=== PATIENT | female | born 1950 | race Caucasian/White ===

== ENCOUNTER 2017-08-10 14:28 | Inpatient (IN) | payer MEDICARE, OTHER, SELFPAY ==
[2017-08-10] VITALS (19 sets, daily range): BP systolic 92–119; BP diastolic 64–85; PULSE 112–149; RESP 14–20; TEMP 35.8–37.1; O2SAT 95–99; BMI 42.5; BMI 42.6; BMI 42.0
--- NOTE | 2017-08-10 14:46 | EKG12_ITS ---
Test Reason : SOB Blood Pressure : / mmHG Vent. Rate : 152 BPM Atrial Rate : 174 BPM P-R Int : 000 ms QRS Dur : 100 ms QT Int : 256 ms P-R-T Axes : 000 050 091 degrees QTc Int : 407 ms Atrial fibrillation Nonspecific T wave abnormality Abnormal ECG Confirmed by BENITA BARRERA, GERI ([id number]), editorial project manager TON AVILA ([id number]) on 08/16/2017 8:57:42 AM Referred By: ROSIE/FRANCIA Confirmed By:GERI JOY MD
--- NOTE | 2017-08-10 14:50 | RAD_ITS ---
STUDY: X-RAY CHEST REASON FOR EXAM: Female, 67 years old. Chest pain. Shortness of breath. TECHNIQUE: Single AP portable view of the chest. COMPARISON: Comparison is made with prior study dated February 27, 2013. FINDINGS: EKG electrodes are seen. Mild increased markings at the lung bases with blunting of both costophrenic angles suggestive of bibasilar atelectasis. Sternal cerclage wires and vascular clips are present from a prior sternotomy and coronary artery bypass graft procedure (CABG). Cardiomegaly. Normal mediastinum and álvaro. Normal visualized pulmonary arteries. There is atherosclerotic calcification of the aortic arch with tortuosity. There are diffuse degenerative changes of the visualized thoracic spine. There is degenerative osteoarthritis of the bilateral shoulders. There is no demonstrated abnormality of the visualized soft tissue structures of the upper abdomen. RAD/Chest 1 View (Portable) IMPRESSION: Mild increased markings at the lung bases with blunting of both costophrenic angles. Follow-up is recommended. Electronically Signed: Delfino Carey MD at 15:19 EDT Tel [phone], Service support ,
--- NOTE | 2017-08-10 14:51 | ED.VISSUMM ---
- ER Visit Summary Date of Service: 08/10/17 Chief Complaint: Shortness of breath and cough History of Present Illness: The patient is a 67 F of breath and a cough approximately a week. She has had a prior triple bypass done in 2011. Also a known history of mfw-qfbshic-cnmmymhns diabetes, hypertension, asthma. She denies any history prior A. fib. Patient states he has been short of breath for about a week. Denies any chest pain or hemoptysis. She has had a nonproductive cough and some diarrhea. No fever. Physical Examination: Older female no acute distress. Heart rate is 130s-150s. Pulse ox 99% room air no signs of hypoxia. HEENT exam is unremarkable. Neck nontender no JVD no lymphadenopathy. Lungs clear to auscultation bilaterally. Heart A. fib RVR rate in the 150s. Abdomen is soft and nontender. Normal bowel sounds no peritoneal signs. Extremities she moves all 4. She has 1+ pitting edema both lower extremities. Calves are nontender. She has chronic edema but states this is worse. Neurologically she is awake and alert and moving all 4 extremities. No focal motor deficits. Test Results: EKG shows new onset A. fib RVR with a rate of 152. Nonspecific ST-T changes laterally. CBC she is awake and 11 H&H 13 and 42. Electrolytes unremarkable BUN 32 creatinine 1.2 normal gap. PT/INR is 15 and 1.2. Troponin normal. Chest x-ray chronic changes no acute process read both by myself and the radiologist. Emergency Department Course and Treatment: Patient has new onset A. fib RVR want to go a cardiac workup and will need to be admitted. She will be treated with IV Cardizem. Treatment Plan: Well at 1543. Her current heart rates 110 still in A. fib. Her blood pressure is 100/81. She is resting comfortably. I will speak to hospitalist about admission. Disposition: Admission Impression: New-onset A. fib RVR Dyspnea History of triple bypass 2011 History of tqh-jyiimpp-sdotxgxtp diabetes This note was generated with [employer] dictation software. It may contain incorrect words, spelling, and punctuation that were not noted in review of the chart prior to signing ED Disposition - Plan for ED Patient: Chief Complaint: Shortness of Breath Referrals: Yaya Centeno DO [Primary Care Provider] -
--- NOTE | 2017-08-10 14:56 | ED.DCSUM_ITS ---
- ER Visit Summary Date of Service: 08/10/17 Chief Complaint: Shortness of breath and cough History of Present Illness: The patient is a 67 F of breath and a cough approximately a week. She has had a prior triple bypass done in 2011. Also a known history of cfn-euehuan-yxmrddcus diabetes, hypertension, asthma. She denies any history prior A. fib. Patient states he has been short of breath for about a week. Denies any chest pain or hemoptysis. She has had a nonproductive cough and some diarrhea. No fever. Physical Examination: Older female no acute distress. Heart rate is 130s-150s. Pulse ox 99% room air no signs of hypoxia. HEENT exam is unremarkable. Neck nontender no JVD no lymphadenopathy. Lungs clear to auscultation bilaterally. Heart A. fib RVR rate in the 150s. Abdomen is soft and nontender. Normal bowel sounds no peritoneal signs. Extremities she moves all 4. She has 1+ pitting edema both lower extremities. Calves are nontender. She has chronic edema but states this is worse. Neurologically she is awake and alert and moving all 4 extremities. No focal motor deficits. Test Results: EKG shows new onset A. fib RVR with a rate of 152. Nonspecific ST -T changes laterally. CBC she is awake and 11 H&H 13 and 42. Electrolytes unremarkable BUN 32 creatinine 1.2 normal gap. PT/INR is 15 and 1.2. Troponin normal. Chest x-ray chronic changes no acute process read both by myself and the radiologist. Emergency Department Course and Treatment: Patient has new onset A. fib RVR want to go a cardiac workup and will need to be admitted. She will be treated with IV Cardizem. Treatment Plan: Well at 1543. Her current heart rates 110 still in A. fib. Her blood pressure is 100/81. She is resting comfortably. I will speak to hospitalist about admission. Disposition: Admission Impression: New-onset A. fib RVR Dyspnea History of triple bypass 2011 History of rkc-ensuswq-dospqfbbx diabetes This note was generated with [employer] dictation software. It may contain incorrect words, spelling, and punctuation that were not noted in review of the chart prior to signing ED Disposition - Plan for ED Patient: Chief Complaint: Shortness of Breath Referrals: Yaya Centeno DO [Primary Care Provider] -
[2017-08-10] MEDS: Aspirin 81 MG TAB.CHEW 324 MG PO (14:58)
[2017-08-10] MEDS: dilTIAZem 25 MG/5 ML Vial IV BOLUS (14:59)
[2017-08-10 15:12] LABS: Absolute Lymphocyte Count 2.34 X10^3/ul (0.83-4.51); Absolute Neutrophil Count 8.1 X10^3/uL (2.0-7.7); Basophil# 0.04 X10^3/uL; Basophil% 0.4 % (0-1); Eosinophil# 0.06 X10^3/uL; Eosinophils% 0.5 % (0-5); Hematocrit 42.9 % (37-47); Hemoglobin 13.9 g/dl (12.0-15.0); Lymphocyte # 2.34 X10^3/ul (4.0); Lymphocyte % 20.5 % (19-41); Mean Corp Hgb Conc 32.4 g/gl (32-36); Mean Corpuscular Volume 95.8 fL (81-99); Mean Platelet Vol. 11.7 fl (6.2-12.0); Monocyte# 0.87 X10^3/uL; Monocyte% 7.6 % (0-10); Neutrophil # 8.07 X10^3/uL (2.7-7.7); Neutrophil % 70.7 % (47-70); POSITIVE COUNT NO; POSITIVE DIFFERENTIAL NO; POSITIVE MORPHOLOGY NO; Platelet Count 242 K/mm3 (150-450); RBC Distribution Width CV 14.2 % (11.6-14.6); RBC Distribution Width SD 49.3 fl (35.1-43.9); Red Blood Count 4.48 M/mm3 (4.2-5.4); White Blood Count 11.4 K/mm3 (4.4-11.0)
[2017-08-10 15:27] LABS: BUN 32 mg/dL (7-18); Glucose 181 mg/dL (74-106)
[2017-08-10 15:28] LABS: Anion Gap 10 (5-15); BUN/Creat Ratio 26.7 RATIO (10-20); Chloride 109 mmol/L (98-107); EST Glomerular Filtration Rate 47 mL/min (>60); Est Glom Filt Rate - Afr Amer 57 mL/min (>60); Potassium 4.4 mmol/L (3.5-5.1); Sodium Level 141 mmol/L (136-145)
[2017-08-10 15:29] LABS: International Normalized Ratio 1.2; Prothrombin Time (Protime)PT. 15.6 SECONDS (11.7-14.9)
--- NOTE | 2017-08-10 15:40 | CM.ED ---
Addendum entered by Brittany Campoverde 08/10/17 15:48: Patient states she does not have a living will / POA and denies information and assistance at this time. Original Note: CM Initial Assessment: PCP: Yaya Centeno. Patient states she sees PCP every six months. Specialists: Patient states she does not have an automobile technician. Sees podiatry for nail trimming. Pharmacy: [facility] Home: Patient states she lives in a one story home with three steps into home. Patient denies use of DME and does not foresee need. She lives with her . The patient states her has oxygen through [employer], but she has never needed home oxygen. She also denies ever having home health services. Other: Patient states she has all diabetes supply needs and denies problems with obtaining such materials. CM to continue to follow as plan unveils.
--- NOTE | 2017-08-10 16:06 | NURSING ---
105 AFIB RVR NEW ONSET DAVID
--- NOTE | 2017-08-10 16:33 | PCM.HP.STD ---
Problem List (1) New onset a-fib Status: Acute Comment: with RVR (2) Bronchitis Status: Acute Comment: mild bronchospasm (3) CHERISE (obstructive sleep apnea) Status: Chronic (4) HTN (hypertension) Status: Chronic Qualifiers: Hypertension type: essential hypertension Qualified Code(s): I10 - Essential (primary) hypertension (5) Hx of CABG Status: Chronic (6) Hyperlipemia Status: Chronic Qualifiers: Hyperlipidemia type: mixed hyperlipidemia Qualified Code(s): E78.2 - Mixed hyperlipidemia (7) Diabetes mellitus Status: Chronic Qualifiers: Diabetes mellitus type: type 2 Diabetes mellitus residential insulin use: without residential use Diabetes mellitus complication detail: with chronic kidney disease Chronic kidney disease stage: stage 3 (moderate) History of Present Illness Date of Admission: 08/10/17 Chief Complaint: dyspnea The patient is a 67 year old F past medical history of obesity, hypertension, diabetes mellitus 2 on oral agents, CAD status post remote CABG ?3, who was referred from urgent care for evaluation of dyspnea without hypoxemia. She has had wheezing and a cough for the past few days. She was not using her home inhalers. She denies chest pain, nausea vomiting diarrhea, syncope, presyncope, pleuritic pain, leg pain, fevers chills nausea vomiting diarrhea. ED Evaluation: Afebrile, heart rate 130s-150s irregularly irregular, blood pressure 119/75, respirations 20, 99% RA Course are pertinent for elevated white count 11.4, otherwise unrevealing, INR 1.2, chemistries acceptable with creatinine 1.2, estimated creatinine clearance 47 mL's per minute, random glucose 181, troponin less than 0.2 EKG revealed atrial fibrillation at 152, nonspecific changes, new compared with EKG 12/2013 Chest x-ray revealed bibasilar markings, suggestive of atelectasis, no other infiltrate Received aspirin 324 mg p.o. ?1, and diltiazem 25 mg IV. Heart rate remains variable between 90s and 120s. The patient is in no acute distress, and will be admitted to PCU for further management of bronchitis with bronchospasm, and new onset A. fib RVR. [id number] score = 4. Patient has no contraindication to anticoagulation [] Past Medical History Past Medical History (Chronic Problems): Chronic Problems Obesity (Chronic) CHERISE (obstructive sleep apnea) (Chronic) HTN (hypertension) (Chronic) Hx of CABG (Chronic) Hyperlipemia (Chronic) Diabetes mellitus (Chronic) Allergies No Known Allergies Allergy (Verified 08/10/17 14:29) Home Medications: Ambulatory Orders Medication Instructions Recorded Metformin(XR) [Glucophage Xr] 850 mg PO BID 02/27/13 Simvastatin [Zocor] 40 mg PO QHS 02/27/13 Albuterol Inhaler [Ventolin Hfa] 2 puff INHALATION 4X/DAY PRN PRN 12/19/13 Amlodipine [Norvasc] 5 mg PO DAILY 12/19/13 Aspirin [Aspirin, Baby] 81 mg PO DAILY@0800 12/19/13 Glimepiride 1 mg PO BREAKFAST 12/19/13 Losartan Potassium [Cozaar] 50 mg PO BID 12/19/13 Metoprolol Tartrate [Lopressor 50 mg PO BID 12/19/13 (beta jessica)] Mometasone Furoate [Asmanex 110 110 mcg INHALATION BID 12/19/13 mcg Twisthaler] Surgical History: cholecystectomy, coronary bypass surgery, hysterectomy - Total hysterectomy, - - Coronary artery bypass grafting x3 Smoking Status: Never smoker - *Family History Paternal History Items: Cancer Maternal History Items: COPD Review of Systems Respiratory: Reports: Shortness of breath upon exertion, Wheezing VTE Information - Inpt Only VTE Present on Admission: No VTE Mechan Device Prophylaxis: SCD's VTE Pharm Prophylaxis ordered?: No Reason prophylaxis not ordered:: Medical Contraindication - already anticoagulated Patient Problems: Active and Suspected Problems New onset a-fib (Acute) with RVR Bronchitis (Acute) mild bronchospasm Objective: NAD no toxic appearing - Physical Exam General: Oriented x3 HEENT: Atraumatic, PERRLA Oral: Moist Mucosa, - - dentition fair Neck: No JVD, Negative Carotid Bruits, Thyroid Normal Size and Texture Lungs: Wheezes - faint Cardiovascular: Irregular Rate, Tachycardic Abdomen: Soft, Non Tender, Non-Distended, Obese Extremities: No clubbing, Edema, Peripheral Pulses Normal Neurological: - - nonfocal Psych/Mental Status: Normal Affect, Appropriate Vital Signs Temp Pulse Resp BP Pulse Ox 96.5 F L 112 H 14 115/85 H 99 08/10/17 14:30 08/10/17 16:09 08/10/17 16:09 08/10/17 16:09 08/10/17 16:09 Assessment/Plan Active and Suspected Problems New onset a-fib (Acute) with RVR Bronchitis (Acute) mild bronchospasm 67-year-old patient with past medical history of CAD, CABG ?3, NIDDM, hypertension, obesity, CHERISE, mild persistent asthma, who is referred from urgent care for dyspnea, mild cough with wheeze, without hypoxemia, and is found to have new onset A. fib RVR with mild bronchitis/bronchospasm. Patient reports she has not used her inhalers. She denies chest pain, pleuritic pain, leg pain, syncope, presyncope, orthopnea, PND. 1. New onset atrial fibrillation RVR In the setting of hypertension/hypertensive heart disease likely, diabetes, obesity [id number] = 4 PLAN: Admit PCU TSH Serial cardiac biomarkers, telemetry monitoring Diltiazem drip protocol Holding metoprolol Xarelto 15 mg twice daily ?21 days, then decrease to 20 mg daily Echocardiogram Cardiology opinion 2. Bronchitis with bronchospasm Underlying mild persistent asthma Has had cough chronically off and on since her bypass surgery Light wheezing on examination bibasilar atelectasis on CXR Was not using her prescribed Asmanex or Ventolin Plan: Albuterol aerosol every 4 hours as needed Prednisone 40 mg daily ?5 days Robitussin-DM as needed, Mucinex, Cepacol 3. NIDDM, premorbidly on Glucophage, Amaryl Holding Amaryl and Glucophage NovoLog scale moderate before meals, at bedtime 4. Hypertension Continue losartan, amlodipine Holding metoprolol, as patient will be on diltiazem drip 5. CHERISE 6. DVT prophy - already anticoagulated
--- NOTE | 2017-08-10 16:45 | HP.PCM_ITS ---
Problem List (1) New onset a-fib Status: Acute Comment: with RVR (2) Bronchitis Status: Acute Comment: mild bronchospasm (3) CHERISE (obstructive sleep apnea) Status: Chronic (4) HTN (hypertension) Status: Chronic Qualifiers: Hypertension type: essential hypertension Qualified Code(s): I10 - Essential (primary) hypertension (5) Hx of CABG Status: Chronic (6) Hyperlipemia Status: Chronic Qualifiers: Hyperlipidemia type: mixed hyperlipidemia Qualified Code(s): E78.2 - Mixed hyperlipidemia (7) Diabetes mellitus Status: Chronic Qualifiers: Diabetes mellitus type: type 2 Diabetes mellitus alf insulin use: without alf use Diabetes mellitus complication detail: with chronic kidney disease Chronic kidney disease stage: stage 3 (moderate) History of Present Illness Date of Admission: 08/10/17 Chief Complaint: dyspnea The patient is a 67 year old F past medical history of obesity, hypertension, diabetes mellitus 2 on oral agents, CAD status post remote CABG ?3, who was referred from urgent care for evaluation of dyspnea without hypoxemia. She has had wheezing and a cough for the past few days. She was not using her home inhalers. She denies chest pain, nausea vomiting diarrhea, syncope, presyncope , pleuritic pain, leg pain, fevers chills nausea vomiting diarrhea. ED Evaluation: Afebrile, heart rate 130s-150s irregularly irregular, blood pressure 119/75, respirations 20, 99% RA Course are pertinent for elevated white count 11.4, otherwise unrevealing, INR 1.2, chemistries acceptable with creatinine 1.2, estimated creatinine clearance 47 mL's per minute, random glucose 181, troponin less than 0.2 EKG revealed atrial fibrillation at 152, nonspecific changes, new compared with EKG 12/2013 Chest x-ray revealed bibasilar markings, suggestive of atelectasis, no other infiltrate Received aspirin 324 mg p.o. ?1, and diltiazem 25 mg IV. Heart rate remains variable between 90s and 120s. The patient is in no acute distress, and will be admitted to PCU for further management of bronchitis with bronchospasm, and new onset A. fib RVR. [id number] score = 4. Patient has no contraindication to anticoagulation [] Past Medical History Past Medical History (Chronic Problems): Chronic Problems Obesity (Chronic) CHERISE (obstructive sleep apnea) (Chronic) HTN (hypertension) (Chronic) Hx of CABG (Chronic) Hyperlipemia (Chronic) Diabetes mellitus (Chronic) Allergies No Known Allergies Allergy (Verified 08/10/17 14:29) Home Medications: Ambulatory Orders Medication Instructions Recorded Metformin(XR) [Glucophage Xr] 850 mg PO BID 02/27/13 Simvastatin [Zocor] 40 mg PO QHS 02/27/13 Albuterol Inhaler [Ventolin Hfa] 2 puff INHALATION 4X/DAY PRN PRN 12/19/13 Amlodipine [Norvasc] 5 mg PO DAILY 12/19/13 Aspirin [Aspirin, Baby] 81 mg PO DAILY@0800 12/19/13 Glimepiride 1 mg PO BREAKFAST 12/19/13 Losartan Potassium [Cozaar] 50 mg PO BID 12/19/13 Metoprolol Tartrate [Lopressor 50 mg PO BID 12/19/13 (beta jessica)] Mometasone Furoate [Asmanex 110 110 mcg INHALATION BID 12/19/13 mcg Twisthaler] Surgical History: cholecystectomy, coronary bypass surgery, hysterectomy - Total hysterectomy, - - Coronary artery bypass grafting x3 Smoking Status: Never smoker - *Family History Paternal History Items: Cancer Maternal History Items: COPD Review of Systems Respiratory: Reports: Shortness of breath upon exertion, Wheezing VTE Information - Inpt Only VTE Present on Admission: No VTE Mechan Device Prophylaxis: SCD's VTE Pharm Prophylaxis ordered?: No Reason prophylaxis not ordered:: Medical Contraindication - already anticoagulated Patient Problems: Active and Suspected Problems New onset a-fib (Acute) with RVR Bronchitis (Acute) mild bronchospasm Objective: NAD no toxic appearing - Physical Exam General: Oriented x3 HEENT: Atraumatic, PERRLA Oral: Moist Mucosa, - - dentition fair Neck: No JVD, Negative Carotid Bruits, Thyroid Normal Size and Texture Lungs: Wheezes - faint Cardiovascular: Irregular Rate, Tachycardic Abdomen: Soft, Non Tender, Non-Distended, Obese Extremities: No clubbing, Edema, Peripheral Pulses Normal Neurological: - - nonfocal Psych/Mental Status: Normal Affect, Appropriate Vital Signs Temp Pulse Resp BP Pulse Ox 96.5 F L 112 H 14 115/85 H 99 08/10/17 14:30 08/10/17 16:09 08/10/17 16:09 08/10/17 16:09 08/10/17 16:09 Assessment/Plan Active and Suspected Problems New onset a-fib (Acute) with RVR Bronchitis (Acute) mild bronchospasm 67-year-old patient with past medical history of CAD, CABG ?3, NIDDM, hypertension, obesity, CEHRISE, mild persistent asthma, who is referred from urgent care for dyspnea, mild cough with wheeze, without hypoxemia, and is found to have new onset A. fib RVR with mild bronchitis/bronchospasm. Patient reports she has not used her inhalers. She denies chest pain, pleuritic pain, leg pain , syncope, presyncope, orthopnea, PND. 1. New onset atrial fibrillation RVR In the setting of hypertension/hypertensive heart disease likely, diabetes, obesity [id number] = 4 PLAN: Admit PCU TSH Serial cardiac biomarkers, telemetry monitoring Diltiazem drip protocol Holding metoprolol Xarelto 15 mg twice daily ?21 days, then decrease to 20 mg daily Echocardiogram Cardiology opinion 2. Bronchitis with bronchospasm Underlying mild persistent asthma Has had cough chronically off and on since her bypass surgery Light wheezing on examination bibasilar atelectasis on CXR Was not using her prescribed Asmanex or Ventolin Plan: Albuterol aerosol every 4 hours as needed Prednisone 40 mg daily ?5 days Robitussin-DM as needed, Mucinex, Cepacol 3. NIDDM, premorbidly on Glucophage, Amaryl Holding Amaryl and Glucophage NovoLog scale moderate before meals, at bedtime 4. Hypertension Continue losartan, amlodipine Holding metoprolol, as patient will be on diltiazem drip 5. CHERISE 6. DVT prophy - already anticoagulated
[2017-08-10 18:01] LABS: Bedside Glucose 94 mg/dL (70-110)
[2017-08-10] MEDS: Metoprolol Tartrate 5 MG/5 ML Vial IV ×4 (18:58→22:48)
[2017-08-10] MEDS: predniSONE 20 MG Tablet 40 MG PO (18:58)
[2017-08-10] MEDS: 0.9% NaCl Peripheral Flush Adult/Peds IV ×2 (18:58→22:48)
[2017-08-10] MEDS: guaiFENesin Dm 10 ML UDC PO (18:58)
--- NOTE | 2017-08-10 19:02 | CON.PCM_ITS ---
Reason for Consult Date of Consultation: 08/10/17 Reason for Consultation: Shortness of breath and irregular heartbeat. History of Present Illness: The patient is a 67 year old F's medical history significant for coronary artery bypass surgery in 2011 as well as hypertension obesity who has not followed up with a chief merchandising officer since her bypass surgery. She says that she had not been feeling well over the last week or 2 felt she had a cold and went to the urgent care today. She was evaluated there and noted to be in atrial fibrillation with rapid ventricular response rate and she was sent to the emergency room. In the emergency room she was noted to have stable vitals but with a heart rate of 140 bpm and irregular she was treated with intravenous Cardizem and an admission order placed and sent to the progressive care unit. Cardiology was called for further evaluation and management. She denies any chest pain but she has had shortness of breath and chronic pedal edema. She also has had a cough no dizziness or diaphoresis no near syncope or syncope. [] Past Medical History Allergies/Adverse Reactions: Allergies No Known Allergies Allergy (Verified 08/10/17 14:29) Home Medications: Ambulatory Orders Medication Instructions Recorded Metformin(XR) [Glucophage Xr] 850 mg PO BID 02/27/13 Simvastatin [Zocor] 40 mg PO QHS 02/27/13 Albuterol Inhaler [Ventolin Hfa] 2 puff INHALATION 4X/DAY PRN PRN 12/19/13 Amlodipine [Norvasc] 5 mg PO DAILY 12/19/13 Aspirin [Aspirin, Baby] 81 mg PO DAILY@0800 12/19/13 Glimepiride 1 mg PO BREAKFAST 12/19/13 Losartan Potassium [Cozaar] 50 mg PO BID 12/19/13 Metoprolol Tartrate [Lopressor 50 mg PO BID 12/19/13 (beta jessica)] Mometasone Furoate [Asmanex 110 110 mcg INHALATION BID 12/19/13 mcg Twisthaler] Past Medical History (Chronic Problems): Chronic Problems Obesity (Chronic) CHERISE (obstructive sleep apnea) (Chronic) HTN (hypertension) (Chronic) Hx of CABG (Chronic) Hyperlipemia (Chronic) Diabetes mellitus (Chronic) Surgical History: cholecystectomy, coronary bypass surgery, hysterectomy - Total hysterectomy, - - Coronary artery bypass grafting x3 - *Family History Paternal History Items: Cancer Maternal History Items: COPD Smoking Status: Never smoker Alcohol: None Drugs: None Review of Systems - Review of Systems General: Denies: Fever, Night Sweats, Fatigue Cardiovascular: Reports: Peripheral Edema. Denies: Chest Discomfort, Shortness of Breath, Orthopnea, PND, Palpitations, Lightheadedness, Dizziness, Near Syncope, Syncope Respiratory: Reports: Cough. Denies: Sputum Production, Hemoptysis Gastrointestinal: Denies: Hematemesis, Hematochezia, Melena Genitourinary: Denies: Dysuria, Hematuria Skin: Denies: Rash Subjectve: Middle-aged lady in mild respiratory distress Objective: Vital Signs Temp Pulse Resp BP Pulse Ox 98.8 F 144 H 18 98/74 99 08/10/17 17:51 08/10/17 18:00 08/10/17 17:51 08/10/17 17:51 08/10/17 17:51 Oxygen Delivery Method Room Air Weight: 237 lb 3.478 oz Body Mass Index (BMI) 42.0 General: Awake, Alert, Oriented x 3, Obese HEENT: PERRL, EOMI, Sclera Non Icteric Neck: Supple, Good ROM, No Lymph Node Enlargement Lungs: Expiratory Wheezes-Richard Cardiovascular: Irregular Rhythm, Normal S1, Normal S2, No Murmurs, No Rubs, No Gallops Vascular: No Carotid Bruits, Normal Femoral Pulses, Normal Radial Pulses, Normal Dorsalis Pedal Pulse, Normal Posterior Tibial Pulses Abdomen: Bowel Sounds Present, Soft, Non Tender, No HSM, No Organomegaly Extremities: No Cyanosis, No Clubbing, No edema, Bilateral Edema +1 Neurological: No Focal Motor or Sensory Deficit Rhythm: EKG: Atrial fibrillation with a rapid ventricular response rate of 143 bpm. Assessment/Plan 1. Atrial fibrillation with a rapid ventricular response rate duration unknown. She presents with palpitations and is noted to be in atrial for ablation with rapid ventricular response rate. The exact duration is unknown at this time. I do agree that with her elevated chads vascular score she should be anticoagulated and her rate controlled. She has previously been on a beta- jessica and with a shortage of Cardizem my recommendation would be to put her on IV metoprolol 5 mg every 5 minutes and start her on the p.o. An echocardiogram should be performed to assess her left ventricular function. Further recommendations will be to made depending on the results of the above. 2. Coronary artery disease. She is status post coronary bypass surgery. She has not followed up with any chief merchandising officer and after she has been evaluated for atrial fibrillation it may be prudent to obtain a pharmacologic myocardial perfusion stress test to exclude any ischemia. 3. Hypertension Blood pressure appears to be under good control on the current medical therapy and no other major changes will be made. 4. Congestive heart failure-diastolic. Acute This is likely secondary to the atrial fibrillation with a rapid ventricular response rate. Ischemia however cannot be completely excluded.Recommendation will be to obtain a natruretic peptide and then diurese her and obtain the echocardiogram. Recommendations will then be made. Thank you for allowing me to participate in the care of your patient. Please don't hesitate to call if any issues arise
[2017-08-10] MEDS: Furosemide 40 MG/4 ML Vial IV (19:51)
[2017-08-10 20:21] LABS: BNP,B-Type NATRIURETIC PEPTIDE 505.8 pg/mL (0-100)
[2017-08-10 20:36] LABS: Thyroid Stim Hormone (TSH) 6.76 uIU/mL (0.358-3.74)
[2017-08-10] MEDS: guaiFENesin 600 MG Tablet PO (21:33)
[2017-08-10] MEDS: Rivaroxaban 20 MG Tablet 15 MG PO (21:33)
[2017-08-10] MEDS: Metoprolol Tartrate 50 MG Tablet PO (21:34)
[2017-08-10] MEDS: Atorvastatin Calcium 20 MG Tablet PO (21:35)
[2017-08-10 22:46] LABS: Bedside Glucose 183 mg/dL (70-110)
[2017-08-11] VITALS (44 sets, daily range): BP systolic 92–127; BP diastolic 30–97; PULSE 78–137; RESP 18–33; TEMP 35.9–36.9; O2SAT 94–100
[2017-08-11] MEDS: 0.9% NaCl Peripheral Flush Adult/Peds IV ×3 (01:20→20:41)
--- NOTE | 2017-08-11 05:55 | ECHOD_ITS ---
Version 2 Reason For Study: A. fib/flutter Procedure This was a 2D Doppler, Color Flow transthoracic echocardiogram. Exam performed portable in patient room. Left Ventricle Normal LV size. Severe global left ventricular systolic dysfunction. The estimated ejection fraction is 20 %. Unable to assess diastolic dysfunction. There is moderate to severe global hypokinesis of the left ventricle. Right Ventricle Normal RV size. Normal systolic function. Atria The left atrium is moderately enlarged. Normal right atrium. Mitral Valve Normal mitral valve. Moderate (2+) eccentric mitral valve insufficiency. Tricuspid Valve Normal tricuspid valve. Mild to moderate (1-2+) tricuspid valve insufficiency. Pulmonary artery systolic pressure is 34 mmHg. Aortic Valve Trisinus/trileaflet aortic valve. Pulmonic Valve Normal pulmonic valve. Great Vessels Normal aortic root. The pulmonary artery is normal size. Normal inferior vena cava. Pericardium/Pleural No pericardial effusion. Medication Diluted definity 3ml given slow IV push to enhance endocardial definition. MMode/2D Measurements & Calculations LVIDd: 5.1 cm IVSd: 0.98 cm Ao root diam: 3.6 cm LVIDs: 4.3 cm LVPWd: 1.0 cm LA dimension: 5.8 cm FS: 16.1 % LAV(MOD-bp): 93.1 ml LAV(MOD-bp) Indexed: 44.8 ml/m2 LA A4 area: 26.3 cm2 RA A4 area: 16.1 cm2 LAV(MOD-sp2): 95.7 ml LAV(MOD-sp4): 88.3 ml Doppler Measurements & Calculations MV E max alvaro: 124.6 cm/sec Ao V2 max: 93.2 cm/sec LV V1 max: 66.4 cm/sec Ao max P.6 mmHg LV V1 max P.8 mmHg PA V2 max: 68.3 cm/sec TR max alvaro: 270.7 cm/sec TR max P.5 mmHg Interpretation Summary Normal LV size. Severe global left ventricular systolic dysfunction. The estimated ejection fraction is 20 %. Unable to assess diastolic dysfunction. The left atrium is moderately enlarged. Compared to the previous the LV function is declined. Contrast injection was performed. Ordering Physician: Joan Zapata Referring Physician: Yaya Centeno Performed By: Tamara Muñoz RDCS
[2017-08-11 06:01] LABS: ALB/GLOB Ratio 1.1 RATIO (0.9-2.4); AST(SGOT) 30 U/L (15-37); Alanine Aminotransfer ALT/SGPT 67 U/L (13-56); Albumin, Serum 3.5 g/dL (3.2-5.0); Alkaline Phosphatase 51 U/L (45-117); Anion Gap 12 (5-15); BUN 39 mg/dL (7-18); BUN/Creat Ratio 25.8 RATIO (10-20); Calcium,Total 8.7 mg/dL (8.5-10.1); Chloride 108 mmol/L (98-107); Cholesterol 87 mg/dL (200); Creatinine, Serum 1.51 mg/dL (0.55-1.02); EST Glomerular Filtration Rate 36 mL/min (>60); Est Glom Filt Rate - Afr Amer 44 mL/min (>60); Estimated Creatinine Clearance 29.09 ml/min; Globulin 3.3 g/dL (2.2-4.2); Glucose 261 mg/dL (74-106); High Density Lipoprotein 23 mg/dL; Potassium 4.5 mmol/L (3.5-5.1); Protein, Total 6.8 g/dL (6.4-8.2); Sodium Level 143 mmol/L (136-145); Triglycerides 123 mg/dL; Very Low Density Lipoprotein 25 mg/dL (5-40)
[2017-08-11 06:03] LABS: BNP,B-Type NATRIURETIC PEPTIDE 867.1 pg/mL (0-100)
[2017-08-11 07:06] LABS: Bedside Glucose 233 mg/dL (70-110)
[2017-08-11] MEDS: predniSONE 20 MG Tablet 40 MG PO (07:59)
[2017-08-11] MEDS: Aspirin 81 MG TAB.CHEW PO (07:59)
--- NOTE | 2017-08-11 08:20 | PN.CARD_ITS ---
Subjectve: Patient seen and evaluated. Appears to be doing better this morning. Objective: Vital Signs Temp Pulse Resp BP Pulse Ox 97.7 F L 101 H 24 H 107/73 99 08/11/17 08:00 08/11/17 08:00 08/11/17 08:00 08/11/17 08:00 08/11/17 08:00 Oxygen Flow Rate (L/min) 2 Oxygen Delivery Method Nasal Cannula Weight: 237 lb 3.478 oz Body Mass Index (BMI) 42.0 Intake and Output for Last 24 Hours 08/09/17 08/10/17 08/11/17 23:59 23:59 23:59 Intake Total 120 / 120 60 / 60 Balance 120 / 120 60 / 60 General: Awake, Alert, Oriented x 3 HEENT: PERRL, EOMI, Sclera Non Icteric Neck: Supple, Good ROM, No Lymph Node Enlargement Lungs: Clear to auscultation Cardiovascular: Irregular Rhythm, Normal S1, Normal S2, No Murmurs, No Rubs, No Gallops Vascular: No Carotid Bruits, Normal Femoral Pulses, Normal Radial Pulses, Normal Dorsalis Pedal Pulse, Normal Posterior Tibial Pulses Abdomen: Bowel Sounds Present, Soft, Non Tender, No HSM, No Organomegaly Extremities: No Cyanosis, No Clubbing, No edema Neurological: No Focal Motor or Sensory Deficit 08/10/17 18:52: Troponin I < 0.02 08/10/17 22:37: Troponin I < 0.02 08/11/17 05:00: B-Natriuretic Peptide 867.1 H 08/11/17 05:00: Sodium 143, Potassium 4.5, Chloride 108 H, Carbon Dioxide 23.0, Anion Gap 12, BUN 39 H, Creatinine 1.51 H, Est GFR (MDRD) Af Amer 44 L, Est GFR (MDRD) Non-Af 36 L, BUN/Creatinine Ratio 25.8 H, Glucose 261 H, Calcium 8.7, Total Bilirubin 0.60, Troponin I < 0.02, Triglycerides 123, Cholesterol 87, LDL Cholesterol 39, VLDL Cholesterol 25, HDL Cholesterol 23 L Rhythm: EKG: ECHO: Stress Test: Cardiac Cath: PCI: CT Surgery: Holter monitor: EPS: PPM: CXR: Chest CT Scan: Medical Necessity - Tobacco Use Smoking Status: Never smoker Assessment/Plan 1. Atrial fibrillation with a rapid ventricular response rate duration unknown. She presents with palpitations and is noted to be in atrial for ablation with rapid ventricular response rate. The exact duration is unknown at this time. I do agree that with her elevated chads vascular score she should be anticoagulated and her rate controlled. She has previously been on a beta- jessica and with a shortage of Cardizem my recommendation would be to put her on IV metoprolol 5 mg every 5 minutes and start her on the p.o. An echocardiogram should be performed to assess her left ventricular function. Further recommendations will be to made depending on the results of the above. This morning her rate appears to be better we will continue the p.o. beta- jessica and then further recommendations made. Due to renal dysfunction I will anticoagulate her with Eliquis 2.5 mg twice a day. The rivaroxaban will be stopped 2. Coronary artery disease. She is status post coronary bypass surgery. She has not followed up with any playground attendant and after she has been evaluated for atrial fibrillation it may be prudent to obtain a pharmacologic myocardial perfusion stress test to exclude any ischemia. 3. Hypertension Blood pressure appears to be under good control on the current medical therapy and no other major changes will be made. 4. Congestive heart failure-diastolic. Acute This is likely secondary to the atrial fibrillation with a rapid ventricular response rate. Ischemia however cannot be completely excluded. Her natruretic peptide was elevated and we will continue to diurese her. Thank you for allowing me to participate in the care of your patient. Please don't hesitate to call if any issues arise
[2017-08-11 10:05] LABS: Hemoglobin A1c 7.4 % (4.2-6.3)
[2017-08-11] MEDS: APIXABAN 2.5 MG TABLET PO ×2 (10:25→21:47)
[2017-08-11] MEDS: Furosemide 40 MG/4 ML Vial IV ×2 (10:25→20:41)
[2017-08-11] MEDS: Metoprolol Tartrate 50 MG Tablet PO ×2 (10:26→21:47)
[2017-08-11] MEDS: guaiFENesin 600 MG Tablet PO ×2 (10:27→21:47)
[2017-08-11] MEDS: Fluticasone 0.05% 1 SPRAY NASAL.SRY 2 SPRAY NASAL (10:33)
[2017-08-11] MEDS: Ipratropium/Albuterol Sulfate 3 ML AMPUL.NEB INHALATION ×2 (10:49→18:59)
[2017-08-11 11:35] LABS: Bedside Glucose 386 mg/dL (70-110)
[2017-08-11] MEDS: Digoxin 250 MCG/ML Ampul IV ×2 (12:01→20:41)
--- NOTE | 2017-08-11 16:28 | PCM.PROGNOTE ---
<Iván Sanon - Last Filed: 08/11/17 16:28> Patient Problems: Active and Suspected Problems New onset a-fib (Acute) with RVR Bronchitis (Acute) mild bronchospasm Subjective: Pt resting comfortably in bed. She still has some SOB, cough, and wheezing. She has a hx of asthma. She has been saturating well but has requested to stay on the O2 as she intermittently feels SOB and desires it for comfort. - Physical Exam General: Alert, Oriented x3, Cooperative HEENT: Atraumatic, PERRLA, EOMI, Normocephalic Neck: Supple, No JVD, Negative Carotid Bruits Lungs: Rales, Wheezes - faint expiratory Cardiovascular: No murmurs, Irregular Rate, Tachycardic Abdomen: Bowel Sounds Present, Soft, Non Tender, Obese Extremities: Capillary Refill Less than 3 Seconds, Edema Skin: No rashes, No breakdown Musculoskeletal: No Tenderness to Palpation of Joints or Extremities Neurological: Cranial nerves II-XII grossly intact Psych/Mental Status: Normal Affect, Appropriate, Alert and oriented to time, place, person, mood and affect Vital Signs Temp Pulse Resp BP Pulse Ox 97.3 F L 93 33 H 115/79 99 08/11/17 16:00 08/11/17 16:20 08/11/17 16:20 08/11/17 16:00 08/11/17 16:20 Oxygen Flow Rate (L/min) 2 Oxygen Delivery Method Nasal Cannula Weight: 107.6 kg Body Mass Index (BMI) 42.0 Intake and Output for Last 24 Hours 08/09/17 08/10/17 08/11/17 23:59 23:59 23:59 Intake Total 120 / 120 401 / 401 Output Total 400 / 400 Balance 120 / 120 Laboratory Tests Past 24 Hrs 08/10/17 08/10/17 08/10/17 18:52 18:52 22:37 Sodium Potassium Chloride Carbon Dioxide Anion Gap BUN Creatinine Estim Creat Clear Calc Est GFR (MDRD) Af Amer Est GFR (MDRD) Non-Af BUN/Creatinine Ratio Glucose Hemoglobin A1c Calcium Magnesium Total Bilirubin AST ALT Alkaline Phosphatase Troponin I < 0.02 < 0.02 B-Natriuretic Peptide Total Protein Albumin Globulin Albumin/Globulin Ratio Triglycerides Cholesterol LDL Cholesterol VLDL Cholesterol HDL Cholesterol TSH 6.76 H Free T4 08/11/17 08/11/17 08/11/17 05:00 05:00 05:00 Sodium 143 Potassium 4.5 Chloride 108 H Carbon Dioxide 23.0 Anion Gap 12 BUN 39 H Creatinine 1.51 H Estim Creat Clear Calc 29.09 Est GFR (MDRD) Af Amer 44 L Est GFR (MDRD) Non-Af 36 L BUN/Creatinine Ratio 25.8 H Glucose 261 H Hemoglobin A1c Calcium 8.7 Magnesium Total Bilirubin 0.60 AST 30 ALT 67 H Alkaline Phosphatase 51 Troponin I < 0.02 B-Natriuretic Peptide 867.1 H Total Protein 6.8 Albumin 3.5 Globulin 3.3 Albumin/Globulin Ratio 1.1 Triglycerides 123 Cholesterol 87 LDL Cholesterol 39 VLDL Cholesterol 25 HDL Cholesterol 23 L TSH Free T4 1.20 08/11/17 08/11/17 05:00 09:40 Sodium Potassium Chloride Carbon Dioxide Anion Gap BUN Creatinine Estim Creat Clear Calc Est GFR (MDRD) Af Amer Est GFR (MDRD) Non-Af BUN/Creatinine Ratio Glucose Hemoglobin A1c 7.4 H Calcium Magnesium 2.0 Total Bilirubin AST ALT Alkaline Phosphatase Troponin I B-Natriuretic Peptide Total Protein Albumin Globulin Albumin/Globulin Ratio Triglycerides Cholesterol LDL Cholesterol VLDL Cholesterol HDL Cholesterol TSH Free T4 POC Glucose 08/11/17 08/11/17 08/10/17 11:15 06:51 21:32 POC Glucose 386 H 233 H 183 H 08/10/17 17:55 POC Glucose 94 Medical Necessity - Tobacco Use Smoking Status: Never smoker Assessment/Plan Active and Suspected Problems New onset a-fib (Acute) with RVR Bronchitis (Acute) mild bronchospasm 1. AF with RVR, new onset - cardizem, metoprolol, dig. Cardiology following. As of this AM pulse was still 120s-130's now improved. Xarelto changed to eliquis for renal dysfunction. TSH elevated, T4 normal. 2. Acute Asthma exacerbation - duonebs, prednisone, IS, wean O2 as tolerated. 3. Acute systolic CHF exacerbation - EF 20%. Mod-severe global hypokinesis of the left ventricle, 2+MVI, 1-2+ TVI, PASP 34mmHg. Trop negx4. BNP 505.8. ARB held for renal dysfunction. Continue BB. 4. Elevated creatinine - avoid nephrotoxins. Hold losartan. Decrease lasix. 5. T2DM - orals held. Titarate insulin sliding scale, fluctuant with steroids. A1C 7.4, she would likely benefit from an alternative agent for home given her poor renal function and poor glycemic control. 6. HTN - running on low side. Losartan DCd for now. 7. HLD - statin DVT ppx: eliquis DC planning: wean O2, follow renal function, await cardiology input. This patient was seen by Iván Sanon PA-C under the supervision of Doctor Mirna. <Yaritza Bradley - Last Filed: 08/11/17 20:20> - Physical Exam Vital Signs Temp Pulse Resp BP Pulse Ox 96.7 F L 103 H 26 H 102/75 95 08/11/17 19:00 08/11/17 19:20 08/11/17 19:00 08/11/17 19:00 08/11/17 19:00 Oxygen Flow Rate (L/min) 2 Oxygen Delivery Method Nasal Cannula Weight: 237 lb 3.478 oz Body Mass Index (BMI) 42.0 Intake and Output for Last 24 Hours 08/09/17 08/10/17 08/11/17 23:59 23:59 23:59 Intake Total 120 / 120 455.2 / 455.2 Output Total 1075 / 1075 Balance 120 / 120 -619.8 / -619.8 Laboratory Tests Past 24 Hrs 08/10/17 08/10/17 08/10/17 18:52 18:52 22:37 Sodium Potassium Chloride Carbon Dioxide Anion Gap BUN Creatinine Estim Creat Clear Calc Est GFR (MDRD) Af Amer Est GFR (MDRD) Non-Af BUN/Creatinine Ratio Glucose Hemoglobin A1c Calcium Magnesium Total Bilirubin AST ALT Alkaline Phosphatase Troponin I < 0.02 < 0.02 B-Natriuretic Peptide Total Protein Albumin Globulin Albumin/Globulin Ratio Triglycerides Cholesterol LDL Cholesterol VLDL Cholesterol HDL Cholesterol TSH 6.76 H Free T4 08/11/17 08/11/17 08/11/17 05:00 05:00 05:00 Sodium 143 Potassium 4.5 Chloride 108 H Carbon Dioxide 23.0 Anion Gap 12 BUN 39 H Creatinine 1.51 H Estim Creat Clear Calc 29.09 Est GFR (MDRD) Af Amer 44 L Est GFR (MDRD) Non-Af 36 L BUN/Creatinine Ratio 25.8 H Glucose 261 H Hemoglobin A1c Calcium 8.7 Magnesium Total Bilirubin 0.60 AST 30 ALT 67 H Alkaline Phosphatase 51 Troponin I < 0.02 B-Natriuretic Peptide 867.1 H Total Protein 6.8 Albumin 3.5 Globulin 3.3 Albumin/Globulin Ratio 1.1 Triglycerides 123 Cholesterol 87 LDL Cholesterol 39 VLDL Cholesterol 25 HDL Cholesterol 23 L TSH Free T4 1.20 08/11/17 08/11/17 05:00 09:40 Sodium Potassium Chloride Carbon Dioxide Anion Gap BUN Creatinine Estim Creat Clear Calc Est GFR (MDRD) Af Amer Est GFR (MDRD) Non-Af BUN/Creatinine Ratio Glucose Hemoglobin A1c 7.4 H Calcium Magnesium 2.0 Total Bilirubin AST ALT Alkaline Phosphatase Troponin I B-Natriuretic Peptide Total Protein Albumin Globulin Albumin/Globulin Ratio Triglycerides Cholesterol LDL Cholesterol VLDL Cholesterol HDL Cholesterol TSH Free T4 POC Glucose 08/11/17 08/11/17 08/11/17 16:29 11:15 06:51 POC Glucose 320 H 386 H 233 H 08/10/17 21:32 POC Glucose 183 H Code Visit Patient was seen independently and in conjunction with Iván CONNOR. She is a 67-year-old female who presented to the ED at [facility] on 08/10/17 c/o SOB for the preceding few days and a dry cough for the past year. Her past medical history is significant for coronary artery disease with history of CABG in 2012, hypertension, hyperlipidemia, diabetes mellitus type 2 and chronic renal failure stage III. EKG in the ED showed AF with RVR. She denies any prior hx of AF. She has not seen a grommet worker in 5 years. She was given a 25 mg bolus of Cardizem and transferred to PCU on a cardizem drip. She was seen by Dr. Hall today and he started Lopressor 50 mg BID. Xarelto was changed to Apixaban because of the renal failure. Echocardiogram shows severe global left ventricular systolic dysfunction with an estimated ejection fraction of 20%. The left atrium was moderately enlarged. At the time of my exam earlier today she was tachypneic with a RR of 35 on RA at rest. She denied SOB. She denied CP. She denied any recent fevers, chills, viral URI sx, She is alert and oriented Lungs - BL rales posteriorly, + exp wheezing Heart - irreg with HR in the 130's, no MM normal S1 and S2. She has edema of both LE's with no cyanosis No carotid bruits She looks scared and apprehensive. Impression 1. acute on chronic systolic CHF - etiology? viral CM? tachycardia induced CM? CAD? Work up is in progress 2. severe CM with global LV dysfunction and no wall motion abnormalities - EF is 20% 3. LAE 4. CAD with a hx of CABG in 2011 at [facility]...no follow up with Cardiology in the past 5 years 5. DM II - HGBA1C is 7.4%. 6. HTN hx 7. HLD - well controlled 8. stage 3 CRF 9. AF with RVR Given 1 dose of Dig and HR better controlled Remains on a cardizem drip and metoprolol Adjust insulin to get control of the BS's Recheck the lab in the AM continue Apixaban discussed with Dr. Hall. Possible cath Tuesday after the CHF and HR are better controlled Will get a nephrology consult prior to any dye DC the Prednisone - wheezing is due to CHF and prednisone will contribute to fluid retention and increase the HR Lasix 40 mg IV twice daily second dose of digoxin tonight Consider amiodarone if HR can not be controlled.....BP is marginal...may not tolerate the high dose of Metoprolol Discussed with Iván Sanon and orders have been written. Inpatient E&M: 40798 Subs Hosp L3
--- NOTE | 2017-08-11 16:31 | CHAPLAIN ---
Type of Pastoral Visit _x__ Initial Visit ___ Follow-up Visit ___ On-call Visit ___ General Patient Visit ___ Spiritual Assessment ___ Family Conference ___ Bereavement ___ Rapid Response ___ Code Blue ___ Other (describe below) Pastoral Care Referral From _x__ Patient ___ Family ___ Nurse ___ Physician ___ Dairy Technician ___ Rickshaw Driver ___ Other (describe below) Sacrament/Intervention _x__ Active listening ___ Anointing ___ Anabaptism ___ Bereavement ___ Communion ___ Adeola exploration ___ ___ Life review _x__ Prayer ___ Reconciliation ___ Sacrament of Sick _x__ Supportive presence ___ Wedding ___ Other (describe below) Pastoral Comments
[2017-08-11 16:46] LABS: Bedside Glucose 320 mg/dL (70-110)
--- NOTE | 2017-08-11 17:34 | NURSING ---
all patient care, charting, & medication administration by SN Sarah, done under the supervision of this RN.
[2017-08-11] MEDS: Atorvastatin Calcium 20 MG Tablet PO (21:47)
[2017-08-11 22:55] LABS: Bedside Glucose 184 mg/dL (70-110)
[2017-08-12] VITALS (36 sets, daily range): BP systolic 99–129; BP diastolic 48–107; PULSE 79–140; RESP 19–30; TEMP 36.2–36.8; O2SAT 95–100
[2017-08-12 06:04] LABS: Anion Gap 7 (5-15); BUN 41 mg/dL (7-18); Calcium,Total 8.5 mg/dL (8.5-10.1); Chloride 104 mmol/L (98-107); Creatinine, Serum 1.28 mg/dL (0.55-1.02); EST Glomerular Filtration Rate 44 mL/min (>60); Est Glom Filt Rate - Afr Amer 53 mL/min (>60); Estimated Creatinine Clearance 34.31 ml/min; Glucose 127 mg/dL (74-106); Magnesium 1.8 mg/dL (1.6-2.6); Sodium Level 140 mmol/L (136-145)
[2017-08-12 06:06] LABS: Phosphorus 4.8 mg/dL (2.5-4.9)
[2017-08-12] MEDS: 0.9% NaCl Peripheral Flush Adult/Peds IV ×5 (06:32→21:37)
[2017-08-12 07:10] LABS: Bedside Glucose 119 mg/dL (70-110)
[2017-08-12] MEDS: predniSONE 20 MG Tablet 40 MG PO (07:51)
[2017-08-12] MEDS: dilTIAZem CD 120 MG Capsule PO ×2 (07:51→21:35)
[2017-08-12] MEDS: Aspirin 81 MG TAB.CHEW PO (07:51)
--- NOTE | 2017-08-12 08:36 | PN.CARD_ITS ---
Subjectve: Patient was seen and evaluated. Appears to be breathing better. She is however still short of breath. Objective: Vital Signs Temp Pulse Resp BP Pulse Ox 97.2 F L 138 H 24 H 119/89 H 99 08/12/17 08:00 08/12/17 08:04 08/12/17 08:04 08/12/17 08:00 08/12/17 08:04 Oxygen Flow Rate (L/min) 2 Oxygen Delivery Method Nasal Cannula Weight: 238 lb 5.115 oz Body Mass Index (BMI) 42.0 Intake and Output for Last 24 Hours 08/10/17 08/11/17 08/12/17 23:59 23:59 23:59 Intake Total 120 / 120 455.2 / 455.2 259 / 259 Output Total 1075 / 1075 1950 / 1950 Balance 120 / 120 -619.8 / -619.8 -1691 / -1691 General: Awake, Alert, Oriented x 3 HEENT: PERRL, EOMI, Sclera Non Icteric Neck: Supple, Good ROM, No Lymph Node Enlargement Lungs: Clear to auscultation Cardiovascular: Irregular Rhythm, Normal S1, Normal S2, No Murmurs, No Rubs, No Gallops Vascular: No Carotid Bruits, Normal Femoral Pulses, Normal Radial Pulses, Normal Dorsalis Pedal Pulse, Normal Posterior Tibial Pulses Abdomen: Bowel Sounds Present, Soft, Non Tender, No HSM, No Organomegaly Extremities: No Cyanosis, No Clubbing, No edema Neurological: No Focal Motor or Sensory Deficit 08/11/17 05:00: Magnesium 2.0 08/11/17 09:40: Hemoglobin A1c 7.4 H 08/12/17 05:15: Sodium 140, Potassium 4.0, Chloride 104, Carbon Dioxide 29.0, Anion Gap 7, BUN 41 H, Creatinine 1.28 H, Est GFR (MDRD) Af Amer 53 L, Est GFR ( MDRD) Non-Af 44 L, BUN/Creatinine Ratio 32.0 H, Glucose 127 H, Calcium 8.5, Magnesium 1.8 08/12/17 05:15: Phosphorus 4.8 Rhythm: EKG: ECHO: Stress Test: Cardiac Cath: PCI: CT Surgery: Holter monitor: EPS: PPM: CXR: Chest CT Scan: Medical Necessity - Tobacco Use Smoking Status: Never smoker Assessment/Plan 1. Atrial fibrillation with a rapid ventricular response rate duration unknown. She presents with palpitations and is noted to be in atrial for ablation with rapid ventricular response rate. The exact duration is unknown at this time. I do agree that with her elevated chads vasc score she should be anticoagulated and her rate controlled. She has been started on Lopressor 50 mg twice a day and Cardizem has been added. I will increase that to 120 mg twice a day. She would also continue on her Eliquis 2.5 mg twice a day. Her echocardiogram demonstrated globally reduced left ventricular ejection fraction estimated at 20%. It is likely that the above is tachycardia mediated. My recommendation will be to rate control her, discharge her and bring her back for a elective cardioversion. Her echocardiogram can be reassessed in a few months. 2. Coronary artery disease. She is status post coronary bypass surgery. She has not followed up with any distributor of directories and after she has been evaluated for atrial fibrillation it may be prudent to obtain a pharmacologic myocardial perfusion stress test to exclude any ischemia. This can be obtained as an outpatient as well. 3. Hypertension Blood pressure appears to be under good control on the current medical therapy and no other major changes will be made. 4. Congestive heart failure-diastolic. Acute This is likely secondary to the atrial fibrillation with a rapid ventricular response rate. Ischemia however cannot be completely excluded. Her natruretic peptide was elevated and we will continue to diurese her. Her left ventricular ejection fraction is noted to be 20%. Due to her borderline blood pressure and JUAN inhibitor would not be started just yet. This would be added onto regimen after heart rate has been better controlled. Thank you for allowing me to participate in the care of your patient. Please don't hesitate to call if any issues arise
[2017-08-12] MEDS: APIXABAN 2.5 MG TABLET PO ×2 (10:39→21:35)
[2017-08-12] MEDS: Fluticasone 0.05% 1 SPRAY NASAL.SRY 2 SPRAY NASAL (10:39)
[2017-08-12] MEDS: Metoprolol Tartrate 50 MG Tablet PO ×2 (10:40→21:35)
[2017-08-12] MEDS: Furosemide 40 MG/4 ML Vial IV ×2 (10:40→21:37)
[2017-08-12] MEDS: guaiFENesin 600 MG Tablet PO ×2 (10:41→21:34)
[2017-08-12 11:21] LABS: Bedside Glucose 268 mg/dL (70-110)
--- NOTE | 2017-08-12 12:09 | NURSING ---
all patient care, medication administration & charting by Kenan Armenta, Student Nurse, done under the supervision of this RN.
--- NOTE | 2017-08-12 13:12 | PN_ITS ---
Patient Problems: Active and Suspected Problems New onset a-fib (Acute) with RVR Bronchitis (Acute) mild bronchospasm Subjective: Pt could feel her heart racing this AM, no flutters. No dizziness or LH. No CP, tightness, or pressure. She continues to feel wheezy and SOB. She states she can lie flat, she just cannot lay on her side. Productive cough continues. - Physical Exam General: Alert, Oriented x3, Cooperative HEENT: Atraumatic, PERRLA, EOMI, Normocephalic Neck: Supple, No JVD, Negative Carotid Bruits Lungs: Rales, Wheezes Cardiovascular: Regular rate, No murmurs Abdomen: Bowel Sounds Present, Soft, Non Tender Extremities: Capillary Refill Less than 3 Seconds, Edema - 2+ pitting edema BLE Skin: No rashes, No breakdown Musculoskeletal: No Tenderness to Palpation of Joints or Extremities Neurological: Cranial nerves II-XII grossly intact Psych/Mental Status: Normal Affect, Appropriate, Alert and oriented to time, place, person, mood and affect Vital Signs Temp Pulse Resp BP Pulse Ox 97.8 F 118 H 25 H 113/79 95 08/12/17 12:00 08/12/17 12:00 08/12/17 12:00 08/12/17 12:00 08/12/17 12:00 Oxygen Flow Rate (L/min) 2 Oxygen Delivery Method Room Air Weight: 108.1 kg Body Mass Index (BMI) 42.0 Intake and Output for Last 24 Hours 08/10/17 08/11/17 08/12/17 23:59 23:59 23:59 Intake Total 120 / 120 455.2 / 455.2 799 / 799 Output Total 1075 / 1075 2575 / 2575 Balance 120 / 120 -619.8 / -619.8 -1776 / -1776 Laboratory Tests Past 24 Hrs 08/11/17 08/12/17 08/12/17 05:00 05:15 05:15 Sodium 140 Potassium 4.0 Chloride 104 Carbon Dioxide 29.0 Anion Gap 7 BUN 41 H Creatinine 1.28 H Estim Creat Clear Calc 34.31 Est GFR (MDRD) Af Amer 53 L Est GFR (MDRD) Non-Af 44 L BUN/Creatinine Ratio 32.0 H Glucose 127 H Calcium 8.5 Phosphorus 4.8 Magnesium 2.0 1.8 POC Glucose 08/12/17 08/12/17 08/11/17 11:18 06:37 21:44 POC Glucose 268 H 119 H 184 H 08/11/17 16:29 POC Glucose 320 H Medical Necessity - Tobacco Use Smoking Status: Never smoker Assessment/Plan Active and Suspected Problems New onset a-fib (Acute) with RVR Bronchitis (Acute) mild bronchospasm 1. AF with RVR, new onset - cardizem was transitioned to oral, metoprolol, dig x1. Cardiology following. Unfortunately, rate high this AM, 150's, and pt with racing heart, SOB. May need additional agent today. Continue eliquis. 2. Acute Asthma exacerbation ruled out - steroids discontinued. 3. Acute systolic CHF exacerbation - Her sats are stable off O2. Still tachypneic. Lasix 40 BID, metoprolol, losartan held. Pt with severely decreased EF, may need heart cath on Tuesday per Dr. Hall. EF 20%. Mod-severe global hypokinesis of the left ventricle, 2+MVI, 1-2+ TVI, PASP 34mmHg. Trop negx4. BNP 505.8. ARB held for renal dysfunction. She is out about 2400 cc fluid. Weight is up tho. 4. Elevated creatinine - improved. Nephrology consulted as pt will likely undergo heart cath tuesday. 5. T2DM - orals held. SSI. She has been started on long acting and TID insulin. A1C 7.4. Would benefit from new nurse practitioner home assessments, what she goes on depends on her renal function after cath. 6. HTN - stable. Losartan DCd yesterday. 7. HLD - statin DVT ppx: eliquis DC planning: possible cath tuesday. This patient was seen by Iván Sanon PA-C under the supervision of Doctor Bradley.
--- NOTE | 2017-08-12 13:30 | PCM.CONS.R ---
Consultation - Renal 08/12/17 PCP/ Referring MD: Requesting physician: Valorie Bradley DO Primary care physician: Yaya Centeno DO Reason for Consultation:: KATTY - History of Present Illness History of Present Illness: The patient is a 67 year old F past medical history for hypertension, diabetes mellitus 2 on oral agents, CAD status post remote CABG 6 years ago, admitted for shortness of breath for one week, cough without fever, chills and leg swelling. She complained of weakness. Denied dizziness, fall, or chest pain. She admits to leg swelling and was started on diuretics 2 days prior to admit. She noticed palpitations. She is in afib with rvr despite receiving digoxin, metoprolol and cardizem. She has not followed up with a gm since her CABG. Echo on admit showed LVEF 20% and plans are to proceed with heart cath on Tuesday. Creatinine on admit was 1.2 increased to 1.5 now at 1.28 today. Urine output good. No recent iv contrast. She is not aware of kidney disease in the past. She denied urinary complaints. EKG revealed atrial fibrillation at 152, nonspecific changes, new compared with EKG 12/2013 Chest x-ray revealed bibasilar markings, suggestive of atelectasis, no other infiltrate - Allergies Allergies: Allergies No Known Allergies Allergy (Verified 08/10/17 14:29) - Current Medications Current Medications: Current Medications Acetaminophen (Tylenol) 650 mg PO Q6H PRN PRN PRN Reason: Mild Pain (scale 0-3)/T>100.7 Albuterol/Ipratropium (Duoneb) 3 ml INHALATION Q6HWA.RT [facility] Last Admin: 08/12/17 13:26 Dose: Not Given Apixaban (Eliquis) 2.5 mg PO BID [facility] Last Admin: 08/12/17 10:39 Dose: 2.5 mg Aspirin (Aspirin, Baby) 81 mg PO DAILY@0800 [facility] Last Admin: 08/12/17 07:51 Dose: 81 mg Atorvastatin Calcium (Lipitor) 20 mg PO QHS [facility] Last Admin: 08/11/17 21:47 Dose: 20 mg Bisacodyl (Dulcolax) 10 mg PO DAILY PRN PRN PRN Reason: Constipation Dextrose (D50w Syringe) 0 gm IV X1 PRN; Protocol PRN Reason: Hypoglycemia Diltiazem HCl (Cardizem Cd) 120 mg PO Q12 [facility] Docusate Sodium (Colace) 200 mg PO BID PRN PRN PRN Reason: Constipation Fluticasone Propionate (Flonase Nasal [place]) 2 spray NASAL DAILY [facility] Last Admin: 08/12/17 10:39 Dose: 2 spray Furosemide (Lasix) 40 mg IV BID [facility] Last Admin: 08/12/17 10:40 Dose: 40 mg Glucagon () 1 mg IM .X1 PRN PRN Reason: Hypoglycemia Guaifenesin (Mucinex) 600 mg PO BID [facility] Last Admin: 08/12/17 10:41 Dose: 600 mg Guaifenesin (Robitussin Dm) 10 ml PO Q6H PRN PRN PRN Reason: COUGH Last Admin: 08/10/17 18:58 Dose: 10 ml Insulin Aspart (Novolog Flexpen (Bkc)) 5 units SC TIDAC [facility] Last Admin: 08/12/17 12:18 Dose: 5 units Insulin Aspart (Novolog Flexpen (Bkc)) 0 units SC ACHS [facility] PRN Reason: Protocol Last Admin: 08/12/17 12:19 Dose: 6 u Insulin Detemir (Levemir (Bkc)) 10 units SC QHS [facility] Last Admin: 08/11/17 21:46 Dose: 10 u Magnesium Hydroxide (Milk Of Magnesia) 30 ml PO DAILY PRN PRN Reason: Constipation Melatonin (Melatonin) 3 mg PO QHS PRN PRN PRN Reason: INSOMNIA Metoprolol Tartrate (Lopressor (Beta Jaci)) 50 mg PO BID [facility] Last Admin: 08/12/17 10:40 Dose: 50 mg Ondansetron HCl (Zofran) 4 mg IV Q8H PRN PRN PRN Reason: Nausea Oxycodone HCl (Oxyir) 5 mg PO Q4H PRN PRN PRN Reason: Moderate Pain (pain scale 4-5) Prednisone () 40 mg PO DAILY@0800 [facility] Stop: 08/14/17 08:01 Last Admin: 08/12/17 07:51 Dose: 40 mg Sodium Chloride () 5 - 30 ml IV UD PRN PRN Reason: SALINE FLUSH Last Admin: 08/12/17 10:40 Dose: 10 ml Throat Lozenges (Cepacol Sore Throat Lozenge) 1 lozenge MUCOUS MEM Q2H PRN PRN PRN Reason: PAIN - Past Medical History Past Medical History (Chronic Problems): Chronic Problems Obesity (Chronic) CHERISE (obstructive sleep apnea) (Chronic) HTN (hypertension) (Chronic) Hx of CABG (Chronic) Hyperlipemia (Chronic) Diabetes mellitus (Chronic) - Past Surgical History Surgical History: cholecystectomy, coronary bypass surgery, hysterectomy - Total hysterectomy, - - Coronary artery bypass grafting x3 - Social History Smoking Status: Never smoker Alcohol: None Drugs: None - Family History Paternal History Items: Cancer Maternal History Items: COPD Review of Systems Constitutional: Reports: Weakness, Fatigue. Denies: Anorexia, Chills, Fever HEENT: Denies: Difficulty Hearing Cardiovascular: Reports: Edema, Palpitations. Denies: Chest Pain, Light Headedness, Syncope Respiratory: Reports: Cough, Shortness of Breath, Shortness of breath upon exertion, Wheezing Gastrointestinal: Denies: Abdominal Pain, Constipation, Diarrhea, Nausea, Vomiting Genitourinary: Denies: Dysuria, Frequency, Retention Musculoskeletal: Reports: - - leg swelling Skin: Denies: Rash Neurological: Denies: Balance problems Psychiatric: Denies: Anxiety, Depression Hematologic/ Lymphatic: Denies: Anemia, Hx of blood clot Patient Problems: Active and Suspected Problems New onset a-fib (Acute) with RVR Bronchitis (Acute) mild bronchospasm - Physical Exam General: Alert, Oriented x3, Cooperative, No apparent distress, - - eating lunch HEENT: PERRLA, EOMI Neck: Supple, No JVD Lungs: Clear to auscultation Cardiovascular: Regular rate Abdomen: Bowel Sounds Present, Soft, Non Tender, Non-Distended, Obese Extremities: No edema Skin: No rashes Musculoskeletal: No Muscle Wasting Neurological: Cranial nerves II-XII grossly intact Psych/Mental Status: Normal Affect, Appropriate, Alert and oriented to time, place, person, mood and affect Vital Signs Temp Pulse Resp BP Pulse Ox 97.8 F 118 H 25 H 113/79 95 08/12/17 12:00 08/12/17 12:00 08/12/17 12:00 08/12/17 12:00 08/12/17 12:00 Oxygen Flow Rate (L/min) 2 Oxygen Delivery Method Room Air Weight: 108.1 kg Body Mass Index (BMI) 42.0 Intake and Output for Last 24 Hours 08/10/17 08/11/17 08/12/17 23:59 23:59 23:59 Intake Total 120 / 120 455.2 / 455.2 799 / 799 Output Total 1075 / 1075 2575 / 2575 Balance 120 / 120 -619.8 / -619.8 -1776 / -1776 Laboratory Tests Past 24 Hrs 08/12/17 08/12/17 05:15 05:15 Sodium 140 Potassium 4.0 Chloride 104 Carbon Dioxide 29.0 Anion Gap 7 BUN 41 H Creatinine 1.28 H Estim Creat Clear Calc 34.31 Est GFR (MDRD) Af Amer 53 L Est GFR (MDRD) Non-Af 44 L BUN/Creatinine Ratio 32.0 H Glucose 127 H Calcium 8.5 Phosphorus 4.8 Magnesium 1.8 POC Glucose 08/12/17 08/12/17 08/11/17 11:18 06:37 21:44 POC Glucose 268 H 119 H 184 H 08/11/17 16:29 POC Glucose 320 H Clinical Impression(s) from Imaging Studies Chest X-Ray 08/10/17 14:50 IMPRESSION: Mild increased markings at the lung bases with blunting of both costophrenic angles. Follow-up is recommended. Electronically Signed: Delfino Carey MD at 15:19 EDT Tel [phone], Service support , Assessment/Plan Active and Suspected Problems New onset a-fib (Acute) with RVR Bronchitis (Acute) mild bronchospasm 1. KATTY likely hemodynamically mediated from afib with rvr, cardiorenal syndrome. Creatinine 1.2 to 1.5. Nonoliguric. Check renal US, UA for proteinuria. Creatinine has been 0.7 in 2014, 1.17 in 2016. Consider mucomyst prior to heart cath Tuesday. 2. Afib with rvr, remains tachycardic. 3. DM2 A1C 7.4 on admit. Check UA for proteinuria. 4. CAD s/p CABG 6 yrs ago. Now with cardiomyopathy EF 20% 5. Acute CHF, fluid overload, diuresing well on iv lasix. BNP 505-> 867. Check in am. 6. HTN stable. Thank you, discussed with primary service
--- NOTE | 2017-08-12 13:41 | CON.PCM_ITS ---
Consultation - Renal 08/12/17 PCP/ Referring MD: Requesting physician: Valorie Bradley DO Primary care physician: Yaya Centeno DO Reason for Consultation:: KATTY - History of Present Illness History of Present Illness: The patient is a 67 year old F past medical history for hypertension, diabetes mellitus 2 on oral agents, CAD status post remote CABG 6 years ago, admitted for shortness of breath for one week, cough without fever, chills and leg swelling. She complained of weakness. Denied dizziness, fall, or chest pain. She admits to leg swelling and was started on diuretics 2 days prior to admit. She noticed palpitations. She is in afib with rvr despite receiving digoxin, metoprolol and cardizem. She has not followed up with a community action worker since her CABG. Echo on admit showed LVEF 20% and plans are to proceed with heart cath on Tuesday. Creatinine on admit was 1.2 increased to 1.5 now at 1.28 today. Urine output good. No recent iv contrast. She is not aware of kidney disease in the past. She denied urinary complaints. EKG revealed atrial fibrillation at 152, nonspecific changes, new compared with EKG 12/2013 Chest x-ray revealed bibasilar markings, suggestive of atelectasis, no other infiltrate - Allergies Allergies: Allergies No Known Allergies Allergy (Verified 08/10/17 14:29) - Current Medications Current Medications: Current Medications Acetaminophen (Tylenol) 650 mg PO Q6H PRN PRN PRN Reason: Mild Pain (scale 0-3)/T>100.7 Albuterol/Ipratropium (Duoneb) 3 ml INHALATION Q6HWA.RT [facility] Last Admin: 08/12/17 13:26 Dose: Not Given Apixaban (Eliquis) 2.5 mg PO BID [facility] Last Admin: 08/12/17 10:39 Dose: 2.5 mg Aspirin (Aspirin, Baby) 81 mg PO DAILY@0800 [facility] Last Admin: 08/12/17 07:51 Dose: 81 mg Atorvastatin Calcium (Lipitor) 20 mg PO QHS [facility] Last Admin: 08/11/17 21:47 Dose: 20 mg Bisacodyl (Dulcolax) 10 mg PO DAILY PRN PRN PRN Reason: Constipation Dextrose (D50w Syringe) 0 gm IV X1 PRN; Protocol PRN Reason: Hypoglycemia Diltiazem HCl (Cardizem Cd) 120 mg PO Q12 [facility] Docusate Sodium (Colace) 200 mg PO BID PRN PRN PRN Reason: Constipation Fluticasone Propionate (Flonase Nasal [place]) 2 spray NASAL DAILY [facility] Last Admin: 08/12/17 10:39 Dose: 2 spray Furosemide (Lasix) 40 mg IV BID [facility] Last Admin: 08/12/17 10:40 Dose: 40 mg Glucagon () 1 mg IM .X1 PRN PRN Reason: Hypoglycemia Guaifenesin (Mucinex) 600 mg PO BID [facility] Last Admin: 08/12/17 10:41 Dose: 600 mg Guaifenesin (Robitussin Dm) 10 ml PO Q6H PRN PRN PRN Reason: COUGH Last Admin: 08/10/17 18:58 Dose: 10 ml Insulin Aspart (Novolog Flexpen (Bkc)) 5 units SC TIDAC [facility] Last Admin: 08/12/17 12:18 Dose: 5 units Insulin Aspart (Novolog Flexpen (Bkc)) 0 units SC ACHS [facility] PRN Reason: Protocol Last Admin: 08/12/17 12:19 Dose: 6 u Insulin Detemir (Levemir (Bkc)) 10 units SC QHS [facility] Last Admin: 08/11/17 21:46 Dose: 10 u Magnesium Hydroxide (Milk Of Magnesia) 30 ml PO DAILY PRN PRN Reason: Constipation Melatonin (Melatonin) 3 mg PO QHS PRN PRN PRN Reason: INSOMNIA Metoprolol Tartrate (Lopressor (Beta Jaci)) 50 mg PO BID [facility] Last Admin: 08/12/17 10:40 Dose: 50 mg Ondansetron HCl (Zofran) 4 mg IV Q8H PRN PRN PRN Reason: Nausea Oxycodone HCl (Oxyir) 5 mg PO Q4H PRN PRN PRN Reason: Moderate Pain (pain scale 4-5) Prednisone () 40 mg PO DAILY@0800 [facility] Stop: 08/14/17 08:01 Last Admin: 08/12/17 07:51 Dose: 40 mg Sodium Chloride () 5 - 30 ml IV UD PRN PRN Reason: SALINE FLUSH Last Admin: 08/12/17 10:40 Dose: 10 ml Throat Lozenges (Cepacol Sore Throat Lozenge) 1 lozenge MUCOUS MEM Q2H PRN PRN PRN Reason: PAIN - Past Medical History Past Medical History (Chronic Problems): Chronic Problems Obesity (Chronic) CHERISE (obstructive sleep apnea) (Chronic) HTN (hypertension) (Chronic) Hx of CABG (Chronic) Hyperlipemia (Chronic) Diabetes mellitus (Chronic) - Past Surgical History Surgical History: cholecystectomy, coronary bypass surgery, hysterectomy - Total hysterectomy, - - Coronary artery bypass grafting x3 - Social History Smoking Status: Never smoker Alcohol: None Drugs: None - Family History Paternal History Items: Cancer Maternal History Items: COPD Review of Systems Constitutional: Reports: Weakness, Fatigue. Denies: Anorexia, Chills, Fever HEENT: Denies: Difficulty Hearing Cardiovascular: Reports: Edema, Palpitations. Denies: Chest Pain, Light Headedness, Syncope Respiratory: Reports: Cough, Shortness of Breath, Shortness of breath upon exertion, Wheezing Gastrointestinal: Denies: Abdominal Pain, Constipation, Diarrhea, Nausea, Vomiting Genitourinary: Denies: Dysuria, Frequency, Retention Musculoskeletal: Reports: - - leg swelling Skin: Denies: Rash Neurological: Denies: Balance problems Psychiatric: Denies: Anxiety, Depression Hematologic/ Lymphatic: Denies: Anemia, Hx of blood clot Patient Problems: Active and Suspected Problems New onset a-fib (Acute) with RVR Bronchitis (Acute) mild bronchospasm - Physical Exam General: Alert, Oriented x3, Cooperative, No apparent distress, - - eating lunch HEENT: PERRLA, EOMI Neck: Supple, No JVD Lungs: Clear to auscultation Cardiovascular: Regular rate Abdomen: Bowel Sounds Present, Soft, Non Tender, Non-Distended, Obese Extremities: No edema Skin: No rashes Musculoskeletal: No Muscle Wasting Neurological: Cranial nerves II-XII grossly intact Psych/Mental Status: Normal Affect, Appropriate, Alert and oriented to time, place, person, mood and affect Vital Signs Temp Pulse Resp BP Pulse Ox 97.8 F 118 H 25 H 113/79 95 08/12/17 12:00 08/12/17 12:00 08/12/17 12:00 08/12/17 12:00 08/12/17 12:00 Oxygen Flow Rate (L/min) 2 Oxygen Delivery Method Room Air Weight: 108.1 kg Body Mass Index (BMI) 42.0 Intake and Output for Last 24 Hours 08/10/17 08/11/17 08/12/17 23:59 23:59 23:59 Intake Total 120 / 120 455.2 / 455.2 799 / 799 Output Total 1075 / 1075 2575 / 2575 Balance 120 / 120 -619.8 / -619.8 -1776 / -1776 Laboratory Tests Past 24 Hrs 08/12/17 08/12/17 05:15 05:15 Sodium 140 Potassium 4.0 Chloride 104 Carbon Dioxide 29.0 Anion Gap 7 BUN 41 H Creatinine 1.28 H Estim Creat Clear Calc 34.31 Est GFR (MDRD) Af Amer 53 L Est GFR (MDRD) Non-Af 44 L BUN/Creatinine Ratio 32.0 H Glucose 127 H Calcium 8.5 Phosphorus 4.8 Magnesium 1.8 POC Glucose 08/12/17 08/12/17 08/11/17 11:18 06:37 21:44 POC Glucose 268 H 119 H 184 H 08/11/17 16:29 POC Glucose 320 H Clinical Impression(s) from Imaging Studies Chest X-Ray 08/10/17 14:50 IMPRESSION: Mild increased markings at the lung bases with blunting of both costophrenic angles. Follow-up is recommended. Electronically Signed: Delfino Carey MD at 15:19 EDT Tel [phone], Service support , Assessment/Plan Active and Suspected Problems New onset a-fib (Acute) with RVR Bronchitis (Acute) mild bronchospasm 1. KATTY likely hemodynamically mediated from afib with rvr, cardiorenal syndrome. Creatinine 1.2 to 1.5. Nonoliguric. Check renal US, UA for proteinuria. Creatinine has been 0.7 in 2014, 1.17 in 2016. Consider mucomyst prior to heart cath Tuesday. 2. Afib with rvr, remains tachycardic. 3. DM2 A1C 7.4 on admit. Check UA for proteinuria. 4. CAD s/p CABG 6 yrs ago. Now with cardiomyopathy EF 20% 5. Acute CHF, fluid overload, diuresing well on iv lasix. BNP 505-> 867. Check in am. 6. HTN stable. Thank you, discussed with primary service
--- NOTE | 2017-08-12 13:43 | US_ITS ---
US Kidney(s) complete (eg, kidneys T bladder) INDICATION: ARF COMPARISON: None TECHNIQUE: Ultrasonographic grayscale and limited Doppler investigation of the retroperitoneum including kidneys and urinary bladder. FINDINGS: There is near measures 11 x 4 x 4 cm and is without evidence of hydronephrosis. A 1 cm cortical renal cyst is noted. Renal cortex measures 1.3 cm. The left kidney measures 11 x 6 x 3 cm and is without evidence of hydronephrosis. 2 renal calculi are seen, measuring 1 and 1.5 cm. Renal cortex measures 1 cm in thickness. The urinary bladder is decompressed. US/Kidney and Bladder IMPRESSION: Small cortical renal cysts. No evidence of hydronephrosis. at 1914 Reported and signed by: Miriam Marrero MD Electronically Signed: Miriam Marrero MD at 18:13 EDT Tel , Service support ,
[2017-08-12 16:56] LABS: Bedside Glucose 257 mg/dL (70-110)
[2017-08-12] MEDS: Metoprolol Tartrate 5 MG/5 ML Vial IV (17:12)
[2017-08-12] MEDS: Digoxin 250 MCG/ML Ampul IV (19:16)
[2017-08-12] MEDS: Atorvastatin Calcium 20 MG Tablet PO (21:35)
[2017-08-12] MEDS: Bisacodyl 5 MG Tablet 10 MG PO (21:35)
[2017-08-12 22:46] LABS: Bedside Glucose 283 mg/dL (70-110)
[2017-08-13] VITALS (27 sets, daily range): BP systolic 88–132; BP diastolic 46–107; PULSE 91–125; RESP 14–27; TEMP 36.4–36.8; O2SAT 94–100
[2017-08-13 01:23] LABS: Mucous, Urine 0 SEEN /hpf (<or=2+); Red Blood Cells-Urine 0 SEEN /hpf (0-5); White Blood Cells 0 SEEN /hpf (0-5)
[2017-08-13 01:26] LABS: Color, Urine Yellow (Yellow); Glucose, Dipstick 250 mg/dl (Normal); Ketone-Dipstick Negative (Negative); Leukocyte Esterase-Dipstick Negative /ul (Negative); Nitrite-Dipstick Negative (Negative); Occult Blood-Urine Negative /ul (Negative); Protein-Dipstick Negative (Negative); Specific Gravity, Urine 1.015 (1.002-1.030); Urine Bilirubin Dipstick Negative (Negative); Urine Clarity Clear (Clear); Urine Urobilinogen Normal (Normal)
[2017-08-13 01:39] LABS: Bacteria 0 SEEN /hpf (None Seen); Squamous Epithelial Cells - UA 0-5 SEEN /hpf (5-10)
[2017-08-13 01:55] LABS: Protein, Urine (Random) < 6.0 mg/dL (<11.9)
[2017-08-13 02:00] LABS: Urine Sodium 79 mmol/L (Not Establ.)
[2017-08-13 06:45] LABS: Albumin, Serum 3.3 g/dL (3.2-5.0); BUN 31 mg/dL (7-18); BUN/Creat Ratio 32.5 RATIO (10-20); Calcium,Total 7.9 mg/dL (8.5-10.1); Chloride 104 mmol/L (98-107); Creatinine, Serum 0.95 mg/dL (0.55-1.02); EST Glomerular Filtration Rate 62 mL/min (>60); Est Glom Filt Rate - Afr Amer 75 mL/min (>60); Estimated Creatinine Clearance 46.23 ml/min; Glucose 100 mg/dL (74-106); Phosphorus 3.3 mg/dL (2.5-4.9); Potassium 3.6 mmol/L (3.5-5.1); Sodium Level 142 mmol/L (136-145)
[2017-08-13] MEDS: Ipratropium/Albuterol Sulfate 3 ML AMPUL.NEB INHALATION ×3 (06:54→19:09)
[2017-08-13 07:01] LABS: Bedside Glucose 108 mg/dL (70-110)
[2017-08-13 07:19] LABS: Magnesium 1.7 mg/dL (1.6-2.6)
--- NOTE | 2017-08-13 08:05 | RAD_ITS ---
STUDY: X-RAY CHEST REASON FOR EXAM: Female, 67 years old. CHF TECHNIQUE: Frontal and lateral views of the chest. COMPARISON: 08/10/2017. FINDINGS: The lungs are expanded. Left lower lung opacity. There is no demonstrated pleural abnormality. There is mild cardiac enlargement. Patient status post sternotomy. Normal mediastinum and álvaro. Normal visualized pulmonary arteries. Normal visualized aortic arch and descending thoracic aorta. Normal visualized thoracic spine. Normal visualized ribs, clavicles, and shoulders. There is no demonstrated abnormality of the visualized soft tissue structures of the upper abdomen. RAD/Chest PA and Lateral IMPRESSION: Left lower lung airspace disease. Small left effusion. Mild cardiomegaly. Electronically Signed: Sal Kathleen DO at 10:31 EDT , Service support ,
[2017-08-13 08:33] LABS: BNP,B-Type NATRIURETIC PEPTIDE 799.3 pg/mL (0-100)
[2017-08-13] MEDS: Magnesium Oxide 400 MG Tablet PO (08:55)
[2017-08-13] MEDS: Glimepiride 4 MG Tablet PO (08:55)
[2017-08-13] MEDS: Aspirin 81 MG TAB.CHEW PO (08:55)
[2017-08-13] MEDS: Magnesium Hydroxide 30 ML UDC PO (08:56)
[2017-08-13] MEDS: dilTIAZem CD 180 MG Capsule PO ×2 (08:59→23:34)
[2017-08-13] MEDS: Metoprolol Tartrate 50 MG Tablet PO ×2 (09:03→23:34)
[2017-08-13] MEDS: APIXABAN 2.5 MG TABLET PO ×2 (09:04→21:23)
[2017-08-13] MEDS: LINAGLIPTIN 5 MG TABLET PO (09:08)
[2017-08-13] MEDS: Furosemide 40 MG/4 ML Vial IV (09:24)
--- NOTE | 2017-08-13 09:48 | PCM.PN.CARD ---
Subjectve: Patient seen and evaluated. Appears to be breathing better today. Objective: Vital Signs Temp Pulse Resp BP Pulse Ox 97.8 F 108 H 14 103/78 96 08/13/17 06:00 08/13/17 09:03 08/13/17 09:00 08/13/17 09:03 08/13/17 09:00 Oxygen Flow Rate (L/min) 2 Oxygen Delivery Method Room Air Weight: 236 lb 5.369 oz Body Mass Index (BMI) 42.0 Intake and Output for Last 24 Hours 08/11/17 08/12/17 08/13/17 23:59 23:59 23:59 Intake Total 455.2 / 455.2 1073 / 1073 315.8 / 315.8 Output Total 1075 / 1075 3425 / 3425 1800 / 1800 Balance -619.8 / -619.8 -2352 / -2352 -1484.2 / -1484.2 General: Awake, Alert, Oriented x 3 HEENT: PERRL, EOMI, Sclera Non Icteric Neck: Supple, Good ROM, No Lymph Node Enlargement Lungs: Clear to auscultation Cardiovascular: Irregular Rhythm, Normal S1, Normal S2, No Murmurs, No Rubs, No Gallops Vascular: No Carotid Bruits, Normal Femoral Pulses, Normal Radial Pulses, Normal Dorsalis Pedal Pulse, Normal Posterior Tibial Pulses Abdomen: Bowel Sounds Present, Soft, Non Tender, No HSM, No Organomegaly Extremities: No Cyanosis, No Clubbing, No edema Neurological: No Focal Motor or Sensory Deficit 08/12/17 15:00: Urine Color Yellow, Urine Clarity Clear, Urine pH 6.0, Ur Specific [place] 1.015, Urine Protein Negative, Urine Glucose (UA) 250 H, Urine Ketones Negative, Urine Occult Blood Negative, Urine Nitrite Negative, Urine Bilirubin Negative, Urine Urobilinogen Normal, Ur Leukocyte Esterase Negative, Urine RBC 0 SEEN, Urine WBC 0 SEEN 08/13/17 05:45: Sodium 142, Potassium 3.6, Chloride 104, Carbon Dioxide 28.0, BUN 31 H, Creatinine 0.95, Est GFR (MDRD) Af Amer 75, Est GFR (MDRD) Non-Af 62, BUN/Creatinine Ratio 32.5 H, Glucose 100, Calcium 7.9 L, Phosphorus 3.3 08/13/17 05:45: B-Natriuretic Peptide 799.3 H 08/13/17 05:45: Magnesium 1.7 Rhythm: EKG: Atrial fibrillation with a controlled ventricular response rate Medical Necessity - Tobacco Use Smoking Status: Never smoker Assessment/Plan 1. Atrial fibrillation with a rapid ventricular response rate duration unknown. She presents with palpitations and is noted to be in atrial for ablation with rapid ventricular response rate. The exact duration is unknown at this time. I do agree that with her elevated Chads vasc score she should be anticoagulated and her rate controlled. She has been started on Lopressor 50 mg twice a day and Cardizem has been added. I will increase that to 180 mg twice a day. In addition she has been on amiodarone intravenously and I would like to start her on amiodarone 200 mg after the current intravenous drip is over. She would also continue on her Eliquis 2.5 mg twice a day. Her echocardiogram demonstrated globally reduced left ventricular ejection fraction estimated at 20%. It is likely that the above is tachycardia mediated. My recommendation will be to rate control her, discharge her and bring her back for a elective cardioversion. Her echocardiogram can be reassessed in a few months. 2. Coronary artery disease. She is status post coronary bypass surgery. She has not followed up with any gluing machine operator automatic and after she has been evaluated for atrial fibrillation it may be prudent to obtain a pharmacologic myocardial perfusion stress test to exclude any ischemia. This can be obtained as an outpatient as well. 3. Hypertension Blood pressure appears to be under good control on the current medical therapy and no other major changes will be made. 4. Congestive heart failure-diastolic. Acute This is likely secondary to the atrial fibrillation with a rapid ventricular response rate. Ischemia however cannot be completely excluded. Her natriuretic peptide was elevated and we will continue to diurese her. Her left ventricular ejection fraction is noted to be 20%. Due to her borderline blood pressure and JUAN inhibitor would not be started just yet. This would be added onto regimen after heart rate has been better controlled. Thank you for allowing me to participate in the care of your patient. Please don't hesitate to call if any issues arise
[2017-08-13 11:31] LABS: Bedside Glucose 259 mg/dL (70-110)
[2017-08-13] MEDS: Sertraline 50 MG Tablet 25 MG PO (11:54)
--- NOTE | 2017-08-13 12:33 | PCM.PROGNOTE ---
Patient Problems: Active and Suspected Problems New onset a-fib (Acute) with RVR Bronchitis (Acute) mild bronchospasm Subjective: Pt is resting comfortably in bed NAD. She reports her breathing has improved. She is currently off o2 and comfortable. She does not have palpitations/racing today. She has not been on her feet much as she is on fall restrictions, she has only been up to the bedside commode. Encouraged OOB / ambulation. Will start PT today. Minimal cough. No CP. No fevers/chills. - Physical Exam General: Alert, Oriented x3, Cooperative HEENT: Atraumatic, PERRLA, EOMI, Normocephalic Neck: Supple, No JVD, Negative Carotid Bruits Lungs: Clear to auscultation, Normal air movement Cardiovascular: Regular rate, No murmurs Abdomen: Bowel Sounds Present, Soft, Non Tender Extremities: No edema, Capillary Refill Less than 3 Seconds, Edema - 1-2+ pitting edema BLE. improved. Skin: No rashes, No breakdown Musculoskeletal: No Tenderness to Palpation of Joints or Extremities Neurological: Cranial nerves II-XII grossly intact Psych/Mental Status: Normal Affect, Appropriate, Alert and oriented to time, place, person, mood and affect Vital Signs Temp Pulse Resp BP Pulse Ox 98.3 F 117 H 18 118/65 95 08/13/17 10:00 08/13/17 12:00 08/13/17 12:00 08/13/17 12:00 08/13/17 12:00 Oxygen Flow Rate (L/min) 2 Oxygen Delivery Method Room Air Weight: 107.2 kg Body Mass Index (BMI) 42.0 Intake and Output for Last 24 Hours 08/11/17 08/12/17 08/13/17 23:59 23:59 23:59 Intake Total 455.2 / 455.2 1073 / 1073 659.8 / 659.8 Output Total 1075 / 1075 3425 / 3425 2300 / 2300 Balance -619.8 / -619.8 -2352 / -2352 -1640.2 / -1640.2 Laboratory Tests Past 24 Hrs 08/12/17 08/12/17 08/12/17 15:00 15:00 15:00 Sodium Potassium Chloride Carbon Dioxide BUN Creatinine Estim Creat Clear Calc Est GFR (MDRD) Af Amer Est GFR (MDRD) Non-Af BUN/Creatinine Ratio Glucose Calcium Phosphorus Magnesium B-Natriuretic Peptide Albumin Urine Color Urine Clarity Urine pH Ur Specific [place] Urine Protein Urine Glucose (UA) Urine Ketones Urine Occult Blood Urine Nitrite Urine Bilirubin Urine Urobilinogen Ur Leukocyte Esterase Urine RBC Urine WBC Ur Squamous Epith Cells Urine Bacteria Urine Mucus U Random Total Protein < 6.0 Ur Random Sodium 79 Urine Creatinine 30.60 08/12/17 08/13/17 08/13/17 15:00 05:45 05:45 Sodium 142 Potassium 3.6 Chloride 104 Carbon Dioxide 28.0 BUN 31 H Creatinine 0.95 Estim Creat Clear Calc 46.23 Est GFR (MDRD) Af Amer 75 Est GFR (MDRD) Non-Af 62 BUN/Creatinine Ratio 32.5 H Glucose 100 Calcium 7.9 L Phosphorus 3.3 Magnesium B-Natriuretic Peptide 799.3 H Albumin 3.3 Urine Color Yellow Urine Clarity Clear Urine pH 6.0 Ur Specific [place] 1.015 Urine Protein Negative Urine Glucose (UA) 250 H Urine Ketones Negative Urine Occult Blood Negative Urine Nitrite Negative Urine Bilirubin Negative Urine Urobilinogen Normal Ur Leukocyte Esterase Negative Urine RBC 0 SEEN Urine WBC 0 SEEN Ur Squamous Epith Cells 0-5 SEEN Urine Bacteria 0 SEEN Urine Mucus 0 SEEN U Random Total Protein Ur Random Sodium Urine Creatinine 08/13/17 05:45 Sodium Potassium Chloride Carbon Dioxide BUN Creatinine Estim Creat Clear Calc Est GFR (MDRD) Af Amer Est GFR (MDRD) Non-Af BUN/Creatinine Ratio Glucose Calcium Phosphorus Magnesium 1.7 B-Natriuretic Peptide Albumin Urine Color Urine Clarity Urine pH Ur Specific [place] Urine Protein Urine Glucose (UA) Urine Ketones Urine Occult Blood Urine Nitrite Urine Bilirubin Urine Urobilinogen Ur Leukocyte Esterase Urine RBC Urine WBC Ur Squamous Epith Cells Urine Bacteria Urine Mucus U Random Total Protein Ur Random Sodium Urine Creatinine POC Glucose 08/13/17 08/13/17 08/12/17 11:13 06:40 21:29 POC Glucose 259 H 108 283 H 08/12/17 16:44 POC Glucose 257 H Medical Necessity - Tobacco Use Smoking Status: Never smoker Assessment/Plan Active and Suspected Problems New onset a-fib (Acute) with RVR Bronchitis (Acute) mild bronchospasm 1. AF with RVR, new onset - Amio drip, plan to transition to PO this afternoon. Dilt increased. Continue BB. Cardiology following. No palp today. Rate is improving. 2. Acute Asthma exacerbation ruled out - steroids discontinued. 3. Acute systolic CHF exacerbation - improved. Lungs are clear. Edema is better. Decrease lasix to 40IV qd. Plan for transition to PO at discharge, no prior lasix use. 4. Elevated creatinine - improved. Nephrology consulted as pt will likely undergo heart cath tuesday. ?mucomyst tuesday 5. T2DM - Amaryl. SSI. She has been started on long acting and TID insulin. A1C 7.4. Would benefit from an additional PO home insurance agent, what she goes on depends on her renal function after cath. 6. HTN - stable. Losartan DCd yesterday. 7. HLD - statin 8. Anxiety - may be contributing to SOB/tachy, will start prn low dose xanax and zoloft qd. DVT ppx: eliquis DC planning: possible cath tuesday. This patient was seen by Iván Sanon PA-C under the supervision of Doctor Bradley.
--- NOTE | 2017-08-13 14:57 | PN.RENAL_ITS ---
Patient Problems: Active and Suspected Problems New onset a-fib (Acute) with RVR Bronchitis (Acute) mild bronchospasm Subjective: Complains of a cough, shortness of breath received aerosol treatment. Denied any chest pain or palpitations. Denies nausea or vomiting. Renal function back to baseline creatinine 0.9 - Physical Exam General: Alert, Oriented x3, Cooperative Lungs: Clear to auscultation Cardiovascular: Irregular Rate - Irregular rhythm, atrial fibrillation Abdomen: Bowel Sounds Present, Soft, Non Tender, Obese Extremities: Edema - Mild lower extremity Neurological: Cranial nerves II-XII grossly intact Psych/Mental Status: Normal Affect, Appropriate, Alert and oriented to time, place, person, mood and affect Vital Signs Temp Pulse Resp BP Pulse Ox 98.3 F 113 H 20 H 96/84 H 99 08/13/17 10:00 08/13/17 14:00 08/13/17 14:00 08/13/17 14:00 08/13/17 14:00 Oxygen Flow Rate (L/min) 2 Oxygen Delivery Method Nasal Cannula Weight: 107.2 kg Body Mass Index (BMI) 42.0 Intake and Output for Last 24 Hours 08/11/17 08/12/17 08/13/17 23:59 23:59 23:59 Intake Total 455.2 / 455.2 1073 / 1073 659.8 / 659.8 Output Total 1075 / 1075 3425 / 3425 2300 / 2300 Balance -619.8 / -619.8 -2352 / -2352 -1640.2 / -1640.2 Laboratory Tests Past 24 Hrs 08/12/17 08/12/17 08/12/17 15:00 15:00 15:00 Sodium Potassium Chloride Carbon Dioxide BUN Creatinine Estim Creat Clear Calc Est GFR (MDRD) Af Amer Est GFR (MDRD) Non-Af BUN/Creatinine Ratio Glucose Calcium Phosphorus Magnesium B-Natriuretic Peptide Albumin Vitamin D 25-Hydroxy Urine Color Urine Clarity Urine pH Ur Specific [place] Urine Protein Urine Glucose (UA) Urine Ketones Urine Occult Blood Urine Nitrite Urine Bilirubin Urine Urobilinogen Ur Leukocyte Esterase Urine RBC Urine WBC Ur Squamous Epith Cells Urine Bacteria Urine Mucus U Random Total Protein < 6.0 Ur Random Sodium 79 Urine Creatinine 30.60 08/12/17 08/13/17 08/13/17 15:00 05:45 05:45 Sodium 142 Potassium 3.6 Chloride 104 Carbon Dioxide 28.0 BUN 31 H Creatinine 0.95 Estim Creat Clear Calc 46.23 Est GFR (MDRD) Af Amer 75 Est GFR (MDRD) Non-Af 62 BUN/Creatinine Ratio 32.5 H Glucose 100 Calcium 7.9 L Phosphorus 3.3 Magnesium B-Natriuretic Peptide 799.3 H Albumin 3.3 Vitamin D 25-Hydroxy Urine Color Yellow Urine Clarity Clear Urine pH 6.0 Ur Specific [place] 1.015 Urine Protein Negative Urine Glucose (UA) 250 H Urine Ketones Negative Urine Occult Blood Negative Urine Nitrite Negative Urine Bilirubin Negative Urine Urobilinogen Normal Ur Leukocyte Esterase Negative Urine RBC 0 SEEN Urine WBC 0 SEEN Ur Squamous Epith Cells 0-5 SEEN Urine Bacteria 0 SEEN Urine Mucus 0 SEEN U Random Total Protein Ur Random Sodium Urine Creatinine 08/13/17 08/13/17 05:45 14:32 Sodium Potassium Chloride Carbon Dioxide BUN Creatinine Estim Creat Clear Calc Est GFR (MDRD) Af Amer Est GFR (MDRD) Non-Af BUN/Creatinine Ratio Glucose Calcium Phosphorus Magnesium 1.7 B-Natriuretic Peptide Albumin Vitamin D 25-Hydroxy Pending Urine Color Urine Clarity Urine pH Ur Specific [place] Urine Protein Urine Glucose (UA) Urine Ketones Urine Occult Blood Urine Nitrite Urine Bilirubin Urine Urobilinogen Ur Leukocyte Esterase Urine RBC Urine WBC Ur Squamous Epith Cells Urine Bacteria Urine Mucus U Random Total Protein Ur Random Sodium Urine Creatinine POC Glucose 08/13/17 08/13/17 08/12/17 11:13 06:40 21:29 POC Glucose 259 H 108 283 H 08/12/17 16:44 POC Glucose 257 H Clinical Impression(s) from Imaging Studies Renal Ultrasound 08/12/17 13:43 IMPRESSION: Small cortical renal cysts. No evidence of hydronephrosis. at 1914 Reported and signed by: Miriam Marrero MD Electronically Signed: iMriam Marrero MD at 18:13 EDT Tel , Service support , Chest X-Ray 08/13/17 08:05 IMPRESSION: Left lower lung airspace disease. Small left effusion. Mild cardiomegaly. Electronically Signed: Sal KathleenDO at 10:31 EDT , Service support , Medical Necessity - Tobacco Use Smoking Status: Never smoker Assessment/Plan Active and Suspected Problems New onset a-fib (Acute) with RVR Bronchitis (Acute) mild bronchospasm 1. KATTY likely hemodynamically mediated from afib with rvr, cardiorenal syndrome. Creatinine improved to 0.95 today. Renal US no hydronephrosis. UA negative for proteinuria. 2. Afib with rvr on beta-jessica and amiodarone 3. DM2 A1C 7.4 on admit. Check UA for proteinuria. 4. CAD s/p CABG cardiomyopathy EF 20% 5. Acute CHF, fluid overload, diuresing well on iv lasix. 6. HTN stable.
[2017-08-13] MEDS: Amiodarone 200 MG Tablet PO (17:04)
[2017-08-13 17:11] LABS: Bedside Glucose 232 mg/dL (70-110)
[2017-08-13] MEDS: Atorvastatin Calcium 20 MG Tablet PO (21:24)
[2017-08-13] MEDS: guaiFENesin 600 MG Tablet PO (21:24)
[2017-08-13 22:06] LABS: Bedside Glucose 191 mg/dL (70-110)
[2017-08-14] VITALS (14 sets, daily range): BP systolic 94–133; BP diastolic 67–81; PULSE 85–127; RESP 16–20; TEMP 36.4–36.9; O2SAT 94–97
[2017-08-14] MEDS: Amiodarone 200 MG Tablet PO ×2 (05:23→17:02)
[2017-08-14 06:53] LABS: Albumin, Serum 3.1 g/dL (3.2-5.0); Anion Gap 8 (5-15); BUN 25 mg/dL (7-18); BUN/Creat Ratio 29.4 RATIO (10-20); Calcium,Total 7.8 mg/dL (8.5-10.1); Chloride 105 mmol/L (98-107); Creatinine, Serum 0.85 mg/dL (0.55-1.02); EST Glomerular Filtration Rate 70 mL/min (>60); Est Glom Filt Rate - Afr Amer 85 mL/min (>60); Estimated Creatinine Clearance 51.67 ml/min; Glucose 111 mg/dL (74-106); Phosphorus 3.1 mg/dL (2.5-4.9); Sodium Level 142 mmol/L (136-145)
[2017-08-14 07:00] LABS: Bedside Glucose 123 mg/dL (70-110)
[2017-08-14] MEDS: Ipratropium/Albuterol Sulfate 3 ML AMPUL.NEB INHALATION (07:03)
[2017-08-14] MEDS: Fluticasone 0.05% 1 SPRAY NASAL.SRY 2 SPRAY NASAL (07:38)
[2017-08-14] MEDS: LINAGLIPTIN 5 MG TABLET PO (07:39)
[2017-08-14] MEDS: Sertraline 50 MG Tablet 25 MG PO (07:39)
[2017-08-14] MEDS: guaiFENesin 600 MG Tablet PO ×2 (07:39→22:05)
[2017-08-14] MEDS: Glimepiride 4 MG Tablet PO (07:40)
[2017-08-14] MEDS: Aspirin 81 MG TAB.CHEW PO (07:40)
[2017-08-14] MEDS: dilTIAZem CD 180 MG Capsule PO (07:40)
[2017-08-14] MEDS: APIXABAN 2.5 MG TABLET PO (07:40)
[2017-08-14] MEDS: Furosemide 40 MG/4 ML Vial IV (07:40)
[2017-08-14] MEDS: Magnesium Oxide 400 MG Tablet PO (07:40)
[2017-08-14] MEDS: Metoprolol Tartrate 50 MG Tablet PO (07:41)
--- NOTE | 2017-08-14 09:24 | PCM.PN.CARD ---
Subjectve: Patient seen and evaluated. Appears to be breathing much better now. Objective: Vital Signs Temp Pulse Resp BP Pulse Ox 97.6 F L 122 H 20 H 120/80 95 08/14/17 05:21 08/14/17 07:41 08/14/17 07:28 08/14/17 07:41 08/14/17 07:03 Oxygen Flow Rate (L/min) 2 Oxygen Delivery Method Room Air Weight: 237 lb 3.478 oz Body Mass Index (BMI) 42.0 Intake and Output for Last 24 Hours 08/12/17 08/13/17 08/14/17 23:59 23:59 23:59 Intake Total 1073 / 1073 1239.8 / 1239.8 Output Total 3425 / 3425 2500 / 2500 200 / 200 Balance -2352 / -2352 -1260.2 / -1260.2 -200 / -200 General: Awake, Alert, Oriented x 3 HEENT: PERRL, EOMI, Sclera Non Icteric Neck: Supple, Good ROM, No Lymph Node Enlargement Lungs: Clear to auscultation Cardiovascular: Irregular Rhythm, Normal S1, Normal S2, No Murmurs, No Rubs, No Gallops Vascular: No Carotid Bruits, Normal Femoral Pulses, Normal Radial Pulses, Normal Dorsalis Pedal Pulse, Normal Posterior Tibial Pulses Abdomen: Bowel Sounds Present, Soft, Non Tender, No HSM, No Organomegaly Extremities: No Cyanosis, No Clubbing, No edema Neurological: No Focal Motor or Sensory Deficit 08/14/17 06:29: Sodium 142, Potassium 4.0, Chloride 105, Carbon Dioxide 29.0, Anion Gap 8, BUN 25 H, Creatinine 0.85, Est GFR (MDRD) Af Amer 85, Est GFR (MDRD) Non-Af 70, BUN/Creatinine Ratio 29.4 H, Glucose 111 H, Calcium 7.8 L, Phosphorus 3.1, Magnesium 2.0 Rhythm: Atrial fibrillation with a stable ventricular response rate still tachycardic EKG: ECHO: Global ejection fraction of 20% Medical Necessity - Tobacco Use Smoking Status: Never smoker Assessment/Plan 1. Atrial fibrillation with a rapid ventricular response rate duration unknown. She presents with palpitations and is noted to be in atrial for ablation with rapid ventricular response rate. The exact duration is unknown at this time. I do agree that with her elevated Chads vasc score she should be anticoagulated and her rate controlled. She has been started on Lopressor 50 mg twice a day and Cardizem has been added. In addition she has been on amiodarone 200 mg after the current She would also continue on her Eliquis 5 mg twice a day. Her echocardiogram demonstrated globally reduced left ventricular ejection fraction estimated at 20%. It is likely that the above is tachycardia mediated. As it has been difficult to control her rate I would recommend that we proceed with a BHASKAR guided cardioversion to attempt to get her back into sinus rhythm. 2. Coronary artery disease. She is status post coronary bypass surgery. She has not followed up with any licensed insurance agent and after she has been evaluated for atrial fibrillation it may be prudent to obtain a pharmacologic myocardial perfusion stress test to exclude any ischemia. This can be obtained as an outpatient as well. 3. Hypertension Blood pressure appears to be under good control on the current medical therapy and no other major changes will be made. 4. Congestive heart failure-diastolic. Acute This is likely secondary to the atrial fibrillation with a rapid ventricular response rate. Ischemia however cannot be completely excluded. Her natriuretic peptide was elevated and we will continue to diurese her. Her left ventricular ejection fraction is noted to be 20%. Her renal function is back to normal. I would now recommend restarting her on low-dose JUAN inhibitor. Thank you for allowing me to participate in the care of your patient. Please don't hesitate to call if any issues arise
--- NOTE | 2017-08-14 09:32 | ECHOTEE_ITS ---
Reason For Study: Afib, Aflutter Medication Cetacaine Topical Wingina given X3 orally. Versed 2 mg given slow IVP. Fentanyl 50 mcg given slow IVP. Performed a rapid injection of agitated mix of 9 cc saline and 1cc air to assess for atrial septal defect. Left Ventricle Normal LV size. Moderately severe global left ventricular systolic dysfunction. The estimated ejection fraction is 20 %. There is moderate to severe global hypokinesis of the left ventricle. Right Ventricle Normal RV size. Normal systolic function. Atria Intact atrial septum. The left atrium is moderately enlarged. No thrombus is detected in the left atrial appendage. The right atrium is mildly enlarged. Mitral Valve Mild diffuse mitral valve thickening. Mild-Moderate (1-2+) mitral valve insufficiency. Tricuspid Valve Normal tricuspid valve. Mild (1+) tricuspid valve insufficiency. Aortic Valve Trisinus/trileaflet aortic valve. Mild (1+) aortic valve insufficiency. Pulmonic Valve Normal pulmonic valve. Mild (1+) pulmonic valve insufficiency. Vessels Normal aortic root. The pulmonary artery is normal size. Pericardium No pericardial effusion. Interpretation Summary Normal LV size. Moderately severe global left ventricular systolic dysfunction. The estimated ejection fraction is 20 %. The left atrium is moderately enlarged. No thrombus is detected in the left atrial appendage. Ordering Physician: Tristian Hall Referring Physician: Yaya Centeno Performed By: Mercedes Mccain, RDCS, RVT
[2017-08-14 11:56] LABS: Bedside Glucose 177 mg/dL (70-110)
--- NOTE | 2017-08-14 15:06 | PCM.PROGNOTE ---
Patient Problems: Active and Suspected Problems New onset a-fib (Acute) with RVR Bronchitis (Acute) mild bronchospasm Subjective: Significant improvement in BLE edema. SOB improved. Still occasional nonproductive cough. No N/V. No palp today. No CP. Pt agreeable to cardioversion tomorrow. - Physical Exam General: Alert, Oriented x3, Cooperative HEENT: Atraumatic, PERRLA, EOMI, Normocephalic Neck: Supple, No JVD, Negative Carotid Bruits Lungs: Clear to auscultation, Normal air movement Cardiovascular: No murmurs, Irregular Rate, Tachycardic Abdomen: Bowel Sounds Present, Soft, Non Tender Extremities: No edema, Capillary Refill Less than 3 Seconds, Edema - 1+ pitting edema BLE Skin: No rashes, No breakdown Musculoskeletal: No Tenderness to Palpation of Joints or Extremities Neurological: Cranial nerves II-XII grossly intact Psych/Mental Status: Normal Affect, Appropriate, Alert and oriented to time, place, person, mood and affect Vital Signs Temp Pulse Resp BP Pulse Ox 98.4 F 100 17 133/76 H 96 08/14/17 11:40 08/14/17 15:00 08/14/17 11:40 08/14/17 11:40 08/14/17 11:40 Oxygen Flow Rate (L/min) 2 Oxygen Delivery Method Room Air Weight: 107.6 kg Body Mass Index (BMI) 42.0 Intake and Output for Last 24 Hours 08/12/17 08/13/17 08/14/17 23:59 23:59 23:59 Intake Total 1073 / 1073 1239.8 / 1239.8 240 / 240 Output Total 3425 / 3425 2500 / 2500 600 / 600 Balance -2352 / -2352 -1260.2 / -1260.2 -360 / -360 Laboratory Tests Past 24 Hrs 08/14/17 06:29 Sodium 142 Potassium 4.0 Chloride 105 Carbon Dioxide 29.0 Anion Gap 8 BUN 25 H Creatinine 0.85 Estim Creat Clear Calc 51.67 Est GFR (MDRD) Af Amer 85 Est GFR (MDRD) Non-Af 70 BUN/Creatinine Ratio 29.4 H Glucose 111 H Calcium 7.8 L Phosphorus 3.1 Magnesium 2.0 Albumin 3.1 L POC Glucose 08/14/17 08/14/17 08/13/17 11:45 06:54 21:22 POC Glucose 177 H 123 H 191 H 08/13/17 17:02 POC Glucose 232 H Medical Necessity - Tobacco Use Smoking Status: Never smoker Assessment/Plan Active and Suspected Problems New onset a-fib (Acute) with RVR Bronchitis (Acute) mild bronchospasm 1. AF with RVR, new onset - Remains tachy, now on PO amio, metoprolol, eliquis. EEG tomorrow. EF 20% 2. Acute Asthma exacerbation ruled out - steroids discontinued. 3. Acute systolic CHF exacerbation - improved. EF 20%. Lungs are clear. Edema is better. Continue Lasix 40 IV qd. Transition to PO tomrorow with K supplement. 4. Elevated creatinine - improved. Neprhology following. 5. T2DM - Amaryl. SSI. She has been started on long acting and TID insulin. A1C 7.4. 6. HTN - stable. Losartan DCd 7. HLD - statin 8. Anxiety - xanax, sertraline DVT ppx: eliquis DC planning: EEG tomorrow This patient was seen by Iván Sanon PA-C under the supervision of Doctor Bradley.
[2017-08-14 16:45] LABS: Bedside Glucose 197 mg/dL (70-110)
[2017-08-14] MEDS: Metoprolol Tartrate 100 MG Tablet PO (22:05)
[2017-08-14] MEDS: APIXABAN 5 MG TABLET PO (22:05)
[2017-08-14] MEDS: Atorvastatin Calcium 20 MG Tablet PO (22:05)
[2017-08-14 22:30] LABS: Bedside Glucose 143 mg/dL (70-110)
--- NOTE | 2017-08-14 23:10 | NURSING ---
Handing off care to Stephan Schulte RN at this time. Verbal report given.
[2017-08-15 03:04] VITALS: PULSE 96
[2017-08-15 04:00] VITALS: BP 121/80; PULSE 110; RESP 16; TEMP 36.6; O2SAT 98
--- NOTE | 2017-08-15 05:00 | EKG12_ITS ---
Test Reason : AM EKG Blood Pressure : / mmHG Vent. Rate : 115 BPM Atrial Rate : 072 BPM P-R Int : 000 ms QRS Dur : 102 ms QT Int : 364 ms P-R-T Axes : 000 064 054 degrees QTc Int : 503 ms Atrial fibrillation Abnormal ECG When compared with ECG of 10-AUG-2017 14:41, MANUAL COMPARISON REQUIRED, DATA IS UNCONFIRMED Confirmed by BENITA BARRERA, GERI ([id number]), website/blog editor TON AVILA ([id number]) on 08/18/2017 2:05:13 PM Referred By: DR HERNANDEZ Confirmed By:GERI JOY MD
[2017-08-15] MEDS: Amiodarone 200 MG Tablet PO (06:38)
[2017-08-15 06:42] LABS: Albumin, Serum 3.1 g/dL (3.2-5.0); BUN 22 mg/dL (7-18); BUN/Creat Ratio 24.7 RATIO (10-20); Calcium,Total 7.8 mg/dL (8.5-10.1); Chloride 107 mmol/L (98-107); Creatinine, Serum 0.89 mg/dL (0.55-1.02); EST Glomerular Filtration Rate 67 mL/min (>60); Est Glom Filt Rate - Afr Amer 81 mL/min (>60); Estimated Creatinine Clearance 49.35 ml/min; Glucose 139 mg/dL (74-106); Phosphorus 2.9 mg/dL (2.5-4.9); Potassium 4.2 mmol/L (3.5-5.1); Sodium Level 144 mmol/L (136-145)
[2017-08-15 06:50] LABS: Bedside Glucose 142 mg/dL (70-110)
[2017-08-15 07:11] VITALS: PULSE 116
[2017-08-15 07:50] VITALS: O2SAT 96
[2017-08-15 09:15] LABS: Vitamin D,25 Hydroxy 18.7 ng/mL (29.95-100.01)
--- NOTE | 2017-08-15 12:05 | DCINST_ITS ---
- Discharge Diagnoses Current Active Problems: Current Active and Chronic Problems New onset a-fib (Acute) with RVR Bronchitis (Acute) mild bronchospasm You will use the following diet at home:: Calorie/Carbohydrate Controlled ( specify 1200, 1400, etc) - 1800 aiden / day, Cardiac Your food should be the consistency of: Regular Your liquids should be the consistency of: Regular/Thin Discharge Activity: Return to Normal Activity Allergies/Adverse Reactions: Allergies No Known Allergies Allergy (Verified 08/10/17 14:29) Medications to take at Discharge Metformin(XR) [Glucophage Xr] 850 mg PO BID 02/27/13 Simvastatin [Zocor] 40 mg PO QHS 02/27/13 Albuterol Inhaler [Ventolin Hfa] 2 puff INHALATION 4X/DAY PRN PRN 12/19/13 Aspirin [Aspirin, Baby] 81 mg PO DAILY@0800 12/19/13 Mometasone Furoate [Asmanex 110 mcg [place]er] 110 mcg INHALATION BID 12/19/13 Amiodarone HCl [Cordarone] 200 mg PO 0600,1800 #60 tab 08/15/17 Apixaban [Eliquis] 5 mg PO BID #60 tab 08/15/17 Furosemide [Lasix] 40 mg PO DAILY #30 tab 08/15/17 Glimepiride [Amaryl] 4 mg PO DAILY@0800 #30 tab 08/15/17 Linagliptin [Tradjenta] 5 mg PO DAILY #30 tab 08/15/17 Melatonin 3 mg PO QHS PRN PRN tablet 08/15/17 Metoprolol Tartrate [Lopressor (beta jessica)] 100 mg PO BID #60 tab 08/15/17 Potassium Chloride [K-Dur] 10 meq PO BIDCM #60 tab 08/15/17 Sertraline HCl [Zoloft] 25 mg PO DAILY #30 tab 08/15/17 The following prescriptions were given: Amiodarone HCl [Cordarone] 200 mg PO 0600,1800 #60 tab Apixaban [Eliquis] 5 mg PO BID #60 tab Furosemide [Lasix] 40 mg PO DAILY #30 tab Glimepiride [Amaryl] 4 mg PO DAILY@0800 #30 tab Linagliptin [Tradjenta] 5 mg PO DAILY #30 tab Metoprolol Tartrate [Lopressor (beta jessica)] 100 mg PO BID #60 tab Potassium Chloride [K-Dur] 10 meq PO BIDCM #60 tab Sertraline HCl [Zoloft] 25 mg PO DAILY #30 tab Primary Care Physician: Yaya Centeno DO [Primary Care Provider] - Please follow up with your Primary Care Physician in: 1-2 weeks Please Follow Up With: Tristian Hall MD When: 2 weeks Please Follow Up With: Eli Waldrpo DO When: 2-3 weeks Proposed Discharge Date: 08/15/17
--- NOTE | 2017-08-15 12:06 | PCM.DC.SUM ---
Discharge Date and Diagnosis - Problem List Patient Problems: Active and Suspected Problems New onset a-fib (Acute) with RVR Bronchitis (Acute) mild bronchospasm Date of Admission: 08/10/17 Date of Discharge: 08/15/17 - Primary Discharge Diagnosis Active and Suspected Problems Acute systolic CHF with unspecified cardiomyopathy New onset AF with RVR DMt2 HTN CHERISE KATTY HLD Anxiety morbid obesity - Secondary Discharge Diagnosis Chronic Problems Obesity (Chronic) CHERISE (obstructive sleep apnea) (Chronic) HTN (hypertension) (Chronic) Hx of CABG (Chronic) Hyperlipemia (Chronic) Diabetes mellitus (Chronic) Hospital Course and Treatment Imaging Results: RAD/Chest 1 View (Portable) IMPRESSION: Mild increased markings at the lung bases with blunting of both costophrenic angles. Follow-up is recommended. TTE Interpretation Summary Normal LV size. Severe global left ventricular systolic dysfunction. The estimated ejection fraction is 20 %. Unable to assess diastolic dysfunction. The left atrium is moderately enlarged. Compared to the previous the LV function is declined. Contrast injection was performed. US/Kidney and Bladder IMPRESSION: Small cortical renal cysts. No evidence of hydronephrosis. RAD/Chest PA and Lateral IMPRESSION: Left lower lung airspace disease. Small left effusion. Mild cardiomegaly. BHASKAR Pericardium No pericardial effusion. Interpretation Summary Normal LV size. Moderately severe global left ventricular systolic dysfunction. The estimated ejection fraction is 20 %. The left atrium is moderately enlarged. No thrombus is detected in the left atrial appendage. Consults: Isabel - cardiology Benjie - nephrology Operations: None Procedures: 2-D Echocardiogram, Cardioversion, Transesophageal Echo Summary of Care Provided: Physical exam on day of discharge: General: Resting comfortably NAD Psych: A/Ox3 normal affect HEENT: PEARRLA AT NC Neck: Supple NT CV: RRR no m/t/r/g/h Resp: CTA Abd: [id number] Soft NT no guarding or rigidity, obese Ext: DP2+=, 1+ pitting edema BLE. Skin: W/D normal turgor Lymph/Heme: No active bleeding or adenopathy Neuro: CN2-12 intact Hospital course: The patient is a 67 year old F with a hx of asthma, T2DM, HTN, HLD who presented to the ER with increased SOB, BLE edema, and found to be in AF with RVR, acute CHF exacerbation, and KATTY. She was admitted to the PCU for cardiac monitoring and started on IV diltiazem and lasix. Dr. Hall was consulted for cardiology and Dr. Waldrop for nephrology. Her breathing gradually improved with lasix. Her heart rate failed to respond to diltiazem, dig, increased beta blockers, and amiodarone. She was placed on eliquis for anticoagulation. She had an echo with an EF of 20%. She underwent BHASKAR to rule out clots followed by cardioversion. We adjusted her diabetic regimen as her sugars were non controlled, and adjusted her blood pressure regimen as she had KATTY and was running on the lower side. She remained stable and was weaned off O2. She was discharged home in stable condition. Please follow up with your PCP, ethanol quality leader, and blasting entry specialist. This patient was seen by Iván Sanon PA-C under the supervision of Doctor Mirna. [] Discharge Activity: Return to Normal Activity Home Medications: Medications to take at Discharge Metformin(XR) [Glucophage Xr] 850 mg PO BID 02/27/13 Simvastatin [Zocor] 40 mg PO QHS 02/27/13 Albuterol Inhaler [Ventolin Hfa] 2 puff INHALATION 4X/DAY PRN PRN 12/19/13 Aspirin [Aspirin, Baby] 81 mg PO DAILY@0800 12/19/13 Mometasone Furoate [Asmanex 110 mcg Twisthaler] 110 mcg INHALATION BID 12/19/13 Amiodarone HCl [Cordarone] 200 mg PO 0600,1800 #60 tab 08/15/17 Apixaban [Eliquis] 5 mg PO BID #60 tab 08/15/17 Furosemide [Lasix] 40 mg PO DAILY #30 tab 08/15/17 Glimepiride [Amaryl] 4 mg PO DAILY@0800 #30 tab 08/15/17 Linagliptin [Tradjenta] 5 mg PO DAILY #30 tab 08/15/17 Melatonin 3 mg PO QHS PRN PRN tablet 08/15/17 Metoprolol Tartrate [Lopressor (beta jessica)] 100 mg PO BID #60 tab 08/15/17 Potassium Chloride [K-Dur] 10 meq PO BIDCM #60 tab 08/15/17 Sertraline HCl [Zoloft] 25 mg PO DAILY #30 tab 08/15/17 Following Prescrptions Were Given to Patient: Amiodarone HCl [Cordarone] 200 mg PO 0600,1800 #60 tab Apixaban [Eliquis] 5 mg PO BID #60 tab Furosemide [Lasix] 40 mg PO DAILY #30 tab Glimepiride [Amaryl] 4 mg PO DAILY@0800 #30 tab Linagliptin [Tradjenta] 5 mg PO DAILY #30 tab Metoprolol Tartrate [Lopressor (beta jessica)] 100 mg PO BID #60 tab Potassium Chloride [K-Dur] 10 meq PO BIDCM #60 tab Sertraline HCl [Zoloft] 25 mg PO DAILY #30 tab Primary Care Physician: Yaya Centeno DO [Primary Care Provider] - Please follow up with your Primary Care Physician in: 1-2 weeks Please Follow Up With: Tristian Hall MD When: 2 weeks Please Follow Up With: Eli Waldrop DO When: 2-3 weeks Medical Necessity - Tobacco Use Smoking Status: Never smoker Meaningful Use Info Meaningful Use Diagnoses (Choose all that apply): CHF - CHF JUAN/ARB ordered at discharge?: Yes Reason JUAN/ARB not ordered?: Worsening renal disease Documented LVEF (%): 20
--- NOTE | 2017-08-15 12:15 | DS.PCM_ITS ---
Addendum entered and electronically signed by GEETA Morgan 08/15/17 12:48: Code Visit added low dose ARB as advised per cardiology. losartan 12.5 qd Addendum entered and electronically signed by GEETA Morgan 08/15/17 12:45: Code Visit Per cardiology: Continue Amiodarone 200 mg BID x 14 days, then transition to 200 mg once per day. Continue metoprolol and eliquis as ordered. Original Note: Discharge Date and Diagnosis - Problem List Patient Problems: Active and Suspected Problems New onset a-fib (Acute) with RVR Bronchitis (Acute) mild bronchospasm Date of Admission: 08/10/17 Date of Discharge: 08/15/17 - Primary Discharge Diagnosis Active and Suspected Problems Acute systolic CHF with unspecified cardiomyopathy New onset AF with RVR DMt2 HTN CHERISE KATTY HLD Anxiety morbid obesity - Secondary Discharge Diagnosis Chronic Problems Obesity (Chronic) CHERISE (obstructive sleep apnea) (Chronic) HTN (hypertension) (Chronic) Hx of CABG (Chronic) Hyperlipemia (Chronic) Diabetes mellitus (Chronic) Hospital Course and Treatment Imaging Results: RAD/Chest 1 View (Portable) IMPRESSION: Mild increased markings at the lung bases with blunting of both costophrenic angles. Follow-up is recommended. TTE Interpretation Summary Normal LV size. Severe global left ventricular systolic dysfunction. The estimated ejection fraction is 20 %. Unable to assess diastolic dysfunction. The left atrium is moderately enlarged. Compared to the previous the LV function is declined. Contrast injection was performed. US/Kidney and Bladder IMPRESSION: Small cortical renal cysts. No evidence of hydronephrosis. RAD/Chest PA and Lateral IMPRESSION: Left lower lung airspace disease. Small left effusion. Mild cardiomegaly. BHASKAR Pericardium No pericardial effusion. Interpretation Summary Normal LV size. Moderately severe global left ventricular systolic dysfunction. The estimated ejection fraction is 20 %. The left atrium is moderately enlarged. No thrombus is detected in the left atrial appendage. Consults: Isabel - cardiology Benjie - nephrology Operations: None Procedures: 2-D Echocardiogram, Cardioversion, Transesophageal Echo Summary of Care Provided: Physical exam on day of discharge: General: Resting comfortably NAD Psych: A/Ox3 normal affect HEENT: PEARRLA AT NC Neck: Supple NT CV: RRR no m/t/r/g/h Resp: CTA Abd: [id number] Soft NT no guarding or rigidity, obese Ext: DP2+=, 1+ pitting edema BLE. Skin: W/D normal turgor Lymph/Heme: No active bleeding or adenopathy Neuro: CN2-12 intact Hospital course: The patient is a 67 year old F with a hx of asthma, T2DM, HTN, HLD who presented to the ER with increased SOB, BLE edema, and found to be in AF with RVR, acute CHF exacerbation, and KATTY. She was admitted to the PCU for cardiac monitoring and started on IV diltiazem and lasix. Dr. Hall was consulted for cardiology and Dr. Waldrop for nephrology. Her breathing gradually improved with lasix. Her heart rate failed to respond to diltiazem, dig, increased beta blockers, and amiodarone. She was placed on eliquis for anticoagulation. She had an echo with an EF of 20%. She underwent BHASKAR to rule out clots followed by cardioversion. We adjusted her diabetic regimen as her sugars were non controlled, and adjusted her blood pressure regimen as she had KATTY and was running on the lower side. She remained stable and was weaned off O2. She was discharged home in stable condition. Please follow up with your PCP, performance consultant, and supervisor sheet manufacturing. This patient was seen by Iván Sanon PA-C under the supervision of Doctor Bradley. [] Discharge Activity: Return to Normal Activity Home Medications: Medications to take at Discharge Metformin(XR) [Glucophage Xr] 850 mg PO BID 02/27/13 Simvastatin [Zocor] 40 mg PO QHS 02/27/13 Albuterol Inhaler [Ventolin Hfa] 2 puff INHALATION 4X/DAY PRN PRN 12/19/13 Aspirin [Aspirin, Baby] 81 mg PO DAILY@0800 12/19/13 Mometasone Furoate [Asmanex 110 mcg Twisthaler] 110 mcg INHALATION BID 12/19/13 Amiodarone HCl [Cordarone] 200 mg PO 0600,1800 #60 tab 08/15/17 Apixaban [Eliquis] 5 mg PO BID #60 tab 08/15/17 Furosemide [Lasix] 40 mg PO DAILY #30 tab 08/15/17 Glimepiride [Amaryl] 4 mg PO DAILY@0800 #30 tab 08/15/17 Linagliptin [Tradjenta] 5 mg PO DAILY #30 tab 08/15/17 Melatonin 3 mg PO QHS PRN PRN tablet 08/15/17 Metoprolol Tartrate [Lopressor (beta jessica)] 100 mg PO BID #60 tab 08/15/17 Potassium Chloride [K-Dur] 10 meq PO BIDCM #60 tab 08/15/17 Sertraline HCl [Zoloft] 25 mg PO DAILY #30 tab 08/15/17 Following Prescrptions Were Given to Patient: Amiodarone HCl [Cordarone] 200 mg PO 0600,1800 #60 tab Apixaban [Eliquis] 5 mg PO BID #60 tab Furosemide [Lasix] 40 mg PO DAILY #30 tab Glimepiride [Amaryl] 4 mg PO DAILY@0800 #30 tab Linagliptin [Tradjenta] 5 mg PO DAILY #30 tab Metoprolol Tartrate [Lopressor (beta jessica)] 100 mg PO BID #60 tab Potassium Chloride [K-Dur] 10 meq PO BIDCM #60 tab Sertraline HCl [Zoloft] 25 mg PO DAILY #30 tab Primary Care Physician: Yaya Centeno DO [Primary Care Provider] - Please follow up with your Primary Care Physician in: 1-2 weeks Please Follow Up With: Tristian Hall MD When: 2 weeks Please Follow Up With: Eli Waldrop DO When: 2-3 weeks Medical Necessity - Tobacco Use Smoking Status: Never smoker Meaningful Use Info Meaningful Use Diagnoses (Choose all that apply): CHF - CHF JUAN/ARB ordered at discharge?: Yes Reason JUAN/ARB not ordered?: Worsening renal disease Documented LVEF (%): 20
--- NOTE | 2017-08-15 12:36 | PN.CARD_ITS ---
Subjectve: Patient seen and evaluated. Underwent BHASKAR this morning and cardioversion this afternoon. Objective: Vital Signs Temp Pulse Resp BP Pulse Ox 98 F 116 H 16 121/80 H 96 08/15/17 04:00 08/15/17 07:11 08/15/17 04:00 08/15/17 04:00 08/15/17 07:50 Oxygen Flow Rate (L/min) 2 Oxygen Delivery Method Room Air Weight: 232 lb 9.403 oz Body Mass Index (BMI) 42.0 Intake and Output for Last 24 Hours 08/13/17 08/14/17 08/15/17 23:59 23:59 23:59 Intake Total 1239.8 / 1239.8 1180 / 1180 Output Total 2500 / 2500 750 / 750 450 / 450 Balance -1260.2 / -1260.2 430 / 430 -450 / -450 General: Awake, Alert, Oriented x 3 HEENT: PERRL, EOMI, Sclera Non Icteric Neck: Supple, Good ROM, No Lymph Node Enlargement Lungs: Clear to auscultation Cardiovascular: Regular Rhythm, Normal S1, Normal S2, No Murmurs, No Rubs, No Gallops Vascular: No Carotid Bruits, Normal Femoral Pulses, Normal Radial Pulses, Normal Dorsalis Pedal Pulse, Normal Posterior Tibial Pulses Abdomen: Bowel Sounds Present, Soft, Non Tender, No HSM, No Organomegaly Extremities: No Cyanosis, No Clubbing, No edema Neurological: No Focal Motor or Sensory Deficit 08/15/17 05:10: Sodium 144, Potassium 4.2, Chloride 107, Carbon Dioxide 30.0, BUN 22 H, Creatinine 0.89, Est GFR (MDRD) Af Amer 81, Est GFR (MDRD) Non-Af 67, BUN/Creatinine Ratio 24.7 H, Glucose 139 H, Calcium 7.8 L, Phosphorus 2.9 Rhythm: EKG: ECHO: Stress Test: Cardiac Cath: PCI: CT Surgery: Holter monitor: EPS: PPM: CXR: Chest CT Scan: Medical Necessity - Tobacco Use Smoking Status: Never smoker Assessment/Plan 1. Atrial fibrillation with a rapid ventricular response rate duration unknown. She was treated with anticoagulation and this morning underwent a transvaginal echocardiogram which did not demonstrate any evidence of left atrial appendage thrombus. She was subsequently brought back to the lab and underwent DC cardioversion with 200 J of synchronized DC cardioversion energy. Patient reverted to sinus rhythm.The plan is to continue her on the metoprolol 100 mg twice a day Continue amiodarone 200 mg twice a day for 2 weeks then 200 mg a day. 2. Coronary artery disease. She is status post coronary bypass surgery. She has not followed up with any power crane operator and after she has been evaluated for atrial fibrillation it may be prudent to obtain a pharmacologic myocardial perfusion stress test to exclude any ischemia. This can be obtained as an outpatient as well. 3. Hypertension Blood pressure appears to be under good control on the current medical therapy and no other major changes will be made. 4. Congestive heart failure-diastolic. Acute This is likely secondary to the atrial fibrillation with a rapid ventricular response rate. Ischemia however cannot be completely excluded. Her natriuretic peptide was elevated and we will continue to diurese her. Her left ventricular ejection fraction is noted to be 20%. Her renal function is back to normal. I would now recommend restarting her on low-dose JUAN inhibitor. Patient to be scheduled for a follow-up visit in my office in 2 weeks. Thank you for allowing me to participate in the care of your patient. Please don't hesitate to call if any issues arise
--- NOTE | 2017-08-15 12:36 | PCM.OP.BLANK ---
Operative Report Date of Procedure: 08/15/17 DC cardioversion. Indication: Atrial fibrillation with rapid ventricular response rate difficult to control with medication. Procedure: Patient has been anticoagulated with Eliquis and underwent a BHASKAR this morning which did not demonstrate any evidence of left atrial appendage thrombus. Patient was noted to have a cardiomyopathy. The patient was administered 100 mg of subcutaneous Lovenox today. Patient was seen by Dr. Banda of the critical care division AP pads were applied. The patient was administered 4 mg of intravenous etomidate. 200 J of synchronized DC cardioversion energy were applied with prompt reversal to sinus rhythm. Conclusion: Successful DC cardioversion to sinus rhythm Continue Eliquis 5 mg twice daily Continue metoprolol 100 mg twice daily Continue amiodarone 200 mg twice daily for 2 weeks and then 200 mg daily.
--- NOTE | 2017-08-15 12:39 | PCM.OP.BLANK ---
Operative Report Date of Procedure: 08/15/17 CONSCIOUS SEDATION REPORT DATE OF SERVICE: August 15, 2017 BRIEF HISTORY OF PRESENT ILLNESS: The patient is a 67-year-old female who initially presented to the hospital on August 10 with complaints of shortness of breath and hypoxemia. She was subsequently found to be in atrial fibrillation with rapid ventricular rate. The patient did undergo a transesophageal echocardiogram this morning which revealed no evidence of a thrombus. Ejection fraction was noted to be 20%. The patient is currently being anticoagulated with Eliquis. She denies a previous history of anesthetic complications. She has never undergone a previous cardioversion. She does endorse a history of obstructive sleep apnea and asthma. PHYSICAL EXAMINATION: VITAL SIGNS: Reviewed and were acceptable. GENERAL: The patient is an obese female, in no apparent distress, speaking in full sentences. HEENT: Normocephalic, atraumatic. Mucous membranes are moist and pink. Good mouth opening noted. Trachea is midline. Limited neck mobility. CHEST: S1, S2 irregularly irregular. No murmurs, rubs or gallops were noted. LUNGS: Clear to auscultation bilaterally without appreciable wheezes, rales or rhonchi. ABDOMEN: Soft, nontender, nondistended. Positive bowel sounds. Obese. EXTREMITIES: There is no clubbing or cyanosis. Lower extremity edema is present. ASA Class: II DESCRIPTION OF PROCEDURE: After confirmation of informed consent, the patient's anesthesia plan was reviewed in detail. Etomidate was chosen. Risks and benefits were reviewed and the patient agreed to proceed. At 1230, the patient was given 4 mg of etomidate. The patient achieved an appropriate level of sedation and was given a 200 joule synchronized cardioversion by Dr. Hall at the bedside. This was successful in achieving normal sinus rhythm. The patient was monitored until 1240, at which time they reached her baseline mental status and function. The patient tolerated the procedure well. COMPLICATIONS: None ESTIMATED BLOOD LOSS: None RECOMMENDATIONS: Okay to recover in usual fashion. Code Visit [id number]: Other Procedure See Report
[2017-08-15 13:04] VITALS: BP 125/79; PULSE 85; RESP 16; TEMP 36.6; O2SAT 96
--- NOTE | 2017-08-15 13:05 | NURSING ---
vital signs taken now per VSA due to pt off floor for BHASKAR and cardioversion
[2017-08-15] MEDS: Aspirin 81 MG TAB.CHEW PO (13:11)
[2017-08-15 13:12] VITALS: PULSE 86
[2017-08-15] MEDS: Metoprolol Tartrate 100 MG Tablet PO (13:12)
[2017-08-15] MEDS: Magnesium Oxide 400 MG Tablet PO (13:12)
[2017-08-15] MEDS: guaiFENesin 600 MG Tablet PO (13:13)
[2017-08-15] MEDS: LINAGLIPTIN 5 MG TABLET PO (13:14)
[2017-08-15] MEDS: Sertraline 50 MG Tablet 25 MG PO (13:15)
[2017-08-15] MEDS: Glimepiride 4 MG Tablet PO (13:16)
--- NOTE | 2017-08-15 13:22 | CASEMGMT ---
Per Emeterio CONNOR, pt to be placed on Eliquis and Tradjenta. Scripts e-scribed to [facility] at this time. Call to [facility] to verify coverage/co-pay at this time and after Rx insurance card provided for pt at this time, scripts are only $10.00 a piece. Amanda WINSTON updated at this time, voices understanding. Caridad WINSTON CM
[2017-08-15] MEDS: Furosemide 40 MG Tablet PO (13:26)
[2017-08-15 13:36] LABS: Bedside Glucose 126 mg/dL (70-110)
--- NOTE | 2017-08-17 15:50 | CASEMGMT ---
[facility] DISCHARGE F/U PHONE CALL LACE: 13 STRATA: 4 CALL DATE: 08/16/17, UNSUCCESSFUL, VM LEFT FOR PT TO RETURN CALL TO THIS RN CM 08/17/17, CALL BACK TO PT AND PT ANSWERED AT THIS TIME DISCHARGE DATE: 08/15/17 TIME OF CALL: [id number] DURATION: 7 MINUTES ADM DX: AFIB RVR, BRONCHITIS W/ BRONCHOSPASM PT STATES HAS BEEN 'SLEEPY' SINCE LEAVING HOSPITAL BUT STATES NO OTHER COMPLAINTS AT THIS TIME. PT STATES THAT SHE 'ACCIDENTILY THREW AWAY HER D/C INSTRUCTIONS' BUT STATES HAS NO QUESTIONS REGARDING INSTRUCTIONS AT THIS TIME. PT STATES NO QUESTIONS REGARDING PRESCRIPTIONS AT THIS TIME. PT STATES SOME CONFUSION ABOUT APPT SCHEDULED WITH DR. RIOS. ADVISED PT THAT SHE ALREADY HAS APPT SCHEDULED WITH DR. RIOS AT 0850 ON 08/19/17, PT STATES THAT SHE SPOKE WITH HIS OFFICE AND THEY KNEW NOTHING OF THIS APPT AND SCHEDULED HER 'WITH A DIFFERENT DR ON THE SAME DAY.' THIS RN CM ASKED PT IF SHE WOULD LIKE THIS RN SRIKANTH TO CLARIFY WITH [facility] OFFICE AND SHE STATES SHE AGREES TO THAT AT THIS TIME. PT STATES NO FURTHER CONCERNS ABOUT ADMISSION AT THIS TIME. PT DOES COUGH FREQUENTLY DURING CALL BUT DENIES ANY SOB AT THIS TIME. ADVISED PT THAT PT WOULDBE NOTIFIED BY EITHER THIS RN SRIKANTH OR [facility]'S OFFICE REGARDING ACTUAL APPOINTMENT TIME, VOICES UNDERSTANDING. CALL TO SCHEDULING AT DR RIOS'S OFFICE AND PER HYDROGEOLOGIST, SHE STATES THAT PT JUST CALLED ASKING TO MAKE AN APPT AND HYDROGEOLOGIST WAS NOT AWARE THAT PT WAS ALREADY SCHEDULED FOR THIS TUESDAY SO SHE SCHEDULED HER FOR NEXT WEEK. ADVISED HYDROGEOLOGIST THAT PT NEEDS TO KEEP APPT FOR THIS WEEK AND HYDROGEOLOGIST STATES THAT SHE WILL CALL PT AND STRAIGHTEN IT ALL OUT AT THIS TIME. SSTATEN [facility]
== END 2017-08-15 16:13 | disposition home or self-care (01) | DRG 308 ==
LOC: ED 15:05 → PCU 16:03
PROVIDERS: Internal Medicine Cardiovascular Disease; Internal Medicine Nephrology; Physician Assistant; Admitting Provider Internal Medicine; Emergency Provider Emergency Medicine; Family Provider Family Medicine; PCP Family Medicine; Visit Provider Internal Medicine
DX: I48.91 Unspecified atrial fibrillation (principal); I50.43 Acute on chronic combined systolic (congestive) and diastolic (congestive) heart failure; N17.9 Acute kidney failure, unspecified; Z68.41 Body mass index [BMI] 40.0-44.9, adult; J20.9 Acute bronchitis, unspecified; E11.9 Type 2 diabetes mellitus without complications; I25.10 Atherosclerotic heart disease of native coronary artery without angina pectoris; I11.0 Hypertensive heart disease with heart failure; E66.01 Morbid (severe) obesity due to excess calories; G47.33 Obstructive sleep apnea (adult) (pediatric); E78.5 Hyperlipidemia, unspecified; Z79.82 Long term (current) use of aspirin; Z95.1 Presence of aortocoronary bypass graft; Z79.01 Long term (current) use of anticoagulants
CPT/HCPCS: 36415; 71045; 71046; 76770; 80048; 80053; 80061; 80069; 81001; 82306; 82570; 82962; 83036; 83735; 83880; 84100; 84156; 84300; 84439; 84443; 84484; 85025; 85610; 92960; 93005; 93306; 93312; 93320; 93325; 94640; 97110; 97116; 97162; 97166; 97530; 99283; J7030; Q9957; A4216; J1940

== ENCOUNTER → 2017-08-25 10:53 | Outpatient (CLI) | payer MEDICARE, SELFPAY ==
[2017-08-25 12:17] LABS: Absolute Lymphocyte Count 1.45 X10^3/ul (0.83-4.51); Absolute Neutrophil Count 8.4 X10^3/uL (2.0-7.7); Basophil# 0.03 X10^3/uL; Basophil% 0.3 % (0-1); Eosinophil# 0.11 X10^3/uL; Hematocrit 45.6 % (37-47); Lymphocyte # 1.45 X10^3/ul (4.0); Lymphocyte % 13.6 % (19-41); Mean Corp Hgb Conc 32.9 g/gl (32-36); Mean Corpuscular Hgb 30.8 pg (27.0-32.0); Mean Corpuscular Volume 93.6 fL (81-99); Mean Platelet Vol. 11.2 fl (6.2-12.0); Monocyte# 0.63 X10^3/uL; Monocyte% 5.9 % (0-10); Neutrophil % 78.9 % (47-70); Platelet Count 237 K/mm3 (150-450); RBC Distribution Width CV 13.3 % (11.6-14.6); RBC Distribution Width SD 44.3 fl (35.1-43.9); Red Blood Count 4.87 M/mm3 (4.2-5.4); White Blood Count 10.7 K/mm3 (4.4-11.0)
[2017-08-25 12:20] LABS: POSITIVE COUNT NO; POSITIVE DIFFERENTIAL NO; POSITIVE MORPHOLOGY NO
[2017-08-25 12:41] LABS: AST(SGOT) 13 U/L (15-37); Alanine Aminotransfer ALT/SGPT 23 U/L (13-56); Albumin, Serum 3.7 g/dL (3.2-5.0); Alkaline Phosphatase 47 U/L (45-117); Anion Gap 9 (5-15); BUN 37 mg/dL (7-18); BUN/Creat Ratio 20.6 RATIO (10-20); Calcium,Total 8.9 mg/dL (8.5-10.1); Chloride 100 mmol/L (98-107); EST Glomerular Filtration Rate 30 mL/min (>60); Est Glom Filt Rate - Afr Amer 36 mL/min (>60); Globulin 3.6 g/dL (2.2-4.2); Glucose 237 mg/dL (74-106); Potassium 4.4 mmol/L (3.5-5.1); Protein, Total 7.3 g/dL (6.4-8.2); Sodium Level 139 mmol/L (136-145); Thyroid Stim Hormone (TSH) 7.02 uIU/mL (0.358-3.74)
== END ==
PROVIDERS: Family Provider Family Medicine; PCP Family Medicine; Visit Provider Family Medicine
DX: I50.9 Heart failure, unspecified (principal); I48.91 Unspecified atrial fibrillation
CPT/HCPCS: 36415; 80053; 84443; 85025

== ENCOUNTER → 2017-09-08 11:00 | Outpatient (CLI) | payer MEDICARE, SELFPAY ==
[2017-09-08 12:16] LABS: Albumin, Serum 3.6 g/dL (3.2-5.0); BUN 40 mg/dL (7-18); BUN/Creat Ratio 25.6 RATIO (10-20); Calcium,Total 9.1 mg/dL (8.5-10.1); Chloride 106 mmol/L (98-107); Creatinine, Serum 1.56 mg/dL (0.55-1.02); EST Glomerular Filtration Rate 35 mL/min (>60); Est Glom Filt Rate - Afr Amer 42 mL/min (>60); Glucose 129 mg/dL (74-106); Phosphorus 3.4 mg/dL (2.5-4.9); Potassium 4.3 mmol/L (3.5-5.1); Sodium Level 138 mmol/L (136-145)
== END ==
PROVIDERS: Visit Provider Internal Medicine Nephrology
DX: N17.9 Acute kidney failure, unspecified (principal)
CPT/HCPCS: 36415; 80069

== ENCOUNTER 2017-09-12 10:39 | Emergency (ER) | payer MEDICARE, OTHER, SELFPAY ==
[2017-09-12 10:41] VITALS: BP 101/68; PULSE 106; PULSE 97; RESP 19; RESP 20; TEMP 36.4; O2SAT 96; O2SAT 97; BMI 42.8
--- NOTE | 2017-09-12 10:55 | RAD_ITS ---
STUDY: X-RAY CHEST REASON FOR EXAM: Female, 67 years old. Cough, tachycardia and shortness of breath. TECHNIQUE: Single AP portable view of the chest. COMPARISON: August 13, 2017. FINDINGS: Cardiac monitoring leads are present. Patient has had a sternotomy. There is hyperinflation of the lungs consistent with chronic obstructive lung disease (COPD). There appears to be some pleural tenting adjacent to the left hemidiaphragm. There is groundglass attenuation at lung bases that may be related to overlying soft tissues. Airspace disease cannot be excluded. There is a small left-sided pleural effusion. There is moderate cardiac enlargement. Normal mediastinum and álvaro. Normal visualized pulmonary arteries. There is atherosclerotic calcification of the aortic arch with tortuosity. There is demineralization of the osseous structures. There are degenerative changes of both shoulders. There is no demonstrated abnormality of the visualized soft tissue structures of the upper abdomen. RAD/Chest 1 View (Portable) IMPRESSION: 1. Postoperative appearance of the chest with moderate cardiomegaly. 2. Questionable bilateral basilar airspace disease with small left-sided pleural effusion. Electronically Signed: Hilda Khalil MD at 11:25 EDT , Service support ,
--- NOTE | 2017-09-12 10:55 | EKG12_ITS ---
Test Reason : SOB Blood Pressure : / mmHG Vent. Rate : 110 BPM Atrial Rate : 312 BPM P-R Int : 000 ms QRS Dur : 108 ms QT Int : 358 ms P-R-T Axes : 000 047 081 degrees QTc Int : 484 ms Atrial fibrillation Low voltage QRS (LIMB LEADS) Poor R wave progression Nonspecific ST and T wave abnormality Abnormal ECG Confirmed by FREDDIE BARRERA, AMILCAR ([id number]), scientific editor TON AVILA ([id number]) on 09/14/2017 2:08:41 PM Referred By: Confirmed By:AMILCAR FRAZIER MD
--- NOTE | 2017-09-12 11:04 | ED.DCSUM_ITS ---
- ER Visit Summary Date of Service: 09/12/17 Chief Complaint: Shortness of breath, irregular heartbeat History of Present Illness: The patient is a 67 F who presents with the above symptoms. For the past couple weeks she has noticed that she has been in atrial fibrillation. She states that she had an attempted electrical cardioversion last month but it failed and she is still in A. fib. She is on Eliquis. She is felt short of breath during this time. She did start with a cough today. It is productive of sputum. She has sharp pain in her chest when she coughs. She is not sure if she has had a fever. She does have a history of asthma and takes inhalers at home. Physical Examination: Vital signs reviewed. HEENT exam unremarkable. Heart is irregularly irregular without murmurs. Her rate is between 110 and 90. Lungs have diffuse expiratory wheezing. Abdomen is soft and nontender. Extremities reveal no edema. Skin exam normal. Neurologic exam normal. Test Results: EKG is atrial fibrillation with a rate of 110. Nonspecific ST and T-wave changes. Chest x-ray reveals question of small airspace disease in the lower lobes. Laboratory studies are unremarkable. Patient was given albuterol and prednisone. She feels better. Her rate is controlled. She tells me that she is out of all of her medications. I will refill all of them and start her on azithromycin. She will follow-up with her PCP Emergency Department Course and Treatment: [] Treatment Plan: [] Disposition: Discharge Impression: Community acquired pneumonia This note was generated with [employer] Call dictation software. It may contain incorrect words, spelling, and punctuation that were not noted in review of the chart prior to signing ED Disposition - Plan for ED Patient: Chief Complaint: Shortness of Breath Referrals: Yaya Centeno DO [Primary Care Provider] -
[2017-09-12 11:05] VITALS: PULSE 104; RESP 20; O2SAT 97
[2017-09-12] MEDS: Albuterol 2.5 MG/3 ML VIAL.NEB. INHALATION ×3 (11:05)
[2017-09-12 11:24] LABS: Absolute Lymphocyte Count 1.49 X10^3/ul (0.83-4.51); Absolute Neutrophil Count 8.4 X10^3/uL (2.0-7.7); Basophil# 0.03 X10^3/uL; Basophil% 0.3 % (0-1); Eosinophil# 0.06 X10^3/uL; Eosinophils% 0.6 % (0-5); Hematocrit 42.1 % (37-47); Hemoglobin 13.7 g/dl (12.0-15.0); Lymphocyte # 1.49 X10^3/ul (4.0); Lymphocyte % 13.9 % (19-41); Mean Corp Hgb Conc 32.5 g/gl (32-36); Mean Corpuscular Hgb 30.4 pg (27.0-32.0); Mean Corpuscular Volume 93.3 fL (81-99); Mean Platelet Vol. 11.3 fl (6.2-12.0); Monocyte# 0.71 X10^3/uL; Monocyte% 6.6 % (0-10); Neutrophil # 8.41 X10^3/uL (2.7-7.7); Neutrophil % 78.2 % (47-70); Platelet Count 203 K/mm3 (150-450); RBC Distribution Width CV 14.3 % (11.6-14.6); RBC Distribution Width SD 47.9 fl (35.1-43.9); Red Blood Count 4.51 M/mm3 (4.2-5.4); White Blood Count 10.7 K/mm3 (4.4-11.0)
[2017-09-12 11:25] LABS: POSITIVE COUNT NO; POSITIVE DIFFERENTIAL NO; POSITIVE MORPHOLOGY NO
[2017-09-12 11:50] LABS: Anion Gap 8 (5-15); BUN 29 mg/dL (7-18); BUN/Creat Ratio 19.5 RATIO (10-20); Calcium,Total 8.6 mg/dL (8.5-10.1); Chloride 107 mmol/L (98-107); Creatinine, Serum 1.49 mg/dL (0.55-1.02); EST Glomerular Filtration Rate 37 mL/min (>60); Est Glom Filt Rate - Afr Amer 45 mL/min (>60); Estimated Creatinine Clearance 29.48 ml/min; Glucose 179 mg/dL (74-106); Potassium 4.8 mmol/L (3.5-5.1); Sodium Level 138 mmol/L (136-145)
[2017-09-12 12:47] VITALS: BP 92/65; PULSE 107; RESP 18; O2SAT 97
[2017-09-12] MEDS: predniSONE 20 MG Tablet 60 MG PO (12:58)
--- NOTE | 2017-09-12 14:05 | ED.DEP ---
ED Disposition - Plan for ED Patient: Disposition: Home or Assisted Living Chief Complaint: Shortness of Breath Instructions: ED Pneumonia Adult Prescriptions: Azithromycin [Zithromax Z-Jermaine] 250 mg PO UD #1 box Glimepiride [Amaryl] 4 mg PO DAILY #14 tab Linagliptin [Tradjenta] 5 mg PO DAILY #14 tab Losartan Potassium [Cozaar] 100 mg PO DAILY #14 tab Amiodarone HCl 200 mg PO BID #28 tab Apixaban [Eliquis] 5 mg PO BID #28 tab Metoprolol Tartrate [Lopressor] 100 mg PO BID #28 tab Referrals: Yaya Centeno DO [Primary Care Provider] -
[2017-09-12 14:26] VITALS: BP 98/78; PULSE 105; RESP 22; O2SAT 99
== END 2017-09-12 14:28 | disposition home or self-care (01) ==
PROVIDERS: Emergency Provider Emergency Medicine; Family Provider Family Medicine; PCP Family Medicine
DX: J18.9 Pneumonia, unspecified organism (principal); I48.91 Unspecified atrial fibrillation; J45.909 Unspecified asthma, uncomplicated; E78.00 Pure hypercholesterolemia, unspecified; E11.9 Type 2 diabetes mellitus without complications
CPT/HCPCS: 71045; 80048; 83880; 84484; 85025; 93005; 94640; 99285; A4216

== ENCOUNTER 2017-09-22 00:41 | Observation (INO) | payer MEDICARE, OTHER, SELFPAY ==
[2017-09-22] VITALS (19 sets, daily range): BP systolic 99–122; BP diastolic 56–83; PULSE 52–122; RESP 16–20; TEMP 36.1–37.2; O2SAT 94–100; BMI 49.1; BMI 43.7
--- NOTE | 2017-09-22 00:57 | EKG12_ITS ---
Test Reason : CP Blood Pressure : / mmHG Vent. Rate : 096 BPM Atrial Rate : 104 BPM P-R Int : 000 ms QRS Dur : 098 ms QT Int : 424 ms P-R-T Axes : 000 -24 026 degrees QTc Int : 535 ms Atrial fibrillation Low voltage QRS Septal infarct , age undetermined Abnormal ECG Confirmed by BENITA BARRERA, GERI ([id number]), web content editor TON AVILA ([id number]) on 09/23/2017 1:45:07 PM Referred By: [email or web address] Confirmed By:GERI JOY MD
--- NOTE | 2017-09-22 00:57 | RAD_ITS ---
STUDY: X-RAY CHEST REASON FOR EXAM: Female, 67 years old. Complaining of persistent cough with chest wall pain, swelling to bilateral lower extremities. TECHNIQUE: Single AP portable view of the chest. COMPARISON: September 12, 2017. FINDINGS: The lungs are clear and expanded. Minimal indistinct left diaphragmatic contour possibly due to technique versus mild effusion. Sternal cerclage wires and vascular clips are present from a prior sternotomy and coronary artery bypass graft procedure (CABG). There is cardiac enlargement. Normal mediastinum and álvaro. Normal visualized pulmonary arteries. There is atherosclerotic calcification of the aortic arch with tortuosity. The spine and upper abdominal soft tissues are obscured. There is degenerative osteoarthritis of the bilateral shoulders. RAD/Chest 1 View (Portable) IMPRESSION: Stable cardiac enlargement and postsurgical changes. Possible small left pleural effusion. Electronically Signed: Vikik Read MD at 1:28 EDT , Service support ,
[2017-09-22 01:05] LABS: Absolute Lymphocyte Count 2.06 X10^3/ul (0.83-4.51); Absolute Neutrophil Count 7.8 X10^3/uL (2.0-7.7); Basophil# 0.05 X10^3/uL; Basophil% 0.4 % (0-1); Eosinophil# 0.08 X10^3/uL; Eosinophils% 0.7 % (0-5); Hematocrit 41.7 % (37-47); Lymphocyte # 2.06 X10^3/ul (4.0); Lymphocyte % 18.4 % (19-41); Mean Corp Hgb Conc 33.6 g/gl (32-36); Mean Corpuscular Hgb 31.7 pg (27.0-32.0); Mean Corpuscular Volume 94.3 fL (81-99); Monocyte# 1.17 X10^3/uL; Monocyte% 10.5 % (0-10); Neutrophil # 7.79 X10^3/uL (2.7-7.7); Neutrophil % 69.6 % (47-70); POSITIVE COUNT NO; POSITIVE DIFFERENTIAL NO; POSITIVE MORPHOLOGY NO; Platelet Count 223 K/mm3 (150-450); RBC Distribution Width CV 14.9 % (11.6-14.6); RBC Distribution Width SD 50.1 fl (35.1-43.9); Red Blood Count 4.42 M/mm3 (4.2-5.4); White Blood Count 11.2 K/mm3 (4.4-11.0)
[2017-09-22] MEDS: 0.9% Normal Saline 1,000 ML 20 ML IV (01:14)
[2017-09-22 01:22] LABS: Anion Gap 10 (5-15); BUN 32 mg/dL (7-18); BUN/Creat Ratio 20.1 RATIO (10-20); Calcium,Total 8.7 mg/dL (8.5-10.1); Chloride 111 mmol/L (98-107); Creatinine, Serum 1.59 mg/dL (0.55-1.02); EST Glomerular Filtration Rate 34 mL/min (>60); Est Glom Filt Rate - Afr Amer 41 mL/min (>60); Glucose 123 mg/dL (74-106); Potassium 3.7 mmol/L (3.5-5.1); Sodium Level 144 mmol/L (136-145)
--- NOTE | 2017-09-22 02:52 | ED.VISSUMM ---
- ER Visit Summary Date of Service: 09/22/17 Chief Complaint: [Chest pain] History of Present Illness: The patient is a 67 F [presents the emergency department chest discomfort that started this evening. Patient describes a tightness in her left chest without any other radiation. Patient's had a cough for about 6 months. Patient producing phlegm at times. Patient denies any fever. Patient states that she was treated for atrial fibrillation and was cardioverted in August however she jumped back into atrial fibrillation. Patient tells me she had been on a diuretic but it affected her kidney function therefore she was taken off the diuretic. On arrival to the ER her chest pains resolved. Patient has history of prior three-vessel CABG] Physical Examination: [HEENT-PERRLA, EOMI. Cranial nerves II through XII grossly intact. TMs clear. Mucous membranes moist. No adenopathy. Cardiovascular-irregularly irregular and tachycardic. 2 out of 6 systolic ejection murmur noted. Lungs-clear to auscultation, chest wall stable without crepitus or subcu emphysema Abdomen-normoactive bowel sounds, soft, nontender, no rebound or rigidity, no peritoneal signs. Extremities-intact ?4, normal range of motion, normal pulses, atraumatic]. Trace edema both lower extremities. Test Results: [EKG obtained showed A. fib with a ventricular rate of 96 bpm with old septal infarct noted. CBC with differential showed a white count of 11.2, hemoglobin 14, hematocrit 42, platelets 223. Chemistries unremarkable. Troponin was less than 0.015. BNP was elevated 1743. Chest x-ray showed cardiomegaly with a small left pleural effusion.] Emergency Department Course and Treatment: [On arrival patient received oxygen.] Treatment Plan: [Admit for further workup and evaluation. During last admission patient had an echocardiogram that showed 20% ejection fraction.] Disposition: [Admit] Impression: [Chest pain Cough-etiology uncertain although patient is on an JUAN inhibitor CHF] This note was generated with [employer] dictation software. It may contain incorrect words, spelling, and punctuation that were not noted in review of the chart prior to signing ED Disposition - Plan for ED Patient: Chief Complaint: Cough Referrals: Yaya Centeno DO [Primary Care Provider] -
--- NOTE | 2017-09-22 03:15 | PCM.HP.STD ---
Problem List (1) Chest pain Status: Acute (2) CAD (coronary artery disease) Status: Acute (3) Heart failure with reduced ejection fraction Status: Acute (4) Obesity Status: Chronic (5) CHERISE (obstructive sleep apnea) Status: Chronic (6) HTN (hypertension) Status: Chronic Qualifiers: (7) Hyperlipemia Status: Chronic Qualifiers: (8) Diabetes mellitus Status: Chronic (9) Afib Status: Chronic History of Present Illness Date of Admission: 09/22/17 Chief Complaint: chest pain The patient is a 67 year old F developed left-sided chest pain on the . midsternum. Patient is also just been having shortness of breath which is progressively getting worse over the past several week edema. Patient had been on Lasix was discontinued as her creatinine got suddenly worse. Patient does not know if she is put on weight that she does not check her weight on any regular basis. Patient was in the emergency room had elevated BNP of over thousand chest x-ray showed a right pleural effusion. Patient is chest pain-free at this time. We are asked to admit the patient for further chest pain evaluation. [] Past Medical History Past Medical History (Chronic Problems): Chronic Problems (Last Updated 09/09/17 @ 09:24 by Latoya Soto) Obesity (Chronic) CHERISE (obstructive sleep apnea) (Chronic) HTN (hypertension) (Chronic) Hx of CABG (Chronic) CABG 2012, Dr. Rebolledo at [place] Hyperlipemia (Chronic) Diabetes mellitus (Chronic) Afib (Chronic) Allergies No Known Allergies Allergy (Verified 09/22/17 00:49) Home Medications: Ambulatory Orders Medication Instructions Recorded Simvastatin [Zocor] 40 mg PO QHS 02/27/13 Albuterol Inhaler [Ventolin Hfa] 2 puff INHALATION 4X/DAY PRN PRN 12/19/13 Aspirin [Aspirin, Baby] 81 mg PO DAILY@0800 12/19/13 Apixaban [Eliquis] 5 mg PO BID #60 tab 08/15/17 Glimepiride [Amaryl] 4 mg PO DAILY@0800 #30 tab 08/15/17 Linagliptin [Tradjenta] 5 mg PO DAILY #30 tab 08/15/17 Melatonin 3 mg PO QHS PRN PRN tablet 08/15/17 Metoprolol Tartrate [Lopressor 100 mg PO BID #60 tab 08/15/17 (beta jessica)] Amiodarone HCl 200 mg PO BID #28 tab 09/12/17 Losartan Potassium [Cozaar] 100 mg PO DAILY #14 tab 09/12/17 Surgical History: cholecystectomy, coronary bypass surgery, hysterectomy - Total hysterectomy, - - Coronary artery bypass grafting x3 Lives: Spouse/ Significant Other Smoking Status: Never smoker Tobacco Use: Non-smoker Alcohol: None Drugs: None - *Family History Paternal History Items: Cancer Maternal History Items: COPD Review of Systems Constitutional: Denies: Anorexia, Chills, Fever Eyes: Denies: Blurred vision, Double vision HEENT: Denies: Head Aches, Sinus Congestion, Sinus Drainage Cardiovascular: Reports: Chest Pain, Edema Respiratory: Reports: Cough, Shortness of Breath Gastrointestinal: Denies: Abdominal Pain, Nausea, Vomiting Genitourinary: Denies: Dysuria Musculoskeletal: Denies: Joint Pain, Joint Tenderness Skin: Denies: Dryness, Jaundice Neurological: Denies: Numbness, Tingling, Focal weakness Psychiatric: Denies: Anxiety, Depression Endocrine: Reports: Change in Body Habitus. Denies: Heat/ Cold Intolerance Hematologic/ Lymphatic: Denies: Easy Bruising, Easy Bleeding, Hx of blood clot VTE Information - Inpt Only VTE Present on Admission: No VTE Pharm Prophylaxis ordered?: No Reason prophylaxis not ordered:: Medical Contraindication Patient Problems: Active and Suspected Problems (Last Updated 09/09/17 @ 09:24 by Latoya Soto) Chest pain (Acute) CAD (coronary artery disease) (Acute) Heart failure with reduced ejection fraction (Acute) - Physical Exam General: Alert, Cooperative, No apparent distress HEENT: Atraumatic, Normocephalic Neck: No Nodes, Thyroid Normal Size and Texture Lungs: Clear to auscultation, No rhonchi, No wheeze, Diminished Cardiovascular: Regular rate, Regular Rhythm, Normal S1, Normal S2, No murmurs Abdomen: Bowel Sounds Present, Soft, Non Tender, Non-Distended, No Hepato-splenomegaly Extremities: No Calf Tenderness, Edema Skin: No rashes, No breakdown Musculoskeletal: No Tenderness to Palpation of Joints or Extremities, No Muscle Wasting Psych/Mental Status: Appropriate, Flat Affect Vital Signs Temp Pulse Resp BP Pulse Ox 36.7 C 101 H 20 H 115/56 L 98 09/22/17 03:01 09/22/17 03:11 09/22/17 03:11 09/22/17 03:11 09/22/17 03:11 Oxygen Flow Rate (L/min) 2 Oxygen Delivery Method Nasal Cannula Weight: 117.934 kg Body Mass Index (BMI) 49.1 Finger Stick Blood Glucose 120 Laboratory Tests Past 24 Hrs 09/22/17 09/22/17 09/22/17 00:50 00:50 00:50 WBC 11.2 H RBC 4.42 Hgb 14.0 Hct 41.7 MCV 94.3 MCH 31.7 MCHC 33.6 RDW 14.9 H RDW Differential 50.1 H Plt Count 223 MPV 11.0 Immature Gran % (Auto) 0.400 Neut % (Auto) 69.6 Lymph % (Auto) 18.4 L [place] % (Auto) 10.5 H Eos % (Auto) 0.7 Baso % (Auto) 0.4 Absolute Neuts (auto) 7.8 H Absolute Lymphs (auto) 2.06 Total Counted Not Reportable Sodium 144 Potassium 3.7 Chloride 111 H Carbon Dioxide 23.0 Anion Gap 10 BUN 32 H Creatinine 1.59 H Estim Creat Clear Calc 25.20 Est GFR (MDRD) Af Amer 41 L Est GFR (MDRD) Non-Af 34 L BUN/Creatinine Ratio 20.1 H Glucose 123 H Calcium 8.7 Troponin I < 0.015 B-Natriuretic Peptide 1743.0 H EKG showed rate controlled atrial fibrillation. Chest x-ray was reviewed and showed a small right-sided pleural effusion. Assessment/Plan Active and Suspected Problems (Last Updated 09/09/17 @ 09:24 by Latoya Soto) Chest pain (Acute) CAD (coronary artery disease) (Acute) Heart failure with reduced ejection fraction (Acute) 1. Chest pain Patient has known cardiomyopathy. Has not had further evaluation with a stress test nor heart catheterization that I see within her system. Patient is a poor historian and is unable to provide any further history about that Patient will undergo stress test for her on today. Cycle troponins Based on the results of studies patient may be discharged when he may warrant further cardiology evaluation. 2. Heart failure with reduced ejection fraction Is in an echocardiogram from August 15 that showed an ejection fraction of 20% Viewing the patient's weights, she is currently at 117.9 kg. On September 12 she was 109.7 kg. Granted there may be some discrepancy as these are different scales but certainly there is a 8 kg difference within 10 days. I will give patient a one-time dose of IV Lasix and start oral Lasix. Patient was taken off Lasix given worsening of her kidney function. 3. Atrial fibrillation Rate controlled at this time Continue with amiodarone, metoprolol Patient is anticoagulated with Eliquis 4. DVT prophylaxis: Patient is already anticoagulated on Eliquis. Code Visit OBSV E&M: 81348 Initial observation care L2
--- NOTE | 2017-09-22 03:25 | HP.PCM_ITS ---
Problem List (1) Chest pain Status: Acute (2) CAD (coronary artery disease) Status: Acute (3) Heart failure with reduced ejection fraction Status: Acute (4) Obesity Status: Chronic (5) CHERISE (obstructive sleep apnea) Status: Chronic (6) HTN (hypertension) Status: Chronic Qualifiers: (7) Hyperlipemia Status: Chronic Qualifiers: (8) Diabetes mellitus Status: Chronic (9) Afib Status: Chronic History of Present Illness Date of Admission: 09/22/17 Chief Complaint: chest pain The patient is a 67 year old F developed left-sided chest pain on the . midsternum. Patient is also just been having shortness of breath which is progressively getting worse over the past several week edema. Patient had been on Lasix was discontinued as her creatinine got suddenly worse. Patient does not know if she is put on weight that she does not check her weight on any regular basis. Patient was in the emergency room had elevated BNP of over thousand chest x-ray showed a right pleural effusion. Patient is chest pain- free at this time. We are asked to admit the patient for further chest pain evaluation. [] Past Medical History Past Medical History (Chronic Problems): Chronic Problems (Last Updated 09/09/17 @ 09:24 by Latoya Soto) Obesity (Chronic) CHERISE (obstructive sleep apnea) (Chronic) HTN (hypertension) (Chronic) Hx of CABG (Chronic) CABG 2012, Dr. Rebolledo at [place] Hyperlipemia (Chronic) Diabetes mellitus (Chronic) Afib (Chronic) Allergies No Known Allergies Allergy (Verified 09/22/17 00:49) Home Medications: Ambulatory Orders Medication Instructions Recorded Simvastatin [Zocor] 40 mg PO QHS 02/27/13 Albuterol Inhaler [Ventolin Hfa] 2 puff INHALATION 4X/DAY PRN PRN 12/19/13 Aspirin [Aspirin, Baby] 81 mg PO DAILY@0800 12/19/13 Apixaban [Eliquis] 5 mg PO BID #60 tab 08/15/17 Glimepiride [Amaryl] 4 mg PO DAILY@0800 #30 tab 08/15/17 Linagliptin [Tradjenta] 5 mg PO DAILY #30 tab 08/15/17 Melatonin 3 mg PO QHS PRN PRN tablet 08/15/17 Metoprolol Tartrate [Lopressor 100 mg PO BID #60 tab 08/15/17 (beta jessica)] Amiodarone HCl 200 mg PO BID #28 tab 09/12/17 Losartan Potassium [Cozaar] 100 mg PO DAILY #14 tab 09/12/17 Surgical History: cholecystectomy, coronary bypass surgery, hysterectomy - Total hysterectomy, - - Coronary artery bypass grafting x3 Lives: Spouse/ Significant Other Smoking Status: Never smoker Tobacco Use: Non-smoker Alcohol: None Drugs: None - *Family History Paternal History Items: Cancer Maternal History Items: COPD Review of Systems Constitutional: Denies: Anorexia, Chills, Fever Eyes: Denies: Blurred vision, Double vision HEENT: Denies: Head Aches, Sinus Congestion, Sinus Drainage Cardiovascular: Reports: Chest Pain, Edema Respiratory: Reports: Cough, Shortness of Breath Gastrointestinal: Denies: Abdominal Pain, Nausea, Vomiting Genitourinary: Denies: Dysuria Musculoskeletal: Denies: Joint Pain, Joint Tenderness Skin: Denies: Dryness, Jaundice Neurological: Denies: Numbness, Tingling, Focal weakness Psychiatric: Denies: Anxiety, Depression Endocrine: Reports: Change in Body Habitus. Denies: Heat/ Cold Intolerance Hematologic/ Lymphatic: Denies: Easy Bruising, Easy Bleeding, Hx of blood clot VTE Information - Inpt Only VTE Present on Admission: No VTE Pharm Prophylaxis ordered?: No Reason prophylaxis not ordered:: Medical Contraindication Patient Problems: Active and Suspected Problems (Last Updated 09/09/17 @ 09:24 by Latoya Soto) Chest pain (Acute) CAD (coronary artery disease) (Acute) Heart failure with reduced ejection fraction (Acute) - Physical Exam General: Alert, Cooperative, No apparent distress HEENT: Atraumatic, Normocephalic Neck: No Nodes, Thyroid Normal Size and Texture Lungs: Clear to auscultation, No rhonchi, No wheeze, Diminished Cardiovascular: Regular rate, Regular Rhythm, Normal S1, Normal S2, No murmurs Abdomen: Bowel Sounds Present, Soft, Non Tender, Non-Distended, No Hepato- splenomegaly Extremities: No Calf Tenderness, Edema Skin: No rashes, No breakdown Musculoskeletal: No Tenderness to Palpation of Joints or Extremities, No Muscle Wasting Psych/Mental Status: Appropriate, Flat Affect Vital Signs Temp Pulse Resp BP Pulse Ox 36.7 C 101 H 20 H 115/56 L 98 09/22/17 03:01 09/22/17 03:11 09/22/17 03:11 09/22/17 03:11 09/22/17 03:11 Oxygen Flow Rate (L/min) 2 Oxygen Delivery Method Nasal Cannula Weight: 117.934 kg Body Mass Index (BMI) 49.1 Finger Stick Blood Glucose 120 Laboratory Tests Past 24 Hrs 09/22/17 09/22/17 09/22/17 00:50 00:50 00:50 WBC 11.2 H RBC 4.42 Hgb 14.0 Hct 41.7 MCV 94.3 MCH 31.7 MCHC 33.6 RDW 14.9 H RDW Differential 50.1 H Plt Count 223 MPV 11.0 Immature Gran % (Auto) 0.400 Neut % (Auto) 69.6 Lymph % (Auto) 18.4 L [place] % (Auto) 10.5 H Eos % (Auto) 0.7 Baso % (Auto) 0.4 Absolute Neuts (auto) 7.8 H Absolute Lymphs (auto) 2.06 Total Counted Not Reportable Sodium 144 Potassium 3.7 Chloride 111 H Carbon Dioxide 23.0 Anion Gap 10 BUN 32 H Creatinine 1.59 H Estim Creat Clear Calc 25.20 Est GFR (MDRD) Af Amer 41 L Est GFR (MDRD) Non-Af 34 L BUN/Creatinine Ratio 20.1 H Glucose 123 H Calcium 8.7 Troponin I < 0.015 B-Natriuretic Peptide 1743.0 H EKG showed rate controlled atrial fibrillation. Chest x-ray was reviewed and showed a small right-sided pleural effusion. Assessment/Plan Active and Suspected Problems (Last Updated 09/09/17 @ 09:24 by Latoya Soto) Chest pain (Acute) CAD (coronary artery disease) (Acute) Heart failure with reduced ejection fraction (Acute) 1. Chest pain * Patient has known cardiomyopathy. Has not had further evaluation with a stress test nor heart catheterization that I see within her system. Patient is a poor historian and is unable to provide any further history about that * Patient will undergo stress test for her on today. * Cycle troponins * Based on the results of studies patient may be discharged when he may warrant further cardiology evaluation. 2. Heart failure with reduced ejection fraction * Is in an echocardiogram from August 15 that showed an ejection fraction of 20% * Viewing the patient's weights, she is currently at 117.9 kg. On September 12 she was 109.7 kg. Granted there may be some discrepancy as these are different scales but certainly there is a 8 kg difference within 10 days. * I will give patient a one-time dose of IV Lasix and start oral Lasix. * Patient was taken off Lasix given worsening of her kidney function. 3. Atrial fibrillation * Rate controlled at this time * Continue with amiodarone, metoprolol * Patient is anticoagulated with Eliquis 4. DVT prophylaxis: Patient is already anticoagulated on Eliquis. Code Visit OBSV E&M: [id number] Initial observation care L2
[2017-09-22] MEDS: Furosemide 40 MG/4 ML Vial IV ×3 (04:00→18:44)
[2017-09-22 05:27] LABS: Absolute Lymphocyte Count 1.42 X10^3/ul (0.83-4.51); Absolute Neutrophil Count 6.2 X10^3/uL (2.0-7.7); Basophil# 0.01 X10^3/uL; Basophil% 0.1 % (0-1); Eosinophil# 0.05 X10^3/uL; Eosinophils% 0.6 % (0-5); Hematocrit 40.4 % (37-47); Lymphocyte # 1.42 X10^3/ul (4.0); Lymphocyte % 16.9 % (19-41); Mean Corp Hgb Conc 32.2 g/gl (32-36); Mean Corpuscular Hgb 30.4 pg (27.0-32.0); Mean Corpuscular Volume 94.4 fL (81-99); Mean Platelet Vol. 10.3 fl (6.2-12.0); Monocyte# 0.66 X10^3/uL; Monocyte% 7.9 % (0-10); Neutrophil # 6.22 X10^3/uL (2.7-7.7); Neutrophil % 74.3 % (47-70); Platelet Count 187 K/mm3 (150-450); RBC Distribution Width SD 50.8 fl (35.1-43.9); Red Blood Count 4.28 M/mm3 (4.2-5.4); White Blood Count 8.4 K/mm3 (4.4-11.0)
[2017-09-22 05:30] LABS: POSITIVE COUNT NO; POSITIVE DIFFERENTIAL NO; POSITIVE MORPHOLOGY NO
[2017-09-22 05:51] LABS: Anion Gap 10 (5-15); BUN 32 mg/dL (7-18); BUN/Creat Ratio 20.4 RATIO (10-20); Calcium,Total 8.7 mg/dL (8.5-10.1); Chloride 112 mmol/L (98-107); Creatinine, Serum 1.57 mg/dL (0.55-1.02); EST Glomerular Filtration Rate 35 mL/min (>60); Est Glom Filt Rate - Afr Amer 42 mL/min (>60); Estimated Creatinine Clearance 27.98 ml/min; Glucose 129 mg/dL (74-106); Sodium Level 146 mmol/L (136-145)
--- NOTE | 2017-09-22 05:55 | EKG12_ITS ---
Test Reason : ADMIT EKG Blood Pressure : / mmHG Vent. Rate : 096 BPM Atrial Rate : 094 BPM P-R Int : 000 ms QRS Dur : 116 ms QT Int : 426 ms P-R-T Axes : 000 007 066 degrees QTc Int : 538 ms Atrial fibrillation Incomplete left bundle branch block Nonspecific T wave abnormality Abnormal ECG When compared with ECG of 12-SEP-2017 10:45, QT has lengthened Confirmed by BENITA BARRERA, GERI ([id number]), assignment desk editor TNO AVILA ([id number] on 09/23/2017 3:07:08 PM Referred By: DR WILLIAMSON Confirmed By:GERI JOY MD
[2017-09-22] MEDS: Aspirin 81 MG TAB.CHEW PO (06:05)
[2017-09-22] MEDS: Losartan Potassium 100 MG Tablet PO (06:06)
[2017-09-22 06:55] LABS: Bedside Glucose 126 mg/dL (70-110)
[2017-09-22 07:15] LABS: International Normalized Ratio 2.1; Partial Thromboplast Time 35.9 Seconds (24.1-36.2); Prothrombin Time (Protime)PT. 23.8 SECONDS (11.7-14.9)
[2017-09-22] MEDS: LINAGLIPTIN 5 MG TABLET PO (11:24)
[2017-09-22] MEDS: Amiodarone 200 MG Tablet PO ×2 (11:24→21:18)
[2017-09-22] MEDS: Metoprolol Tartrate 100 MG Tablet PO ×2 (11:24→21:18)
[2017-09-22] MEDS: Glimepiride 4 MG Tablet PO (11:25)
[2017-09-22 11:31] LABS: Bedside Glucose 167 mg/dL (70-110)
--- NOTE | 2017-09-22 12:11 | PN_ITS ---
<Iván Sanon - Last Filed: 09/22/17 11:56> Patient Problems: Active and Suspected Problems (Last Updated 09/09/17 @ 09:24 by Latoya Soto) CAD (coronary artery disease) (Acute) Heart failure with reduced ejection fraction (Acute) Subjective: Pt resting comfortably in chair. Denies CP. States she is here for CHF. She has severe swelling of her BLE. She does not check her weights daily. She is off O2 and improving, however she is still very SOB with exertion. She also has significant orthopnea and PND. She has no dizziness or LH. She had a cardioversion in August that did not take. She does not take lasix at home. - Physical Exam General: Alert, Oriented x3, Cooperative HEENT: Atraumatic, PERRLA, EOMI, Normocephalic Neck: Supple, No JVD, Negative Carotid Bruits Lungs: Clear to auscultation, Normal air movement, Diminished Cardiovascular: No murmurs, Irregular Rate Abdomen: Bowel Sounds Present, Soft, Non Tender Extremities: Capillary Refill Less than 3 Seconds, Edema - 3+ pitting edema BLE Skin: No rashes, No breakdown Musculoskeletal: No Tenderness to Palpation of Joints or Extremities Neurological: Cranial nerves II-XII grossly intact Psych/Mental Status: Normal Affect, Appropriate Vital Signs Temp Pulse Resp BP Pulse Ox 97.8 F 116 H 18 117/75 95 09/22/17 08:00 09/22/17 11:24 09/22/17 08:00 09/22/17 11:24 09/22/17 11:31 Oxygen Flow Rate (L/min) 2 Oxygen Delivery Method Room Air Weight: 112.1 kg Body Mass Index (BMI) 43.7 Laboratory Tests Past 24 Hrs 09/22/17 09/22/17 09/22/17 04:08 05:10 05:10 WBC 8.4 RBC 4.28 Hgb 13.0 Hct 40.4 MCV 94.4 MCH 30.4 MCHC 32.2 RDW 15.0 H RDW Differential 50.8 H Plt Count 187 MPV 10.3 Immature Gran % (Auto) 0.200 Neut % (Auto) 74.3 H Lymph % (Auto) 16.9 L [place] % (Auto) 7.9 Eos % (Auto) 0.6 Baso % (Auto) 0.1 Absolute Neuts (auto) 6.2 Absolute Lymphs (auto) 1.42 Total Counted Not Reportable PT INR APTT Sodium 146 H Potassium 4.0 Chloride 112 H Carbon Dioxide 24.0 Anion Gap 10 BUN 32 H Creatinine 1.57 H Estim Creat Clear Calc 27.98 Est GFR (MDRD) Af Amer 42 L Est GFR (MDRD) Non-Af 35 L BUN/Creatinine Ratio 20.4 H Glucose 129 H Calcium 8.7 Troponin I < 0.015 < 0.015 09/22/17 05:10 WBC RBC Hgb Hct MCV MCH MCHC RDW RDW Differential Plt Count MPV Immature Gran % (Auto) Neut % (Auto) Lymph % (Auto) [place] % (Auto) Eos % (Auto) Baso % (Auto) Absolute Neuts (auto) Absolute Lymphs (auto) Total Counted PT 23.8 H INR 2.1 APTT 35.9 Sodium Potassium Chloride Carbon Dioxide Anion Gap BUN Creatinine Estim Creat Clear Calc Est GFR (MDRD) Af Amer Est GFR (MDRD) Non-Af BUN/Creatinine Ratio Glucose Calcium Troponin I POC Glucose 09/22/17 09/22/17 11:19 06:46 POC Glucose 167 H 126 H Medical Necessity - Tobacco Use Smoking Status: Never smoker Tobacco Use: Non-smoker Assessment/Plan Active and Suspected Problems (Last Updated 09/09/17 @ 09:24 by Latoya Soto) CAD (coronary artery disease) (Acute) Heart failure with reduced ejection fraction (Acute) 1. Acute on chronic systolic CHF - increase lasix to 40 IV BID. Continue ARB and Beta jessica. JUAN wraps. Daily weights, I/O's, salt and fluid restrict. We discussed the need for her to monitor her daily weights at home. BNP 1700+. CXR with possible small left pl. effusion, Legs severely edematous. Her home meds did not include lasix, however she was discharged on home lasix in august. 2. Chest pain - no further chest pain no EKG changes. Stress pending 3. AF with RVR - failed cardioversion/lily in august. Now in RVR. Continue Amio, Metoprolol. Continue Eliquis. 4. DMt2 - home meds + SSI. 5. CKD III - stable. Saw Dr. Waldrop last admission. 6. CAD - prior CABG. On asa/statin/BB/ARB. Pt of Dr. Hall. DVT ppx: Eliquis DC planning: continue to diurese and reevaluate. This patient was seen by Iván Sanon PA-C under the supervision of Doctor Bernice. <BerniceDavidelise E - Last Filed: 09/22/17 14:35> - Physical Exam Vital Signs Temp Pulse Resp BP Pulse Ox 97.8 F 96 18 111/79 95 09/22/17 08:00 09/22/17 13:45 09/22/17 08:00 09/22/17 13:45 09/22/17 11:31 Oxygen Flow Rate (L/min) 2 Oxygen Delivery Method Room Air Weight: 247 lb 2.211 oz Body Mass Index (BMI) 43.7 Laboratory Tests Past 24 Hrs 09/22/17 09/22/17 09/22/17 04:08 05:10 05:10 WBC 8.4 RBC 4.28 Hgb 13.0 Hct 40.4 MCV 94.4 MCH 30.4 MCHC 32.2 RDW 15.0 H RDW Differential 50.8 H Plt Count 187 MPV 10.3 Immature Gran % (Auto) 0.200 Neut % (Auto) 74.3 H Lymph % (Auto) 16.9 L [place] % (Auto) 7.9 Eos % (Auto) 0.6 Baso % (Auto) 0.1 Absolute Neuts (auto) 6.2 Absolute Lymphs (auto) 1.42 Total Counted Not Reportable PT INR APTT Sodium 146 H Potassium 4.0 Chloride 112 H Carbon Dioxide 24.0 Anion Gap 10 BUN 32 H Creatinine 1.57 H Estim Creat Clear Calc 27.98 Est GFR (MDRD) Af Amer 42 L Est GFR (MDRD) Non-Af 35 L BUN/Creatinine Ratio 20.4 H Glucose 129 H Calcium 8.7 Troponin I < 0.015 < 0.015 09/22/17 05:10 WBC RBC Hgb Hct MCV MCH MCHC RDW RDW Differential Plt Count MPV Immature Gran % (Auto) Neut % (Auto) Lymph % (Auto) [place] % (Auto) Eos % (Auto) Baso % (Auto) Absolute Neuts (auto) Absolute Lymphs (auto) Total Counted PT 23.8 H INR 2.1 APTT 35.9 Sodium Potassium Chloride Carbon Dioxide Anion Gap BUN Creatinine Estim Creat Clear Calc Est GFR (MDRD) Af Amer Est GFR (MDRD) Non-Af BUN/Creatinine Ratio Glucose Calcium Troponin I POC Glucose 09/22/17 09/22/17 11:19 06:46 POC Glucose 167 H 126 H Assessment/Plan Hospitalist note: I am seeing this patient in conjunction with Iván Sanon. I independently seen and examined the patient. Progress note above, laboratory data and imaging studies reviewed and I agree with the above treatment plan. Patient was admitted for symptoms of shortness of breath and questionable chest pain. He has significant bilateral lower extremity edema. She still complaining of exertional shortness of breath, stable at rest. She is afebrile, heart rate went up to 110s and now is back to 90s. Blood pressure stable, pulse ox is maintained on room air. - Physical Exam General: Alert, Oriented x3, Cooperative, No apparent distress. HEENT: Atraumatic, PERRLA, EOMI. Neck: Supple, No JVD, Negative Carotid Bruits, Trachea Midline, Thyroid Normal. Lungs: Decreased breath sounds at the bases, more to the left base,, No rhonchi , No wheeze, No rales. Cardiovascular: Normal S1, Normal S2, irregular, PMI Normal. Abdomen: Bowel Sounds Present, Soft, Non Tender, Non-Distended, No Hepato- splenomegaly. Extremities: No clubbing, No cyanosis, +++ edema Skin: No rashes, No breakdown Neurological: Neuro grossly intact Assessment and plan: #1 acute on chronic systolic CHF: She is on IV Lasix, continued on losartan and metoprolol. She still having significant bilateral leg edema, breathing is stable. Pulse ox is maintained on room air. She had LILY on August, that showed ejection fraction of 20%. Plan to continue same treatment. #2 chest pain: Today, she denies any more chest pain. EKG revealed A. fib, no acute ischemic changes. Troponin is negative ?3. Stress test done today revealed changes compatible with previous myocardial injury/infarction with no findings diagnostic for associated stress-induced myocardial ischemia. #3 A. fib with RVR: Heart rate went up to 110-120s. At this time, rate is down to 90s. Continue amiodarone and metoprolol for rate control, continue Eliquis for anticoagulation. #4 other chronic medical problems: Stable, continue current medications as above. This note was generated with [employer] software. It may contain incorrect words, spelling, and punctuation that were not noted in checking the note before signing. Code Visit Inpatient E&M: 75938 Subs Hosp L2
--- NOTE | 2017-09-22 12:32 | STRESSREP ---
Stress Test Report Date: 09/22/2017 Procedure: Pharmacologic stress nuclear imaging study Indications: Chest pain; shortness of breath/dyspnea Consent: Per the patient Procedure: The patient underwent pharmacologic (Regadenoson) evaluation with a peak heart rate of 125 beats per minute (82 predicted maximal heart rate) and a peak blood pressure of 124/92 mmHg. The baseline ECG demonstrated atrial fibrillation my: Septal [place] of indeterminate age. The peak pharmacologic ECG demonstrated without obvious ECG change. There were no cardiac dysrhythmias pretest, during pharmacologic infusion, or recovery. There was no complaint of chest discomfort during pharmacologic infusion or recovery. The examination was discontinued secondary to completion of protocol. Impression: 1. Pharmacologic (Regadenoson) evaluation 2. Peak pharmacologic ECG with without obvious ECG change. 3. There were no cardiac dysrhythmias pretest, during pharmacologic infusion, or recovery 4. Nuclear images pending Myocardial perfusion imaging study: Technique: The patient was injected with 14.8 millicuries of technetium 99m Cardiolite and subsequently rest SPECT Cardiolite nuclear imaging was obtained in the horizontal long, vertical long, and short axis views. The patient underwent pharmacologic (Regadenoson) evaluation with a peak heart rate of 125 beats per minute (82 % percent predicted maximal heart rate) and a peak blood pressure of 44.6 mmHg. The patient was injected with millicuries of technetium 99m Cardiolite and subsequently stress SPECT Cardiolite nuclear imaging was obtained in the horizontal long, vertical long, and short axis views. A gated Cardiolite study at peak stress was obtained. Interpretation: Rest and stress SPECT Cardiolite nuclear imaging status post realignment, normalization, and attenuation correction demonstrate diminished tracer uptake in portions of the distal anterior, anteroseptal, and septal apical segments which appears somewhat more prominent at rest as opposed to stress. There is diminished end systolic thickening and brightening in the aforementioned areas. The gated Cardiolite study demonstrates diminished myocardial thickening and inward wall motion in the aforementioned areas. The reported LVEF is 42 %. Impression: 1. Rest and stress SPECT Cardiolite nuclear imaging demonstrate diminished tracer uptake in portions of the distal anterior, anteroseptal, and septal apical segments which appears somewhat more prominent at rest as opposed to stress appearing compatible with a combination of shifting soft tissue attenuation/artifact as well as an element of previous myocardial injury/infarction with no myocardial perfusion changes consider diagnostic for associated stress-induced myocardial ischemia. 2. The gated Cardiolite study reports an LVEF of 42 %. This note was generated with [employer] software. It may contain incorrect words, spelling, and punctuation that were not noted in checking the note before signing.
--- NOTE | 2017-09-22 12:44 | STRESSREP_ITS ---
Stress Test Report Date: 09/22/2017 Procedure: Pharmacologic stress nuclear imaging study Indications: Chest pain; shortness of breath/dyspnea Consent: Per the patient Procedure: The patient underwent pharmacologic (Regadenoson) evaluation with a peak heart rate of 125 beats per minute (82 predicted maximal heart rate) and a peak blood pressure of 124/92 mmHg. The baseline ECG demonstrated atrial fibrillation my: Septal ID of indeterminate age. The peak pharmacologic ECG demonstrated without obvious ECG change. There were no cardiac dysrhythmias pretest, during pharmacologic infusion, or recovery. There was no complaint of chest discomfort during pharmacologic infusion or recovery. The examination was discontinued secondary to completion of protocol. Impression: 1. Pharmacologic (Regadenoson) evaluation 2. Peak pharmacologic ECG with without obvious ECG change. 3. There were no cardiac dysrhythmias pretest, during pharmacologic infusion, or recovery 4. Nuclear images pending Myocardial perfusion imaging study: Technique: The patient was injected with 14.8 millicuries of technetium 99m Cardiolite and subsequently rest SPECT Cardiolite nuclear imaging was obtained in the horizontal long, vertical long, and short axis views. The patient underwent pharmacologic (Regadenoson) evaluation with a peak heart rate of 125 beats per minute (82 % percent predicted maximal heart rate) and a peak blood pressure of 44.6 mmHg. The patient was injected with millicuries of technetium 99m Cardiolite and subsequently stress SPECT Cardiolite nuclear imaging was obtained in the horizontal long, vertical long, and short axis views. A gated Cardiolite study at peak stress was obtained. Interpretation: Rest and stress SPECT Cardiolite nuclear imaging status post realignment, normalization, and attenuation correction demonstrate diminished tracer uptake in portions of the distal anterior, anteroseptal, and septal apical segments which appears somewhat more prominent at rest as opposed to stress. There is diminished end systolic thickening and brightening in the aforementioned areas. The gated Cardiolite study demonstrates diminished myocardial thickening and inward wall motion in the aforementioned areas. The reported LVEF is 42 %. Impression: 1. Rest and stress SPECT Cardiolite nuclear imaging demonstrate diminished tracer uptake in portions of the distal anterior, anteroseptal, and septal apical segments which appears somewhat more prominent at rest as opposed to stress appearing compatible with a combination of shifting soft tissue attenuation/artifact as well as an element of previous myocardial injury/ infarction with no myocardial perfusion changes consider diagnostic for associated stress-induced myocardial ischemia. 2. The gated Cardiolite study reports an LVEF of 42 %. This note was generated with [employer] software. It may contain incorrect words, spelling, and punctuation that were not noted in checking the note before signing.
[2017-09-22] MEDS: APIXABAN 5 MG TABLET PO ×2 (13:45→21:18)
[2017-09-22] MEDS: Metoprolol Tartrate 5 MG/5 ML Vial IV (13:45)
[2017-09-22 17:26] LABS: Bedside Glucose 77 mg/dL (70-110)
[2017-09-22] MEDS: 0.9% NaCl Peripheral Flush Adult/Peds IV (18:44)
[2017-09-22] MEDS: Atorvastatin Calcium 20 MG Tablet PO (21:18)
[2017-09-22 22:01] LABS: Bedside Glucose 136 mg/dL (70-110)
[2017-09-23] VITALS (8 sets, daily range): BP systolic 94–123; BP diastolic 60–77; PULSE 101–117; RESP 12–14; TEMP 36.4–36.6; O2SAT 94–95
[2017-09-23 06:06] LABS: Anion Gap 11 (5-15); BUN 29 mg/dL (7-18); BUN/Creat Ratio 20.1 RATIO (10-20); Calcium,Total 7.9 mg/dL (8.5-10.1); Chloride 110 mmol/L (98-107); Creatinine, Serum 1.44 mg/dL (0.55-1.02); EST Glomerular Filtration Rate 38 mL/min (>60); Est Glom Filt Rate - Afr Amer 46 mL/min (>60); Glucose 120 mg/dL (74-106); Sodium Level 146 mmol/L (136-145)
[2017-09-23 06:56] LABS: Bedside Glucose 115 mg/dL (70-110)
[2017-09-23] MEDS: Glimepiride 4 MG Tablet PO (08:57)
[2017-09-23] MEDS: Aspirin 81 MG TAB.CHEW PO (08:57)
[2017-09-23] MEDS: Furosemide 40 MG/4 ML Vial IV (08:58)
[2017-09-23] MEDS: Losartan Potassium 100 MG Tablet PO (08:58)
[2017-09-23] MEDS: Amiodarone 200 MG Tablet PO (08:58)
[2017-09-23] MEDS: APIXABAN 5 MG TABLET PO (08:58)
[2017-09-23] MEDS: Metoprolol Tartrate 100 MG Tablet PO (08:59)
[2017-09-23] MEDS: LINAGLIPTIN 5 MG TABLET PO (08:59)
[2017-09-23] MEDS: 0.9% NaCl Peripheral Flush Adult/Peds IV (08:59)
[2017-09-23 11:40] LABS: Bedside Glucose 174 mg/dL (70-110)
--- NOTE | 2017-09-23 11:43 | DCINST_ITS ---
- Discharge Diagnoses Current Active Problems: Current Active and Chronic Problems (Last Updated 09/09/17 @ 09:24 by Latoya Soto ) CAD (coronary artery disease) (Acute) Heart failure with reduced ejection fraction (Acute) You will use the following diet at home:: Calorie/Carbohydrate Controlled ( specify 1200, 1400, etc) - 1800 aiden / day, Cardiac - <2 g sodium daily Your food should be the consistency of: Regular Your liquids should be the consistency of: Regular/Thin Discharge Activity: Return to Normal Activity Additional Instructions: JUAN wraps to legs daily. From toes to knees. Check daily weights and record in a journal. Allergies/Adverse Reactions: Allergies No Known Allergies Allergy (Verified 09/22/17 00:49) Medications to take at Discharge Simvastatin [Zocor] 40 mg PO QHS 02/27/13 Albuterol Inhaler [Ventolin Hfa] 2 puff INHALATION 4X/DAY PRN PRN 12/19/13 Aspirin [Aspirin, Baby] 81 mg PO DAILY@0800 12/19/13 Apixaban [Eliquis] 5 mg PO BID #60 tab 08/15/17 Glimepiride [Amaryl] 4 mg PO DAILY@0800 #30 tab 08/15/17 Linagliptin [Tradjenta] 5 mg PO DAILY #30 tab 08/15/17 Melatonin 3 mg PO QHS PRN PRN tablet 08/15/17 Metoprolol Tartrate [Lopressor (beta jessica)] 100 mg PO BID #60 tab 08/15/17 Amiodarone HCl 200 mg PO BID #28 tab 09/12/17 Losartan Potassium [Cozaar] 100 mg PO DAILY #14 tab 09/12/17 Furosemide [Lasix] 40 mg PO BID #60 tab 09/23/17 Potassium Chloride [K-Dur] 20 meq PO DAILY #30 tab 09/23/17 The following prescriptions were given: Furosemide [Lasix] 40 mg PO BID #60 tab Potassium Chloride [K-Dur] 20 meq PO DAILY #30 tab Primary Care Physician: Yaya Centeno DO [Primary Care Provider] - Please follow up with your Primary Care Physician in: 1-2 weeks Please Follow Up With: Tristian Hall MD - Keep appointment When: Today Proposed Discharge Date: 09/23/17
--- NOTE | 2017-09-23 13:16 | PCM.DC.SUM ---
<Iván Sanon - Last Filed: 09/23/17 13:16> Discharge Date and Diagnosis Date of Admission: 09/22/17 Date of Discharge: 09/23/17 - Primary Discharge Diagnosis Active and Suspected Problems (Last Updated 09/09/17 @ 09:24 by Latoya Soto) Acute on chronic systolic CHF Chest pain 2/2 above Paroxysmal AFib DMt2 CKDIII CAD prior cabg - Secondary Discharge Diagnosis Chronic Problems (Last Updated 09/09/17 @ 09:24 by Latoya Soto) Obesity (Chronic) CHERISE (obstructive sleep apnea) (Chronic) HTN (hypertension) (Chronic) Hx of CABG (Chronic) CABG 2012, Dr. Rebolledo at [facility] Hyperlipemia (Chronic) Diabetes mellitus (Chronic) Afib (Chronic) Hospital Course and Treatment Imaging Results: RAD/Chest 1 View (Portable) IMPRESSION: Stable cardiac enlargement and postsurgical changes. Possible small left pleural effusion. Stress test: Impression: 1. Rest and stress SPECT Cardiolite nuclear imaging demonstrate diminished tracer uptake in portions of the distal anterior, anteroseptal, and septal apical segments which appears somewhat more prominent at rest as opposed to stress appearing compatible with a combination of shifting soft tissue attenuation/artifact as well as an element of previous myocardial injury/infarction with no myocardial perfusion changes consider diagnostic for associated stress-induced myocardial ischemia. 2. The gated Cardiolite study reports an LVEF of 42 %. Operations: None Procedures: 2-D Echocardiogram, Stress test Summary of Care Provided: Physical exam on day of discharge: General: Resting comfortably NAD Psych: A/Ox3 normal affect HEENT: PEARRLA AT NC Neck: Supple NT CV: RRR no m/t/r/g/h Resp: CTA Abd: [id number] Soft NT no guarding or rigidity, obesity Ext: DP2+=, 2+ pitting edema bilateral lower extremities Skin: W/D normal turgor Lymph/Heme: No active bleeding or adenopathy Neuro: CN2-12 intact Hospital course: The patient is a 67 year old F with a history of CAD status post CABG, history of systolic congestive heart failure, history of paroxysmal atrial fibrillation, history of systolic congestive heart failure, history of diabetes type 2, obesity, who presented to the emergency room complaining of a week of chest pain with shortness of breath with exertion, with notable PND and orthopnea. Patient was admitted to the hospital several months prior with congestive heart failure at that time had a 20% ejection fraction, and atrial fibrillation and had underwent cardioversion however this did not take. She also was discharged on Lasix however this had been recently discontinued due to a change in creatinine. She had an elevated BNP and a chest x-ray with a possible pleural effusion. She had severe bilateral lower extremity pitting edema. She had a negative troponin and negative EKG. She was admitted to the hospital for acute systolic congestive heart failure exacerbation and chest pain. We cycled troponins, kept her on telemetry, and she underwent stress testing the following morning. Stress test was negative for ischemia. She was given IV Lasix for diuresis which provided some relief of her edema. Following admission she had no further chest pain. She is advised on the importance of daily compression of her legs using Marty wraps or compression socks, and of the importance of monitoring her daily weights and salt intake. She was discharged home in stable condition. She will follow-up with her payable representative Dr. Hall today in the office. This patient was seen by Iván Sanon PA-C under the supervision of Doctor Queen. [] Discharge Diet: Low fat/ Low Cholesterol, 1800 Calorie Control Diet, 2000 mg Sodium Diet Discharge Activity: Return to Normal Activity Home Medications: Medications to take at Discharge Simvastatin [Zocor] 40 mg PO QHS 02/27/13 Albuterol Inhaler [Ventolin Hfa] 2 puff INHALATION 4X/DAY PRN PRN 12/19/13 Glimepiride [Amaryl] 4 mg PO DAILY@0800 #30 tab 08/15/17 Linagliptin [Tradjenta] 5 mg PO DAILY #30 tab 08/15/17 Melatonin 3 mg PO QHS PRN PRN tab 08/15/17 amiodarone 200 mg tablet 200 mg PO ONCE #30 tab 09/23/17 apixaban 5 mg tablet 5 mg PO BID #60 tab 09/23/17 furosemide 40 mg tablet 40 mg PO TID #90 tab 09/23/17 losartan 100 mg tablet 100 mg PO DAILY #30 tab 09/23/17 metoprolol tartrate 100 mg tablet 100 mg PO BID #60 tab 09/23/17 potassium chloride ER 20 mEq tablet,extended release(part/cryst) 20 meq PO DAILY #30 tab 09/23/17 Primary Care Physician: Yaya Centeno DO [Primary Care Provider] - Please follow up with your Primary Care Physician in: 1-2 weeks Please Follow Up With: Tristian Hall MD When: Today Please Follow Up With: Yaya Centeno DO Additional Instructions: Marty wraps bilateral lower extremities daily, check daily weights. Disposition: Home Minutes spent on discharge:: 35 Patient Condition:: Stable Medical Necessity - Tobacco Use Smoking Status: Never smoker Tobacco Use: Non-smoker Meaningful Use Info Meaningful Use Diagnoses (Choose all that apply): CHF - CHF MARTY/ARB ordered at discharge?: Yes Documented LVEF (%): 42 <Elsa Queen E - Last Filed: 09/23/17 15:22> Discharge Date and Diagnosis - Secondary Discharge Diagnosis Chronic Problems (Last Updated 09/09/17 @ 09:24 by Latoya Soto) Obesity (Chronic) CHERISE (obstructive sleep apnea) (Chronic) HTN (hypertension) (Chronic) Hx of CABG (Chronic) CABG 2012, Dr. Rebolledo at [facility] Hyperlipemia (Chronic) Diabetes mellitus (Chronic) Afib (Chronic) Hospital Course and Treatment Summary of Care Provided: Hospitalist note: Discharge summary above reviewed as well as physical examination and I agree with above discharge plan. Patient was admitted for worsening shortness of breath with exertion, PND and chest pain and she was found to have acute on systolic CHF. She was treated with IV Lasix for diuresis and continued on losartan and metoprolol. She complained of chest pain and her EKG revealed A. fib without acute ischemic changes. Troponin was negative ?3. Nuclear stress test performed and revealed changes compatible previous myocardial injury/infarction with no findings diagnostic for associated stress-induced myocardial ischemia. With IV diuresis, patient symptoms improved as well as having edema. She went into A. fib with RVR but her heart rate came down with her regular home medications including metoprolol and amiodarone. Patient discharged home in a stable medical condition, discharged on Lasix 40 mg p.o. twice daily, discharged on potassium supplement, continued on her chronic home medication without any changes, recommended follow-up with PCP in 1-2 weeks and she will follow-up with cardiology as outpatient today which is September 23, 2018. - Physical Exam General: Alert, Oriented x3, Cooperative, No apparent distress. HEENT: Atraumatic, PERRLA, EOMI. Neck: Supple, No JVD, Negative Carotid Bruits, Trachea Midline, Thyroid Normal. Lungs: Decreased breath sounds at the bases, more to the left base,, No rhonchi, No wheeze, No rales. Cardiovascular: Normal S1, Normal S2, irregular, PMI Normal. Abdomen: Bowel Sounds Present, Soft, Non Tender, Non-Distended, No Hepato-splenomegaly. Extremities: No clubbing, No cyanosis, +++ edema Skin: No rashes, No breakdown Neurological: Neuro grossly intact. . Minutes spent on discharge:: 32 Meaningful Use Info Meaningful Use Diagnoses (Choose all that apply): CHF - CHF MARTY/ARB ordered at discharge?: Yes Documented LVEF (%): 42 Code Visit Inpatient E&M: 41230 Disch Hosp
--- NOTE | 2017-09-23 13:24 | DS.PCM_ITS ---
<Iván Sanon - Last Filed: 09/23/17 13:16> Discharge Date and Diagnosis Date of Admission: 09/22/17 Date of Discharge: 09/23/17 - Primary Discharge Diagnosis Active and Suspected Problems (Last Updated 09/09/17 @ 09:24 by Latoya Soto) Acute on chronic systolic CHF Chest pain 2/2 above Paroxysmal AFib DMt2 CKDIII CAD prior cabg - Secondary Discharge Diagnosis Chronic Problems (Last Updated 09/09/17 @ 09:24 by Latoya Soto) Obesity (Chronic) CHERISE (obstructive sleep apnea) (Chronic) HTN (hypertension) (Chronic) Hx of CABG (Chronic) CABG 2012, Dr. Rebolledo at [place] Hyperlipemia (Chronic) Diabetes mellitus (Chronic) Afib (Chronic) Hospital Course and Treatment Imaging Results: RAD/Chest 1 View (Portable) IMPRESSION: Stable cardiac enlargement and postsurgical changes. Possible small left pleural effusion. Stress test: Impression: 1. Rest and stress SPECT Cardiolite nuclear imaging demonstrate diminished tracer uptake in portions of the distal anterior, anteroseptal, and septal apical segments which appears somewhat more prominent at rest as opposed to stress appearing compatible with a combination of shifting soft tissue attenuation/artifact as well as an element of previous myocardial injury/ infarction with no myocardial perfusion changes consider diagnostic for associated stress-induced myocardial ischemia. 2. The gated Cardiolite study reports an LVEF of 42 %. Operations: None Procedures: 2-D Echocardiogram, Stress test Summary of Care Provided: Physical exam on day of discharge: General: Resting comfortably NAD Psych: A/Ox3 normal affect HEENT: PEARRLA AT NC Neck: Supple NT CV: RRR no m/t/r/g/h Resp: CTA Abd: [id number] Soft NT no guarding or rigidity, obesity Ext: DP2+=, 2+ pitting edema bilateral lower extremities Skin: W/D normal turgor Lymph/Heme: No active bleeding or adenopathy Neuro: CN2-12 intact Hospital course: The patient is a 67 year old F with a history of CAD status post CABG, history of systolic congestive heart failure, history of paroxysmal atrial fibrillation , history of systolic congestive heart failure, history of diabetes type 2, obesity, who presented to the emergency room complaining of a week of chest pain with shortness of breath with exertion, with notable PND and orthopnea. Patient was admitted to the hospital several months prior with congestive heart failure at that time had a 20% ejection fraction, and atrial fibrillation and had underwent cardioversion however this did not take. She also was discharged on Lasix however this had been recently discontinued due to a change in creatinine. She had an elevated BNP and a chest x-ray with a possible pleural effusion. She had severe bilateral lower extremity pitting edema. She had a negative troponin and negative EKG. She was admitted to the hospital for acute systolic congestive heart failure exacerbation and chest pain. We cycled troponins, kept her on telemetry, and she underwent stress testing the following morning. Stress test was negative for ischemia. She was given IV Lasix for diuresis which provided some relief of her edema. Following admission she had no further chest pain. She is advised on the importance of daily compression of her legs using Marty wraps or compression socks, and of the importance of monitoring her daily weights and salt intake. She was discharged home in stable condition. She will follow-up with her speech language specialist Dr. Hall today in the office. This patient was seen by Iván Sanon PA-C under the supervision of Doctor Queen. [] Discharge Diet: Low fat/ Low Cholesterol, 1800 Calorie Control Diet, 2000 mg Sodium Diet Discharge Activity: Return to Normal Activity Home Medications: Medications to take at Discharge Simvastatin [Zocor] 40 mg PO QHS 02/27/13 Albuterol Inhaler [Ventolin Hfa] 2 puff INHALATION 4X/DAY PRN PRN 12/19/13 Glimepiride [Amaryl] 4 mg PO DAILY@0800 #30 tab 08/15/17 Linagliptin [Tradjenta] 5 mg PO DAILY #30 tab 08/15/17 Melatonin 3 mg PO QHS PRN PRN tab 08/15/17 amiodarone 200 mg tablet 200 mg PO ONCE #30 tab 09/23/17 apixaban 5 mg tablet 5 mg PO BID #60 tab 09/23/17 furosemide 40 mg tablet 40 mg PO TID #90 tab 09/23/17 losartan 100 mg tablet 100 mg PO DAILY #30 tab 09/23/17 metoprolol tartrate 100 mg tablet 100 mg PO BID #60 tab 09/23/17 potassium chloride ER 20 mEq tablet,extended release(part/cryst) 20 meq PO DAILY #30 tab 09/23/17 Primary Care Physician: Yaya Centeno DO [Primary Care Provider] - Please follow up with your Primary Care Physician in: 1-2 weeks Please Follow Up With: Tristian Hall MD When: Today Please Follow Up With: Yaya Centeno DO Additional Instructions: Marty wraps bilateral lower extremities daily, check daily weights. Disposition: Home Minutes spent on discharge:: 35 Patient Condition:: Stable Medical Necessity - Tobacco Use Smoking Status: Never smoker Tobacco Use: Non-smoker Meaningful Use Info Meaningful Use Diagnoses (Choose all that apply): CHF - CHF MARTY/ARB ordered at discharge?: Yes Documented LVEF (%): 42 <Elsa Queen E - Last Filed: 09/23/17 15:22> Discharge Date and Diagnosis - Secondary Discharge Diagnosis Chronic Problems (Last Updated 09/09/17 @ 09:24 by Latoya Soto) Obesity (Chronic) CHERISE (obstructive sleep apnea) (Chronic) HTN (hypertension) (Chronic) Hx of CABG (Chronic) CABG 2012, Dr. Rebolledo at [place] Hyperlipemia (Chronic) Diabetes mellitus (Chronic) Afib (Chronic) Hospital Course and Treatment Summary of Care Provided: Hospitalist note: Discharge summary above reviewed as well as physical examination and I agree with above discharge plan. Patient was admitted for worsening shortness of breath with exertion, PND and chest pain and she was found to have acute on systolic CHF. She was treated with IV Lasix for diuresis and continued on losartan and metoprolol. She complained of chest pain and her EKG revealed A. fib without acute ischemic changes. Troponin was negative ?3. Nuclear stress test performed and revealed changes compatible previous myocardial injury/ infarction with no findings diagnostic for associated stress-induced myocardial ischemia. With IV diuresis, patient symptoms improved as well as having edema. She went into A. fib with RVR but her heart rate came down with her regular home medications including metoprolol and amiodarone. Patient discharged home in a stable medical condition, discharged on Lasix 40 mg p.o. twice daily, discharged on potassium supplement, continued on her chronic home medication without any changes, recommended follow-up with PCP in 1-2 weeks and she will follow-up with cardiology as outpatient today which is September 23, 2018. - Physical Exam General: Alert, Oriented x3, Cooperative, No apparent distress. HEENT: Atraumatic, PERRLA, EOMI. Neck: Supple, No JVD, Negative Carotid Bruits, Trachea Midline, Thyroid Normal. Lungs: Decreased breath sounds at the bases, more to the left base,, No rhonchi , No wheeze, No rales. Cardiovascular: Normal S1, Normal S2, irregular, PMI Normal. Abdomen: Bowel Sounds Present, Soft, Non Tender, Non-Distended, No Hepato- splenomegaly. Extremities: No clubbing, No cyanosis, +++ edema Skin: No rashes, No breakdown Neurological: Neuro grossly intact. . Minutes spent on discharge:: 32 Meaningful Use Info Meaningful Use Diagnoses (Choose all that apply): CHF - CHF MARTY/ARB ordered at discharge?: Yes Documented LVEF (%): 42 Code Visit Inpatient E&M: 73683 Disch Hosp
== END 2017-09-23 11:42 | disposition home or self-care (01) ==
LOC: ED 03:15 → PCU 03:23
PROVIDERS: Physician Assistant; Emergency Provider Emergency Medicine; Family Provider Family Medicine; PCP Family Medicine; Visit Provider Hospitalist
DX: I13.0 Hypertensive heart and chronic kidney disease with heart failure and stage 1 through stage 4 chronic kidney disease, or unspecified chronic kidney disease (principal); I50.23 Acute on chronic systolic (congestive) heart failure; N18.3 Chronic kidney disease, stage 3 (moderate); E11.22 Type 2 diabetes mellitus with diabetic chronic kidney disease; I48.0 Paroxysmal atrial fibrillation; I25.10 Atherosclerotic heart disease of native coronary artery without angina pectoris; G47.33 Obstructive sleep apnea (adult) (pediatric); E78.5 Hyperlipidemia, unspecified; E66.9 Obesity, unspecified; Z95.1 Presence of aortocoronary bypass graft; Z68.41 Body mass index [BMI] 40.0-44.9, adult; Z71.3 Dietary counseling and surveillance; Z79.899 Other long term (current) drug therapy; Z79.82 Long term (current) use of aspirin; Z79.01 Long term (current) use of anticoagulants; Z86.14 Personal history of Methicillin resistant Staphylococcus aureus infection
CPT/HCPCS: 36415; 71045; 78452; 80048; 82962; 83880; 84484; 85025; 85610; 85730; 93005; 93017; 96374; 96375; 96376; 97110; 97116; 97162; 97165; 97530; 97802; 99218; 99251; 99284; A9500; J7030; A4216; G0378; G0463; J1940; J2785

== ENCOUNTER → 2017-09-26 11:46 | Day surgery (SDC) | payer MEDICARE, OTHER, SELFPAY ==
[2017-09-23 15:09] VITALS: BMI 42.5
--- NOTE | 2017-09-26 12:52 | PCM.OP.BLANK ---
Operative Report Date of Procedure: 09/26/17 DC cardioversion. 67-year-old lady with a history of chronic persistent atrial fibrillation and reduced ejection fraction of 20%. Patient has been on anticoagulation. The patient was brought into the cardiac catheterization lab in the noninvasive section. Patient was noted to be in the postabsorptive nonsedated state. Patient was seen by Dr. Banda of the critical care division. After informed consent was obtained anterior posterior pads were applied. The patient was then administered 4 mg of intravenous etomidate and then 200 J of synchronized DC biphasic cardioversion energy were applied. The patient promptly reverted to sinus rhythm. Patient tolerated the procedure well. Postoperative EKG confirmed the above. Conclusion: Successful DC cardioversion to sinus rhythm. Patient will follow up in the office per office protocol. Continue same medications as well as anticoagulation.
--- NOTE | 2017-09-26 12:59 | OP.PCM_ITS ---
Operative Report Date of Procedure: 09/26/17 CONSCIOUS SEDATION REPORT DATE OF SERVICE: September 26, 2017 BRIEF HISTORY OF PRESENT ILLNESS: The patient is a 67-year-old female who presented to [facility] for an elective outpatient cardioversion due to underlying atrial fibrillation. The patient is currently anticoagulated on Eliquis. She does have a history of prior cardioversion in August 2017, during which time she received 4 mg of etomidate. Her last known ejection fraction was approximately 20%. She denies any previous anesthetic complications. She does have a known history of obstructive sleep apnea and asthma. PHYSICAL EXAMINATION: VITAL SIGNS: Reviewed and were acceptable. GENERAL: The patient is an obese female, in no apparent distress, speaking in full sentences. HEENT: Normocephalic, atraumatic. Mucous membranes are moist and pink. Good mouth opening noted. Trachea is midline. Limited neck mobility. CHEST: S1, S2 irregularly irregular. No murmurs, rubs or gallops were noted. LUNGS: Clear to auscultation bilaterally without appreciable wheezes, rales or rhonchi. ABDOMEN: Soft, nontender, nondistended. Positive bowel sounds. Obese. EXTREMITIES: There is no clubbing or cyanosis. Lower extremity edema is present. Wrapped lower extremities. ASA Class: II DESCRIPTION OF PROCEDURE: After confirmation of informed consent, the patient's anesthesia plan was reviewed in detail. Etomidate was chosen. Risks and benefits were reviewed and the patient agreed to proceed. At 1242, the patient was given 4 mg of etomidate. The patient achieved an appropriate level of sedation and was given a 200 joule synchronized cardioversion by Dr. Hall at the bedside. This was successful in achieving normal sinus rhythm. The patient was monitored until 1248, at which time she reached her baseline mental status and function. The patient tolerated the procedure well. COMPLICATIONS: None ESTIMATED BLOOD LOSS: None RECOMMENDATIONS: Okay to recover in usual fashion. Code Visit 9xxxx: Other Procedure See Report - [id number]
== END ==
PROVIDERS: Family Provider Family Medicine; PCP Family Medicine; Visit Provider Internal Medicine Cardiovascular Disease
DX: I48.91 Unspecified atrial fibrillation (principal); I11.0 Hypertensive heart disease with heart failure; I50.23 Acute on chronic systolic (congestive) heart failure; E78.5 Hyperlipidemia, unspecified; G47.33 Obstructive sleep apnea (adult) (pediatric); J45.909 Unspecified asthma, uncomplicated; E66.9 Obesity, unspecified; Z68.41 Body mass index [BMI] 40.0-44.9, adult; Z87.01 Personal history of pneumonia (recurrent); Z95.1 Presence of aortocoronary bypass graft; Z90.710 Acquired absence of both cervix and uterus; Z90.49 Acquired absence of other specified parts of digestive tract; Z79.01 Long term (current) use of anticoagulants; Z79.899 Other long term (current) drug therapy
CPT/HCPCS: 92960; 93005; J7040

== ENCOUNTER → 2017-10-12 14:13 | Outpatient (CLI) | payer MEDICARE, OTHER, SELFPAY ==
--- NOTE | 2017-10-12 14:13 | DT_ITS ---
This patient was seen during an EMR downtime October 10, 2017 - October 17, 2017. This patient may have a combination of paper and electronic documentation or all paper documentation. All documentation is viewable within the e-chart portion of [employer] for each patient visit.
[2017-10-17 12:34] LABS: Anion Gap 8 (5-15); BUN 15 mg/dL (7-18); BUN/Creat Ratio 16.5 RATIO (10-20); Calcium,Total 8.5 mg/dL (8.5-10.1); Chloride 104 mmol/L (98-107); Creatinine, Serum 0.91 mg/dL (0.55-1.02); EST Glomerular Filtration Rate 65 mL/min (>60); Est Glom Filt Rate - Afr Amer 79 mL/min (>60); Glucose 210 mg/dL (74-106); Potassium 3.9 mmol/L (3.5-5.1); Sodium Level 144 mmol/L (136-145)
== END ==
PROVIDERS: Family Provider Family Medicine; PCP Family Medicine; Visit Provider Physician Assistant Medical
DX: I50.9 Heart failure, unspecified (principal)
CPT/HCPCS: 36415; 80048

== ENCOUNTER → 2017-11-30 14:28 | Outpatient (CLI) | payer MEDICARE, OTHER, SELFPAY ==
[2017-11-30 16:07] LABS: Anion Gap 7 (5-15); BUN 18 mg/dL (7-18); BUN/Creat Ratio 17.8 RATIO (10-20); Chloride 104 mmol/L (98-107); Creatinine, Serum 1.01 mg/dL (0.55-1.02); EST Glomerular Filtration Rate 58 mL/min (>60); Est Glom Filt Rate - Afr Amer 70 mL/min (>60); Glucose 188 mg/dL (74-106); Potassium 3.6 mmol/L (3.5-5.1); Sodium Level 143 mmol/L (136-145)
== END ==
PROVIDERS: Family Provider Family Medicine; PCP Family Medicine; Visit Provider Physician Assistant Medical
DX: I25.10 Atherosclerotic heart disease of native coronary artery without angina pectoris (principal); I42.9 Cardiomyopathy, unspecified; I48.91 Unspecified atrial fibrillation; I50.23 Acute on chronic systolic (congestive) heart failure
CPT/HCPCS: 36415; 80048

== ENCOUNTER → 2018-02-07 14:31 | Outpatient (CLI) | payer MEDICARE, OTHER, SELFPAY ==
--- NOTE | 2018-02-07 14:33 | ECHOCS_ITS ---
Reason For Study: AFIB Procedure This was a 2D Doppler, Color Flow transthoracic echocardiogram. The study was technically difficult. Contrast injection was performed. Exam performed in department. Left Ventricle Mild segmental systolic dysfunction (see wall motion). The estimated ejection fraction is 45 %. There is evidence of diastolic dysfunction. Infero-Basal: Hypokinetic. Basal inferoseptal: Hypokinetic. Mid-Inferior: Hypokinetic. Mid-inferoseptal : Hypokinetic. Inferior Tyler : Hypokinetic. Right Ventricle Normal RV size. Normal systolic function. Atria The left atrium is mildly enlarged. Normal right atrium. No doppler evidence for ASD. Bubble contrast study negative for right to left interatrial shunt. Mitral Valve There is no mitral annular calcification. Normal mitral valve. Trivial mitral valve insufficiency. Tricuspid Valve Normal tricuspid valve. Trivial tricuspid valve insufficiency. Right ventricular systolic pressure estimated to be 40 mmHg. Aortic Valve The aortic valve is not well visualized. Pulmonic Valve The pulmonic valve is not well visualized. Mild (1+) pulmonic valve insufficiency. Great Vessels Borderline enlarged aortic root. Pericardium/Pleural No pericardial effusion. Medication 22 gauge I.V. with prn adaptor inserted into right arm. Diluted definity 3ml given slow IV push to enhance endocardial definition. Performed a rapid injection of agitated mix of 9 cc saline and 1cc air to assess for atrial septal defect. MMode/2D Measurements & Calculations RVDd: 3.7 cm Ao root diam: 3.9 cm LAV(MOD-bp): 47.2 ml LA dimension: 4.8 cm LAV(MOD-bp) Indexed: 22.4 ml/m2 LAV(MOD-sp2): 55.0 ml LAV(MOD-sp4): 40.1 ml LVAd ap4: 33.8 cm2 SV(MOD-sp4): 63.4 ml SV(sp4-el): 66.5 ml EDV(MOD-sp4): 118.7 ml EDV(sp4-el): 122.6 ml LVAs ap4: 21.5 cm2 ESV(MOD-sp4): 55.3 ml ESV(sp4-el): 56.1 ml EF(MOD-sp4): 53.4 % EF(sp4-el): 54.2 % LA A4 area: 16.1 cm2 RA A4 area: 15.1 cm2 Time Measurements MV dec time: 0.15 sec Doppler Measurements & Calculations MV E max hermilo: 79.0 cm/sec Lat Peak E' Hermilo: 9.8 cm/sec Med Peak E' Hermilo: 3.9 cm/sec MV A max hermilo: 96.7 cm/sec E/E' lat: 8.1 E/E' med: 20.1 MV E/A: 0.82 Ao V2 max: 134.1 cm/sec LV V1 max: 108.4 cm/sec PA V2 max: 128.2 cm/sec Ao max P.2 mmHg LV V1 max P.7 mmHg TR max hermilo: 304.2 cm/sec TR max P.2 mmHg Interpretation Summary The study was technically difficult. Contrast injection was performed. The estimated ejection fraction is 45 %. The left atrium is mildly enlarged. Trivial mitral valve insufficiency. Trivial tricuspid valve insufficiency. Mild (1+) pulmonic valve insufficiency. Borderline enlarged aortic root. Right ventricular systolic pressure estimated to be 40 mmHg. There is evidence of diastolic dysfunction. Bubble contrast study negative for right to left interatrial shunt. Ordering Physician: Karen Goode/Alfred Morris Referring Physician: Karen Goode Performed By: Edith Starr, RDCS, RVT
== END ==
PROVIDERS: Family Provider Family Medicine; PCP Family Medicine; Referring Provider Physician Assistant Medical; Visit Provider Physician Assistant Medical
DX: I48.91 Unspecified atrial fibrillation (principal); I37.1 Nonrheumatic pulmonary valve insufficiency
CPT/HCPCS: 93306; Q9957; A4216; C8929

== ENCOUNTER → 2018-04-26 11:34 | Outpatient (CLI) | payer MEDICARE, OTHER, SELFPAY ==
[2018-03-06 13:37] VITALS: BMI 40.4
[2018-04-26 15:57] LABS: BUN 20 mg/dL (7-18); Creatinine, Serum 1.07 mg/dL (0.55-1.02); Glucose 134 mg/dL (74-106)
[2018-04-26 15:58] LABS: Albumin, Serum 3.9 g/dL (3.2-5.0); BUN/Creat Ratio 18.7 RATIO (10-20); Calcium,Total 9.1 mg/dL (8.5-10.1); Chloride 105 mmol/L (98-107); EST Glomerular Filtration Rate 54 mL/min (>60); Est Glom Filt Rate - Afr Amer 65 mL/min (>60); Phosphorus 3.1 mg/dL (2.5-4.9); Potassium 4.2 mmol/L (3.5-5.1); Sodium Level 141 mmol/L (136-145)
--- OUTSIDE RECORDS SUMMARY | 2018-07-28 15:44 | XMS RPT_ITS ---
:1950 Author Organization [place] Support Name Relationship Address Phone PAMELA MARLEY Unavailable [address] + [place] [address] EDDIE, AIRAM Unavailable . + [place] [address] R Unavailable Unavailable Unavailable PAMELA MARLEY Unavailable [address] + [place] [address] EDDIE, AIRAM Unavailable . + [place] [address] R Unavailable Unavailable Unavailable PAMELA MARLEY Unavailable [address] + [facility] [place] [address] EDDIE, AIRAM Unavailable Unavailable + R Unavailable Unavailable Unavailable PAMELA MARLEY Unavailable [address] + [place] [address] EDDIE, AIRAM Unavailable Unavailable + R Unavailable Unavailable Unavailable PAMELA MARLEY Unavailable [address] + [place] [address] EDDIE, AIRAM Unavailable [address] + [place] [address] R Unavailable Unavailable Unavailable PAMELA MARLEY Unavailable [address] + [facility] [address] EDDIE, AIRAM Unavailable [address] + [facility] [place] [address] R Unavailable Unavailable Unavailable PAMELA MARLEY Unavailable [address] + [facility] [place] [address] EDDIE, AIRAM Unavailable [address] + [place] [address] R Unavailable Unavailable Unavailable PAMELA MARLEY Unavailable [address] + [facility] [place] [address] EDDIE, AIRAM Unavailable [address] + [place] [address] R Unavailable Unavailable Unavailable MARLEY, PAMELA Unavailable [address] + [place] [address] EDDIE AIRAM Unavailable [address] + [place] [address] R Unavailable Unavailable Unavailable MARLEY, PAMELA Unavailable [address] + [place] [address] EDDIE AIRAM Unavailable [address] + [place] [address] R Unavailable Unavailable Unavailable MARLEY, PAMELA Unavailable [address] + [place] [address] EDDIE AIRAM Unavailable [address] + [place] [address] R Unavailable Unavailable Unavailable MARLEY, PAMELA Unavailable [address] + [place] [address] EDDIEKITAAN Unavailable [address] + [place] [address] R Unavailable Unavailable Unavailable MARLEY, PAMELA Unavailable [address] + [place] [address] EDDIEKITAAN Unavailable [address] + [place] [address] R Unavailable Unavailable Unavailable MARLEY, PAMELA Unavailable [address] + [place] [address] EDDIE AIRAM Unavailable [address] + [place] [address] R Unavailable Unavailable Unavailable MARLEY, PAMELA Unavailable [address] + [place] [address] EDDIE AIRAM Unavailable [address] + [place] [address] R Unavailable Unavailable Unavailable MARLEY, PAMELA Unavailable [address] + [place] [address] EDDIE AIRAM Unavailable [address] + [place] [address] R Unavailable Unavailable Unavailable MARLEY, PAMELA Unavailable [address] + [place] [address] EDDIE, AIRAM Unavailable [address] + [place] [address] R Unavailable Unavailable Unavailable MARELY, PAMELA Unavailable [address] + [place] [address] EDDIE, AIRAM Unavailable [address] + [place] [address] R Unavailable Unavailable Unavailable MARLEY, PAMELA Unavailable [address] + [place] [address] EDDIE, AIRAM Unavailable [address] + [place] [address] R Unavailable Unavailable Unavailable MARLEY, PAMELA Unavailable [address] + [place] [address] EDDIE, AIRAM Unavailable [address] + [place] [address] R Unavailable Unavailable Unavailable MARLEY, PAMELA Unavailable [address] + [place] [address] EDDIE, AIRAM Unavailable [address] + [place] [address] R Unavailable Unavailable Unavailable MARLEY, PAMELA Unavailable [address] + [place] [address] EDDIE, AIRAM Unavailable [address] + [place] [address] R Unavailable Unavailable Unavailable MARLEY, PAMELA Unavailable [address] + [place] [address] EDDIE, AIRAM Unavailable [address] + [place] [address] R Unavailable Unavailable Unavailable MARLEY, PAMELA Unavailable [address] + [place] [address] EDDIE, AIRAM Unavailable [address] + [place] [address] R Unavailable Unavailable Unavailable MARLEY, PAMELA Unavailable [address] + [place] [address] EDDIE, AIRAM Unavailable [address] + [place] [address] R Unavailable Unavailable Unavailable MARLEY, PAMELA Unavailable [address] + [place] [address] EDDIE, AIRAM Unavailable [address] + [place] [address] R Unavailable Unavailable Unavailable MARLEY, PAMELA Unavailable [address] + [place] [address] EDDIE, AIRAM Unavailable [address] + [place] [address] R Unavailable Unavailable Unavailable MARLEY, PAMELA Unavailable [address] + [place] [address] EDDIE, AIRAM Unavailable [address] + [place] [address] R Unavailable Unavailable Unavailable MARLEY, PAMELA Unavailable [address] + [place] [address] EDDIE, AIRAM Unavailable [address] + [place] [address] R Unavailable Unavailable Unavailable MARLEY, PAMELA Unavailable [address] + [place] [address] EDDIE, AIRAM Unavailable [address] + [place] [address] R Unavailable Unavailable Unavailable MARLEY, PAMELA Unavailable [address] + [place] [address] EDDIE, AIRAM Unavailable [address] + [place] [address] R Unavailable Unavailable Unavailable MARLEY, PAMELA Unavailable [address] + [place] [address] EDDIE, AIRAM Unavailable [address] + [place] [address] R Unavailable Unavailable Unavailable MARLEY, PAMELA Unavailable [address] + [place] [address] EDDIE, AIRAM Unavailable [address] + [place] [address] R Unavailable Unavailable Unavailable MARLEY, PAMELA Unavailable [address] + [place] [address] EDDIE, AIRAM Unavailable [address] + [place] [address] R Unavailable Unavailable Unavailable MARLEY, PAMELA Unavailable [address] + [place] [address] EDDIEAIRAM NOBLES Unavailable [address] + [place] [address] R Unavailable Unavailable Unavailable MARLEY, PAMELA Unavailable [address] + [place] [address] EDDIEAIRAM NOBLES Unavailable [address] + [place] [address] R Unavailable Unavailable Unavailable MARLEY, PAMELA Unavailable [address] + [place] [address] EDDIEAIRAM NOBLES Unavailable [address] + [facility] [address] R Unavailable Unavailable Unavailable MARLEY, PAMELA Unavailable [address] + [facility] [address] EDDIEAIRAM NOBLES Unavailable [address] + [place] [address] R Unavailable Unavailable Unavailable MARLEY, PAMELA Unavailable [address] + [facility] [address] AIRAM MORGAN Unavailable [address] + [facility] [address] R Unavailable Unavailable Unavailable MARLEY, PAMELA Unavailable [address] + [facility] [address] AIRAM MORGAN Unavailable [address] + [place] [address] R Unavailable Unavailable Unavailable MARLEY, PAMELA Unavailable [address] + [place] [address] EDDIE, AIRAM Unavailable [address] + [place] [address] R Unavailable Unavailable Unavailable Care Team Providers Name Role Phone DILAN NEW Attending Unavailable TESTDILAN HOLLEY Referring Unavailable TESTDILAN HOLLEY Attending Unavailable DILAN NEW Referring Unavailable DILAN NEW Attending Unavailable DILAN NEW Referring Unavailable Eli Waldrop [facility] Unavailable Benny, Joan Admitting Unavailable Isabel, Panguitch Consulting Unavailable Sementi, Valorie Attending Unavailable Benjie, Eli Consulting Unavailable Benny, Joan Admitting Unavailable [facility] Unavailable Benny, Joan Consulting Unavailable Tergood [facility] Yaya Attending Unavailable Benny, Joan Admitting Unavailable Isabel, Panguitch Attending Unavailable [facility] Unavailable Isabel, Panguitch Consulting Unavailable Sementi, Valorie Consulting Unavailable Benny, Joan Admitting Unavailable [facility] Unavailable Isabel, Tristian Consulting Unavailable Sementi, Valorie Attending Unavailable Sementi, Valorie Consulting Unavailable Benny, Joan Admitting Unavailable Isabel, Tristian Attending Unavailable [facility] Unavailable Isabel, Panguitch Consulting Unavailable Sementi, Valorie Consulting Unavailable Benny, Joan Admitting Unavailable Isabel, Panguitch Attending Unavailable [facility] Unavailable Isabel, Panguitch Consulting Unavailable Benjie, Eli Consulting Unavailable Sementi, Valorie Consulting Unavailable Benny, Joan Admitting Unavailable Isabel, Panguitch Attending Unavailable [facility] Unavailable Isabel, Tristian Consulting Unavailable Benjie, Eli Consulting Unavailable Sementi, Valorie Consulting Unavailable Benny, Joan Admitting Unavailable Isabel, Panguitch Attending Unavailable [facility] Unavailable Isabel, Tristian Consulting Unavailable Benjie, Eli Consulting Unavailable Sementi, Valorie Consulting Unavailable Benny, Joan Admitting Unavailable Donta Banda D.O. Attending Unavailable [facility] Unavailable Isabel, Tristian Consulting Unavailable Benjie, Eli Consulting Unavailable Sementi, Valorie Consulting Unavailable Benny, Joan Admitting Unavailable Talita, Iván Attending Unavailable [facility] Unavailable Isabel, Tristian Consulting Unavailable Benjie, Eli Consulting Unavailable Sementi, Valorie Consulting Unavailable Benny, Joan Admitting Unavailable Talita, Iván Attending Unavailable [facility] Unavailable Isabel, Tristian Consulting Unavailable Benjie, Eli Consulting Unavailable Sementi, Valorie Consulting Unavailable Benny, Joan Admitting Unavailable Talita, Iván Attending Unavailable [facility] Unavailable Isabel, Tristina Consulting Unavailable Benjie, Eli Consulting Unavailable Sementi, Valorie Consulting Unavailable Sementi, Valorie Attending Unavailable Benny, Joan Admitting Unavailable Taryn, Yaya Primary Care Unavailable Isabel, Panguitch Consulting Unavailable Benjie, Eli Consulting Unavailable Sementi, Valorie Consulting Unavailable Maile White Attending Unavailable Taryn, Yaya Primary Care Unavailable Latoya Soto Attending Unavailable Carey Fournier Attending Unavailable Isabel, Panguitch Attending Unavailable Benny, Joan Referring Unavailable Benjie, Eli Attending Unavailable Latoya Soto Attending Unavailable Taryn, Yaya Primary Care Unavailable Dao Monique Attending Unavailable FournierCarey Attending Unavailable Taryn, Yaya Primary Care Unavailable Jopperi, Marcial Admitting Unavailable Ashelfah, Ghasem Attending Unavailable Jopperi, Marcial Admitting Unavailable Jopperi, Marcial Attending Unavailable Taryn, Yaya Primary Care Unavailable Jopperi, Marcial Consulting Unavailable Karen Goode Attending Unavailable Taryn, Yaya Referring Unavailable Jopperi, Marcial Admitting Unavailable Taryn, Yaya Primary Care Unavailable Ashelfah, Ghasem Consulting Unavailable Ashelfah Ghasem Attending Unavailable Isabel, Tristian Attending Unavailable Isabel, Tristian Referring Unavailable Taryn, Yaya Primary Care Unavailable Isabel, Tristian Attending Unavailable Isabel, Tristian Referring Unavailable Taryn, Yaya Primary Care Unavailable Isabel, Tristian Consulting Unavailable Donta Banda D.O. Attending Unavailable Isabel, Panguitch Referring Unavailable Taryn, Yaya Primary Care Unavailable Isabel, Tristian Consulting Unavailable Isabel, Panguitch Attending Unavailable Taryn, Yaya Referring Unavailable Benjie, Eli Attending Unavailable Taryn, Yaya Primary Care Unavailable Karen Goode Attending Unavailable Taryn, Yaya Primary Care Unavailable Alfred Frazier Attending Unavailable Jopperi, Marcial Referring Unavailable Isabel, Panguitch Attending Unavailable Rachaelpperi, Marcial Referring Unavailable Karen Goode Attending Unavailable Taryn, Yaya Referring Unavailable Taryn, Yaya Primary Care Unavailable Isabel, Panguitch Attending Unavailable Isabel, Panguitch Referring Unavailable Karen Goode Attending Unavailable Taryn, Yaya Referring Unavailable Taryn, Yaya Primary Care Unavailable Karen Goode Attending Unavailable Karen Goode Referring Unavailable Taryn, Yaya Primary Care Unavailable Karen Goode Attending Unavailable Karen Goode Referring Unavailable Yaya Centeno Primary Care Unavailable Alfred Frazier Attending Unavailable Karen Goode Referring Unavailable Karen Goode Attending Unavailable Yaya Centeno Referring Unavailable PROBLEMS PROBLEMS DATE TYPE CONDITION / CODE ATTENDING STATUS SOURCE 03/06/2018 Unknown I48.91 - Unspecified Goode, Active [place] atrial fibrillation / Karen Vigil [facility] I48.91(ICD-10) Hospital Repository 11/30/2017 Unknown I50.23 - Acute on Russel, Active [place] chronic systolic Karen [facility] (congestive) heart Hospital failure / Repository I50.23(ICD-10) 11/30/2017 Unknown I42.9 - Goode, Active [place] Cardiomyopathy, Karen Vigil [facility] unspecified / Hospital I42.9(ICD-10) Repository 11/30/2017 Unknown I25.10 - Goode, Active [place] Atherosclerotic heart Karen [facility] disease [facility] coronary artery Repository without angina pectoris / I25.10(ICD-10) 11/02/2017 Unknown I50.9 - Heart failure, Russel, Active [place] unspecified / Karen Vigil [facility] I50.9(ICD-10) Hospital Repository 11/02/2017 Unknown R94.31 - Abnormal Isabel, Panguitch Active [place] electrocardiogram Community [ECG] [EKG] / Hospital R94.31(ICD-10) Repository 11/02/2017 Unknown R00.1 - Bradycardia, Isabel, Panguitch Active [place] unspecified / Community R00.1(ICD-10) Hospital Repository 10/16/2017 Unknown R07.9 - Chest pain, [place], Active [place] unspecified / Alfred [facility] R07.9(ICD-10) Hospital Repository 09/08/2017 Unknown N17.9 - Acute kidney BenjieEli Active [place] failure, unspecified / Community N17.9(ICD-10) Hospital Repository 08/29/2017 Unknown R06.02 - Shortness of Sementi, Active [place] breath / Valorie Community R06.02(ICD-10) Hospital Repository PROCEDURES PROCEDURES No Procedure Records FoundRESULTS RESULTS RENAL PROFILE Collected: 04/26/2018 Status: F Source: [place] [facility] TYPE CODE TESTS RESULT OUT OF RANGE REFERENCE UNITS LAB L501.0100 74-106 mg/dL High GLU 134 Result Comment: Fasting Glucose result greater than or equal to 126 mg/dL suggests DIABETES MELLITUS per A.D.A. criteria. Please note revised GLUCOSE reference range effective 2017. LAB L501.1000 7-18 mg/dL High BUN 20 LAB L501.1100 0.55-1.02 mg/dL High CREAT,SERUM 1.07 Result Comment: The validity of the calculated GFR AND GFRAA in patients over 70 years has not been determined. Clinical correlation is essential. LAB L501.1110 >60 mL/min Low EST GFR 54 Result Comment: Non- GFR Calc LAB L501.1115 >60 mL/min Normal EST GFR - AA 65 Result Comment: GFR Calc LAB L501.1300 10-20 RATIO Normal BUN/CRE 18.7 LAB L501.1800 3.2-5.0 g/dL Normal ALB 3.9 LAB L501.2200 8.5-10.1 mg/dL CA Normal 9.1 LAB L501.2300 2.5-4.9 mg/dL Normal PHOS 3.1 LAB L501.5300 136-145 mmol/L NA Normal 141 LAB L501.5600 3.5-5.1 mmol/L K Normal 4.2 LAB L501.5900 98-107 mmol/L CL Normal 105 LAB L501.6100 21.0-32.0 mmol/L Normal CO2 26.0 Performed By: #### L500.3600 #### [facility] [address] [place], [address] CARDIOLOGY VISIT Observed: 03/08/2018 Status: F Source: [place] REPORT 6:42 AM [facility] REPOSITORY [facility] [address] [place] [address] OFFICE VISIT Date of Service: 03/06/18 MR#: [id number] Acct: [id number] Name: JESSICA MARLEY Rep #: [id number] : 1950 Provider: Karen Goode Age/Sex: 67/F Location: [facility] Status: Signed HPI HPI Chief Complaint: Chest Pain Details: JESSICA MARLEY, is a 67 F who presents to the office today for cardiovascular follow-up. She has a history of coronary artery disease with bypass surgery in 2011, hypertension, cardiomyopathy that was felt to be related to tachycardia, atrial fibrillation with RVR that required 2 cardioversions In reviewing patient's medications it appears that she is not on metoprolol. I called the pharmacy and she has not had metoprolol filled since 2017. She does not have her Cardizem bottle with her however she states that her pills fell out in the car on the way in and she feels that this may be under the seat. Pharmacy did state that she had these refilled last week. Overall patient states that she is doing okay. Her biggest concern is her lower extremity edema. She states that she has been noncompliant with her Lasix. She previously was on Lasix 3 times a day however she finds that she does not take it every day. She does not have any chest pain or heaviness. She does not have any worsening shortness of breath. She does not have any lightheadedness, dizziness or syncopal episodes. Intake Vital Signs03/06/18 Height 5 ft 3 in 03/06/18 Weight: 228 lb 03/06/18 Body Mass Index (BMI) 40.4 03/06/18 Blood Pressure 170/92 H 03/06/18 Blood Pressure Location Lt brachial Intake Visit Reasons: 3 m Md Physician Dermatologist Required: No Accompanied by: None Is patient in pain?: No Allergies No Known Allergies Allergy (Verified 03/06/18 13:41) Medications Albuterol Inhaler [Ventolin Hfa] 2 puff INHALATION 4X/DAY PRN PRN 12/19/13 [History Confirmed 03/06/18] Amiodarone HCl 200 mg PO DAILY 09/23/17 [History Confirmed 03/06/18] apixaban 5 mg tablet 5 mg PO BID #60 tab 09/23/17 [Rx Confirmed 03/06/18] losartan 100 mg tablet 100 mg PO DAILY #30 tab 09/23/17 [Rx Confirmed 03/06/18] potassium chloride ER 20 mEq tablet,extended release(part/cryst) 20 meq PO DAILY #30 tab 09/23/17 [Rx Confirmed 03/06/18] diltiazem CD 120 mg capsule,extended release 24 hr 120 mg PO QDAY #30 cap 01/25/18 [Rx] canagliflozin 100 mg tablet 100 mg PO DAILY 30 Days #30 tab 03/06/18 [History Confirmed 03/06/18] furosemide 40 mg tablet 40 mg PO QAM tab 03/06/18 [History Confirmed 03/06/18] insulin glargine (U-100) 100 unit/mL (3 mL) subcutaneous pen 30 unit SC DAILY 30 Days #9 ml 03/06/18 [History Confirmed 03/06/18] oxybutynin chloride ER 10 mg tablet,extended release 24 hr 10 mg PO DAILY 03/06/18 [History Confirmed 03/06/18] simvastatin 20 mg tablet 20 mg PO QHS 03/06/18 [History Confirmed 03/06/18] Ejection fraction %: 45 to 49 PFSH Medical History Atherosclerosis of coronary artery of augustine heart without angina pectoris (Chronic) Acute on chronic systolic (congestive) heart failure (Chronic) Cardiomyopathy (Chronic) H/O: hysterectomy (Resolved) Heart failure with reduced ejection fraction (Acute) New onset a-fib (Acute) Obesity (Chronic) CHERISE (obstructive sleep apnea) (Chronic) HTN (hypertension) (Chronic) Hyperlipemia (Chronic) Diabetes mellitus (Chronic) Afib (Chronic) Fatigue (Acute) Surgical History Hx of cholecystectomy (Resolved) H/O eye surgery (Resolved) Hx of CABG (Chronic) History of incision and drainage (Resolved) Hx of CABG (Resolved) Family History Mother Hypertension Brother Heart disease Social History Smoking Status: Never smoker alcohol intake: current alcohol intake frequency: holidays/special occasions only substance use type: does not use diet: diabetic caffeine: Yes Type: coffee Number of servings: 3 what type of physical activity do you participate in: none Cardiology Exam Const Appearance: cooperative, no acute distress and well developed Orientation: alert, awake and oriented x3 Head Head: normocephalic and atraumatic Mouth: moist mucous membranes Eyes General: appearance normal, both eyes and all related structures Conjunctivae: conjunctivae normal Pupils: PERRL EOM: EOM intact bilaterally Neck Neck: normal visual inspection, no lymphadenopathy and no JVD Carotids: Negative bruit Neck Mass: Negative Neck mass Chest Chest inspection: normal inspection of the chest and symmetric chest movement Auscultation: Bilateral: Clear to Auscultation Cardio Palpation: normal PMI Rate: regular rate Rhythm: irregular rhythm Heart sounds: S1 normal and S2 normal; negative rub, gallop or murmur GI GI: normal to inspection, soft, no hepatosplenomegaly and bowel sounds present; negative tender Neuro General: alert, awake, oriented x3, CN's II-XI intact bilaterally and moves all extremities Extremities Pulses: Normal: Right Posterior Tibial Pulse, Left Posterior Tibial Pulse, Right Radial Pulse, Left Radial Pulse Lower Extremity Edema: +1: Bilateral, Color Changes: Bilateral Psych Psychological: normal affect Supplemental Info he estimated ejection fraction is 45 %. The left atrium is mildly enlarged. Trivial mitral valve insufficiency. Trivial tricuspid valve insufficiency. Mild (1+) pulmonic valve insufficiency. Borderline enlarged aortic root. Right ventricular systolic pressure estimated to be 40 mmHg. There is evidence of diastolic dysfunction. Bubble contrast study negative for right to left interatrial shunt. Echocardiogram in 2018 demonstrated: 1. Rest and stress SPECT Cardiolite nuclear imaging demonstrate diminished tracer uptake in portions of the distal anterior, anteroseptal, and septal apical segments which appears somewhat more prominent at rest as opposed to stress appearing compatible with a combination of shifting soft tissue attenuation/artifact as well as an element of previous myocardial injury/infarction with no myocardial perfusion changes consider diagnostic for associated stress-induced myocardial ischemia. 2. The gated Cardiolite study reports an LVEF of 42 %. Echocardiogram in 2018 demonstrated Normal LV size. Severe global left ventricular systolic dysfunction. The estimated ejection fraction is 20 %. Unable to assess diastolic dysfunction. The left atrium is moderately enlarged. Compared to the previous the LV function is declined. Contrast injection was performed. Assessment AND Plan 1. Atherosclerosis of augustine coronary artery of augustine heart without angina pectoris I25.10 GEETA Herrera Stable, from a cardiac standpoint patient does not have any symptoms of angina. We recommend that they continue with current aggressive medical management and risk factor modification. 2. Dilated cardiomyopathy I42.0 GEETA Herrera This has since resolved. We will continue with patient on current medications. Will not resume her metoprolol, will continue with her diltiazem and losartan. Will decrease her Lasix to once a day. She states that she feels that she can tolerate this dose. Will monitor closely 3. Paroxysmal atrial fibrillation I48.0 GEETA Herrera Patient has not had any symptomatic recurrence. She will continue with her diltiazem. She is anticoagulated. We will continue with her amiodarone. Will need to continue to monitor her hepatic and thyroid panels closely in addition to pulmonary function test and chest x-rays. EKG today demonstrates sinus rhythm 4. Essential hypertension I10 Plan - GEETA Vázquez Slightly elevated today. Feel that this is because patient was resting and question if she did take her medication this morning. She will continue to monitor closely and we will re-assess medications at her next office visit. Plan Detail Other Orders Orders: Other Medications Changed: Discontinued: metoprolol tartrate Discontinued Reason: Pt no longer vowo722 mg PO BID 60 tabs 12RF ng Additional Comments - GEETA Vázquez Thank you for allowing us to participate in patient's plan of care, if you have any questions please do not hesitate to call. This note was generated using a voice recognition system and there may be incorrect words, spelling or punctuation errors that were not noted when reviewing the office note prior to saving. Follow Up 6 Months ([employer]) Coding Diagnoses Atherosclerosis of augustine coronary artery of augustine heart without angina pectoris I25.10 Coronary Disease-Associated Artery/Lesion type: augustine artery Dilated cardiomyopathy I42.0 Cardiomyopathy type: dilated Paroxysmal atrial fibrillation I48.0 Atrial fibrillation type: paroxysmal Essential hypertension I10 Hypertension type: essential hypertension Coding Diagnoses Atherosclerosis of augustine coronary artery of augustine heart without angina pectoris I25.10 Coronary Disease-Associated Artery/Lesion type: augustine artery Dilated cardiomyopathy I42.0 Cardiomyopathy type: dilated Paroxysmal atrial fibrillation I48.0 Atrial fibrillation type: paroxysmal Essential hypertension I10 Hypertension type: essential hypertension 03/06/18 1639 <Electronically signed by Karen CONNOR> Date Karen CONNOR 03/08/18 0642<Electronically signed by Tristian Hall MD> Cosigner Signature: Date (if applicable) Tristian Hall MD CC: Yaya Centeno DO 12 LEAD EKG PERFORMED Observed: 03/06/2018 Status: F Source: [facility] BY [facility] 2:10 PM [facility] REPOSITORY [facility] [address] [place] [address] 12 Lead EKG performed by [facility] 03/06/18 140 MR#: [id number] Acct: [id number] Name: JESSICA MARLEY Rep #: [id number] : 1950 67 From: Karen CONNOR Attending Dr: Karen Goode Status: DEP AMB Ordering Dr: Karen Goode Date: 03/06/18 [place] [facility] Sex: F C Admitted: BMS/12 Lead EKG performed by [facility] ECG Report Interpretation Sinus Rhythm WITHIN NORMAL LIMITSElectronically signed on 04/12/2018 at 11:36 by Tristian Hall Software Version [id number] 04/12/18 1146 Date Karen CONNOR CC: Yaya Centeno DO Date Dictated: 03/06/181408 Date Transcribed: 03/06/181408 Computer Forensic Examiner: MELISSA Signed ECHO, COMPLETE W/ Observed: 02/09/2018 Status: F Source: [place] CONTRAST 1:07 PM [facility] REPOSITORY [facility] Cardiovascular Services [address] [place] [address] Echo Complete W/ Contrast 02/07/18 1437 MR#: [id number] Acct: [id number] Name: JESSICA MARLEY Rep #: [id number] : 1950 67 From: Alfred Frazier MD Attending Dr: Karen Goode Status: REG CLI Ordering Dr: Karen Goode Date: 02/07/18 Location: [facility] Sex: F C Admitted: Reason For Study: AFIB Procedure This was a 2D Doppler, Color Flow transthoracic echocardiogram. The study was technically difficult. Contrast injection was performed. Exam performed in department. Left Ventricle Mild segmental systolic dysfunction (see wall motion). The estimated ejection fraction is 45 %. There is evidence of diastolic dysfunction. Infero-Basal: Hypokinetic. Basal inferoseptal: Hypokinetic. Mid-Inferior: Hypokinetic. Mid-inferoseptal : Hypokinetic. Inferior [place] : Hypokinetic. Right Ventricle Normal RV size. Normal systolic function. Atria The left atrium is mildly enlarged. Normal right atrium. No doppler evidence for ASD. Bubble contrast study negative for right to left interatrial shunt. Mitral Valve There is no mitral annular calcification. Normal mitral valve. Trivial mitral valve insufficiency. Tricuspid Valve Normal tricuspid valve. Trivial tricuspid valve insufficiency. Right ventricular systolic pressure estimated to be 40 mmHg. Aortic Valve The aortic valve is not well visualized. Pulmonic Valve The pulmonic valve is not well visualized. Mild (1+) pulmonic valve insufficiency. Great Vessels Borderline enlarged aortic root. Pericardium/Pleural No pericardial effusion. Medication 22 gauge I.V. with prn adaptor inserted into right arm. Diluted definity 3ml given slow IV push to enhance endocardial definition. Performed a rapid injection of agitated mix of 9 cc saline and 1cc air to assess for atrial septal defect. MMode/2D Measurements AND Calculations RVDd: 3.7 cm Ao root diam: 3.9 cm LAV(MOD- bp): 47.2 ml LA dimension: 4.8 cm LAV(MOD-bp) Indexed: 22.4 ml/m2 LAV(MOD-sp2): 55.0 ml LAV(MOD-sp4): 40.1 ml LVAd ap4: 33.8 cm2 SV(MOD-sp4): 63.4 ml SV(sp4- el): 66.5 ml EDV(MOD-sp4): 118.7 ml EDV(sp4-el): 122.6 ml LVAs ap4: 21.5 cm2 ESV(MOD-sp4): 55.3 ml ESV(sp4-el): 56.1 ml EF(MOD-sp4): 53.4 % EF(sp4-el): 54.2 % LA A4 area: 16.1 cm2 RA A4 area: 15.1 cm2 Time Measurements MV dec time: 0.15 sec Doppler Measurements AND Calculations MV E max alvaro: 79.0 cm/sec Lat Peak E' Alvaro: 9.8 cm/sec Med Peak E' Alvaro: 3.9 cm/sec MV A max alvaro: 96.7 cm/sec E/E' lat: 8.1 E/E' med: 20.1 MV E/A: 0.82 Ao V2 max: 134.1 cm/sec LV V1 max: 108.4 cm/sec PA V2 max: 128.2 cm/sec Ao max P.2 mmHg LV V1 max P.7 mmHg TR max alvaro: 304.2 cm/sec TR max P.2 mmHg Interpretation Summary The study was technically difficult. Contrast injection was performed. The estimated ejection fraction is 45 %. The left atrium is mildly enlarged. Trivial mitral valve insufficiency. Trivial tricuspid valve insufficiency. Mild (1+) pulmonic valve insufficiency. Borderline enlarged aortic root. Right ventricular systolic pressure estimated to be 40 mmHg. There is evidence of diastolic dysfunction. Bubble contrast study negative for right to left interatrial shunt. Ordering Physician: Karen Goode/Alfred Frazier Referring Physician: Karen Goode Performed By: Edith Starr, NADINE, RVT 02/07/181725 Date Alfred Frazier MD CC: Yaya Centeno DO; Karen Goode Date Dictated: 02/07/18 1437 Date Transcribed: 02/07/181725 Computer Forensic Examiner: Signed PROGRESS Observed: 01/26/2018 Status: COMPLETED Source: [place] 2:22 PM [facility] REPOSITORY O ID: [id number] Author: Dilan New Service: (none) Author Type: Physician Type: Progress Notes Filed: 01/26/2018 2:58 PM Note Text: Dilan New DPM Department of Podiatry [address] [facility] [address] Dept: [phone] Dept Diabetic Nail Care SUBJECTIVE: Follow up office visit: This 67 year old female presents to clinic c/o painful toenails. Patient states that the nails are especially painful with shoe gear and pressure. Patient admits to being diabetic and states that their blood sugar was 140 mg/dL this AM. Patient needs new order for diabetic shoes. Patient denies claudication type symptoms when walking. No other pedal complaints at this time. No change in medications or medical history since last visit. The preliminary HPI obtained by the deburr technician was explained in detail with the patient and my findings have been incorporated in the documentation. Dilan New, LUIS ARMANDO OBJECTIVE: Patient presents to clinic ambulating in diabetic shoes. Vasc: DP and PT pulses are palpable bilateral. CFT is less than 5 seconds bilateral. Skin temperature is warm to warm proximal to distal bilateral. There is mild edema or varicosities noted. Hair growth present. Neuro: Protective sensation is absent to the foot and toes when tested with the 5.07 SWM bilateral. Vibratory sensation is absent at the hallux bilateral. significant neurological defecits. Derm: Inspection and palpation performed. Nails 1-5 b/l are painful, discolored-yellow, thick, crumbly, dystrophic and with subungal debris. Small bleed is noted of right hallux medial nail border due to ingrowing nail. No signs of infection. Skin is of normal turgor and texture. Hyperkeratosis not present. NO ulcerations, scars, verruca or other lesions noted. Ortho: Ankle joint DF is full with the knee extended and full with knee flexed. No pain or crepitus noted. STJ, MTJ ROM are full and free of pain or crepitus. Muscle strength is 5/5 for dorsiflexors, plantarflexors, inverters, everters. ASSESSMENT: (E11.41) Diabetic mononeuropathy associated with type 2 diabetes mellitus (HCC) (primary encounter diagnosis) Plan: 1. Patient was seen and evaluated. 2. Nails 1-5 bilateral were debrided in length and thickness. she has ingrowing toenail of right hallux that was debrided via slant back. If issues develop with infection, she is to contact us immediately. 3. Patient was instructed on the continued importance of diabetic foot care along with proper diet and keeping their blood sugar under control to prevent complications. 4. RTC 3-4 months for DFC (B35.1) Onychomycosis Plan: same as above (M79.675) Pain in toe of left foot Plan: same as above (M79.674) Pain in toe of right foot Plan: same as above Diabetic shoes ordered today Dilan New DPM CNOV Observed: 01/26/2018 Status: COMPLETED Source: [place] 2:00 PM [facility] REPOSITORY Office Visit (PODIWS) JESSICA MARLEY ([id number]) 1950 F Date Time Provider Department 01/26/18 2:00 PM DILAN NEW PODKENNEDY During your visit today, we recorded the following information about you: Dilan New DPM 01/26/2018 2:58 PM Signed Dilan New DPM Department of Podiatry [facility] [address] [facility] [address] Dept: [phone] Dept Diabetic Nail Care SUBJECTIVE: Follow up office visit: This 67 year old female presents to clinic c/o painful toenails. Patient states that the nails are especially painful with shoe gear and pressure. Patient admits to being diabetic and states that their blood sugar was 140 mg/dL this AM. Patient needs new order for diabetic shoes. Patient denies claudication type symptoms when walking. No other pedal complaints at this time. No change in medications or medical history since last visit. The preliminary HPI obtained by the deburr technician was explained in detail with the patient and my findings have been incorporated in the documentation. Dilan New DPM OBJECTIVE: Patient presents to clinic ambulating in diabetic shoes. Vasc: DP and PT pulses are palpable bilateral. CFT is less than 5 seconds bilateral. Skin temperature is warm to warm proximal to distal bilateral. There is mild edema or varicosities noted. Hair growth present. Neuro: Protective sensation is absent to the foot and toes when tested with the 5.07 SWM bilateral. Vibratory sensation is absent at the hallux bilateral. significant neurological defecits. Derm: Inspection and palpation performed. Nails 1-5 b/l are painful, discolored-yellow, thick, crumbly, dystrophic and with subungal debris. Small bleed is noted of right hallux medial nail border due to ingrowing nail. No signs of infection. Skin is of normal turgor and texture. Hyperkeratosis not present. NO ulcerations, scars, verruca or other lesions noted. Ortho: Ankle joint DF is full with the knee extended and full with knee flexed. No pain or crepitus noted. STJ, MTJ ROM are full and free of pain or crepitus. Muscle strength is 5/5 for dorsiflexors, plantarflexors, inverters, everters. ASSESSMENT: (E11.41) Diabetic mononeuropathy associated with type 2 diabetes mellitus (HCC) (primary encounter diagnosis) Plan: 1. Patient was seen and evaluated. 2. Nails 1-5 bilateral were debrided in length and thickness. she has ingrowing toenail of right hallux that was debrided via slant back. If issues develop with infection, she is to contact us immediately. 3. Patient was instructed on the continued importance of diabetic foot care along with proper diet and keeping their blood sugar under control to prevent complications. 4. RTC 3-4 months for DFC (B35.1) Onychomycosis Plan: same as above (M79.675) Pain in toe of left foot Plan: same as above (M79.674) Pain in toe of right foot Plan: same as above Diabetic shoes ordered today Dilan New DPM Referring Provider: DILAN NEW [[id number]] Allergies As of Date: 01/26/2018 (No Known Allergies) Date Reviewed: 01/26/2018 Reviewed by: Barbara Tavares RN - Fully Assessed Reason for Visit: Diabetic Foot Care [916] Primary Visit Diagnosis:Diabetic mononeuropathy associated with type 2 diabetes mellitus (HCC) [E11.41] Other Visit Diagnoses:Onychomycosis [B35.1] Pain in toe of left foot [M79.675] Pain in toe of right foot [M79.674] Order(s):DIAB SHOE FOR DENSITY INSERT [[id number]] Order #: [id number] Prescriptions as of 01/26/2018 Sig: AMMONIUM LACTATE-SODIUM LACTA* Apply 1 application to affect* BLOOD SUGAR DIAGNOSTIC STRIPS Test blood sugar(s) 1 times d* SIMVASTATIN 40 MG TABLET Take 1 tablet by mouth daily * ALBUTEROL SULFATE HFA 90 MCG/* Inhale 2 Puffs as instructed * AMLODIPINE 5 MG TABLET Take 1 tablet by mouth once d* BLOOD PRESSURE MONITOR KIT Use as directed to monitor bl* METOPROLOL TARTRATE 50 MG TAB* Take 1 tablet by mouth twice * ASPIRIN 81 MG TABLET Take 81 mg by mouth once patricia* ASMANEX TWISTHALER INHALATION Inhale 1 Inhaler as instructe* LOSARTAN 50 MG TABLET Take 1 tablet by mouth twice * METFORMIN 500 MG TABLET Take 1.75 tablets by mouth tw* HYDROCODONE 5 MG-ACETAMINOPHE* Take 1 tablet by mouth every * DIAZEPAM 5 MG TABLET Take 1 tablet by mouth four t* GLIMEPIRIDE 1 MG TABLET Take 1 tablet by mouth daily * Problem List As Of Date 01/26/2018 Noted Resolved Obesity, unspecified [E66.9] INVALID FOR* Priority: B Essential hypertension, benign [I10] INVALID FOR* Priority: A DM w/o complication type II [E11.9] INVALID FOR* Priority: A More... Other and unspecified hyperlipidemia [E78.5] INVALID FOR* Priority: B More... Routine Gynecological Examination [Z01.419] INVALID FOR* Class: Chronic More... PSVT (paroxysmal supraventricular tachycardia) *INVALID FOR*12/12/2013 Priority: A More... Other acquired deformity of toe [M20.5X9] INVALID FOR* Priority: D Dermatophytosis of nail [B35.1] INVALID FOR* Priority: D Cardiomegaly [I51.7] INVALID FOR* Priority: B CAD (coronary artery disease) [I25.10] INVALID FOR* S/P CABG x 3 [Z95.1] INVALID FOR* More... Onychomycosis [B35.1] INVALID FOR* Pain in toe of left foot [M79.675] INVALID FOR* Diabetic mononeuropathy associated with type 2 *INVALID FOR* Disposition: Return in about 3 months (around 04/27/2018) for nail care. Follow-up and Disposition History Recorded Encounter Status:Closed by DILAN NEW DPM on 01/26/18 CARDIOLOGY VISIT Observed: 12/03/2017 Status: F Source: [facility] REPORT 10:22 AM [facility] REPOSITORY [facility] [address] [place] [address] OFFICE VISIT Date of Service: 11/30/17 MR#: [id number] Acct: [id number] Name: JESSICA MARLEY Rep #: [id number] : 1950 Provider: Karen Goode Age/Sex: 67/F Location: [facility] Status: Signed HPI HPI Details: JESSICA MARLEY, is a 67 F who presents to the office today for a cardiovascular follow-up. Patient was admitted to a [facility] August 10, 2017 for increased shortness of breath. She had noted that she was short of breath 3 weeks prior to coming to the hospital. She does have a history of coronary artery disease with bypass surgery in 2011, hypertension and obesity. During her hospital stay she was noted to be in atrial fibrillation with RVR. She was also noted to have a cardiomyopathy with an ejection fraction of 20%. We did attempt a cardioversion while she was hospitalized for significant shortness of breath through [place]. Patient was converted to sinus rhythm however did not maintain. She was then started on amiodarone at 200 mg twice a day and has decreased to once a day. She presented back to the emergency room on September 12 and was noted to be in atrial fibrillation. She was treated for pneumonia at that time. She did have a stress test which demonstrated diminished tracer uptake in portions of the distal anterior, anteroseptal and septal apical infarct. This appeared more prominent at rest as opposed at stress which was thought to be compatible with soft tissue attenuation as well as a previous element of myocardial injury without evidence of myocardial ischemia. Patient was also noted to have significant lower extremity edema. Patient did undergo a second cardioversion on September 26. Postop cardioversion the following week was noted to be in atrial fibrillation with RVR with a heart rate of 120. She was started on Cardizem 120 mg daily. EKG the following week demonstrated sinus rhythm. Patient states that since she was last in to see if she has lost 20 pounds. She no longer has lower extremity edema. She feels significantly better. Her shortness of breath has improved. She does not have any chest pain. She does not feel that she has had any atrial fibrillation as her exercise tolerance has increased. She does not have any lightheadedness, dizziness or syncopal episodes. Intake Vital Signs11/30/17 Height 5 ft 3 in 11/30/17 Weight: 220 lb 11/30/17 Body Mass Index (BMI) 38.9 11/30/17 Blood Pressure 150/70 11/30/17 Blood Pressure Location Lt brachial Intake Visit Reasons: PER MMM (ON MEDS) Md Physician Dermatologist Required: No Accompanied by: Daughter Is patient in pain?: No Allergies No Known Allergies Allergy (Verified 11/30/17 13:27) Medications Simvastatin [Zocor] 40 mg PO QHS 02/27/13 [History Confirmed 11/30/17] Albuterol Inhaler [Ventolin Hfa] 2 puff INHALATION 4X/DAY PRN PRN 12/19/13 [History Confirmed 11/30/17] Amiodarone HCl 200 mg PO DAILY 09/23/17 [History Confirmed 11/30/17] apixaban 5 mg tablet 5 mg PO BID #60 tab 09/23/17 [Rx Confirmed 11/30/17] losartan 100 mg tablet 100 mg PO DAILY #30 tab 09/23/17 [Rx Confirmed 11/30/17] metoprolol tartrate 100 mg tablet 100 mg PO BID #60 tab 09/23/17 [Rx Confirmed 11/30/17] potassium chloride ER 20 mEq tablet,extended release(part/cryst) 20 meq PO DAILY #30 tab 09/23/17 [Rx Confirmed 11/30/17] diltiazem CD 120 mg capsule,extended release 24 hr 120 mg PO QDAY #30 cap 10/04/17 [Rx Confirmed 11/30/17] furosemide 40 mg tablet 40 mg PO BID tab 10/25/17 [History Confirmed 11/30/17] canagliflozin 100 mg tablet PO 30 Days #30 11/30/17 [History Confirmed 11/30/17] insulin glargine (U-100) 100 unit/mL (3 mL) subcutaneous pen SC 30 Days #3 11/30/17 [History Confirmed 11/30/17] Ejection fraction %: 20 to 24 PFSH Medical History Atherosclerosis of coronary artery of augustine heart without angina pectoris (Chronic) Acute on chronic systolic (congestive) heart failure (Chronic) Cardiomyopathy (Chronic) Heart failure with reduced ejection fraction (Acute) New onset a-fib (Acute) Obesity (Chronic) CHERISE (obstructive sleep apnea) (Chronic) HTN (hypertension) (Chronic) Hyperlipemia (Chronic) Diabetes mellitus (Chronic) Afib (Chronic) Fatigue (Acute) Surgical History H/O: hysterectomy (Resolved) Hx of cholecystectomy (Resolved) H/O eye surgery (Resolved) Hx of CABG (Chronic) Hx of CABG (Resolved) Family History Mother Hypertension Brother Heart disease Social History Smoking Status: Never smoker alcohol intake: current alcohol intake frequency: holidays/special occasions only substance use type: does not use diet: diabetic caffeine: Yes Type: coffee Number of servings: 3 what type of physical activity do you participate in: none ROS Const Const: Negative for weakness, fatigue, fever(s) or headache(s) Eyes Eyes: Negative for blind spots, loss of peripheral vision or transient loss of vision ENT ENT: Negative for headache(s), dizziness, tinnitus or Nosebleed/epistaxis Cardio Chest Pain: No Palpitations: No Edema: None Muscle aches with walking: None Resp Respiratory: Negative for SOB with activity, SOB at rest, SOB orthopnea\SOB lying down or Cough GI GI: Negative nausea, vomiting, heartburn or vomiting blood/hematemesis : Negative for hematuria Musc Musc: Negative for muscle aches/ myalgia Neuro Neuro: Negative for weakness, headache(s), dizziness, near syncope, syncope, lightheadedness or orthostatic symptoms Dayron Hematologic/Lymphatic: Negative for easy bleeding Endo Endo: Negative for fatigue Cardiology Exam Const Appearance: cooperative, no acute distress and well developed Orientation: alert, awake and oriented x3 Head Head: normocephalic and atraumatic Mouth: moist mucous membranes Eyes General: appearance normal, both eyes and all related structures Conjunctivae: conjunctivae normal Pupils: PERRL EOM: EOM intact bilaterally Neck Neck: normal visual inspection, no lymphadenopathy and no JVD Carotids: Negative bruit Neck Mass: Negative Neck mass Chest Chest inspection: normal inspection of the chest and symmetric chest movement Auscultation: Bilateral: Clear to Auscultation Cardio Palpation: normal PMI Rate: regular rate Rhythm: regular rhythm Heart sounds: S1 normal and S2 normal; negative rub, gallop or murmur GI GI: normal to inspection, soft, no hepatosplenomegaly and bowel sounds present; negative tender Neuro General: alert, awake, oriented x3, CN's II-XI intact bilaterally and moves all extremities Extremities Pulses: Normal: Right Posterior Tibial Pulse, Left Posterior Tibial Pulse, Right Radial Pulse, Left Radial Pulse Lower Extremity Edema: +1: Bilateral, Color Changes: Bilateral Psych Psychological: normal affect Supplemental Info Echocardiogram in 2018 demonstrated: 1. Rest and stress SPECT Cardiolite nuclear imaging demonstrate diminished tracer uptake in portions of the distal anterior, anteroseptal, and septal apical segments which appears somewhat more prominent at rest as opposed to stress appearing compatible with a combination of shifting soft tissue attenuation/artifact as well as an element of previous myocardial injury/infarction with no myocardial perfusion changes consider diagnostic for associated stress-induced myocardial ischemia. 2. The gated Cardiolite study reports an LVEF of 42 %. Echocardiogram in 2018 demonstrated Normal LV size. Severe global left ventricular systolic dysfunction. The estimated ejection fraction is 20 %. Unable to assess diastolic dysfunction. The left atrium is moderately enlarged. Compared to the previous the LV function is declined. Contrast injection was performed. Assessment AND Plan 1. Paroxysmal atrial fibrillation I48.0 Saba - GEETA Vázquez It appears patient has maintained sinus rhythm. Since she has maintained sinus rhythm she is doing significantly better and has lost approximately 20 pounds. She will continue with her current rate limiting medication in her anticoagulant. 2. Dilated cardiomyopathy I42.0 Saba - GEETA Vázquez Patient has lost approximately 20 pounds since she has maintained sinus rhythm. She will continue with her current dose of diuretics. Would like to repeat her echocardiogram prior to her next office visit. Hopefully her ejection fraction is improving now that she is maintained sinus rhythm. She will continue with aggressive medical management 3. Atherosclerosis of augustine coronary artery of augustine heart without angina pectoris I25.10 GEETA Herrera Stable, from a cardiac standpoint patient does not have any symptoms of angina. We recommend that they continue with current aggressive medical management and risk factor modification. Orders Orders: 4. Essential hypertension I10 GEETA Herrera Blood pressure is well controlled on current medications, we do not recommend any changes at this time. 5. Pure hypercholesterolemia E78.00 GEETA Herrera Patient will continue with current dose of simvastatin. Plan Detail Other Orders Orders: Other Medications Discontinued: Additional Comments - GEETA Vázquez The above patient was discussed with Dr. Frazier, he agrees with plan of care. Thank you for allowing us to participate in patient's plan of care, if you have any questions please do not hesitate to call. This note was generated using a voice recognition system and there may be incorrect words, spelling or punctuation errors that were not noted when reviewing the office note prior to saving. Follow Up 3 Months (MMM) Coding Level of Care Code Off vis,est,level 4 Diagnoses Paroxysmal atrial fibrillation I48.0 Atrial fibrillation type: paroxysmal Dilated cardiomyopathy I42.0 Cardiomyopathy type: dilated Atherosclerosis of augustine coronary artery of augustine heart without angina pectoris I25.10 Coronary Disease-Associated Artery/Lesion type: augustine artery Essential hypertension I10 Hypertension type: essential hypertension Pure hypercholesterolemia E78.00 Hyperlipidemia type: pure hypercholesterolemia Coding Level of Care Code Off vis,est,level 4 Diagnoses Paroxysmal atrial fibrillation I48.0 Atrial fibrillation type: paroxysmal Dilated cardiomyopathy I42.0 Cardiomyopathy type: dilated Atherosclerosis of augustine coronary artery of augustine heart without angina pectoris I25.10 Coronary Disease-Associated Artery/Lesion type: augustine artery Essential hypertension I10 Hypertension type: essential hypertension Pure hypercholesterolemia E78.00 Hyperlipidemia type: pure hypercholesterolemia 12/02/17 1305 <Electronically signed by Karen CONNOR> Date Karen CONNOR 12/03/17 1022<Electronically signed by Alfred Frazier MD> Cosigner Signature: Date (if applicable) Alfred Frazier MD CC: Yaya Centeno DO BASIC METABOLIC Collected: 11/30/2017 Status: F Source: [place] PROFILE (BMP) 2:38 PM [facility] REPOSITORY TYPE CODE TESTS RESULT OUT OF RANGE REFERENCE UNITS LAB L501.0100 74-106 mg/dL High GLU 188 Result Comment: Fasting Glucose result greater than or equal to 126 mg/dL suggests DIABETES MELLITUS per A.D.A. criteria. Please note revised GLUCOSE reference range effective 2017. LAB L501.1000 7-18 mg/dL Normal BUN 18 LAB L501.1100 0.55-1.02 mg/dL Normal CREAT,SERUM 1.01 Result Comment: The validity of the calculated GFR AND GFRAA in patients over 70 years has not been determined. Clinical correlation is essential. LAB L501.1110 >60 mL/min Low EST GFR 58 Result Comment: Non- GFR Calc LAB L501.1115 >60 mL/min Normal EST GFR - AA 70 Result Comment: GFR Calc LAB L501.1300 10-20 RATIO Normal BUN/CRE 17.8 LAB L501.2200 8.5-10.1 mg/dL CA Normal 9.0 LAB L501.5300 136-145 mmol/L NA Normal 143 LAB L501.5600 3.5-5.1 mmol/L K Normal 3.6 LAB L501.5900 98-107 mmol/L CL Normal 104 LAB L501.6100 21.0-32.0 mmol/L Normal CO2 32.0 LAB L501.6200 5-15 Normal GAP 7 Performed By: #### L500.2500 #### [facility] [address] [place], [address] DOWNTIME REPORT Observed: 10/27/2017 Status: F Source: [place] 1:15 PM [facility] REPOSITORY [facility] Medical Records Department [address] [place] [address] Downtime Report MR#: [id number] Acct: [id number] Name: JESSICA MARLEY Rep #: [id number] : 1950 67 From: Jean Carlos Khalil PCP: Yaya Centeno DO Status: REG CLI This patient was seen during an EMR downtime October 10, 2017 - October 17, 2017. This patient may have a combination of paper and electronic documentation or all paper documentation. All documentation is viewable within the e-chart portion of Your.MD for each patient visit. PROGRESS Observed: 10/20/2017 Status: COMPLETED Source: [place] 1:47 PM [facility] REPOSITORY O ID: [id number] Author: Dilan New Service: (none) Author Type: Physician Type: Progress Notes Filed: 10/20/2017 2:02 PM Note Text: Dilan New DPM Department of Podiatry [address] [facility] [address] Dept: [phone] Dept Diabetic Nail Care SUBJECTIVE: Follow up office visit: This 67 year old female presents to clinic c/o painful toenails. Patient states that the nails are especially painful with shoe gear and pressure. Patient admits to being diabetic and states that she didn't check her blood sugar this AM. Patient denies claudication type symptoms when walking. No other pedal complaints at this time. No change in medications or medical history since last visit. OBJECTIVE: Patient presents to clinic ambulating in diabetic shoes. Vasc: DP and PT pulses are palpable bilateral. CFT is less than 5 seconds bilateral. Skin temperature is warm to warm proximal to distal bilateral. There is mild edema or varicosities noted. Hair growth present. Neuro: Protective sensation is intact to the foot and toes when tested with the 5.07 SWM bilateral. Vibratory sensation is absent at the hallux bilateral. Derm: Inspection and palpation performed. Nails 1-5 b/l are painful, discolored-yellow, thick, crumbly, dystrophic and with subungal debris. Skin is of normal turgor and texture. Hyperkeratosis no. NO ulcerations, scars, verruca or other lesions noted. Ortho: Ankle joint DF is full with the knee extended and full with knee flexed. No pain or crepitus noted. STJ, MTJ ROM are full and free of pain or crepitus. Muscle strength is 5/5 for dorsiflexors, plantarflexors, inverters, everters. ASSESSMENT: (B35.1) Onychomycosis (primary encounter diagnosis) (M79.675) Pain in toe of left foot (M79.674) Pain in toe of right raji (E11.41) Diabetic mononeuropathy associated with type 2 diabetes mellitus (HCC) PLAN: Patient was seen and evaluated. Nails 1-5 bilateral were debrided in length and thickness. Patient was instructed on the continued importance of diabetic foot care along with proper diet and keeping their blood sugar under control to prevent complications. Patient is to RTC in 3-4 months. Dilan New DPM CNOV Observed: 10/20/2017 Status: COMPLETED Source: [place] 1:30 PM [facility] [place] REPOSITORY Office Visit (PODIWS) JESSICA MARLEY ([id number]) 1950 F Date Time Provider Department 10/20/17 1:30 PM DILAN NEW PODIWS During your visit today, we recorded the following information about you: Dilan New DPM 10/20/2017 2:02 PM Signed Dilan New DPM Department of Podiatry [facility] [address] [facility] [address] Dept: [phone] Dept Diabetic Nail Care SUBJECTIVE: Follow up office visit: This 67 year old female presents to clinic c/o painful toenails. Patient states that the nails are especially painful with shoe gear and pressure. Patient admits to being diabetic and states that she didn't check her blood sugar this AM. Patient denies claudication type symptoms when walking. No other pedal complaints at this time. No change in medications or medical history since last visit. OBJECTIVE: Patient presents to clinic ambulating in diabetic shoes. Vasc: DP and PT pulses are palpable bilateral. CFT is less than 5 seconds bilateral. Skin temperature is warm to warm proximal to distal bilateral. There is mild edema or varicosities noted. Hair growth present. Neuro: Protective sensation is intact to the foot and toes when tested with the 5.07 SWM bilateral. Vibratory sensation is absent at the hallux bilateral. Derm: Inspection and palpation performed. Nails 1-5 b/l are painful, discolored-yellow, thick, crumbly, dystrophic and with subungal debris. Skin is of normal turgor and texture. Hyperkeratosis no. NO ulcerations, scars, verruca or other lesions noted. Ortho: Ankle joint DF is full with the knee extended and full with knee flexed. No pain or crepitus noted. STJ, MTJ ROM are full and free of pain or crepitus. Muscle strength is 5/5 for dorsiflexors, plantarflexors, inverters, everters. ASSESSMENT: (B35.1) Onychomycosis (primary encounter diagnosis) (M79.675) Pain in toe of left foot (M79.674) Pain in toe of right raji (E11.41) Diabetic mononeuropathy associated with type 2 diabetes mellitus (HCC) PLAN: Patient was seen and evaluated. Nails 1-5 bilateral were debrided in length and thickness. Patient was instructed on the continued importance of diabetic foot care along with proper diet and keeping their blood sugar under control to prevent complications. Patient is to RTC in 3-4 months. Dilan New DPM Referring Provider: DILAN NEW [[id number]] Allergies As of Date: 10/20/2017 (No Known Allergies) Date Reviewed: 10/20/2017 Reviewed by: Mercedes Panda Ma - Fully Assessed Reason for Visit: Diabetic Foot Care [916] Primary Visit Diagnosis:Onychomycosis [B35.1] Other Visit Diagnoses:Pain in toe of left foot [M79.675] Pain in toe of right foot [M79.674] Diabetic mononeuropathy associated with type 2 diabetes mellitus (HCC) [E11.41] Prescriptions as of 10/20/2017 Sig: AMMONIUM LACTATE-SODIUM LACTA* Apply 1 application to affect* METFORMIN 500 MG TABLET Take 1.75 tablets by mouth tw* BLOOD SUGAR DIAGNOSTIC STRIPS Test blood sugar(s) 1 times d* HYDROCODONE 5 MG-ACETAMINOPHE* Take 1 tablet by mouth every * DIAZEPAM 5 MG TABLET Take 1 tablet by mouth four t* SIMVASTATIN 40 MG TABLET Take 1 tablet by mouth daily * ALBUTEROL SULFATE HFA 90 MCG/* Inhale 2 Puffs as instructed * AMLODIPINE 5 MG TABLET Take 1 tablet by mouth once d* BLOOD PRESSURE MONITOR KIT Use as directed to monitor bl* GLIMEPIRIDE 1 MG TABLET Take 1 tablet by mouth daily * METOPROLOL TARTRATE 50 MG TAB* Take 1 tablet by mouth twice * ASPIRIN 81 MG TABLET Take 81 mg by mouth once patricia* ASMANEX TWISTHALER INHALATION Inhale 1 Inhaler as instructe* LOSARTAN 50 MG TABLET Take 1 tablet by mouth twice * Problem List As Of Date 10/20/2017 Noted Resolved Obesity, unspecified [E66.9] INVALID FOR* Priority: B Essential hypertension, benign [I10] INVALID FOR* Priority: A DM w/o complication type II [E11.9] INVALID FOR* Priority: A More... Other and unspecified hyperlipidemia [E78.5] INVALID FOR* Priority: B More... Routine Gynecological Examination [Z01.419] INVALID FOR* Class: Chronic More... PSVT (paroxysmal supraventricular tachycardia) *INVALID FOR*12/12/2013 Priority: A More... Other acquired deformity of toe [M20.5X9] INVALID FOR* Priority: D Dermatophytosis of nail [B35.1] INVALID FOR* Priority: D Cardiomegaly [I51.7] INVALID FOR* Priority: B CAD (coronary artery disease) [I25.10] INVALID FOR* S/P CABG x 3 [Z95.1] INVALID FOR* More... Onychomycosis [B35.1] INVALID FOR* Pain in toe of left foot [M79.675] INVALID FOR* Diabetic mononeuropathy associated with type 2 *INVALID FOR* Encounter Status:Closed by DILAN NEW DPM on 10/20/17 BASIC METABOLIC Collected: 10/12/2017 Status: F Source: [place] PROFILE (BMP) 2:36 PM [facility] REPOSITORY TYPE CODE TESTS RESULT OUT OF RANGE REFERENCE UNITS LAB L501.0100 74-106 mg/dL High GLU 210 Result Comment: Glucose result greater than or equal to 200 mg/dL suggests DIABETES MELLITUS per A.D.A. criteria. Please note revised GLUCOSE reference range effective 2017. LAB L501.1000 7-18 mg/dL Normal BUN 15 LAB L501.1100 0.55-1.02 mg/dL Normal CREAT,SERUM 0.91 Result Comment: The validity of the calculated GFR AND GFRAA in patients over 70 years has not been determined. Clinical correlation is essential. LAB L501.1110 >60 mL/min Normal EST GFR 65 LAB L501.1115 >60 mL/min Normal EST GFR - AA 79 LAB L501.1300 10-20 RATIO Normal BUN/CRE 16.5 LAB L501.2200 8.5-10.1 mg/dL Normal CA 8.5 LAB L501.5300 136-145 mmol/L Normal NA 144 LAB L501.5600 3.5-5.1 mmol/L Normal K 3.9 LAB L501.5900 98-107 mmol/L Normal CL 104 LAB L501.6100 21.0-32.0 mmol/L Normal CO2 32.0 LAB L501.6200 5-15 Normal GAP 8 Performed By: #### L500.2500 #### [facility] [address] [place], [address] OFFICE VISIT REPORT Observed: 10/05/2017 Status: F Source: [place] 8:37 AM [facility] REPOSITORY [facility] [address] [place] [address] OFFICE VISIT Date of Service: 10/04/17 MR#: [id number] Acct: [id number] Patient: JESSICA MARLEY Rep #: [id number] : 1950 Provider: Tristian Hall MD Age/Sex: 67/F Location: [facility] Status: Signed Intake Intake Visit Reasons: 1 wk post CV/MMM to read EKG Chief Complaint: Chest Pain Allergies No Known Allergies Allergy (Verified 09/23/17 13:30) Medications Simvastatin [Zocor] 40 mg PO QHS 02/27/13 [History Confirmed 09/23/17] Albuterol Inhaler [Ventolin Hfa] 2 puff INHALATION 4X/DAY PRN PRN 12/19/13 [History Confirmed 09/23/17] Glimepiride [Amaryl] 4 mg PO DAILY@0800 #30 tab 08/15/17 [Rx Confirmed 09/23/17] Linagliptin [Tradjenta] 5 mg PO DAILY #30 tab 08/15/17 [Rx Confirmed 09/23/17] Melatonin 3 mg PO QHS PRN PRN tab 08/15/17 [Rx Confirmed 09/23/17] Amiodarone HCl 200 mg PO DAILY 09/23/17 [History Confirmed 09/23/17] Aspirin [Aspirin, Baby] 81 mg PO DAILY@0800 09/23/17 [History Confirmed 09/23/17] Furosemide [Lasix] 40 mg PO TIDCM 09/23/17 [History Confirmed 09/23/17] apixaban 5 mg tablet 5 mg PO BID #60 tab 09/23/17 [Rx Confirmed 09/23/17] losartan 100 mg tablet 100 mg PO DAILY #30 tab 09/23/17 [Rx Confirmed 09/23/17] metoprolol tartrate 100 mg tablet 100 mg PO BID #60 tab 09/23/17 [Rx Confirmed 09/23/17] potassium chloride ER 20 mEq tablet,extended release(part/cryst) 20 meq PO DAILY #30 tab 09/23/17 [Rx Confirmed 09/23/17] diltiazem CD 120 mg capsule,extended release 24 hr 120 mg PO QDAY #30 cap 10/04/17 [Rx] Assessment AND Plan Problems 1. Persistent atrial fibrillation I48.1 Plan Unfortunately patient has returned to atrial fibrillation. Her heart rate is not controlled. We will start her on Cardizem 120 mg daily. We will plan for a cardioversion in the near future, will also refer to EP. Discussed with Dr. Frazier. He agrees with plan of care. Orders Orders: Nursing Note Pt is here today for a s/p DCCV ekg. Pt states she is SOB with activity, RICHARD BENJIE present. EKG shows atrial fibrillation 120 bpm. Reviewed the following with Karen Goode PA-C, she will call pt back after consulting with a physician. 10/05/17 0837 <Electronically signed by Karen CONNOR> Date Karen CONNOR Cosigner Signature: Date (if applicable) CC: Troy Orosco 12 LEAD EKG PERFORMED Observed: 10/04/2017 Status: F Source: [place] 1:30 PM [facility] REPOSITORY [place] [address] [place] [address] 12 Lead EKG performed by [facility] 10/04/171328 MR#: [id number] Acct: [id number] Name: JESSICA MARLEY Rep #: [id number] : 1950 67 From: Tristian Hall MD Attending Dr: Tristian Hall MD Status: DEP AMB Ordering Dr: Tristian Hall MD Date: 10/04/17 Location: [facility] Sex: F C Admitted: BMS/12 Lead EKG performed by [facility] ECG Report Interpretation Atrial fibrillation Diffuse low voltage. - Anterior -lateral infarct Old -Right axis -may be secondary to infarct. - Nonspecific T-abnormality. ABNORMAL Electronically signed on 10/31/2017 at 17:14 by Tristian Hall 10/31/17 1715 Date Tristian Hall MD CC: Yaya Centeno DO Date Dictated: 10/04/171328 Date Transcribed: 10/04/171328 Computer Forensic Examiner: CO Signed CARDIOLOGY VISIT Observed: 09/27/2017 Status: F Source: [place] REPORT 9:20 AM [facility] REPOSITORY [facility] [address] [place] [address] OFFICE VISIT Date of Service: 09/23/17 MR#: [id number] Acct: [id number] Name: JESSICA MARLEY Rep #: [id number] : 1950 Provider: Karen Goode Age/Sex: 67/F Location: [facility] Status: Signed [facility] HPI Details: JESSICA MARLEY, is a 67 F who presents to the office today for for a hospital follow-up. She was admitted to [facility] on August 10, 2017 for increased shortness of breath. She states that her shortness of breath was occurring 3 weeks prior to her coming into the hospital. She does have a history of coronary artery disease with bypass surgery in 2011, hypertension and obesity. She had not followed up with a forestry faculty member since her bypass surgery. During her hospital stay she was noted to be in atrial fib with RVR. She was also noted to have cardiomyopathy with an ejection fraction of 20%. We did attempt a cardioversion while she was hospitalized for significant short of breath this was done through [facility], she was converted to sinus rhythm however she did not maintain this. She was advised to continue with her amiodarone at 200 mg twice a day and decrease to once a day. She presented back to the emergency room on September 12 and was noted to have atrial fibrillation. She was also treated for pneumonia at that time. She then presented back to the emergency room yesterday for acute on chronic systolic congestive heart failure. She was admitted overnight. She did undergo a stress test which demonstrated diminished tracer uptake in portions of the distal anterior, anteroseptal and septal apical infarct which appears somewhat more prominent at rest as opposed to stress which could be compatible with soft tissue attenuation as well as an element of previous myocardial infarct injury with no evidence of myocardial ischemia. Troponins were negative. She was given Juan bandages for her legs for her significant lower extremity edema she was discharged from PCU today and now presents to our office as this appointment was initially scheduled for her hospitalization in August. Patient states that she noted her shortness of breath starting approximately around Easter. She feels that she is short of breath with any activity. Prior to that she was able to do things without any difficulty. She does not have a scale at home so she has not been able to weigh herself. She does have orthopnea however she is able to sleep in a bed. She is not aware of her atrial fibrillation just her significant fatigue and shortness of breath. Her weights have been similar since her hospital stay in August. She has not decreased her amiodarone. She states that she is currently taking it twice a day. It is also noted that her thyroid is elevated with a TSH of 7.0. On her admission in August it was 6. She admits to not seeing her primary care doctor for quite some time. Intake Vital Signs09/23/17 Height 5 ft 3 in 09/23/17 Weight: 240 lb 09/23/17 Body Mass Index (BMI) 42.5 09/23/17 Blood Pressure 96/58 Intake Visit Reasons: DC PCU 4-9, 2 wk f/up per [employer] Md Physician Dermatologist Required: No Accompanied by: none Is patient in pain?: No Allergies No Known Allergies Allergy (Verified 09/23/17 13:30) Medications Simvastatin [Zocor] 40 mg PO QHS 02/27/13 [History Confirmed 09/23/17] Albuterol Inhaler [Ventolin Hfa] 2 puff INHALATION 4X/DAY PRN PRN 12/19/13 [History Confirmed 09/23/17] Glimepiride [Amaryl] 4 mg PO DAILY@0800 #30 tab 08/15/17 [Rx Confirmed 09/23/17] Linagliptin [Tradjenta] 5 mg PO DAILY #30 tab 08/15/17 [Rx Confirmed 09/23/17] Melatonin 3 mg PO QHS PRN PRN tab 08/15/17 [Rx Confirmed 09/23/17] Amiodarone HCl 200 mg PO DAILY 09/23/17 [History Confirmed 09/23/17] Aspirin [Aspirin, Baby] 81 mg PO DAILY@0800 09/23/17 [History Confirmed 09/23/17] Furosemide [Lasix] 40 mg PO TIDCM 09/23/17 [History Confirmed 09/23/17] apixaban 5 mg tablet 5 mg PO BID #60 tab 09/23/17 [Rx Confirmed 09/23/17] losartan 100 mg tablet 100 mg PO DAILY #30 tab 09/23/17 [Rx Confirmed 09/23/17] metoprolol tartrate 100 mg tablet 100 mg PO BID #60 tab 09/23/17 [Rx Confirmed 09/23/17] potassium chloride ER 20 mEq tablet,extended release(part/cryst) 20 meq PO DAILY #30 tab 09/23/17 [Rx Confirmed 09/23/17] Ejection fraction %: 20 to 24 PFSH Medical History Cardiomyopathy (Chronic) CAD (coronary artery disease) (Chronic) Heart failure with reduced ejection fraction (Acute) New onset a-fib (Acute) HTN (hypertension) (Chronic) Hyperlipemia (Chronic) Afib (Chronic) Fatigue (Acute) Surgical History H/O: hysterectomy (Resolved) Hx of cholecystectomy (Resolved) H/O eye surgery (Resolved) Hx of CABG (Chronic) Hx of CABG (Resolved) Family History Mother Hypertension Brother Heart disease Social History Smoking Status: Never smoker alcohol intake: never substance use type: does not use diet: diabetic caffeine: Yes Type: coffee Number of servings: 3 what type of physical activity do you participate in: none ROS Const Const: Positive for weakness and fatigue; negative for fever(s) or headache(s) Eyes Eyes: Negative for blind spots, loss of peripheral vision or transient loss of vision ENT ENT: Positive for balance problems; negative for headache(s), dizziness, tinnitus or Nosebleed/epistaxis Cardio Chest Pain: No Palpitations: No Edema: Bilateral Muscle aches with walking: Bilateral Resp Respiratory: Positive for SOB with activity, SOB at rest and SOB orthopnea\SOB lying down; negative for Cough GI GI: Negative nausea, vomiting, heartburn or vomiting blood/hematemesis : Negative for hematuria Musc Musc: Positive for muscle weakness and balance problems; negative for muscle aches/ myalgia Neuro Neuro: Positive for weakness; negative for headache(s), dizziness, near syncope, syncope, lightheadedness or orthostatic symptoms Dayron Hematologic/Lymphatic: Negative for easy bleeding Endo Endo: Positive for fatigue Cardiology Exam Const Appearance: cooperative, no acute distress and ill appearing Orientation: alert, awake and oriented x3 Head Head: normocephalic and atraumatic Mouth: moist mucous membranes Eyes General: appearance normal, both eyes and all related structures Conjunctivae: conjunctivae normal Pupils: PERRL EOM: EOM intact bilaterally Neck Neck: normal visual inspection, no lymphadenopathy and no JVD JVD: +5 Carotids: Negative bruit Neck Mass: Negative Neck mass Chest Chest inspection: normal inspection of the chest and symmetric chest movement Auscultation: Bilateral: Diminished Lung Sounds, Crackles Cardio Palpation: normal PMI Rate: regular rate Rhythm: irregularly irregular Heart sounds: S1 normal and S2 normal; negative rub, gallop or murmur GI GI: normal to inspection, soft, no hepatosplenomegaly and bowel sounds present; negative tender Neuro General: alert, awake, oriented x3, CN's II-XI intact bilaterally and moves all extremities Extremities Pulses: Normal: Right Posterior Tibial Pulse, Left Posterior Tibial Pulse, Right Radial Pulse, Left Radial Pulse Lower Extremity Edema: +3: Bilateral Psych Psychological: normal affect Supplemental Info Echocardiogram in 2018 demonstrated: 1. Rest and stress SPECT Cardiolite nuclear imaging demonstrate diminished tracer uptake in portions of the distal anterior, anteroseptal, and septal apical segments which appears somewhat more prominent at rest as opposed to stress appearing compatible with a combination of shifting soft tissue attenuation/artifact as well as an element of previous myocardial injury/infarction with no myocardial perfusion changes consider diagnostic for associated stress-induced myocardial ischemia. 2. The gated Cardiolite study reports an LVEF of 42 %. Echocardiogram in 2018 demonstrated Normal LV size. Severe global left ventricular systolic dysfunction. The estimated ejection fraction is 20 %. Unable to assess diastolic dysfunction. The left atrium is moderately enlarged. Compared to the previous the LV function is declined. Contrast injection was performed. Assessment AND Plan 1. Acute on chronic systolic (congestive) heart failure I50.23 Plan - GEETA Vázquez Patient did have an elevated BNP in the hospital. she states that her previous dose of Lasix when she was discharged in August was Lasix at 20 mg twice a day. She states that she had been taking this medication. I will give her a prescription for Lasix 3 times a day. Will monitor kidney function closely. We will let her congestive heart failure is worsened by her atrial fibrillation as her ejection fraction is 20%. She did have a stress test today that did not show any evidence of ischemia but previous infarct. 2. New onset a-fib I48.91 with RVR Plan - GEETA Vázquez Patient had presented to the emergency room and atrial fibrillation August 2017. She was successfully cardioverted during the hospitalization and discharged home on amiodarone. She has maintained her amiodarone at twice a day. Will decrease this to once a day. She was noted to be hypothyroid in August and is not on any thyroid medication. As she is on amiodarone will need to monitor this closely. Feel that her atrial fibrillation is contributing to her acute congestive heart failure. Would like to schedule her to have a cardioversion. She has been anticoagulated since her hospital stay in August. Hopefully she will maintain sinus rhythm as she has been on amiodarone for a month. Cardioversion is scheduled for this coming Tuesday. Patient is agreeable with this. For now we will continue with her current dose of metoprolol. Will adjust accordingly after her cardioversion. If her cardioversion is unsuccessful we may need to adjust her rate limiting medications however hesitant to do so as her blood pressure is on the low side today. Orders Orders: 3. Coronary artery disease involving augustine coronary artery of augustine heart without angina pectoris I25.10 Plan - GEETA Vázquez Patient we will continue with maximum medication at this time. Stress test today did not demonstrate evidence of ischemia but did show previous infarct. 4. Essential hypertension I10 Plan - GEETA Vázquez Blood pressure is on the low side today. We are increasing her Lasix to 3 times a day. Will adjust medications accordingly. 5. Pure hypercholesterolemia E78.00; E78.0 Plan - GEETA Vázquez Patient will continue with current dose of simvastatin. Plan Detail Other Medications Refilled: Discontinued: amiodarone Discontinued Reason: Order edited 200 mg PO ONCE 30 tabs 12RF Arlene Arevalo - Discontinuing original order Additional Comments - GEETA Vázquez We will follow-up with patient closely after her cardioversion on Tuesday. The above patient was discussed with Dr. Hall, he agrees with plan of care. Thank you for allowing us to participate in patient's plan of care, if you have any questions please do not hesitate to call. This note was generated using a voice recognition system and there may be incorrect words, spelling or punctuation errors that were not noted when reviewing the office note prior to saving. Follow Up 2 Weeks (2-3 weeks, [employer]/MMM) Coding Level of Care Code Off vis,est,level 4 Diagnoses Acute on chronic systolic (congestive) heart failure I50.23 New onset a-fib I48.91 Coronary artery disease involving augustine coronary artery of augustine heart without angina pectoris I25.10 Associated angina: without angina Coronary Disease-Associated Artery/Lesion type: augustine artery [place] vs. transplanted heart: augustine heart Essential hypertension I10 Hypertension type: essential hypertension Pure hypercholesterolemia E78.00; E78.0 Hyperlipidemia type: pure hypercholesterolemia Coding Level of Care Code Off vis,est,level 4 Diagnoses Acute on chronic systolic (congestive) heart failure I50.23 New onset a-fib I48.91 Coronary artery disease involving augustine coronary artery of augustine heart without angina pectoris I25.10 Associated angina: without angina Coronary Disease-Associated Artery/Lesion type: augustine artery [place] vs. transplanted heart: augustine heart Essential hypertension I10 Hypertension type: essential hypertension Pure hypercholesterolemia E78.00; E78.0 Hyperlipidemia type: pure hypercholesterolemia 09/24/17 1141 <Electronically signed by Karen CONNOR> Date Karen CONNOR 09/27/17 0920<Electronically signed by Tristian Hall MD> Cosigner Signature: Date (if applicable) Tristian Hall MD CC: Yaya Centeno DO OPERATIVE REPORT Observed: 09/26/2017 Status: F Source: [place] 12:59 PM [facility] REPOSITORY [facility] Medical Records Department [address] [place] [address] Operative Report 09/26/17 1255 MR#: [id number] Acct: [id number] Name: JESSICA MARLEY Rep #: [id number] : 1950 67 From: Donta Banda DO PCP: Yaya Centeno DO Status: REG SDC Y Location: [facility] Operative Report Date of Procedure: 09/26/17 CONSCIOUS SEDATION REPORT DATE OF SERVICE: September 26, 2017 BRIEF HISTORY OF PRESENT ILLNESS: The patient is a 67-year-old female who presented to [facility] for an elective outpatient cardioversion due to underlying atrial fibrillation. The patient is currently anticoagulated on Eliquis. She does have a history of prior cardioversion in August 2017, during which time she received 4 mg of etomidate. Her last known ejection fraction was approximately 20%. She denies any previous anesthetic complications. She does have a known history of obstructive sleep apnea and asthma. PHYSICAL EXAMINATION: VITAL SIGNS: Reviewed and were acceptable. GENERAL: The patient is an obese female, in no apparent distress, speaking in full sentences. HEENT: Normocephalic, atraumatic. Mucous membranes are moist and pink. Good mouth opening noted. Trachea is midline. Limited neck mobility. CHEST: S1, S2 irregularly irregular. No murmurs, rubs or gallops were noted. LUNGS: Clear to auscultation bilaterally without appreciable wheezes, rales or rhonchi. ABDOMEN: Soft, nontender, nondistended. Positive bowel sounds. Obese. EXTREMITIES: There is no clubbing or cyanosis. Lower extremity edema is present. Wrapped lower extremities. ASA Class: II DESCRIPTION OF PROCEDURE: After confirmation of informed consent, the patient's anesthesia plan was reviewed in detail. Etomidate was chosen. Risks and benefits were reviewed and the patient agreed to proceed. At 1242, the patient was given 4 mg of etomidate. The patient achieved an appropriate level of sedation and was given a 200 joule synchronized cardioversion by Dr. Hall at the bedside. This was successful in achieving normal sinus rhythm. The patient was monitored until 1248, at which time she reached her baseline mental status and function. The patient tolerated the procedure well. COMPLICATIONS: None ESTIMATED BLOOD LOSS: None RECOMMENDATIONS: Okay to recover in usual fashion. Code Visit 9xxxx: Other Procedure See Report - [id number] 09/26/17 1259 <Electronically signed by Donta Banda DO> Date Donta Banda DO CC: Tristian Hall MD; Donta Banda D.O.; Yaya Centeno DO Signed OPERATIVE REPORT Observed: 09/26/2017 Status: F Source: [place] 12:54 PM [facility] Medical Records Department [address] [place] [id number] Operative Report 09/26/17 1252 MR#: [id number] Acct: [id number] Name: JESSICA MARLEY Rep #: [id number] : 1950 67 From: Tristian Hall MD PCP: Yaya Centeno DO Status: REG SDC Y Location: [facility] Operative Report Date of Procedure: 09/26/17 DC cardioversion. 67-year-old lady with a history of chronic persistent atrial fibrillation and reduced ejection fraction of 20%. Patient has been on anticoagulation. The patient was brought into the cardiac catheterization lab in the noninvasive section. Patient was noted to be in the postabsorptive nonsedated state. Patient was seen by Dr. Banda of the critical care division. After informed consent was obtained anterior posterior pads were applied. The patient was then administered 4 mg of intravenous etomidate and then 200 J of synchronized DC biphasic cardioversion energy were applied. The patient promptly reverted to sinus rhythm. Patient tolerated the procedure well. Postoperative EKG confirmed the above. Conclusion: Successful DC cardioversion to sinus rhythm. Patient will follow up in the office per office protocol. Continue same medications as well as anticoagulation. 09/26/17 1254 <Electronically signed by Tristian Hall MD> Date Tristian Hall MD CC: Tristian Hall MD; Yaay Centeno DO Signed DISCHARGE SUMMARY Observed: 09/23/2017 Status: F Source: [place] 3:22 PM [facility] REPOSITORY [facility] Medical Records Department [address] [place] [address] [place] [address] Discharge Summary 09/23/17 1316 MR#: [id number] Acct: [id number] Name: JESSICA MARLEY Rep #: [id number] : 1950 67 From: Iván CONNOR PCP: Yaya Centeno DO Status: DIS RINKU Y [id number] <Iván Sanon - Last Filed: 09/23/17 13:16> Discharge Date and Diagnosis Date of Admission: 09/22/17 Date of Discharge: 09/23/17 - Primary Discharge Diagnosis Active and Suspected Problems (Last Updated 09/09/17 @ 09:24 by Latoya Soto) Acute on chronic systolic CHF Chest pain 2/2 above Paroxysmal AFib DMt2 CKDIII CAD prior cabg - Secondary Discharge Diagnosis Chronic Problems (Last Updated 09/09/17 @ 09:24 by Latoya Soto) Obesity (Chronic) CHERISE (obstructive sleep apnea) (Chronic) HTN (hypertension) (Chronic) Hx of CABG (Chronic) CABG 2012, Dr. Rebolledo at [place] Hyperlipemia (Chronic) Diabetes mellitus (Chronic) Afib (Chronic) Hospital Course and Treatment Imaging Results: RAD/Chest 1 View (Portable) IMPRESSION: Stable cardiac enlargement and postsurgical changes. Possible small left pleural effusion. Stress test: Impression: 1. Rest and stress SPECT Cardiolite nuclear imaging demonstrate diminished tracer uptake in portions of the distal anterior, anteroseptal, and septal apical segments which appears somewhat more prominent at rest as opposed to stress appearing compatible with a combination of shifting soft tissue attenuation/artifact as well as an element of previous myocardial injury/infarction with no myocardial perfusion changes consider diagnostic for associated stress-induced myocardial ischemia. 2. The gated Cardiolite study reports an LVEF of 42 %. Operations: None Procedures: 2-D Echocardiogram, Stress test Summary of Care Provided: Physical exam on day of discharge: General: Resting comfortably NAD Psych: A/Ox3 normal affect HEENT: PEARRLA AT NC Neck: Supple NT CV: RRR no m/t/r/g/h Resp: CTA Abd: NABSX4 Soft NT no guarding or rigidity, obesity Ext: DP2+=, 2+ pitting edema bilateral lower extremities Skin: W/D normal turgor Lymph/Heme: No active bleeding or adenopathy Neuro: CN2-12 intact Hospital course: The patient is a 67 year old F with a history of CAD status post CABG, history of systolic congestive heart failure, history of paroxysmal atrial fibrillation, history of systolic congestive heart failure, history of diabetes type 2, obesity, who presented to the emergency room complaining of a week of chest pain with shortness of breath with exertion, with notable PND and orthopnea. Patient was admitted to the hospital several months prior with congestive heart failure at that time had a 20% ejection fraction, and atrial fibrillation and had underwent cardioversion however this did not take. She also was discharged on Lasix however this had been recently discontinued due to a change in creatinine. She had an elevated BNP and a chest x-ray with a possible pleural effusion. She had severe bilateral lower extremity pitting edema. She had a negative troponin and negative EKG. She was admitted to the hospital for acute systolic congestive heart failure exacerbation and chest pain. We cycled troponins, kept her on telemetry, and she underwent stress testing the following morning. Stress test was negative for ischemia. She was given IV Lasix for diuresis which provided some relief of her edema. Following admission she had no further chest pain. She is advised on the importance of daily compression of her legs using Juan wraps or compression socks, and of the importance of monitoring her daily weights and salt intake. She was discharged home in stable condition. She will follow-up with her forestry faculty member Dr. Hall today in the office. This patient was seen by Iván Sanon PA-C under the supervision of Doctor Bernice. [] Discharge Diet: Low fat/ Low Cholesterol, 1800 Calorie Control Diet, 2000 mg Sodium Diet Discharge Activity: Return to Normal Activity Home Medications: Medications to take at Discharge Simvastatin [Zocor] 40 mg PO QHS 02/27/13 Albuterol Inhaler [Ventolin Hfa] 2 puff INHALATION 4X/DAY PRN PRN 12/19/13 Glimepiride [Amaryl] 4 mg PO DAILY@0800 #30 tab 08/15/17 Linagliptin [Tradjenta] 5 mg PO DAILY #30 tab 08/15/17 Melatonin 3 mg PO QHS PRN PRN tab 08/15/17 amiodarone 200 mg tablet 200 mg PO ONCE #30 tab 09/23/17 apixaban 5 mg tablet 5 mg PO BID #60 tab 09/23/17 furosemide 40 mg tablet 40 mg PO TID #90 tab 09/23/17 losartan 100 mg tablet 100 mg PO DAILY #30 tab 09/23/17 metoprolol tartrate 100 mg tablet 100 mg PO BID #60 tab 09/23/17 potassium chloride ER 20 mEq tablet,extended release(part/cryst) 20 meq PO DAILY #30 tab 09/23/17 Primary Care Physician: Yaya Centeno DO [Primary Care Provider] - Please follow up with your Primary Care Physician in: 1-2 weeks Please Follow Up With: Tristian Hall MD When: Today Please Follow Up With: Yaya Centeno DO Additional Instructions: Juan wraps bilateral lower extremities daily, check daily weights. Disposition: Home Minutes spent on discharge:: 35 Patient Condition:: Stable Medical Necessity - Tobacco Use Smoking Status: Never smoker Tobacco Use: Non-smoker Meaningful Use Info Meaningful Use Diagnoses (Choose all that apply): CHF - CHF JUAN/ARB ordered at discharge?: Yes Documented LVEF (%): 42 <Elsa Queen E - Last Filed: 09/23/17 15:22> Discharge Date and Diagnosis - Secondary Discharge Diagnosis Chronic Problems (Last Updated 09/09/17 @ 09:24 by Latoya Soto) Obesity (Chronic) CHERISE (obstructive sleep apnea) (Chronic) HTN (hypertension) (Chronic) Hx of CABG (Chronic) CABG 2012, Dr. Rebolledo at [place] Hyperlipemia (Chronic) Diabetes mellitus (Chronic) Afib (Chronic) Hospital Course and Treatment Summary of Care Provided: Hospitalist note: Discharge summary above reviewed as well as physical examination and I agree with above discharge plan. Patient was admitted for worsening shortness of breath with exertion, PND and chest pain and she was found to have acute on systolic CHF. She was treated with IV Lasix for diuresis and continued on losartan and metoprolol. She complained of chest pain and her EKG revealed A. fib without acute ischemic changes. Troponin was negative 3. Nuclear stress test performed and revealed changes compatible previous myocardial injury/infarction with no findings diagnostic for associated stress-induced myocardial ischemia. With IV diuresis, patient symptoms improved as well as having edema. She went into A. fib with RVR but her heart rate came down with her regular home medications including metoprolol and amiodarone. Patient discharged home in a stable medical condition, discharged on Lasix 40 mg p.o. twice daily, discharged on potassium supplement, continued on her chronic home medication without any changes, recommended follow-up with PCP in 1-2 weeks and she will follow-up with cardiology as outpatient today which is September 23, 2018. - Physical Exam General: Alert, Oriented x3, Cooperative, No apparent distress. HEENT: Atraumatic, PERRLA, EOMI. Neck: Supple, No JVD, Negative Carotid Bruits, Trachea Midline, Thyroid Normal. Lungs: Decreased breath sounds at the bases, more to the left base,, No rhonchi, No wheeze, No rales. Cardiovascular: Normal S1, Normal S2, irregular, PMI Normal. Abdomen: Bowel Sounds Present, Soft, Non Tender, Non-Distended, No Hepato-splenomegaly. Extremities: No clubbing, No cyanosis, +++ edema Skin: No rashes, No breakdown Neurological: Neuro grossly intact. . Minutes spent on discharge:: 32 Meaningful Use Info Meaningful Use Diagnoses (Choose all that apply): CHF - CHF JUAN/ARB ordered at discharge?: Yes Documented LVEF (%): 42 Code Visit Inpatient E AND M: [id number] Disch Hosp 09/23/17 1324 <Electronically signed by Iván CONNOR> Date Iván CONNOR 09/23/17 1522<Electronically signed by Elsa Queen MD> Cosigner Signature (if applicable): Date Elsa Queen MD CC: GEETA Sanon; Tristian Hall MD; Elsa Queen; Yaya Centeno DO Signed 12 LEAD ELECTROCARDIOGRAM Observed: 09/23/2017 Status: F Source: [place] 3:07 PM [facility] REPOSITORY [facility] Cardiovascular Services [address] [place] [address] 12 Lead EKG 09/22/17 0355 MR#: [id number] Acct: [id number] Name: JESSICA MARLEY Rep #: [id number] : 1950 67 From: Tristian Hall MD Attending Dr: Elsa Queen Status: DIS RINKU Ordering Dr: Marcial Flores DO Date: 09/22/17 Location: [facility] Sex: F C Admitted: 09/22/17 Test Reason : ADMIT EKG Blood Pressure : / mmHG Vent. Rate : 096 BPM Atrial Rate : 094 BPM P-R Int : 000 ms QRS Dur : 116 ms QT Int : 426 ms P-R-T Axes : 000 007 066 degrees QTc Int : 538 ms Atrial fibrillation Incomplete left bundle branch block Nonspecific T wave abnormality Abnormal ECG When compared with ECG of 12-SEP-2017 10:45, QT has lengthened Confirmed by TRISTIAN HALL MD ([id number]), editor publications MIRIAM KHALIL ([id number]) on 09/23/2017 3:07:08 PM Referred By: DR FLORES Confirmed By:TRISTIAN HALL MD 09/23/17 7992 Date Tristian Hall MD CC: Marcial Flores DO; Elsa Queen; Yaya Centeno DO Signed 12 LEAD ELECTROCARDIOGRAM Observed: 09/23/2017 Status: F Source: [place] 1:45 PM [facility] REPOSITORY [facility] Cardiovascular Services [address] [place] [address] 12 Lead EKG 09/22/17 0054 MR#: [id number] Acct: [id number] Name: JESSICA MARLEY Rep #: [id number] : 1950 67 From: Tristian Hall MD Attending Dr: Elsa Queen Status: DIS RINKU Ordering Dr: Jordy Mccarthy DO Date: 09/22/17 Location: [facility] Sex: F C Admitted: 09/22/17 Test Reason : CP Blood Pressure : / mmHG Vent. Rate : 096 BPM Atrial Rate : 104 BPM P-R Int : 000 ms QRS Dur : 098 ms QT Int : 424 ms P-R-T Axes : 000 -24 026 degrees QTc Int : 535 ms Atrial fibrillation Low voltage QRS Septal infarct , age undetermined Abnormal ECG Confirmed by TRISTIAN HALL MD ([id number]), editor publications MIRIAM KHALIL ([id number]) on 09/23/2017 1:45:07 PM Referred By: [email or web address] Confirmed By:TRISTIAN HALL MD 09/23/17 1345 Date Tristian Hall MD CC: Elsa Queen; Yaya Centeno DO; Jordy Mccarthy DO Signed DISCHARGE INSTRUCTION Observed: 09/23/2017 Status: F Source: [place] 11:43 AM [facility] REPOSITORY [facility] Medical Records Department [address] [place] [address] Instructions for Home/Discharge Instructions 09/23/17 1141 MR#: [id number] Acct: [id number] Name: JESSICA MARLEY Rep #: [id number] : 1950 67 From: Iván CONNOR PCP: Yaya Centeno DO Status: ADM RINKU - Discharge Diagnoses Current Active Problems: Current Active and Chronic Problems (Last Updated 09/09/17 @ 09:24 by Latoya Soto) CAD (coronary artery disease) (Acute) Heart failure with reduced ejection fraction (Acute) You will use the following diet at home:: Calorie/Carbohydrate Controlled (specify 1200, 1400, etc) - 1800 aiden / day, Cardiac - <2 g sodium daily Your food should be the consistency of: Regular Your liquids should be the consistency of: Regular/Thin Discharge Activity: Return to Normal Activity Additional Instructions: JUAN wraps to legs daily. From toes to knees. Check daily weights and record in a journal. Allergies/Adverse Reactions: Allergies No Known Allergies Allergy (Verified 09/22/17 00:49) Medications to take at Discharge Simvastatin [Zocor] 40 mg PO QHS 02/27/13 Albuterol Inhaler [Ventolin Hfa] 2 puff INHALATION 4X/DAY PRN PRN 12/19/13 Aspirin [Aspirin, Baby] 81 mg PO DAILY@0800 12/19/13 Apixaban [Eliquis] 5 mg PO BID #60 tab 08/15/17 Glimepiride [Amaryl] 4 mg PO DAILY@0800 #30 tab 08/15/17 Linagliptin [Tradjenta] 5 mg PO DAILY #30 tab 08/15/17 Melatonin 3 mg PO QHS PRN PRN tablet 08/15/17 Metoprolol Tartrate [Lopressor (beta jessica)] 100 mg PO BID #60 tab 08/15/17 Amiodarone HCl 200 mg PO BID #28 tab 09/12/17 Losartan Potassium [Cozaar] 100 mg PO DAILY #14 tab 09/12/17 Furosemide [Lasix] 40 mg PO BID #60 tab 09/23/17 Potassium Chloride [K-Dur] 20 meq PO DAILY #30 tab 09/23/17 The following prescriptions were given: Furosemide [Lasix] 40 mg PO BID #60 tab Potassium Chloride [K-Dur] 20 meq PO DAILY #30 tab Primary Care Physician: Yaya Centeno DO [Primary Care Provider] - Please follow up with your Primary Care Physician in: 1-2 weeks Please Follow Up With: Tristian Hall MD - Keep appointment When: Today Proposed Discharge Date: 09/23/17 09/23/17 2532 <Electronically signed by Iván CONNOR> Date Iván CONNOR CC: Yaya Centeno DO BEDSIDE GLUCOSE Collected: 09/23/2017 Status: F Source: [place] 11:12 AM [facility] REPOSITORY TYPE CODE TESTS RESULT OUT OF REFERENCE UNITS RANGE LAB L501.080 70-110 mg/dL High BEDSIDE GLU 174 Result Comment: Dr Orders Followed Insulin Given MANAGEMENT OF PATIENT CARE PER NURSING PROTOCOL Performed By: #### L501.080 #### [facility] Laboratory Point of Care [address] [place], [place] [address] BEDSIDE GLUCOSE Collected: 09/23/2017 Status: F Source: [place] 6:41 AM [facility] REPOSITORY TYPE CODE TESTS RESULT OUT OF REFERENCE UNITS RANGE LAB L501.080 70-110 mg/dL High BEDSIDE GLU 115 Result Comment: MANAGEMENT OF PATIENT CARE PER NURSING PROTOCOL Performed By: #### L501.080 #### [facility] Laboratory Point of Care [address] [place] [address] BASIC METABOLIC Collected: 09/23/2017 Status: F Source: [place] PROFILE (BMP) 5:15 AM [facility] REPOSITORY TYPE CODE TESTS RESULT OUT OF RANGE REFERENCE UNITS LAB L501.0100 74-106 mg/dL High GLU 120 Result Comment: Fasting Glucose result from 100 to 125 mg/dL suggests IMPAIRED HOMEOSTASIS per A.D.A. criteria. Please note revised GLUCOSE reference range effective 2017. LAB L501.1000 7-18 mg/dL High BUN 29 LAB L501.1100 0.55-1.02 mg/dL High CREAT,SERUM 1.44 Result Comment: The validity of the calculated GFR AND GFRAA in patients over 70 years has not been determined. Clinical correlation is essential. LAB L501.1110 >60 mL/min Low EST GFR 38 Result Comment: Non- GFR Calc LAB L501.1115 >60 mL/min Low EST GFR - AA 46 Result Comment: GFR Calc LAB L501.1255 ml/min Normal Estimated CRCL 30.50 LAB L501.1300 10-20 RATIO High BUN/CRE 20.1 LAB L501.2200 8.5-10 mg/dL Low .1 CA 7.9 LAB L501.5300 136-14 mmol/L High 5 NA 146 LAB L501.5600 3.5-5. mmol/L Low 1 K 3.0 LAB L501.5900 98-107 mmol/L High CL 110 LAB L501.6100 21.0-3 mmol/L Normal 2.0 CO2 25.0 LAB L501.6200 5-15 Normal GAP 11 Performed By: #### L500.2500 #### [facility] Laboratory [address] [facility] [address] BEDSIDE GLUCOSE Collected: 09/22/2017 Status: F Source: [place] 9:20 PM [facility] REPOSITORY TYPE CODE TESTS RESULT OUT OF REFERENCE UNITS RANGE LAB L501.080 70-110 mg/dL High BEDSIDE GLU 136 Result Comment: MANAGEMENT OF PATIENT CARE PER NURSING PROTOCOL Performed By: #### L501.080 #### [facility] Laboratory Point of Care [address] [place] [address] BEDSIDE GLUCOSE Collected: 09/22/2017 Status: F Source: [place] 4:57 PM [facility] REPOSITORY TYPE CODE TESTS RESULT OUT OF RANGE REFERENCE UNITS LAB L501.080 70-110 mg/dL Normal BEDSIDE GLU 77 Result Comment: MANAGEMENT OF PATIENT CARE PER NURSING PROTOCOL Performed By: #### L501.080 #### [facility] Laboratory Point of Care [address] [place] [address] STRESS REPORT Observed: 09/22/2017 Status: F Source: [place] 12:45 PM [facility] REPOSITORY [facility] Cardiovascular Services [address] [place] [address] MR#: [id number] Acct: [id number] Name: AYAKAJESSICA S Rep #: [id number] : 1950 67 From: Alfred Frazier MD Primary Care: Yaya Centeno DO Status: ADM RINKU Ordering Dr: Sex: F C Stress Test Report Date: 09/22/2017 Procedure: Pharmacologic stress nuclear imaging study Indications: Chest pain; shortness of breath/dyspnea Consent: Per the patient Procedure: The patient underwent pharmacologic (Regadenoson) evaluation with a peak heart rate of 125 beats per minute (82 predicted maximal heart rate) and a peak blood pressure of 124/92 mmHg. The baseline ECG demonstrated atrial fibrillation my: Septal NC of indeterminate age. The peak pharmacologic ECG demonstrated without obvious ECG change. There were no cardiac dysrhythmias pretest, during pharmacologic infusion, or recovery. There was no complaint of chest discomfort during pharmacologic infusion or recovery. The examination was discontinued secondary to completion of protocol. Impression: 1. Pharmacologic (Regadenoson) evaluation 2. Peak pharmacologic ECG with without obvious ECG change. 3. There were no cardiac dysrhythmias pretest, during pharmacologic infusion, or recovery 4. Nuclear images pending Myocardial perfusion imaging study: Technique: The patient was injected with 14.8 millicuries of technetium 99m Cardiolite and subsequently rest SPECT Cardiolite nuclear imaging was obtained in the horizontal long, vertical long, and short axis views. The patient underwent pharmacologic (Regadenoson) evaluation with a peak heart rate of 125 beats per minute (82 % percent predicted maximal heart rate) and a peak blood pressure of 44.6 mmHg. The patient was injected with millicuries of technetium 99m Cardiolite and subsequently stress SPECT Cardiolite nuclear imaging was obtained in the horizontal long, vertical long, and short axis views. A gated Cardiolite study at peak stress was obtained. Interpretation: Rest and stress SPECT Cardiolite nuclear imaging status post realignment, normalization, and attenuation correction demonstrate diminished tracer uptake in portions of the distal anterior, anteroseptal, and septal apical segments which appears somewhat more prominent at rest as opposed to stress. There is diminished end systolic thickening and brightening in the aforementioned areas. The gated Cardiolite study demonstrates diminished myocardial thickening and inward wall motion in the aforementioned areas. The reported LVEF is 42 %. Impression: 1. Rest and stress SPECT Cardiolite nuclear imaging demonstrate diminished tracer uptake in portions of the distal anterior, anteroseptal, and septal apical segments which appears somewhat more prominent at rest as opposed to stress appearing compatible with a combination of shifting soft tissue attenuation/artifact as well as an element of previous myocardial injury/infarction with no myocardial perfusion changes consider diagnostic for associated stress-induced myocardial ischemia. 2. The gated Cardiolite study reports an LVEF of 42 %. This note was generated with Dragon dictation software. It may contain incorrect words, spelling, and punctuation that were not noted in checking the note before signing. 09/22/17 1245 <Electronically signed by Alfred Frazier MD> Date Alfred Frazier MD CC: Elsa Queen; Yaya Centeno DO Date Dictated: 09/22/17 1232 Date Transcribed: 09/22/171231 Computer Forensic Examiner: PM Signed BEDSIDE GLUCOSE Collected: 09/22/2017 Status: F Source: [place] 11:19 AM [facility] REPOSITORY TYPE CODE TESTS RESULT OUT OF REFERENCE UNITS RANGE LAB L501.080 70-110 mg/dL High BEDSIDE GLU 167 Result Comment: MANAGEMENT OF PATIENT CARE PER NURSING PROTOCOL Performed By: #### L501.080 #### [facility] Point of Care [address] [place] [address] BEDSIDE GLUCOSE Collected: 09/22/2017 Status: F Source: [place] 6:46 AM [facility] REPOSITORY TYPE CODE TESTS RESULT OUT OF REFERENCE UNITS RANGE LAB L501.080 70-110 mg/dL High BEDSIDE GLU 126 Result Comment: MANAGEMENT OF PATIENT CARE PER NURSING PROTOCOL Performed By: #### L501.080 #### [facility] Point of Care [address] [place] [address] CBC W/DIFF, AUTOMATED Collected: 09/22/2017 Status: F Source: [place] 5:10 AM [facility] REPOSITORY TYPE CODE TESTS RESULT OUT OF RANGE REFERENCE UNITS LAB L100.1000 4.4-11.0 K/mm3 Normal WBC 8.4 LAB L100.1200 4.2-5.4 M/mm3 Normal RBC 4.28 LAB L100.1300 12.0-15.0 g/dl Normal HGB 13.0 LAB L100.1400 37-47 % Normal HCT 40.4 LAB L100.1500 81-99 fL Normal MCV 94.4 LAB L100.1600 27.0-32.0 pg Normal MCH 30.4 LAB L100.1700 32-36 g/gl Normal MCHC 32.2 LAB L100.1810 11.6-14.6 % High RDW CV 15.0 LAB L100.1820 35.1-43.9 fl High RDW SD 50.8 LAB L100.1900 150-450 K/mm3 Normal PLT 187 LAB L100.2000 6.2-12.0 fl Normal MPV 10.3 LAB L100.2100 47-70 % High NEUT% 74.3 LAB L100.2200 19-41 % Low LY% 16.9 LAB L100.2300 0-10 % Normal MONO% 7.9 LAB L100.2400 0-5 % Normal EO% 0.6 LAB L100.2500 0-1 % Normal BASO% 0.1 LAB L100.2550 0.0-0.9 % Normal IM GRAN % 0.200 Result Comment: IG% - Immature Granulocytes (promyelocytes, myelocytes and metamyelocytes) > 1% indicates that a LEFT SHIFT is Present. LAB L100.2620 2.0-7.7 X10 3/uL Normal Absolute Neut 6.2 LAB L100.2720 0.83-4.51 X10 3/ul Normal Absolute Lymph 1.42 Performed By: #### L100.0100 #### [facility] [address] [place], [place], [address] BASIC METABOLIC Collected: 09/22/2017 Status: F Source: [place] PROFILE (BMP) 5:10 AM [facility] REPOSITORY Order Comment: 'TROP' Serial specimen #1, #2 or #3: 2 TYPE CODE TESTS RESULT OUT OF RANGE REFERENCE UNITS LAB L501.0100 74-106 mg/dL High GLU 129 Result Comment: Fasting Glucose result greater than or equal to 126 mg/dL suggests DIABETES MELLITUS per A.D.A. criteria. Please note revised GLUCOSE reference range effective 2017. LAB L501.1000 7-18 mg/dL High BUN 32 LAB L501.1100 0.55-1.02 mg/dL High CREAT,SERUM 1.57 Result Comment: The validity of the calculated GFR AND GFRAA in patients over 70 years has not been determined. Clinical correlation is essential. LAB L501.1110 >60 mL/min Low EST GFR 35 Result Comment: Non- GFR Calc LAB L501.1115 >60 mL/min Low EST GFR - AA 42 Result Comment: GFR Calc LAB L501.1255 ml/min Normal Estimated CRCL 27.98 LAB L501.1300 10-20 RATIO High BUN/CRE 20.4 LAB L501.2200 8.5-10 mg/dL Normal .1 CA 8.7 LAB L501.5300 136-14 mmol/L High 5 NA 146 LAB L501.5600 3.5-5. mmol/L Normal 1 K 4.0 LAB L501.5900 98-107 mmol/L High CL 112 LAB L501.6100 21.0-3 mmol/L Normal 2.0 CO2 24.0 LAB L501.6200 5-15 Normal GAP 10 Performed By: #### L500.2500, L501.4010 #### [facility] [address] [facility] [place], [place], [address] TROPONIN-I Collected: 09/22/2017 Status: F Source: [place] 5:10 AM [facility] REPOSITORY Order Comment: 'TROP' Serial specimen #1, #2 or #3: 2 TYPE CODE TESTS RESULT OUT OF RANGE REFERENCE UNITS LAB L501.4010 <0.045 ng/mL Normal < 0.015 TROPONIN-I Result Comment: TROPONIN-I EXPECTED VALUES <0.045 Negative 0.045 - 0.590 Consistent with Cardiac Damage > OR = 0.600 Critical Value Not every elevated troponin is indicative of NC. These values should be used with clinical judgement in examining the patient's clinical picture for diagnosis. To establish a diagnosis of NC versus myocardial injury, there must be a demonstrated rise and/or fall in the troponin values, in addition to ischemic symptoms, EKG changes, new regional wall motion abnormality, and/or angiographical evidence. PLEASE NOTE: REFERENCE RANGES EDITED 17 Performed By: #### L500.2500, L501.4010 #### [facility] [address] [facility]. [place], [place], [address] PROTHROMBIN TIME W/INR Collected: 09/22/2017 Status: F Source: [place] 5:10 AM [facility] REPOSITORY TYPE CODE TESTS RESULT OUT OF RANGE REFERENCE UNITS LAB L300.4150 11.7-14.9 SECONDS High PROTIME 23.8 LAB L300.4200 Normal INR 2.1 Performed By: #### L300.3900, L300.4310 #### [facility] [address] [place], [address] PARTIAL THROMBOPLAST Collected: 09/22/2017 Status: F Source: [place] TIME 5:10 AM [facility] REPOSITORY TYPE CODE TESTS RESULT OUT OF RANGE REFERENCE UNITS LAB L300.4310 24.1-36.2 Seconds Normal PTT 35.9 Performed By: #### L300.3900, L300.4310 #### [facility] [address] [place], [address] TROPONIN-I Collected: 09/22/2017 Status: F Source: [place] 4:08 AM [facility] REPOSITORY Order Comment: 'TROP' Serial specimen #1, #2 or #3: 2 TYPE CODE TESTS RESULT OUT OF RANGE REFERENCE UNITS LAB L501.4010 <0.045 ng/mL Normal < 0.015 TROPONIN-I Result Comment: TROPONIN-I EXPECTED VALUES <0.045 Negative 0.045 - 0.590 Consistent with Cardiac Damage > OR = 0.600 Critical Value Not every elevated troponin is indicative of NC. These values should be used with clinical judgement in examining the patient's clinical picture for diagnosis. To establish a diagnosis of NC versus myocardial injury, there must be a demonstrated rise and/or fall in the troponin values, in addition to ischemic symptoms, EKG changes, new regional wall motion abnormality, and/or angiographical evidence. PLEASE NOTE: REFERENCE RANGES EDITED 17 Performed By: #### L501.4010 #### [facility] [address] [place], [address] HISTORY AND PHYSICAL Observed: 09/22/2017 Status: F Source: [place] EXAM 3:25 AM [facility] REPOSITORY [facility] Medical Records Department [address] [place] [address] History and Physical 09/22/17 0315 MR#: [id number] Acct: [id number] Name: JESSICA MARLEY Rep #: [id number] : 1950 67 From: Marcial Flores DO PCP: Yaya Centeno DO Status: ADM IRNKU Y Location: [place] [address] Problem List (1) Chest pain Status: Acute (2) CAD (coronary artery disease) Status: Acute (3) Heart failure with reduced ejection fraction Status: Acute (4) Obesity Status: Chronic (5) CHERISE (obstructive sleep apnea) Status: Chronic (6) HTN (hypertension) Status: Chronic Qualifiers: (7) Hyperlipemia Status: Chronic Qualifiers: (8) Diabetes mellitus Status: Chronic (9) Afib Status: Chronic History of Present Illness Date of Admission: 09/22/17 Chief Complaint: chest pain The patient is a 67 year old F developed left-sided chest pain on the 16. midsternum. Patient is also just been having shortness of breath which is progressively getting worse over the past several week edema. Patient had been on Lasix was discontinued as her creatinine got suddenly worse. Patient does not know if she is put on weight that she does not check her weight on any regular basis. Patient was in the emergency room had elevated BNP of over thousand chest x-ray showed a right pleural effusion. Patient is chest pain-free at this time. We are asked to admit the patient for further chest pain evaluation. [] Past Medical History Past Medical History (Chronic Problems): Chronic Problems (Last Updated 09/09/17 @ 09:24 by Latoya Soto) Obesity (Chronic) CHERISE (obstructive sleep apnea) (Chronic) HTN (hypertension) (Chronic) Hx of CABG (Chronic) CABG 2012, Dr. Rebolledo at [place] Hyperlipemia (Chronic) Diabetes mellitus (Chronic) Afib (Chronic) Allergies No Known Allergies Allergy (Verified 09/22/17 00:49) Home Medications: Ambulatory Orders Medication Instructions Recorded Surgical History: cholecystectomy, coronary bypass surgery, hysterectomy - Total hysterectomy, - - Coronary artery bypass grafting x3 Lives: Spouse/ Significant Other Smoking Status: Never smoker Tobacco Use: Non-smoker Alcohol: None Drugs: None - *Family History Paternal History Items: Cancer Maternal History Items: COPD Review of Systems Constitutional: Denies: Anorexia, Chills, Fever Eyes: Denies: Blurred vision, Double vision HEENT: Denies: Head Aches, Sinus Congestion, Sinus Drainage Cardiovascular: Reports: Chest Pain, Edema Respiratory: Reports: Cough, Shortness of Breath Gastrointestinal: Denies: Abdominal Pain, Nausea, Vomiting Genitourinary: Denies: Dysuria Musculoskeletal: Denies: Joint Pain, Joint Tenderness Skin: Denies: Dryness, Jaundice Neurological: Denies: Numbness, Tingling, Focal weakness Psychiatric: Denies: Anxiety, Depression Endocrine: Reports: Change in Body Habitus. Denies: Heat/ Cold Intolerance Hematologic/ Lymphatic: Denies: Easy Bruising, Easy Bleeding, Hx of blood clot VTE Information - Inpt Only VTE Present on Admission: No VTE Pharm Prophylaxis ordered?: No Reason prophylaxis not ordered:: Medical Contraindication Patient Problems: Active and Suspected Problems (Last Updated 09/09/17 @ 09:24 by Latoya Soto) Chest pain (Acute) CAD (coronary artery disease) (Acute) Heart failure with reduced ejection fraction (Acute) - Physical Exam General: Alert, Cooperative, No apparent distress HEENT: Atraumatic, Normocephalic Neck: No Nodes, Thyroid Normal Size and Texture Lungs: Clear to auscultation, No rhonchi, No wheeze, Diminished Cardiovascular: Regular rate, Regular Rhythm, Normal S1, Normal S2, No murmurs Abdomen: Bowel Sounds Present, Soft, Non Tender, Non-Distended, No Hepato-splenomegaly Extremities: No Calf Tenderness, Edema Skin: No rashes, No breakdown Musculoskeletal: No Tenderness to Palpation of Joints or Extremities, No Muscle Wasting Psych/Mental Status: Appropriate, Flat Affect Vital Signs Temp Pulse Resp BP Pulse Ox 36.7 C 101 H 20 H 115/56 L 98 09/22/17 03:01 09/22/17 03:11 09/22/17 03:11 09/22/17 03:11 09/22/17 03:11 Oxygen Flow Rate (L/min) 2 Oxygen Delivery Method Nasal Cannula Weight: 117.934 kg Body Mass Index (BMI) 49.1 Finger Stick Blood Glucose 120 Laboratory Tests Past 24 Hrs EKG showed rate controlled atrial fibrillation. Chest x-ray was reviewed and showed a small right-sided pleural effusion. Assessment/Plan Active and Suspected Problems (Last Updated 09/09/17 @ 09:24 by Latoya Soto) Chest pain (Acute) CAD (coronary artery disease) (Acute) Heart failure with reduced ejection fraction (Acute) 1. Chest pain * Patient has known cardiomyopathy. Has not had further evaluation with a stress test nor heart catheterization that I see within her system. Patient is a poor historian and is unable to provide any further history about that * Patient will undergo stress test for her on today. * Cycle troponins * Based on the results of studies patient may be discharged when he may warrant further cardiology evaluation. 2. Heart failure with reduced ejection fraction * Is in an echocardiogram from August 15 that showed an ejection fraction of 20% * Viewing the patient's weights, she is currently at 117.9 kg. On September 12 she was 109.7 kg. Granted there may be some discrepancy as these are different scales but certainly there is a 8 kg difference within 10 days. * I will give patient a one-time dose of IV Lasix and start oral Lasix. * Patient was taken off Lasix given worsening of her kidney function. 3. Atrial fibrillation * Rate controlled at this time * Continue with amiodarone, metoprolol * Patient is anticoagulated with Eliquis 4. DVT prophylaxis: Patient is already anticoagulated on Eliquis. Code Visit OBSV E AND M: 23101 Initial observation care L2 09/22/17 0325 <Electronically signed by Marcial Flores DO> Date Marcial Flores DO Cosign Signature: Date (if applicable) CC: Tristian Hall MD; Marcial Flores DO; Yaya Centeno DO; Karen Goode Signed EMERGENCY DEPARTMENT Observed: 09/22/2017 Status: F Source: [place] SUMMARY 2:55 AM [facility] REPOSITORY [facility] Medical Records Department [address] [place] [address] Emergency Department Summary 09/22/17 0252 MR#: [id number] Acct: [id number] Name: JESSICA MARLEY Rep #: [id number] : 1950 67 From: Jordy Mccarthy DO PCP: Yaya Centeno DO Status: REG ER - ER Visit Summary Date of Service: 09/22/17 Chief Complaint: [Chest pain] History of Present Illness: The patient is a 67 F [presents the emergency department chest discomfort that started this evening. Patient describes a tightness in her left chest without any other radiation. Patient's had a cough for about 6 months. Patient producing phlegm at times. Patient denies any fever. Patient states that she was treated for atrial fibrillation and was cardioverted in August however she jumped back into atrial fibrillation. Patient tells me she had been on a diuretic but it affected her kidney function therefore she was taken off the diuretic. On arrival to the ER her chest pains resolved. Patient has history of prior three-vessel CABG] Physical Examination: [HEENT-PERRLA, EOMI. Cranial nerves II through XII grossly intact. TMs clear. Mucous membranes moist. No adenopathy. Cardiovascular-irregularly irregular and tachycardic. 2 out of 6 systolic ejection murmur noted. Lungs-clear to auscultation, chest wall stable without crepitus or subcu emphysema Abdomen-normoactive bowel sounds, soft, nontender, no rebound or rigidity, no peritoneal signs. Extremities-intact 4, normal range of motion, normal pulses, atraumatic]. Trace edema both lower extremities. Test Results: [EKG obtained showed A. fib with a ventricular rate of 96 bpm with old septal infarct noted. CBC with differential showed a white count of 11.2, hemoglobin 14, hematocrit 42, platelets 223. Chemistries unremarkable. Troponin was less than 0.015. BNP was elevated 1743. Chest x-ray showed cardiomegaly with a small left pleural effusion.] Emergency Department Course and Treatment: [On arrival patient received oxygen.] Treatment Plan: [Admit for further workup and evaluation. During last admission patient had an echocardiogram that showed 20% ejection fraction.] Disposition: [Admit] Impression: [Chest pain Cough-etiology uncertain although patient is on an JUAN inhibitor CHF] This note was generated with [employer] dictation software. It may contain incorrect words, spelling, and punctuation that were not noted in review of the chart prior to signing ED Disposition - Plan for ED Patient: Chief Complaint: Cough Referrals: Yaya Centeno, DO [Primary Care Provider] - What to do if you have Problems For any increased pain, shortness of breath, bleeding, nausea or vomiting, chest pain, or any unexpected problems, contact your Primary Care Provider. Call [facility] ([phone]) or report to the closest Emergency Room. Call 911 if necessary. 09/22/17 0255 <Electronically signed by Jordy Mccarthy DO> Date Joryd Mccarthy DO Cosigner Signature (If Indicated): Date CC: Yaya Centeno DO CHEST 1 VIEW Observed: 09/22/2017 Status: F Source: [place] (PORTABLE) 12:58 AM [facility] REPOSITORY [facility] Imaging Services [address] [place] [address] Chest 1 View (Portable) MR#: [id number] Acct: [id number] Name: JESSICA MARLEY Rep #: [id number] : 1950 F 67 From: Vikki Read MD PCP: Yaya Centeno DO Status: REG ER Study: Chest 1 View (Portable) Date of Exam: 09/22/17 Exam# [id number] Ordering Dr: Jordy Mccarthy DO STUDY: X-RAY CHEST REASON FOR EXAM: Female, 67 years old. Complaining of persistent cough with chest wall pain, swelling to bilateral lower extremities. TECHNIQUE: Single AP portable view of the chest. COMPARISON: September 12, 2017. FINDINGS: The lungs are clear and expanded. Minimal indistinct left diaphragmatic contour possibly due to technique versus mild effusion. Sternal cerclage wires and vascular clips are present from a prior sternotomy and coronary artery bypass graft procedure (CABG). There is cardiac enlargement. Normal mediastinum and álvaro. Normal visualized pulmonary arteries. There is atherosclerotic calcification of the aortic arch with tortuosity. The spine and upper abdominal soft tissues are obscured. There is degenerative osteoarthritis of the bilateral shoulders. RAD/Chest 1 View (Portable) IMPRESSION: Stable cardiac enlargement and postsurgical changes. Possible small left pleural effusion. Electronically Signed: Vikki Read MD at 1:28 EDT , Service support , CC: Yaya Centeno DO; Jordy Mccarthy DO Computer Forensic Examiner: Signed CBC W/DIFF, AUTOMATED Collected: 09/22/2017 Status: F Source: [place] 12:50 AM [facility] REPOSITORY TYPE CODE TESTS RESULT OUT OF RANGE REFERENCE UNITS LAB L100.1000 4.4-11.0 K/mm3 High WBC 11.2 LAB L100.1200 4.2-5.4 M/mm3 Normal RBC 4.42 LAB L100.1300 12.0-15.0 g/dl Normal HGB 14.0 LAB L100.1400 37-47 % Normal HCT 41.7 LAB L100.1500 81-99 fL Normal MCV 94.3 LAB L100.1600 27.0-32.0 pg Normal MCH 31.7 LAB L100.1700 32-36 g/gl Normal MCHC 33.6 LAB L100.1810 11.6-14.6 % High RDW CV 14.9 LAB L100.1820 35.1-43.9 fl High RDW SD 50.1 LAB L100.1900 150-450 K/mm3 Normal PLT 223 LAB L100.2000 6.2-12.0 fl Normal MPV 11.0 LAB L100.2100 47-70 % Normal NEUT% 69.6 LAB L100.2200 19-41 % Low LY% 18.4 LAB L100.2300 0-10 % High MONO% 10.5 LAB L100.2400 0-5 % Normal EO% 0.7 LAB L100.2500 0-1 % Normal BASO% 0.4 LAB L100.2550 0.0-0.9 % Normal IM GRAN % 0.400 Result Comment: IG% - Immature Granulocytes (promyelocytes, myelocytes and metamyelocytes) > 1% indicates that a LEFT SHIFT is Present. LAB L100.2620 2.0-7.7 X10 3/uL High Absolute Neut 7.8 LAB L100.2720 0.83-4.51 X10 3/ul Normal Absolute Lymph 2.06 Performed By: #### L100.0100 #### [facility] [address] [place], [place], [address] BASIC METABOLIC Collected: 09/22/2017 Status: F Source: [place] PROFILE (BMP) 12:50 AM [facility] REPOSITORY TYPE CODE TESTS RESULT OUT OF RANGE REFERENCE UNITS LAB L501.0100 74-106 mg/dL High GLU 123 Result Comment: Fasting Glucose result from 100 to 125 mg/dL suggests IMPAIRED HOMEOSTASIS per A.D.A. criteria. Please note revised GLUCOSE reference range effective 2017. LAB L501.1000 7-18 mg/dL High BUN 32 LAB L501.1100 0.55-1.02 mg/dL High CREAT,SERUM 1.59 Result Comment: The validity of the calculated GFR AND GFRAA in patients over 70 years has not been determined. Clinical correlation is essential. LAB L501.1110 >60 mL/min Low EST GFR 34 Result Comment: Non- GFR Calc LAB L501.1115 >60 mL/min Low EST GFR - AA 41 Result Comment: GFR Calc LAB L501.1255 ml/min Normal Estimated CRCL 25.20 LAB L501.1300 10-20 RATIO High BUN/CRE 20.1 LAB L501.2200 8.5-10 mg/dL Normal .1 CA 8.7 LAB L501.5300 136-14 mmol/L Normal 5 NA 144 LAB L501.5600 3.5-5. mmol/L Normal 1 K 3.7 LAB L501.5900 98-107 mmol/L High CL 111 LAB L501.6100 21.0-3 mmol/L Normal 2.0 CO2 23.0 LAB L501.6200 5-15 Normal GAP 10 Performed By: #### L500.2500, L501.4010 #### [facility] [address] [place], [address] TROPONIN-I Collected: 09/22/2017 Status: F Source: [place] 12:50 AM [facility] REPOSITORY TYPE CODE TESTS RESULT OUT OF RANGE REFERENCE UNITS LAB L501.4010 <0.045 ng/mL Normal < 0.015 TROPONIN-I Result Comment: TROPONIN-I EXPECTED VALUES <0.045 Negative 0.045 - 0.590 Consistent with Cardiac Damage > OR = 0.600 Critical Value Not every elevated troponin is indicative of NC. These values should be used with clinical judgement in examining the patient's clinical picture for diagnosis. To establish a diagnosis of NC versus myocardial injury, there must be a demonstrated rise and/or fall in the troponin values, in addition to ischemic symptoms, EKG changes, new regional wall motion abnormality, and/or angiographical evidence. PLEASE NOTE: REFERENCE RANGES EDITED 17 Performed By: #### L500.2500, L501.4010 #### [facility] [address] [facility] [place], [address] BNP,B-TYPE NATRIURETIC Collected: 09/22/2017 Status: F Source: [place] PEPTIDE 12:50 AM [facility] REPOSITORY TYPE CODE TESTS RESULT OUT OF RANGE REFERENCE UNITS LAB L503.6620 0-100 pg/mL High B-TYPE 1743.0 BABAR PEP Performed By: #### L503.6620 #### [facility] [address] [facility] [place], [address] 12 LEAD ELECTROCARDIOGRAM Observed: 09/14/2017 Status: F Source: [place] 2:08 PM [facility] REPOSITORY [facility] Cardiovascular Services [address] [place] [address] 12 Lead EKG 09/12/17 1045 MR#: [id number] Acct: [id number] Name: JESSICA MARLEY Rep #: [id number] : 1950 67 From: Alfred Frazier MD Attending Dr: Status: DEP ER Ordering Dr: Dao Monique MD Date: 09/12/17 Location: ED Sex: F C Admitted: Test Reason : SOB Blood Pressure : / mmHG Vent. Rate : 110 BPM Atrial Rate : 312 BPM P-R Int : 000 ms QRS Dur : 108 ms QT Int : 358 ms P-R-T Axes : 000 047 081 degrees QTc Int : 484 ms Atrial fibrillation Low voltage QRS (LIMB LEADS) Poor R wave progression Nonspecific ST and T wave abnormality Abnormal ECG Confirmed by ALFRED FRAZIER MD ([id number]), editor publications MIRIAM KHALIL ([id number]) on 09/14/2017 2:08:41 PM Referred By: Confirmed By:ALFRED FRAZIER MD 09/14/171407 Date Alfred Frazier MD CC: Dao Monique MD; Yaya Centeno DO Signed DISCHARGE INSTRUCTION Observed: 09/12/2017 Status: F Source: [place] 2:09 PM [facility] REPOSITORY [facility] Medical Records Department [address] [place] [address] Discharge Instruction 09/12/171404 MR#: [id number] Acct: [id number] Name: ARMAAN MARLEYENA Lexie Rep #: [id number] : 1950 67 From: Dao Monique MD PCP: Yaya Centeno DO Status: REG ER ED Disposition - Plan for ED Patient: Disposition: Home or Assisted Living Chief Complaint: Shortness of Breath Instructions: ED Pneumonia Adult Prescriptions: Azithromycin [Zithromax Z-Jermaine] 250 mg PO UD #1 box Glimepiride [Amaryl] 4 mg PO DAILY #14 tab Linagliptin [Tradjenta] 5 mg PO DAILY #14 tab Losartan Potassium [Cozaar] 100 mg PO DAILY #14 tab Amiodarone HCl 200 mg PO BID #28 tab Apixaban [Eliquis] 5 mg PO BID #28 tab Metoprolol Tartrate [Lopressor] 100 mg PO BID #28 tab Referrals: Yaya Centeno DO [Primary Care Provider] - What to do if you have Problems For any increased pain, shortness of breath, bleeding, nausea or vomiting, chest pain, or any unexpected problems, contact your Primary Care Provider. Call [facility] ([phone]) or report to the closest Emergency Room. Call 911 if necessary. 09/12/17 140 <Electronically signed by Dao Monique MD> Date Dao Monique MD Cosigner Signature (If Indicated): Date CC: Yaya Centeno DO EMERGENCY DEPARTMENT Observed: 09/12/2017 Status: F Source: [place] SUMMARY 2:05 PM [facility] REPOSITORY [facility] [facility] Medical Records Department [address] [place] [address] Emergency Department Summary 09/12/17 1103 MR#: [id number] Acct: [id number] Name: JESSICA MARLEY Rep #: [id number] : 1950 67 From: Dao Monique MD PCP: Yaya Centeno DO Status: REG ER - ER Visit Summary Date of Service: 09/12/17 Chief Complaint: Shortness of breath, irregular heartbeat History of Present Illness: The patient is a 67 F who presents with the above symptoms. For the past couple weeks she has noticed that she has been in atrial fibrillation. She states that she had an attempted electrical cardioversion last month but it failed and she is still in A. fib. She is on Eliquis. She is felt short of breath during this time. She did start with a cough today. It is productive of sputum. She has sharp pain in her chest when she coughs. She is not sure if she has had a fever. She does have a history of asthma and takes inhalers at home. Physical Examination: Vital signs reviewed. HEENT exam unremarkable. Heart is irregularly irregular without murmurs. Her rate is between 110 and 90. Lungs have diffuse expiratory wheezing. Abdomen is soft and nontender. Extremities reveal no edema. Skin exam normal. Neurologic exam normal. Test Results: EKG is atrial fibrillation with a rate of 110. Nonspecific ST and T-wave changes. Chest x-ray reveals question of small airspace disease in the lower lobes. Laboratory studies are unremarkable. Patient was given albuterol and prednisone. She feels better. Her rate is controlled. She tells me that she is out of all of her medications. I will refill all of them and start her on azithromycin. She will follow-up with her PCP Emergency Department Course and Treatment: [] Treatment Plan: [] Disposition: Discharge Impression: Community acquired pneumonia This note was generated with [employer] dictation software. It may contain incorrect words, spelling, and punctuation that were not noted in review of the chart prior to signing ED Disposition - Plan for ED Patient: Chief Complaint: Shortness of Breath Referrals: Yaya Centeno, DO [Primary Care Provider] - What to do if you have Problems For any increased pain, shortness of breath, bleeding, nausea or vomiting, chest pain, or any unexpected problems, contact your Primary Care Provider. Call [facility] ([phone]) or report to the closest Emergency Room. Call 911 if necessary. 09/12/17 1405 <Electronically signed by Dao Monique MD> Date Dao Monique MD Cosigner Signature (If Indicated): Date CC: Yaya Centeno DO CBC W/DIFF, AUTOMATED Collected: 09/12/2017 Status: F Source: [place] 11:10 AM [facility] REPOSITORY TYPE CODE TESTS RESULT OUT OF RANGE REFERENCE UNITS LAB L100.1000 4.4-11.0 K/mm3 Normal WBC 10.7 LAB L100.1200 4.2-5.4 M/mm3 Normal RBC 4.51 LAB L100.1300 12.0-15.0 g/dl Normal HGB 13.7 LAB L100.1400 37-47 % Normal HCT 42.1 LAB L100.1500 81-99 fL Normal MCV 93.3 LAB L100.1600 27.0-32.0 pg Normal MCH 30.4 LAB L100.1700 32-36 g/gl Normal MCHC 32.5 LAB L100.1810 11.6-14.6 % Normal RDW CV 14.3 LAB L100.1820 35.1-43.9 fl High RDW SD 47.9 LAB L100.1900 150-450 K/mm3 Normal PLT 203 LAB L100.2000 6.2-12.0 fl Normal MPV 11.3 LAB L100.2100 47-70 % High NEUT% 78.2 LAB L100.2200 19-41 % Low LY% 13.9 LAB L100.2300 0-10 % Normal MONO% 6.6 LAB L100.2400 0-5 % Normal EO% 0.6 LAB L100.2500 0-1 % Normal BASO% 0.3 LAB L100.2550 0.0-0.9 % Normal IM GRAN % 0.400 Result Comment: IG% - Immature Granulocytes (promyelocytes, myelocytes and metamyelocytes) > 1% indicates that a LEFT SHIFT is Present. LAB L100.2620 2.0-7.7 X10 3/uL High Absolute Neut 8.4 LAB L100.2720 0.83-4.51 X10 3/ul Normal Absolute Lymph 1.49 Performed By: #### L100.0100 #### [facility] [address] [place], [address] BASIC METABOLIC Collected: 09/12/2017 Status: F Source: [facility] [facility] [facility] ([facility]) 11:10 AM [facility] REPOSITORY Order Comment: 'TROP' Serial specimen #1, #2, #3, or #4: 1 TYPE CODE TESTS RESULT OUT OF RANGE REFERENCE UNITS LAB L501.0100 74-106 mg/dL High GLU 179 Result Comment: Fasting Glucose result greater than or equal to 126 mg/dL suggests DIABETES MELLITUS per A.D.A. criteria. Please note revised GLUCOSE reference range effective 2017. LAB L501.1000 7-18 mg/dL High BUN 29 LAB L501.1100 0.55-1.02 mg/dL High CREAT,SERUM 1.49 Result Comment: The validity of the calculated GFR AND GFRAA in patients over 70 years has not been determined. Clinical correlation is essential. LAB L501.1110 >60 mL/min Low EST GFR 37 Result Comment: Non- GFR Calc LAB L501.1115 >60 mL/min Low EST GFR - AA 45 Result Comment: GFR Calc LAB L501.1255 ml/min Normal Estimated CRCL 29.48 LAB L501.1300 10-20 RATIO Normal BUN/CRE 19.5 LAB L501.2200 8.5-10 mg/dL Normal .1 CA 8.6 LAB L501.5300 136-14 mmol/L Normal 5 NA 138 LAB L501.5600 3.5-5. mmol/L Normal 1 K 4.8 Result Comment: Moderate Hemolysis, Result may be falsely increased. LAB L501.5900 98-107 mmol/L Normal CL 107 LAB L501.6100 21.0-32.0 mmol/L Normal CO2 23.0 LAB L501.6200 5-15 Normal 8 GAP Performed By: #### L500.2500, L501.4010 #### [facility] [address] [facility] [place], [address] TROPONIN-I Collected: 09/12/2017 Status: F Source: [facility] 11:10 AM [facility] REPOSITORY Order Comment: 'TROP' Serial specimen #1, #2, #3, or #4: 1 TYPE CODE TESTS RESULT OUT OF RANGE REFERENCE UNITS LAB L501.4010 <0.06 ng/mL Normal < 0.02 TROPONIN-I Result Comment: TROPONIN-I EXPECTED VALUES <0.05 NEGATIVE 0.06 - 0.59 AT RISK OF NC > OR = 0.60 SUGGEST NC Performed By: #### L500.2500, L501.4010 #### [facility] [address] [place], [address] CHEST 1 VIEW Observed: 09/12/2017 Status: F Source: [facility] [facility] (PORTABLE) 10:56 AM [facility] REPOSITORY [facility] Imaging Services [address] [place] [address] Chest 1 View (Portable) MR#: [id number] Acct: [id number] Name: JESSICA MARLEY Rep #: [id number] : 1950 F 67 From: Hilda Khalil MD PCP: Yaya Centeno DO Status: PRE ER Study: Chest 1 View (Portable) Date of Exam: 09/12/17 Exam# [id number] Ordering Dr: Dao Monique MD STUDY: X-RAY CHEST REASON FOR EXAM: Female, 67 years old. Cough, tachycardia and shortness of breath. TECHNIQUE: Single AP portable view of the chest. COMPARISON: August 13, 2017. FINDINGS: Cardiac monitoring leads are present. Patient has had a sternotomy. There is hyperinflation of the lungs consistent with chronic obstructive lung disease (COPD). There appears to be some pleural tenting adjacent to the left hemidiaphragm. There is groundglass attenuation at lung bases that may be related to overlying soft tissues. Airspace disease cannot be excluded. There is a small left-sided pleural effusion. There is moderate cardiac enlargement. Normal mediastinum and álvaro. Normal visualized pulmonary arteries. There is atherosclerotic calcification of the aortic arch with tortuosity. There is demineralization of the osseous structures. There are degenerative changes of both shoulders. There is no demonstrated abnormality of the visualized soft tissue structures of the upper abdomen. RAD/Chest 1 View (Portable) IMPRESSION: 1. Postoperative appearance of the chest with moderate cardiomegaly. 2. Questionable bilateral basilar airspace disease with small left-sided pleural effusion. Electronically Signed: Hilda Khalil MD at 11:25 EDT , Service support , CC: Dao Monique MD; Yaya Centeno DO Computer Forensic Examiner: Signed RENAL PROFILE Collected: 09/08/2017 Status: F Source: [place] 11:01 AM [facility] REPOSITORY TYPE CODE TESTS RESULT OUT OF RANGE REFERENCE UNITS LAB L501.0100 74-106 mg/dL High GLU 129 Result Comment: Fasting Glucose result greater than or equal to 126 mg/dL suggests DIABETES MELLITUS per A.D.A. criteria. Please note revised GLUCOSE reference range effective 2017. LAB L501.1000 7-18 mg/dL High BUN 40 LAB L501.1100 0.55-1.02 mg/dL High CREAT,SERUM 1.56 Result Comment: The validity of the calculated GFR AND GFRAA in patients over 70 years has not been determined. Clinical correlation is essential. LAB L501.1110 >60 mL/min Low EST GFR 35 Result Comment: Non- GFR Calc LAB L501.1115 >60 mL/min Low EST GFR - AA 42 Result Comment: GFR Calc LAB L501.1300 10-20 RATIO High BUN/CRE 25.6 LAB L501.1800 3.2-5.0 g/dL Normal ALB 3.6 LAB L501.2200 8.5-10.1 mg/dL CA Normal 9.1 LAB L501.2300 2.5-4.9 mg/dL Normal PHOS 3.4 LAB L501.5300 136-145 mmol/L NA Normal 138 LAB L501.5600 3.5-5.1 mmol/L K Normal 4.3 LAB L501.5900 98-107 mmol/L CL Normal 106 LAB L501.6100 21.0-32.0 mmol/L Normal CO2 24.0 Performed By: #### L500.3600 #### [facility] [address] [place], [address] CBC W/DIFF, AUTOMATED Collected: 08/25/2017 Status: F Source: [facility] 10:56 AM [facility] REPOSITORY TYPE CODE TESTS RESULT OUT OF RANGE REFERENCE UNITS LAB L100.1000 4.4-11.0 K/mm3 Normal WBC 10.7 LAB L100.1200 4.2-5.4 M/mm3 Normal RBC 4.87 LAB L100.1300 12.0-15.0 g/dl Normal HGB 15.0 LAB L100.1400 37-47 % Normal HCT 45.6 LAB L100.1500 81-99 fL Normal MCV 93.6 LAB L100.1600 27.0-32.0 pg Normal MCH 30.8 LAB L100.1700 32-36 g/gl Normal MCHC 32.9 LAB L100.1810 11.6-14.6 % Normal RDW CV 13.3 LAB L100.1820 35.1-43.9 fl High RDW SD 44.3 LAB L100.1900 150-450 K/mm3 Normal PLT 237 LAB L100.2000 6.2-12.0 fl Normal MPV 11.2 LAB L100.2100 47-70 % High NEUT% 78.9 LAB L100.2200 19-41 % Low LY% 13.6 LAB L100.2300 0-10 % Normal MONO% 5.9 LAB L100.2400 0-5 % Normal EO% 1.0 LAB L100.2500 0-1 % Normal BASO% 0.3 LAB L100.2550 0.0-0.9 % Normal IM GRAN % 0.300 Result Comment: IG% - Immature Granulocytes (promyelocytes, myelocytes and metamyelocytes) > 1% indicates that a LEFT SHIFT is Present. LAB L100.2620 2.0-7.7 X10 3/uL High Absolute Neut 8.4 LAB L100.2720 0.83-4.51 X10 3/ul Normal Absolute Lymph 1.45 Performed By: #### L100.0100 #### [facility] [address] [place], [address] COMPREHENSIVE METABOLIC Collected: 08/25/2017 Status: F Source: [facility] 10:56 AM [facility] REPOSITORY TYPE CODE TESTS RESULT OUT OF RANGE REFERENCE UNITS LAB L501.0100 74-106 mg/dL High GLU 237 Result Comment: Glucose result greater than or equal to 200 mg/dL suggests DIABETES MELLITUS per A.D.A. criteria. Please note revised GLUCOSE reference range effective 2017. LAB L501.1000 7-18 mg/dL High BUN 37 LAB L501.1100 0.55-1.02 mg/dL High CREAT,SERUM 1.80 Result Comment: The validity of the calculated GFR AND GFRAA in patients over 70 years has not been determined. Clinical correlation is essential. LAB L501.1110 >60 mL/min Low EST GFR 30 Result Comment: Non- GFR Calc LAB L501.1115 >60 mL/min Low EST GFR - AA 36 Result Comment: GFR Calc LAB L501.1300 10-20 RATIO High BUN/CRE 20.6 LAB L501.1500 6.4-8.2 g/dL T Normal PROT 7.3 LAB L501.1800 3.2-5.0 g/dL Normal ALB 3.7 LAB L501.1950 2.2-4.2 g/dL Normal GLOB 3.6 LAB L501.2000 0.9-2.4 RATIO Normal A/G 1.0 LAB L501.2200 8.5-10.1 mg/dL CA Normal 8.9 LAB L501.4100 15-37 U/L Low AST 13 LAB L501.4305 45-117 U/L Normal ALK P 47 LAB L501.4405 13-56 U/L Normal ALT 23 LAB L501.4600 0.20-1.00 mg/dL T Normal BILI 0.50 LAB L501.5300 136-145 mmol/L NA Normal 139 LAB L501.5600 3.5-5.1 mmol/L K Normal 4.4 LAB L501.5900 98-107 mmol/L CL Normal 100 LAB L501.6100 21.0-32.0 mmol/L Normal CO2 30.0 LAB L501.6200 5-15 Normal GAP 9 Performed By: #### L500.4050, L501.9520 #### [facility] [address] [place], [address] THYROID STIM HORMONE Collected: 08/25/2017 Status: F Source: [place] ([facility]) 10:56 AM [facility] REPOSITORY TYPE CODE TESTS RESULT OUT OF RANGE REFERENCE UNITS LAB L501.9520 0.358-3.74 uIU/mL High TSH 7.02 Performed By: #### L500.4050, L501.9520 #### [facility] [address] [place], [address] DISCHARGE SUMMARY Observed: 08/23/2017 Status: F Source: [place] 6:08 PM [facility] REPOSITORY [facility] Medical Records Department [address] [place] [address] Discharge Summary 08/15/17 1206 MR#: [id number] Acct: [id number] Name: JESSICA MARLEY Rep #: [id number] : 1950 67 From: Iván CONNOR PCP: Yaya Centeno DO Status: DIS IN Y Location: [place] [address] ADDENDUM by Valorie Bradley on 08/23/17 at 1808 Code Visit This patient was seen in conjunction with Iván CONNOR. I have independently interviewed and examined the patient and reviewed pertinent historical, laboratory and other data. Please refer to discharge summary note for details of this patient's presentation, findings and recommendations. I have reviewed Iván's note and concur fully with documented findings. In brief, patient is a 67YO male admitted with atrial fibrillation with rapid ventricular response and acute congestive heart failure. She failed to convert with Cardizem, amiodarone and high doses of metoprolol. Congestive heart failure resolved with better control of her heart rate and IV diuretics. Ultimately underwent a BHASKAR that showed no clot in the left atrial appendage but did show a 20% ejection fraction. She was cardioverted with 200 J into normal sinus rhythm. She was watched for several hours following cardioversion and there was no recurrence of atrial fibrillation. She was discharged home on metoprolol 100 mg twice daily, apixaban 5 mg twice daily, Lasix 40 mg daily and amiodarone. The etiology of the reduced EF is not clear. This may be a tachycardia induced cardiomyopathy but may also be related to CAD. She will follow up with Dr. Hall in the office in the next few weeks and he will likely discuss a cardiac catheterization at that time. Physical examination: Alert and oriented 3, no apparent distress. Lungs-clear to auscultation. Heart-regular rate and rhythm with no murmur, no gallop and no rub. Continues to have +1 edema of the bilateral lower extremities. Assessment: 1. Atrial fibrillation with rapid ventricular response 2. Severe cardiomyopathy with a 20% ejection fraction 3. Acute systolic congestive heart failure 4. Bronchospasm secondary to acute congestive heart failure. I have discussed my assessment with Iván and orders have been written. Inpatient E AND M: [id number] Disch Hosp 08/23/17 7365 <Electronically signed by Yaritza Bradley DO> Date Yaritza Bradley DO cc: GEETA Sanon; Valorie Bradley; Yaya Centeno DO * Signed ADDENDUM by GEETA Sanon on 08/15/17 at 1248 Code Visit added low dose ARB as advised per cardiology. losartan 12.5 qd 08/15/17 1248 <Electronically signed by Iván Sanon PA> Date Iván Sanon cc: GEETA Sanon; Valorie Bradley; Yaya Centeno DO * Signed ADDENDUM by GEETA Sanon on 08/15/17 at 1245 Code Visit Per cardiology: Continue Amiodarone 200 mg BID x 14 days, then transition to 200 mg once per day. Continue metoprolol and eliquis as ordered. 08/15/17 1245 <Electronically signed by Iván CONNOR> Date Iván Sanon cc: GEETA Sanon; Valorie Bradley; Yaya Centeno DO * Signed Addendum entered and electronically signed by GEETA Morgan 08/15/17 12:48: Code Visit added low dose ARB as advised per cardiology. losartan 12.5 qd Addendum entered and electronically signed by GEETA Morgan 08/15/17 12:45: Code Visit Per cardiology: Continue Amiodarone 200 mg BID x 14 days, then transition to 200 mg once per day. Continue metoprolol and eliquis as ordered. Original Note: Discharge Date and Diagnosis - Problem List Patient Problems: Active and Suspected Problems New onset a-fib (Acute) with RVR Bronchitis (Acute) mild bronchospasm Date of Admission: 08/10/17 Date of Discharge: 08/15/17 - Primary Discharge Diagnosis Active and Suspected Problems Acute systolic CHF with unspecified cardiomyopathy New onset AF with RVR DMt2 HTN CHERISE KATTY HLD Anxiety morbid obesity - Secondary Discharge Diagnosis Chronic Problems Obesity (Chronic) CHERISE (obstructive sleep apnea) (Chronic) HTN (hypertension) (Chronic) Hx of CABG (Chronic) Hyperlipemia (Chronic) Diabetes mellitus (Chronic) Hospital Course and Treatment Imaging Results: RAD/Chest 1 View (Portable) IMPRESSION: Mild increased markings at the lung bases with blunting of both costophrenic angles. Follow-up is recommended. TTE Interpretation Summary Normal LV size. Severe global left ventricular systolic dysfunction. The estimated ejection fraction is 20 %. Unable to assess diastolic dysfunction. The left atrium is moderately enlarged. Compared to the previous the LV function is declined. Contrast injection was performed. US/Kidney and Bladder IMPRESSION: Small cortical renal cysts. No evidence of hydronephrosis. RAD/Chest PA and Lateral IMPRESSION: Left lower lung airspace disease. Small left effusion. Mild cardiomegaly. BHASKAR Pericardium No pericardial effusion. Interpretation Summary Normal LV size. Moderately severe global left ventricular systolic dysfunction. The estimated ejection fraction is 20 %. The left atrium is moderately enlarged. No thrombus is detected in the left atrial appendage. Consults: Isabel - cardiology Benjie - nephrology Operations: None Procedures: 2-D Echocardiogram, Cardioversion, Transesophageal Echo Summary of Care Provided: Physical exam on day of discharge: General: Resting comfortably NAD Psych: A/Ox3 normal affect HEENT: PEARRLA AT NC Neck: Supple NT CV: RRR no m/t/r/g/h Resp: CTA Abd: [id number] Soft NT no guarding or rigidity, obese Ext: DP2+=, 1+ pitting edema BLE. Skin: W/D normal turgor Lymph/Heme: No active bleeding or adenopathy Neuro: CN2-12 intact Hospital course: The patient is a 67 year old F with a hx of asthma, T2DM, HTN, HLD who presented to the ER with increased SOB, BLE edema, and found to be in AF with RVR, acute CHF exacerbation, and KATTY. She was admitted to the PCU for cardiac monitoring and started on IV diltiazem and lasix. Dr. Hall was consulted for cardiology and Dr. Waldrop for nephrology. Her breathing gradually improved with lasix. Her heart rate failed to respond to diltiazem, dig, increased beta blockers, and amiodarone. She was placed on eliquis for anticoagulation. She had an echo with an EF of 20%. She underwent BHASKAR to rule out clots followed by cardioversion. We adjusted her diabetic regimen as her sugars were non controlled, and adjusted her blood pressure regimen as she had KATTY and was running on the lower side. She remained stable and was weaned off O2. She was discharged home in stable condition. 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 This patient was seen by Iván Sanon PA-C under the supervision of Doctor Mirna. [] Discharge Activity: Return to Normal Activity Home Medications: Medications to take at Discharge Metformin(XR) [Glucophage Xr] 850 mg PO BID 02/27/13 Simvastatin [Zocor] 40 mg PO QHS 02/27/13 Albuterol Inhaler [Ventolin Hfa] 2 puff INHALATION 4X/DAY PRN PRN 12/19/13 Aspirin [Aspirin, Baby] 81 mg PO DAILY@0800 12/19/13 Mometasone Furoate [Asmanex 110 mcg Twisthaler] 110 mcg INHALATION BID 12/19/13 Amiodarone HCl [Cordarone] 200 mg PO 0600,1800 #60 tab 08/15/17 Apixaban [Eliquis] 5 mg PO BID #60 tab 08/15/17 Furosemide [Lasix] 40 mg PO DAILY #30 tab 08/15/17 Glimepiride [Amaryl] 4 mg PO DAILY@0800 #30 tab 08/15/17 Linagliptin [Tradjenta] 5 mg PO DAILY #30 tab 08/15/17 Melatonin 3 mg PO QHS PRN PRN tablet 08/15/17 Metoprolol Tartrate [Lopressor (beta jessica)] 100 mg PO BID #60 tab 08/15/17 Potassium Chloride [K-Dur] 10 meq PO BIDCM #60 tab 08/15/17 Sertraline HCl [Zoloft] 25 mg PO DAILY #30 tab 08/15/17 Following Prescrptions Were Given to Patient: Amiodarone HCl [Cordarone] 200 mg PO 0600,1800 #60 tab Apixaban [Eliquis] 5 mg PO BID #60 tab Furosemide [Lasix] 40 mg PO DAILY #30 tab Glimepiride [Amaryl] 4 mg PO DAILY@0800 #30 tab Linagliptin [Tradjenta] 5 mg PO DAILY #30 tab Metoprolol Tartrate [Lopressor (beta jsesica)] 100 mg PO BID #60 tab Potassium Chloride [K-Dur] 10 meq PO BIDCM #60 tab Sertraline HCl [Zoloft] 25 mg PO DAILY #30 tab Primary Care Physician: Yaya Centeno DO [Primary Care Provider] - Please follow up with your Primary Care Physician in: 1-2 weeks Please Follow Up With: Tristian Hall MD When: 2 weeks Please Follow Up With: Eli Waldrop DO When: 2-3 weeks Medical Necessity - Tobacco Use Smoking Status: Never smoker Meaningful Use Info Meaningful Use Diagnoses (Choose all that apply): CHF - CHF JUAN/ARB ordered at discharge?: Yes Reason JUAN/ARB not ordered?: Worsening renal disease Documented LVEF (%): 20 08/15/17 1215 <Electronically signed by Iván CONNOR> Date Iván CONNOR Cosigner Signature (if applicable): Date CC: GEETA Sanon; Valorie Bradley; Yaya Centeno DO Signed 12 LEAD ELECTROCARDIOGRAM Observed: 08/18/2017 Status: F Source: [facility] 2:05 PM [facility] REPOSITORY [facility] Cardiovascular Services [address] [place] [id number] 12 Lead EKG 08/15/17 0604 MR#: [id number] Acct: [id number] Name: JESSICA MARLEY Rep #: [id number] : 1950 67 From: Tristian Hall MD Attending Dr: Valorie Bradley Status: DIS IN Ordering Dr: Tristian Hall MD Date: 08/15/17 Location: [facility] Sex: F C Admitted: 08/10/17 Test Reason : AM EKG Blood Pressure : / mmHG Vent. Rate : 115 BPM Atrial Rate : 072 BPM P-R Int : 000 ms QRS Dur : 102 ms QT Int : 364 ms P-R-T Axes : 000 064 054 degrees QTc Int : 503 ms Atrial fibrillation Abnormal ECG When compared with ECG of 10-AUG-2017 14:41, MANUAL COMPARISON REQUIRED, DATA IS UNCONFIRMED Confirmed by TRISTIAN HALL MD ([id number]), editor publications MIRIAM KHALIL ([id number]) on 08/18/2017 2:05:13 PM Referred By: DR HERNANDEZ Confirmed By:TRISTIAN HALL MD 08/18/17 1405 Date Tristian Hall MD CC: Valorie Bradley; Tristian Hall MD; Yaya Centeno DO Signed 12 LEAD ELECTROCARDIOGRAM Observed: 08/16/2017 Status: F Source: [place] 8:58 AM [facility] REPOSITORY [facility] Cardiovascular Services [address] [place] [address] 12 Lead EKG 08/10/17 1441 MR#: [id number] Acct: [id number] Name: JESSICA MARLEY Rep #: [id number] : 1950 67 From: Tristian Hall MD Attending Dr: Valorie Bradley Status: DIS IN Ordering Dr: Larry Marroquin MD Date: 08/10/17 Location: [facility] Sex: F C Admitted: 08/10/17 Test Reason : SOB Blood Pressure : / mmHG Vent. Rate : 152 BPM Atrial Rate : 174 BPM P-R Int : 000 ms QRS Dur : 100 ms QT Int : 256 ms P-R-T Axes : 000 050 091 degrees QTc Int : 407 ms Atrial fibrillation Nonspecific T wave abnormality Abnormal ECG Confirmed by TRISTIAN HALL MD ([id number]), editor publications MIRIAM KHALIL ([id number]) on 08/16/2017 8:57:42 AM Referred By: ROSIE/FRANCIA Confirmed By:TRISTIAN HALL MD 08/16/17 0857 Date Tristian Hall MD CC: Valorie Bradley; Larry Marroquin MD; Yaya Centeno DO Signed BEDSIDE GLUCOSE Collected: 08/15/2017 Status: F Source: [place] 1:09 PM [facility] REPOSITORY TYPE CODE TESTS RESULT OUT OF REFERENCE UNITS RANGE LAB L501.080 70-110 mg/dL High BEDSIDE GLU 126 Result Comment: MANAGEMENT OF PATIENT CARE PER NURSING PROTOCOL Performed By: #### L501.080 #### [facility] Point of Care [address] [place] [address] DISCHARGE INSTRUCTION Observed: 08/15/2017 Status: F Source: [place] 12:49 PM [facility] REPOSITORY [facility] Medical Records Department [address] [place] [address] Instructions for Home/Discharge Instructions 08/15/17 1204 MR#: [id number] Acct: [id number] Name: JESSICA MARLEY Rep #: [id number] : 1950 67 From: Iván CONNOR PCP: Yaya Centeno DO Status: ADM IN ADDENDUM by GEETA Sanon on 08/15/17 at 1249 Added low dose ARB as advised per cardiology: losartan 12.5 qd. She was on losartan prior to admission. Date Iván Sanon cc: Eli Waldrop DO; Tristian Hall MD; Yaya Centeno DO * Signed ADDENDUM by GEETA Sanon on 08/15/17 at 1245 Per cardiology: Continue Amiodarone 200 mg BID x 14 days, then transition to 200 mg once per day. Continue metoprolol and eliquis as ordered. Date Iván Sanon cc: Eli Waldrop DO; Tristian Hall MD; Yaya Centeno DO * Signed - Discharge Diagnoses Current Active Problems: Current Active and Chronic Problems New onset a-fib (Acute) with RVR Bronchitis (Acute) mild bronchospasm You will use the following diet at home:: Calorie/Carbohydrate Controlled (specify 1200, 1400, etc) - 1800 aiden / day, Cardiac Your food should be the consistency of: Regular Your liquids should be the consistency of: Regular/Thin Discharge Activity: Return to Normal Activity Allergies/Adverse Reactions: Allergies No Known Allergies Allergy (Verified 08/10/17 14:29) Medications to take at Discharge Metformin(XR) [Glucophage Xr] 850 mg PO BID 02/27/13 Simvastatin [Zocor] 40 mg PO QHS 02/27/13 Albuterol Inhaler [Ventolin Hfa] 2 puff INHALATION 4X/DAY PRN PRN 12/19/13 Aspirin [Aspirin, Baby] 81 mg PO DAILY@0800 12/19/13 Mometasone Furoate [Asmanex 110 mcg Twisthaler] 110 mcg INHALATION BID 12/19/13 Amiodarone HCl [Cordarone] 200 mg PO 0600,1800 #60 tab 08/15/17 Apixaban [Eliquis] 5 mg PO BID #60 tab 08/15/17 Furosemide [Lasix] 40 mg PO DAILY #30 tab 08/15/17 Glimepiride [Amaryl] 4 mg PO DAILY@0800 #30 tab 08/15/17 Linagliptin [Tradjenta] 5 mg PO DAILY #30 tab 08/15/17 Melatonin 3 mg PO QHS PRN PRN tablet 08/15/17 Metoprolol Tartrate [Lopressor (beta jessica)] 100 mg PO BID #60 tab 08/15/17 Potassium Chloride [K-Dur] 10 meq PO BIDCM #60 tab 08/15/17 Sertraline HCl [Zoloft] 25 mg PO DAILY #30 tab 08/15/17 The following prescriptions were given: Amiodarone HCl [Cordarone] 200 mg PO 0600,1800 #60 tab Apixaban [Eliquis] 5 mg PO BID #60 tab Furosemide [Lasix] 40 mg PO DAILY #30 tab Glimepiride [Amaryl] 4 mg PO DAILY@0800 #30 tab Linagliptin [Tradjenta] 5 mg PO DAILY #30 tab Metoprolol Tartrate [Lopressor (beta jessica)] 100 mg PO BID #60 tab Potassium Chloride [K-Dur] 10 meq PO BIDCM #60 tab Sertraline HCl [Zoloft] 25 mg PO DAILY #30 tab Primary Care Physician: Yaya Centeno DO [Primary Care Provider] - Please follow up with your Primary Care Physician in: 1-2 weeks Please Follow Up With: Tristian Hall MD When: 2 weeks Please Follow Up With: Eli Waldrop DO When: 2-3 weeks Proposed Discharge Date: 08/15/17 08/15/17 1205 <Electronically signed by Iván CONNOR> Date Iván CONNOR CC: Eli Waldrop DO; Tristian Hall MD; Yaya Centeno DO OPERATIVE REPORT Observed: 08/15/2017 Status: F Source: [place] 12:43 PM [facility] REPOSITORY [facility] Medical Records Department [address] [place] [address] [place] [address] Operative Report 08/15/17 1239 MR#: [id number] Acct: [id number] Name: JESSICA MARLEY Rep #: [id number] : 1950 67 From: Donta Banda DO PCP: Yaya Centeno DO Status: ADM IN Y Location: [place] [id number] Operative Report Date of Procedure: 08/15/17 CONSCIOUS SEDATION REPORT DATE OF SERVICE: August 15, 2017 BRIEF HISTORY OF PRESENT ILLNESS: The patient is a 67-year-old female who initially presented to the hospital on August 10 with complaints of shortness of breath and hypoxemia. She was subsequently found to be in atrial fibrillation with rapid ventricular rate. The patient did undergo a transesophageal echocardiogram this morning which revealed no evidence of a thrombus. Ejection fraction was noted to be 20%. The patient is currently being anticoagulated with Eliquis. She denies a previous history of anesthetic complications. She has never undergone a previous cardioversion. She does endorse a history of obstructive sleep apnea and asthma. PHYSICAL EXAMINATION: VITAL SIGNS: Reviewed and were acceptable. GENERAL: The patient is an obese female, in no apparent distress, speaking in full sentences. HEENT: Normocephalic, atraumatic. Mucous membranes are moist and pink. Good mouth opening noted. Trachea is midline. Limited neck mobility. CHEST: S1, S2 irregularly irregular. No murmurs, rubs or gallops were noted. LUNGS: Clear to auscultation bilaterally without appreciable wheezes, rales or rhonchi. ABDOMEN: Soft, nontender, nondistended. Positive bowel sounds. Obese. EXTREMITIES: There is no clubbing or cyanosis. Lower extremity edema is present. ASA Class: II DESCRIPTION OF PROCEDURE: After confirmation of informed consent, the patient's anesthesia plan was reviewed in detail. Etomidate was chosen. Risks and benefits were reviewed and the patient agreed to proceed. At 1230, the patient was given 4 mg of etomidate. The patient achieved an appropriate level of sedation and was given a 200 joule synchronized cardioversion by Dr. Hall at the bedside. This was successful in achieving normal sinus rhythm. The patient was monitored until 1240, at which time they reached her baseline mental status and function. The patient tolerated the procedure well. COMPLICATIONS: None ESTIMATED BLOOD LOSS: None RECOMMENDATIONS: Okay to recover in usual fashion. Code Visit [id number]: Other Procedure See Report 08/15/17 1243 <Electronically signed by Donta Banda DO> Date Donta Banda DO CC: Eli Waldrop DO; Tristian Hall MD; Donta Banda D.O.; Yaya Centeno DO Signed OPERATIVE REPORT Observed: 08/15/2017 Status: F Source: [place] 12:38 PM [facility] Medical Records Department [address] [place] [id number] Operative Report 08/15/17 1236 MR#: [id number] Acct: [id number] Name: JESSICA MARLEY Rep #: [id number] : 1950 67 From: Tristian Hall MD PCP: Yaya Centeno DO Status: ADM IN Y Location: [place] [id number] Operative Report Date of Procedure: 08/15/17 DC cardioversion. Indication: Atrial fibrillation with rapid ventricular response rate difficult to control with medication. Procedure: Patient has been anticoagulated with Eliquis and underwent a BHASKAR this morning which did not demonstrate any evidence of left atrial appendage thrombus. Patient was noted to have a cardiomyopathy. The patient was administered 100 mg of subcutaneous Lovenox today. Patient was seen by Dr. Banda of the critical care division AP pads were applied. The patient was administered 4 mg of intravenous etomidate. 200 J of synchronized DC cardioversion energy were applied with prompt reversal to sinus rhythm. Conclusion: Successful DC cardioversion to sinus rhythm Continue Eliquis 5 mg twice daily Continue metoprolol 100 mg twice daily Continue amiodarone 200 mg twice daily for 2 weeks and then 200 mg daily. 08/15/17 1238 <Electronically signed by Tristian Hall MD> Date Tristian Hall MD CC: Eli Waldrop DO; Tristian Hall MD; Yaya Centeno DO Signed ECHO TRANSESOPHAGEAL (BHASKAR) Observed: 08/15/2017 Status: F Source: [place] 11:04 AM [facility] Cardiovascular Services [address] [place] [id number] Echo Transesophageal (BHASKAR) 08/15/17 0922 MR#: [id number] Acct: [id number] Name: JESSICA MARLEY Rep #: [id number] : 1950 67 From: Tristian Hall MD Attending Dr: Valorie Bradley Status: ADM IN Ordering Dr: Tristian Hall MD Date: 08/14/17 Location: [facility] Sex: F C Admitted: 08/10/17 Reason For Study: Afib, Aflutter Medication Cetacaine Topical [place] given X3 orally. Versed 2 mg given slow IVP. Fentanyl 50 mcg given slow IVP. Performed a rapid injection of agitated mix of 9 cc saline and 1cc air to assess for atrial septal defect. Left Ventricle Normal LV size. Moderately severe global left ventricular systolic dysfunction. The estimated ejection fraction is 20 %. There is moderate to severe global hypokinesis of the left ventricle. Right Ventricle Normal RV size. Normal systolic function. Atria Intact atrial septum. The left atrium is moderately enlarged. No thrombus is detected in the left atrial appendage. The right atrium is mildly enlarged. Mitral Valve Mild diffuse mitral valve thickening. Mild-Moderate (1-2+) mitral valve insufficiency. Tricuspid Valve Normal tricuspid valve. Mild (1+) tricuspid valve insufficiency. Aortic Valve Trisinus/trileaflet aortic valve. Mild (1+) aortic valve insufficiency. Pulmonic Valve Normal pulmonic valve. Mild (1+) pulmonic valve insufficiency. Vessels Normal aortic root. The pulmonary artery is normal size. Pericardium No pericardial effusion. Interpretation Summary Normal LV size. Moderately severe global left ventricular systolic dysfunction. The estimated ejection fraction is 20 %. The left atrium is moderately enlarged. No thrombus is detected in the left atrial appendage. Ordering Physician: Tristian Hall Referring Physician: Yaya Centeno Performed By: Mercedes Mccain, NADINE, RVT 08/15/17 1104 Date Tristian Hall MD CC: Valorie Bradley; Tristian Hall MD; Yaya Centeno DO Date Dictated: 08/15/17921 Date Transcribed: 08/15/171103 Computer Forensic Examiner: Signed BEDSIDE GLUCOSE Collected: 08/15/2017 Status: F Source: [place] 6:33 AM [facility] REPOSITORY TYPE CODE TESTS RESULT OUT OF REFERENCE UNITS RANGE LAB L501.080 70-110 mg/dL High BEDSIDE GLU 142 Result Comment: MANAGEMENT OF PATIENT CARE PER NURSING PROTOCOL Performed By: #### L501.080 #### [facility] [place] [address] [address] RENAL PROFILE Collected: 08/15/2017 Status: F Source: [place] 5:10 AM [facility] REPOSITORY TYPE CODE TESTS RESULT OUT OF RANGE REFERENCE UNITS LAB L501.1800 3.2-5.0 g/dL Low ALB 3.1 LAB L501.2300 2.5-4.9 mg/dL Normal PHOS 2.9 LAB L501.0100 74-106 mg/dL High GLU 139 Result Comment: Fasting Glucose result greater than or equal to 126 mg/dL suggests DIABETES MELLITUS per A.D.A. criteria. Please note revised GLUCOSE reference range effective 2017. LAB L501.1000 7-18 mg/dL High BUN 22 LAB L501.1100 0.55-1.02 mg/dL Normal CREAT,SERUM 0.89 Result Comment: The validity of the calculated GFR AND GFRAA in patients over 70 years has not been determined. Clinical correlation is essential. LAB L501.1110 >60 mL/min Normal EST GFR 67 Result Comment: Non- GFR Calc LAB L501.1115 >60 mL/min Normal EST GFR - AA 81 Result Comment: GFR Calc LAB L501.1255 ml/min Normal Estimated CRCL 49.35 LAB L501.1300 10-20 RATIO High BUN/CRE 24.7 LAB L501.2200 8.5-10 mg/dL Low .1 CA 7.8 LAB L501.5300 136-14 mmol/L Normal 5 NA 144 LAB L501.5600 3.5-5. mmol/L Normal 1 K 4.2 LAB L501.5900 98-107 mmol/L Normal CL 107 LAB L501.6100 21.0-3 mmol/L Normal 2.0 CO2 30.0 Performed By: #### L500.2500, L500.3600, L501.5200 #### [facility] [address] [place], [address] BEDSIDE GLUCOSE Collected: 08/14/2017 Status: F Source: [place] 10:10 PM [facility] REPOSITORY TYPE CODE TESTS RESULT OUT OF REFERENCE UNITS RANGE LAB L501.080 70-110 mg/dL High BEDSIDE GLU 143 Result Comment: MANAGEMENT OF PATIENT CARE PER NURSING PROTOCOL Performed By: #### L501.080 #### [facility] Laboratory Point of Care [address] [place] [address] BEDSIDE GLUCOSE Collected: 08/14/2017 Status: F Source: [place] 4:19 PM [facility] REPOSITORY TYPE CODE TESTS RESULT OUT OF REFERENCE UNITS RANGE LAB L501.080 70-110 mg/dL High BEDSIDE GLU 197 Result Comment: MANAGEMENT OF PATIENT CARE PER NURSING PROTOCOL Performed By: #### L501.080 #### [facility] Point of Care [address] [place] [address] BEDSIDE GLUCOSE Collected: 08/14/2017 Status: F Source: [place] 11:45 AM [facility] REPOSITORY TYPE CODE TESTS RESULT OUT OF REFERENCE UNITS RANGE LAB L501.080 70-110 mg/dL High BEDSIDE GLU 177 Result Comment: MANAGEMENT OF PATIENT CARE PER NURSING PROTOCOL Performed By: #### L501.080 #### [facility] Point of Care [address] [place] [address] CONSULTATION Observed: 08/14/2017 Status: F Source: [place] 8:28 AM [facility] REPOSITORY [facility] Medical Records Department [address] [place] [address] Consultation 08/12/17 1330 MR#: [id number] Acct: [id number] Name: JESSICA MARLEY Rep #: [id number] : 1950 67 From: Eli Waldrop DO PCP: Yaya Centeno DO Status: ADM IN Location: [place] [address] Consultation - Renal 08/12/17 PCP/ Referring MD: Requesting physician: Valorie Bradley DO Primary care physician: Yaya Centeno DO Reason for Consultation:: KATTY - History of Present Illness History of Present Illness: The patient is a 67 year old F past medical history for hypertension, diabetes mellitus 2 on oral agents, CAD status post remote CABG 6 years ago, admitted for shortness of breath for one week, cough without fever, chills and leg swelling. She complained of weakness. Denied dizziness, fall, or chest pain. She admits to leg swelling and was started on diuretics 2 days prior to admit. She noticed palpitations. She is in afib with rvr despite receiving digoxin, metoprolol and cardizem. She has not followed up with a forestry faculty member since her CABG. Echo on admit showed LVEF 20% and plans are to proceed with heart cath on Tuesday. Creatinine on admit was 1.2 increased to 1.5 now at 1.28 today. Urine output good. No recent iv contrast. She is not aware of kidney disease in the past. She denied urinary complaints. EKG revealed atrial fibrillation at 152, nonspecific changes, new compared with EKG 12/2013 Chest x-ray revealed bibasilar markings, suggestive of atelectasis, no other infiltrate - Allergies Allergies: Allergies No Known Allergies Allergy (Verified 08/10/17 14:29) - Current Medications Current Medications: Current Medications Acetaminophen (Tylenol) 650 mg PO Q6H PRN PRN PRN Reason: Mild Pain (scale 0-3)/T>100.7 Albuterol/Ipratropium (Duoneb) 3 ml INHALATION Q6HWA.RT [facility] Last Admin: 08/12/17 13:26 Dose: Not Given Apixaban (Eliquis) 2.5 mg PO BID [facility] Last Admin: 08/12/17 10:39 Dose: 2.5 mg Aspirin (Aspirin, Baby) 81 mg PO DAILY@0800 [facility] Last Admin: 08/12/17 07:51 Dose: 81 mg Atorvastatin Calcium (Lipitor) 20 mg PO QHS [facility] Last Admin: 08/11/17 21:47 Dose: 20 mg Bisacodyl (Dulcolax) 10 mg PO DAILY PRN PRN PRN Reason: Constipation Dextrose (D50w Syringe) 0 gm IV X1 PRN; Protocol PRN Reason: Hypoglycemia Diltiazem HCl (Cardizem Cd) 120 mg PO Q12 [facility] Docusate Sodium (Colace) 200 mg PO BID PRN PRN PRN Reason: Constipation Fluticasone Propionate (Flonase Nasal [place]) 2 spray NASAL DAILY [facility] Last Admin: 08/12/17 10:39 Dose: 2 spray Furosemide (Lasix) 40 mg IV BID [facility] Last Admin: 08/12/17 10:40 Dose: 40 mg Glucagon () 1 mg IM .X1 PRN PRN Reason: Hypoglycemia Guaifenesin (Mucinex) 600 mg PO BID [facility] Last Admin: 08/12/17 10:41 Dose: 600 mg Guaifenesin (Robitussin Dm) 10 ml PO Q6H PRN PRN PRN Reason: COUGH Last Admin: 08/10/17 18:58 Dose: 10 ml Insulin Aspart (Novolog Flexpen (Bkc)) 5 units SC TIDAC [facility] Last Admin: 08/12/17 12:18 Dose: 5 units Insulin Aspart (Novolog Flexpen (Bkc)) 0 units SC ACHS [facility] PRN Reason: Protocol Last Admin: 08/12/17 12:19 Dose: 6 u Insulin Detemir (Levemir (Bkc)) 10 units SC QHS [facility] Last Admin: 08/11/17 21:46 Dose: 10 u Magnesium Hydroxide (Milk Of Magnesia) 30 ml PO DAILY PRN PRN Reason: Constipation Melatonin (Melatonin) 3 mg PO QHS PRN PRN PRN Reason: INSOMNIA Metoprolol Tartrate (Lopressor (Beta Jessica)) 50 mg PO BID [facility] Last Admin: 08/12/17 10:40 Dose: 50 mg Ondansetron HCl (Zofran) 4 mg IV Q8H PRN PRN PRN Reason: Nausea Oxycodone HCl (Oxyir) 5 mg PO Q4H PRN PRN PRN Reason: Moderate Pain (pain scale 4-5) Prednisone () 40 mg PO DAILY@0800 [facility] Stop: 08/14/17 08:01 Last Admin: 08/12/17 07:51 Dose: 40 mg Sodium Chloride () 5 - 30 ml IV UD PRN PRN Reason: SALINE FLUSH Last Admin: 08/12/17 10:40 Dose: 10 ml Throat Lozenges (Cepacol Sore Throat Lozenge) 1 lozenge MUCOUS MEM Q2H PRN PRN PRN Reason: PAIN - Past Medical History Past Medical History (Chronic Problems): Chronic Problems Obesity (Chronic) CHERISE (obstructive sleep apnea) (Chronic) HTN (hypertension) (Chronic) Hx of CABG (Chronic) Hyperlipemia (Chronic) Diabetes mellitus (Chronic) - Past Surgical History Surgical History: cholecystectomy, coronary bypass surgery, hysterectomy - Total hysterectomy, - - Coronary artery bypass grafting x3 - Social History Smoking Status: Never smoker Alcohol: None Drugs: None - Family History Paternal History Items: Cancer Maternal History Items: COPD Review of Systems Constitutional: Reports: Weakness, Fatigue. Denies: Anorexia, Chills, Fever HEENT: Denies: Difficulty Hearing Cardiovascular: Reports: Edema, Palpitations. Denies: Chest Pain, Light Headedness, Syncope Respiratory: Reports: Cough, Shortness of Breath, Shortness of breath upon exertion, Wheezing Gastrointestinal: Denies: Abdominal Pain, Constipation, Diarrhea, Nausea, Vomiting Genitourinary: Denies: Dysuria, Frequency, Retention Musculoskeletal: Reports: - - leg swelling Skin: Denies: Rash Neurological: Denies: Balance problems Psychiatric: Denies: Anxiety, Depression Hematologic/ Lymphatic: Denies: Anemia, Hx of blood clot Patient Problems: Active and Suspected Problems New onset a-fib (Acute) with RVR Bronchitis (Acute) mild bronchospasm - Physical Exam General: Alert, Oriented x3, Cooperative, No apparent distress, - - eating lunch HEENT: PERRLA, EOMI Neck: Supple, No JVD Lungs: Clear to auscultation Cardiovascular: Regular rate Abdomen: Bowel Sounds Present, Soft, Non Tender, Non-Distended, Obese Extremities: No edema Skin: No rashes Musculoskeletal: No Muscle Wasting Neurological: Cranial nerves II-XII grossly intact Psych/Mental Status: Normal Affect, Appropriate, Alert and oriented to time, place, person, mood and affect Vital Signs Temp Pulse Resp BP Pulse Ox 97.8 F 118 H 25 H 113/79 95 08/12/17 12:00 08/12/17 12:00 08/12/17 12:00 08/12/17 12:00 08/12/17 12:00 Oxygen Flow Rate (L/min) 2 Oxygen Delivery Method Room Air Weight: 108.1 kg Body Mass Index (BMI) 42.0 Intake and Output for Last 24 Hours Intake Total 120 / 120 455.2 / 455.2 799 / 799 Output Total 1075 / 1075 2575 / 2575 Balance 120 / 120 -619.8 / -619.8 -1776 / -1776 Laboratory Tests Past 24 Hrs Sodium 140 Potassium 4.0 Chloride 104 Carbon Dioxide 29.0 Anion Gap 7 BUN 41 H Creatinine 1.28 H POC Glucose POC Glucose 268 H 119 H 184 H POC Glucose 320 H Clinical Impression(s) from Imaging Studies Chest X-Ray 08/10/17 14:50 IMPRESSION: Mild increased markings at the lung bases with blunting of both costophrenic angles. Follow-up is recommended. Electronically Signed: Delfino Carey MD at 15:19 EDT Tel [phone], Service support , Assessment/Plan Active and Suspected Problems New onset a-fib (Acute) with RVR Bronchitis (Acute) mild bronchospasm 1. KATTY likely hemodynamically mediated from afib with rvr, cardiorenal syndrome. Creatinine 1.2 to 1.5. Nonoliguric. Check renal US, UA for proteinuria. Creatinine has been 0.7 in 2014, 1.17 in 2015. Consider mucomyst prior to heart cath Tuesday. 2. Afib with rvr, remains tachycardic. 3. DM2 A1C 7.4 on admit. Check UA for proteinuria. 4. CAD s/p CABG 6 yrs ago. Now with cardiomyopathy EF 20% 5. Acute CHF, fluid overload, diuresing well on iv lasix. BNP 505-> 867. Check in am. 6. HTN stable. Thank you, discussed with primary service 08/14/17827 <Electronically signed by Eli Waldrop DO> Date Eli Waldrop DO Cosigner Signature (if applicable): Date CC: Eli Waldrop DO; Tristian Hall MD; Yaya Centeno DO Signed BEDSIDE GLUCOSE Collected: 08/14/2017 Status: F Source: [place] 6:54 AM [facility] REPOSITORY TYPE CODE TESTS RESULT OUT OF REFERENCE UNITS RANGE LAB L501.080 70-110 mg/dL High BEDSIDE GLU 123 Result Comment: MANAGEMENT OF PATIENT CARE PER NURSING PROTOCOL Performed By: #### L501.080 #### [place] [facility] [place] [address] BASIC METABOLIC Collected: 08/14/2017 Status: F Source: [place] PROFILE (BMP) 6:29 AM [facility] REPOSITORY TYPE CODE TESTS RESULT OUT OF RANGE REFERENCE UNITS LAB L501.0100 74-106 mg/dL High GLU 111 Result Comment: Fasting Glucose result from 100 to 125 mg/dL suggests IMPAIRED HOMEOSTASIS per A.D.A. criteria. Please note revised GLUCOSE reference range effective 2017. LAB L501.1000 7-18 mg/dL High BUN 25 LAB L501.1100 0.55-1.02 mg/dL Normal CREAT,SERUM 0.85 Result Comment: The validity of the calculated GFR AND GFRAA in patients over 70 years has not been determined. Clinical correlation is essential. LAB L501.1110 >60 mL/min Normal EST GFR 70 Result Comment: Non- GFR Calc LAB L501.1115 >60 mL/min Normal EST GFR - AA 85 Result Comment: GFR Calc LAB L501.1255 ml/min Normal Estimated CRCL 51.67 LAB L501.1300 10-20 RATIO High BUN/CRE 29.4 LAB L501.2200 8.5-10 mg/dL Low .1 CA 7.8 LAB L501.5300 136-14 mmol/L Normal 5 NA 142 LAB L501.5600 3.5-5. mmol/L Normal 1 K 4.0 LAB L501.5900 98-107 mmol/L Normal CL 105 LAB L501.6100 21.0-3 mmol/L Normal 2.0 CO2 29.0 LAB L501.6200 5-15 Normal GAP 8 Performed By: #### L500.2500, L500.3600, L501.5200 #### [facility] [address] [place], [place], [id number] MAGNESIUM Collected: 08/14/2017 Status: F Source: [place] 6:29 AM [facility] REPOSITORY TYPE CODE TESTS RESULT OUT OF RANGE REFERENCE UNITS LAB L501.5200 1.6-2.6 mg/dL Normal MG 2.0 Result Comment: Please note revised Magnesium reference range effective 2017. Performed By: #### L500.2500, L500.3600, L501.5200 #### [facility] [address] [place], [address] BEDSIDE GLUCOSE Collected: 08/13/2017 Status: F Source: [place] 9:22 PM [facility] REPOSITORY TYPE CODE TESTS RESULT OUT OF REFERENCE UNITS RANGE LAB L501.080 70-110 mg/dL High BEDSIDE GLU 191 Result Comment: MANAGEMENT OF PATIENT CARE PER NURSING PROTOCOL Performed By: #### L501.080 #### [facility] Point of Care [address] [place] [address] BEDSIDE GLUCOSE Collected: 08/13/2017 Status: F Source: [place] 5:02 PM [facility] REPOSITORY TYPE CODE TESTS RESULT OUT OF REFERENCE UNITS RANGE LAB L501.080 70-110 mg/dL High BEDSIDE GLU 232 Result Comment: MANAGEMENT OF PATIENT CARE PER NURSING PROTOCOL Performed By: #### L501.080 #### [facility] Point of Care [address] [place] [address] VITAMIN D,25 HYDROXY Collected: 08/13/2017 Status: F Source: [place] 2:32 PM [facility] REPOSITORY TYPE CODE TESTS RESULT OUT OF REFERENCE UNITS RANGE LAB L506.1000 29.95-100.01 ng/mL Low Vitamin D 18.7 25-OH Result Comment: Vitamin D 25(OH) Status Range Deficiency <20 ng/mL (50nmol/L) Insuffciency 20 - 30 ng/mL (50 - 75 nmol/L) Sufficiency 30 - 100 ng/mL (75 - 250 nmol/L) Toxicity >100 ng/mL (>250 nmol/L) Performed By: #### L506.1000 #### [facility] [address] [place], [address] BEDSIDE GLUCOSE Collected: 08/13/2017 Status: F Source: [place] 11:13 AM [facility] REPOSITORY TYPE CODE TESTS RESULT OUT OF REFERENCE UNITS RANGE LAB L501.080 70-110 mg/dL High BEDSIDE GLU 259 Result Comment: Dr Orders Followed Insulin Given MANAGEMENT OF PATIENT CARE PER NURSING PROTOCOL Performed By: #### L501.080 #### [facility] Point of Care [address] [place] [address] CHEST PA AND LATERAL Observed: 08/13/2017 Status: F Source: [place] 7:01 AM [facility] REPOSITORY [facility] Imaging Services [address] [place] [address] Chest PA and Lateral MR#: [id number] Acct: [id number] Name: JESSICA MARLEY Rep #: [id number] : 1950 F 67 From: Sal Kathleen PCP: Yaya Centeno DO Status: ADM IN Study: Chest PA and Lateral Date of Exam: 08/13/17 Exam# [id number] Ordering Dr: Yaritza Bradley DO STUDY: X-RAY CHEST REASON FOR EXAM: Female, 67 years old. CHF TECHNIQUE: Frontal and lateral views of the chest. COMPARISON: 08/10/2017. FINDINGS: The lungs are expanded. Left lower lung opacity. There is no demonstrated pleural abnormality. There is mild cardiac enlargement. Patient status post sternotomy. Normal mediastinum and álvaro. Normal visualized pulmonary arteries. Normal visualized aortic arch and descending thoracic aorta. Normal visualized thoracic spine. Normal visualized ribs, clavicles, and shoulders. There is no demonstrated abnormality of the visualized soft tissue structures of the upper abdomen. RAD/Chest PA and Lateral IMPRESSION: Left lower lung airspace disease. Small left effusion. Mild cardiomegaly. Electronically Signed: Sal Kathleen DO at 10:31 EDT , Service support , CC: Valorie Bradley; Yaya Centeno DO Computer Forensic Examiner: Signed BEDSIDE GLUCOSE Collected: 08/13/2017 Status: F Source: [place] 6:40 AM [facility] REPOSITORY TYPE CODE TESTS RESULT OUT OF RANGE REFERENCE UNITS LAB L501.080 70-110 mg/dL Normal BEDSIDE GLU 108 Result Comment: MANAGEMENT OF PATIENT CARE PER NURSING PROTOCOL Performed By: #### L501.080 #### [facility] Point of Care [address] [place], [place] [address] RENAL PROFILE Collected: 08/13/2017 Status: F Source: [place] 5:45 AM [facility] REPOSITORY TYPE CODE TESTS RESULT OUT OF RANGE REFERENCE UNITS LAB L501.0100 74-106 mg/dL Normal GLU 100 Result Comment: Fasting Glucose result from 100 to 125 mg/dL suggests IMPAIRED HOMEOSTASIS per A.D.A. criteria. Please note revised GLUCOSE reference range effective 2017. LAB L501.1000 7-18 mg/dL High BUN 31 LAB L501.1100 0.55-1.02 mg/dL Normal CREAT,SERUM 0.95 Result Comment: The validity of the calculated GFR AND GFRAA in patients over 70 years has not been determined. Clinical correlation is essential. LAB L501.1110 >60 mL/min Normal EST GFR 62 Result Comment: Non- GFR Calc LAB L501.1115 >60 mL/min Normal EST GFR - AA 75 Result Comment: GFR Calc LAB L501.1255 ml/min Normal Estimated CRCL 46.23 LAB L501.1300 10-20 RATIO High BUN/CRE 32.5 LAB L501.1800 3.2-5. g/dL Normal 0 ALB 3.3 LAB L501.2200 8.5-10 mg/dL Low .1 CA 7.9 LAB L501.2300 2.5-4. mg/dL Normal 9 PHOS 3.3 LAB L501.5300 136-14 mmol/L Normal 5 NA 142 LAB L501.5600 3.5-5. mmol/L Normal 1 K 3.6 LAB L501.5900 98-107 mmol/L Normal CL 104 LAB L501.6100 21.0-3 mmol/L Normal 2.0 CO2 28.0 Performed By: #### L500.3600 #### [facility] [address] [place], [place], [address] MAGNESIUM Collected: 08/13/2017 Status: F Source: [place] 5:45 AM [facility] REPOSITORY TYPE CODE TESTS RESULT OUT OF RANGE REFERENCE UNITS LAB L501.5200 1.6-2.6 mg/dL Normal MG 1.7 Result Comment: Please note revised Magnesium reference range effective 2017. Performed By: #### L501.5200 #### [facility] [address] [place], [address] BNP,B-TYPE NATRIURETIC Collected: 08/13/2017 Status: F Source: [place] 5:45 AM [facility] REPOSITORY TYPE CODE TESTS RESULT OUT OF RANGE REFERENCE UNITS LAB L503.6620 0-100 pg/mL High B-TYPE 799.3 BABAR PEP Performed By: #### L503.6620 #### [facility] [address] [place], [address] BEDSIDE GLUCOSE Collected: 08/12/2017 Status: F Source: [place] 9:29 PM [facility] REPOSITORY TYPE CODE TESTS RESULT OUT OF REFERENCE UNITS RANGE LAB L501.080 70-110 mg/dL High BEDSIDE GLU 283 Result Comment: MANAGEMENT OF PATIENT CARE PER NURSING PROTOCOL Performed By: #### L501.080 #### [facility] Point of Care [address] [place], [place] [address] BEDSIDE GLUCOSE Collected: 08/12/2017 Status: F Source: [place] 4:44 PM [facility] REPOSITORY TYPE CODE TESTS RESULT OUT OF REFERENCE UNITS RANGE LAB L501.080 70-110 mg/dL High BEDSIDE GLU 257 Result Comment: MANAGEMENT OF PATIENT CARE PER NURSING PROTOCOL Performed By: #### L501.080 #### [facility] Point of Care [address] [place], [place] [address] URINALYSIS, COMPLETE Collected: 08/12/2017 Status: F Source: [place] 3:00 PM [facility] REPOSITORY Order Comment: How was Urine Obtained? CLEAN CATCH TYPE CODE TESTS RESULT OUT OF RANGE REFERENCE UNITS LAB L400.3000 Yellow COLOR Normal Yellow LAB L400.3050 Clear Normal CLARITY Clear LAB L400.3200 Normal mg/dl High GLUCOSE, UR 250 LAB L400.3300 Negative mg/dL Normal BILIRUBIN URINE Negative LAB L400.3400 Negative mg/dl Normal KETONE UR Negative LAB L400.3465 1.002-1.030 Normal SP.GR. DIPSTX 1.015 LAB L400.3550 5.0 - 8.0 pH UR Normal 6.0 LAB L400.3600 Negative mg/dl PROT Normal DIPSTX Negative LAB L400.3700 Normal mg/dl Normal UROBILI Normal LAB L400.3750 Negative Normal NITRITE UR Negative LAB L400.3780 Negative /ul Normal OCCULT BLOOD-UR Negative LAB L400.3800 Negative /ul LEUK Normal ESTERASE Negative LAB L400.4050 0-5 /hpf WBC 0 Normal SEEN LAB L400.4100 0-5 /hpf 0 Normal RBC-UA SEEN LAB L400.4150 5-10 /hpf SQUAM Normal EPI 0-5 SEEN LAB L400.4300 None Seen /hpf 0 Normal BACTERIA SEEN LAB L400.4350 <or=2+ /hpf 0 Normal MUCUS, URINE SEEN Performed By: #### L400.0001 #### [facility] [address] [place], [address] CREATININE, URINE Collected: 08/12/2017 Status: F Source: [place] ([place]) 3:00 PM [facility] REPOSITORY TYPE CODE TESTS RESULT OUT OF RANGE REFERENCE UNITS LAB L501.1200 NO RANGE EST. mg/dL Normal UR CREAT 30.60 Performed By: #### L501.1200 #### [facility] [address] [place] [address], [address] PROTEIN, URINE Collected: 08/12/2017 Status: F Source: [place] ([place]) 3:00 PM [facility] REPOSITORY TYPE CODE TESTS RESULT OUT OF RANGE REFERENCE UNITS LAB L501.1930 <11.9 mg/dL Normal < 6.0 PROTEIN,UR.R AN. Performed By: #### L501.1930 #### [facility] [place], [address] URINE SODIUM Collected: 08/12/2017 Status: F Source: [place] 3:00 PM [facility] REPOSITORY TYPE CODE TESTS RESULT OUT OF RANGE REFERENCE UNITS LAB L501.5500 Not Establ. mmol/L Normal UR NA 79 Performed By: #### L501.5500 #### [facility] [place], [address] KIDNEY AND BLADDER Observed: 08/12/2017 Status: F Source: [place] 1:44 PM [facility] REPOSITORY [facility] Imaging Services [address] [place] [address] Kidney and Bladder MR#: [id number] Acct: [id number] Name: JESSICA MARLEY Rep #: [id number] : 1950 F 67 From: Miriam Marrero MD PCP: Yaya Centeno DO Status: ADM IN Study: Kidney and Bladder Date of Exam: 08/12/17 Exam# [id number] Ordering Dr: Eli Walrdop DO US Kidney(s) complete (eg, kidneys T bladder) INDICATION: ARF COMPARISON: None TECHNIQUE: Ultrasonographic grayscale and limited Doppler investigation of the retroperitoneum including kidneys and urinary bladder. FINDINGS: There is near measures 11 x 4 x 4 cm and is without evidence of hydronephrosis. A 1 cm cortical renal cyst is noted. Renal cortex measures 1.3 cm. The left kidney measures 11 x 6 x 3 cm and is without evidence of hydronephrosis. 2 renal calculi are seen, measuring 1 and 1.5 cm. Renal cortex measures 1 cm in thickness. The urinary bladder is decompressed. US/Kidney and Bladder IMPRESSION: Small cortical renal cysts. No evidence of hydronephrosis. at 1914 Reported and signed by: Miriam Marrero MD Electronically Signed: Miriam Marrero MD at 18:13 EDT Tel , Service support , CC: Eli Waldrop DO; Yaya Centeno DO Computer Forensic Examiner: Signed BEDSIDE GLUCOSE Collected: 08/12/2017 Status: F Source: [place] 11:18 AM [facility] REPOSITORY TYPE CODE TESTS RESULT OUT OF REFERENCE UNITS RANGE LAB L501.080 70-110 mg/dL High BEDSIDE GLU 268 Result Comment: MANAGEMENT OF PATIENT CARE PER NURSING PROTOCOL Performed By: #### L501.080 #### [facility] Point of Care [address] [place], [place] [address] BEDSIDE GLUCOSE Collected: 08/12/2017 Status: F Source: [place] 6:37 AM [facility] REPOSITORY TYPE CODE TESTS RESULT OUT OF REFERENCE UNITS RANGE LAB L501.080 70-110 mg/dL High BEDSIDE GLU 119 Result Comment: MANAGEMENT OF PATIENT CARE PER NURSING PROTOCOL Performed By: #### L501.080 #### [facility] Point of Care [address] [place] [address] BASIC METABOLIC Collected: 08/12/2017 Status: F Source: [place] PROFILE (BMP) 5:15 AM [facility] REPOSITORY TYPE CODE TESTS RESULT OUT OF RANGE REFERENCE UNITS LAB L501.0100 74-106 mg/dL High GLU 127 Result Comment: Fasting Glucose result greater than or equal to 126 mg/dL suggests DIABETES MELLITUS per A.D.A. criteria. Please note revised GLUCOSE reference range effective 2017. LAB L501.1000 7-18 mg/dL High BUN 41 LAB L501.1100 0.55-1.02 mg/dL High CREAT,SERUM 1.28 Result Comment: The validity of the calculated GFR AND GFRAA in patients over 70 years has not been determined. Clinical correlation is essential. LAB L501.1110 >60 mL/min Low EST GFR 44 Result Comment: Non- GFR Calc LAB L501.1115 >60 mL/min Low EST GFR - AA 53 Result Comment: GFR Calc LAB L501.1255 ml/min Normal Estimated CRCL 34.31 LAB L501.1300 10-20 RATIO High BUN/CRE 32.0 LAB L501.2200 8.5-10 mg/dL Normal .1 CA 8.5 LAB L501.5300 136-14 mmol/L Normal 5 NA 140 LAB L501.5600 3.5-5. mmol/L Normal 1 K 4.0 LAB L501.5900 98-107 mmol/L Normal CL 104 LAB L501.6100 21.0-3 mmol/L Normal 2.0 CO2 29.0 LAB L501.6200 5-15 Normal GAP 7 Performed By: #### L500.2500, L501.5200 #### [facility] [address] [place], [place], [address] MAGNESIUM Collected: 08/12/2017 Status: F Source: [place] 5:15 AM [facility] REPOSITORY TYPE CODE TESTS RESULT OUT OF RANGE REFERENCE UNITS LAB L501.5200 1.6-2.6 mg/dL Normal MG 1.8 Result Comment: Please note revised Magnesium reference range effective 2017. Performed By: #### L500.2500, L501.5200 #### [facility] [address] [place], [address] PHOSPHORUS Collected: 08/12/2017 Status: F Source: [place] 5:15 AM [facility] REPOSITORY TYPE CODE TESTS RESULT OUT OF RANGE REFERENCE UNITS LAB L501.2300 2.5-4.9 mg/dL Normal PHOS 4.8 Performed By: #### L501.2300 #### [facility] [address] [place], [address] BEDSIDE GLUCOSE Collected: 08/11/2017 Status: F Source: [place] 9:44 PM [facility] REPOSITORY TYPE CODE TESTS RESULT OUT OF REFERENCE UNITS RANGE LAB L501.080 70-110 mg/dL High BEDSIDE GLU 184 Result Comment: MANAGEMENT OF PATIENT CARE PER NURSING PROTOCOL Performed By: #### L501.080 #### [facility] Point of Care [address] [place] [address] BEDSIDE GLUCOSE Collected: 08/11/2017 Status: F Source: [place] 4:29 PM [facility] REPOSITORY TYPE CODE TESTS RESULT OUT OF REFERENCE UNITS RANGE LAB L501.080 70-110 mg/dL High BEDSIDE GLU 320 Result Comment: MANAGEMENT OF PATIENT CARE PER NURSING PROTOCOL Performed By: #### L501.080 #### [facility] Point of Care [address] [place] [address] ECHOCARDIOGRAM COMPLETE Observed: 08/11/2017 Status: F Source: [place] 3:58 PM [facility] REPOSITORY [facility] Cardiovascular Services [address] [place] [address] Echo Complete 08/11/17 0940 MR#: [id number] Acct: [id number] Name: JESSICA MARLEY Rep #: [id number] : 1950 67 From: Tristian Hall MD Attending Dr: Valorie Bradley Status: ADM IN Ordering Dr: Joan Hernandez MD Date: 08/11/17 Location: [facility] Sex: F C Admitted: 08/10/17 Version 2 Reason For Study: A. fib/flutter Procedure This was a 2D Doppler, Color Flow transthoracic echocardiogram. Exam performed portable in patient room. Left Ventricle Normal LV size. Severe global left ventricular systolic dysfunction. The estimated ejection fraction is 20 %. Unable to assess diastolic dysfunction. There is moderate to severe global hypokinesis of the left ventricle. Right Ventricle Normal RV size. Normal systolic function. Atria The left atrium is moderately enlarged. Normal right atrium. Mitral Valve Normal mitral valve. Moderate (2+) eccentric mitral valve insufficiency. Tricuspid Valve Normal tricuspid valve. Mild to moderate (1-2+) tricuspid valve insufficiency. Pulmonary artery systolic pressure is 34 mmHg. Aortic Valve Trisinus/trileaflet aortic valve. Pulmonic Valve Normal pulmonic valve. Great Vessels Normal aortic root. The pulmonary artery is normal size. Normal inferior vena cava. Pericardium/Pleural No pericardial effusion. Medication Diluted definity 3ml given slow IV push to enhance endocardial definition. MMode/2D Measurements AND Calculations LVIDd: 5.1 cm IVSd: 0.98 cm Ao root diam: 3.6 cm LVIDs: 4.3 cm LVPWd: 1.0 cm LA dimension: 5.8 cm FS: 16.1 % LAV(MOD-bp): 93.1 ml LAV(MOD-bp) Indexed: 44.8 ml/m2 LA A4 area: 26.3 cm2 RA A4 area: 16.1 cm2 LAV(MOD-sp2): 95.7 ml LAV(MOD-sp4): 88.3 ml Doppler Measurements AND Calculations MV E max alvaro: 124.6 cm/sec Ao V2 max: 93.2 cm/sec LV V1 max: 66.4 cm/sec Ao max P.6 mmHg LV V1 max P.8 mmHg PA V2 max: 68.3 cm/sec TR max alvaro: 270.7 cm/sec TR max P.5 mmHg Interpretation Summary Normal LV size. Severe global left ventricular systolic dysfunction. The estimated ejection fraction is 20 %. Unable to assess diastolic dysfunction. The left atrium is moderately enlarged. Compared to the previous the LV function is declined. Contrast injection was performed. Ordering Physician: Joan Hernandez Referring Physician: Yaya Centeno Performed By: Tamara Muñoz RDCS 08/11/17 4591 Date Tristian Hall MD CC: Valorie Bradley; Joan Hernandez MD; Yaya Centeno DO Date Dictated: 08/11/17 0940 Date Transcribed: 08/11/17 8805 Computer Forensic Examiner: Signed BEDSIDE GLUCOSE Collected: 08/11/2017 Status: F Source: [place] 11:15 AM [facility] REPOSITORY TYPE CODE TESTS RESULT OUT OF REFERENCE UNITS RANGE LAB L501.080 70-110 mg/dL High BEDSIDE GLU 386 Result Comment: MANAGEMENT OF PATIENT CARE PER NURSING PROTOCOL Performed By: #### L501.080 #### [facility] Point of Care [address] [place], [place] [address] [place] [address] CONSULTATION Observed: 08/11/2017 Status: F Source: [place] 11:14 AM [facility] REPOSITORY [facility] Medical Records Department [address] [place] [address] Consultation 08/10/17 1845 MR#: [id number] Acct: [id number] Name: JESSICA MARLEY Rep #: [id number] : 1950 67 From: Tristian Hall MD PCP: Yaya Centeno DO Status: ADM IN Location: [place] [address] Reason for Consult Date of Consultation: 08/10/17 Reason for Consultation: Shortness of breath and irregular heartbeat. History of Present Illness: The patient is a 67 year old F's medical history significant for coronary artery bypass surgery in 2011 as well as hypertension obesity who has not followed up with a forestry faculty member since her bypass surgery. She says that she had not been feeling well over the last week or 2 felt she had a cold and went to the urgent care today. She was evaluated there and noted to be in atrial fibrillation with rapid ventricular response rate and she was sent to the emergency room. In the emergency room she was noted to have stable vitals but with a heart rate of 140 bpm and irregular she was treated with intravenous Cardizem and an admission order placed and sent to the progressive care unit. Cardiology was called for further evaluation and management. She denies any chest pain but she has had shortness of breath and chronic pedal edema. She also has had a cough no dizziness or diaphoresis no near syncope or syncope. [] Past Medical History Allergies/Adverse Reactions: Allergies No Known Allergies Allergy (Verified 08/10/17 14:29) Home Medications: Ambulatory Orders Medication Instructions Recorded Metformin(XR) [Glucophage Xr] 850 mg PO BID 02/27/13 Simvastatin [Zocor] 40 mg PO QHS 02/27/13 Albuterol Inhaler [Ventolin Hfa] 2 puff INHALATION 4X/DAY PRN PRN 12/19/13 Past Medical History (Chronic Problems): Chronic Problems Obesity (Chronic) CHERISE (obstructive sleep apnea) (Chronic) HTN (hypertension) (Chronic) Hx of CABG (Chronic) Hyperlipemia (Chronic) Diabetes mellitus (Chronic) Surgical History: cholecystectomy, coronary bypass surgery, hysterectomy - Total hysterectomy, - - Coronary artery bypass grafting x3 - *Family History Paternal History Items: Cancer Maternal History Items: COPD Smoking Status: Never smoker Alcohol: None Drugs: None Review of Systems - Review of Systems General: Denies: Fever, Night Sweats, Fatigue Cardiovascular: Reports: Peripheral Edema. Denies: Chest Discomfort, Shortness of Breath, Orthopnea, PND, Palpitations, Lightheadedness, Dizziness, Near Syncope, Syncope Respiratory: Reports: Cough. Denies: Sputum Production, Hemoptysis Gastrointestinal: Denies: Hematemesis, Hematochezia, Melena Genitourinary: Denies: Dysuria, Hematuria Skin: Denies: Rash Subjectve: Middle-aged lady in mild respiratory distress Objective: Vital Signs Temp Pulse Resp BP Pulse Ox 98.8 F 144 H 18 98/74 99 08/10/17 17:51 08/10/17 18:00 08/10/17 17:51 08/10/17 17:51 08/10/17 17:51 Oxygen Delivery Method Room Air Weight: 237 lb 3.478 oz Body Mass Index (BMI) 42.0 General: Awake, Alert, Oriented x 3, Obese HEENT: PERRL, EOMI, Sclera Non Icteric Neck: Supple, Good ROM, No Lymph Node Enlargement Lungs: Expiratory Wheezes-Richard Cardiovascular: Irregular Rhythm, Normal S1, Normal S2, No Murmurs, No Rubs, No Gallops Vascular: No Carotid Bruits, Normal Femoral Pulses, Normal Radial Pulses, Normal Dorsalis Pedal Pulse, Normal Posterior Tibial Pulses Abdomen: Bowel Sounds Present, Soft, Non Tender, No HSM, No Organomegaly Extremities: No Cyanosis, No Clubbing, No edema, Bilateral Edema +1 Neurological: No Focal Motor or Sensory Deficit Rhythm: EKG: Atrial fibrillation with a rapid ventricular response rate of 143 bpm. Assessment/Plan 1. Atrial fibrillation with a rapid ventricular response rate duration unknown. She presents with palpitations and is noted to be in atrial for ablation with rapid ventricular response rate. The exact duration is unknown at this time. I do agree that with her elevated chads vascular score she should be anticoagulated and her rate controlled. She has previously been on a beta-jessica and with a shortage of Cardizem my recommendation would be to put her on IV metoprolol 5 mg every 5 minutes and start her on the p.o. An echocardiogram should be performed to assess her left ventricular function. Further recommendations will be to made depending on the results of the above. 2. Coronary artery disease. She is status post coronary bypass surgery. She has not followed up with any forestry faculty member and after she has been evaluated for atrial fibrillation it may be prudent to obtain a pharmacologic myocardial perfusion stress test to exclude any ischemia. 3. Hypertension Blood pressure appears to be under good control on the current medical therapy and no other major changes will be made. 4. Congestive heart failure-diastolic. Acute This is likely secondary to the atrial fibrillation with a rapid ventricular response rate. Ischemia however cannot be completely excluded.Recommendation will be to obtain a natruretic peptide and then diurese her and obtain the echocardiogram. Recommendations will then be made. Thank you for allowing me to participate in the care of your patient. Please don't hesitate to call if any issues arise 08/11/17 1114 <Electronically signed by Tristian Hall MD> Date Tristian Hall MD Cosigner Signature (if applicable): Date CC: Tristian Hall MD; Yaya Centeno DO Signed HEMOGLOBIN A1C Collected: 08/11/2017 Status: F Source: [place] 9:40 AM [facility] REPOSITORY TYPE CODE TESTS RESULT OUT OF RANGE REFERENCE UNITS LAB L501.9985 4.2-6.3 % High HGB A1C 7.4 Performed By: #### L501.9985 #### [facility] [address] [place], [place], [address] BEDSIDE GLUCOSE Collected: 08/11/2017 Status: F Source: [place] 6:51 AM [facility] REPOSITORY TYPE CODE TESTS RESULT OUT OF REFERENCE UNITS RANGE LAB L501.080 70-110 mg/dL High BEDSIDE GLU 233 Result Comment: MANAGEMENT OF PATIENT CARE PER NURSING PROTOCOL Performed By: #### L501.080 #### [facility] [place] [address] COMPREHENSIVE METABOLIC Collected: 08/11/2017 Status: F Source: [place] 5:00 AM [facility] REPOSITORY Order Comment: 'TROP' Serial specimen #1, #2, #3, or #4: 4 TYPE CODE TESTS RESULT OUT OF RANGE REFERENCE UNITS LAB L501.0100 74-106 mg/dL High GLU 261 Result Comment: Glucose result greater than or equal to 200 mg/dL suggests DIABETES MELLITUS per A.D.A. criteria. Please note revised GLUCOSE reference range effective 2017. LAB L501.1000 7-18 mg/dL High BUN 39 LAB L501.1100 0.55-1.02 mg/dL High CREAT,SERUM 1.51 Result Comment: The validity of the calculated GFR AND GFRAA in patients over 70 years has not been determined. Clinical correlation is essential. LAB L501.1110 >60 mL/min Low EST GFR 36 Result Comment: Non- GFR Calc LAB L501.1115 >60 mL/min Low EST GFR - AA 44 Result Comment: GFR Calc LAB L501.1255 ml/min Normal Estimated CRCL 29.09 LAB L501.1300 10-20 RATIO High BUN/CRE 25.8 LAB L501.1500 6.4-8. g/dL Normal 2 T PROT 6.8 LAB L501.1800 3.2-5. g/dL Normal 0 ALB 3.5 LAB L501.1950 2.2-4. g/dL Normal 2 GLOB 3.3 LAB L501.2000 0.9-2. RATIO Normal 4 A/G 1.1 LAB L501.2200 8.5-10 mg/dL Normal .1 CA 8.7 LAB L501.4100 15-37 U/L Normal AST 30 LAB L501.4305 45-117 U/L Normal ALK P 51 LAB L501.4405 13-56 U/L High ALT 67 Result Comment: Please note revised ALT reference range effective 2017. LAB L501.4600 0.20-1.00 mg/dL Normal T BILI 0.60 LAB L501.5300 136-145 mmol/L Normal NA 143 LAB L501.5600 3.5-5.1 mmol/L Normal K 4.5 LAB L501.5900 98-107 mmol/L High CL 108 LAB L501.6100 21.0-32.0 mmol/L Normal CO2 23.0 LAB L501.6200 5-15 Normal GAP 12 Performed By: #### L500.4050, L500.4100, L501.4010 #### [facility] [address] [place], [place], [id number] LIPID PROFILE Collected: 08/11/2017 Status: F Source: [place] 5:00 [facility] REPOSITORY Order Comment: 'TROP' Serial specimen #1, #2, #3, or #4: 4 TYPE CODE TESTS RESULT OUT OF RANGE REFERENCE UNITS LAB L501.4900 200 mg/dL Normal CHOL 87 Result Comment: <200 mg/dL Desirable 200-240 mg/dL Borderline >240 mg/dL High Risk LAB L501.5000 mg/dL Normal TRIG 123 Result Comment: The drugs N-Acetylcysteine and Metamizole may falsely depress this assay. Serum Triglycerides Reference Interval Normal <150 mg/dL Borderline high 150 - 199 mg/dL High 200 - 499 mg/dL Very High > or = 500 mg/dL LAB L501.6400 mg/dL Low HDL 23 Result Comment: The drugs N-Acetylcysteine and Metamizole may falsely depress this assay. Reference Range HDL <40 mg/dL Low HDL Cholesterol HDL >or= 60 mg/dL High HDL Cholesterol LAB L501.6500 0-130 mg/dL Normal LDL 39 LAB L501.6600 5-40 mg/dL Normal VLDL 25 Performed By: #### L500.4050, L500.4100, L501.4010 #### [facility] [address] [place], [place], [id number] TROPONIN-I Collected: 08/11/2017 Status: F Source: [place] 5:00 [facility] REPOSITORY Order Comment: 'TROP' Serial specimen #1, #2, #3, or #4: 4 TYPE CODE TESTS RESULT OUT OF RANGE REFERENCE UNITS LAB L501.4010 <0.06 ng/mL Normal < 0.02 TROPONIN-I Result Comment: TROPONIN-I EXPECTED VALUES <0.05 NEGATIVE 0.06 - 0.59 AT RISK OF NC > OR = 0.60 SUGGEST NC Performed By: #### L500.4050, L500.4100, L501.4010 #### [facility] [address] [place], [address] BNP,B-TYPE NATRIURETIC Collected: 08/11/2017 Status: F Source: [place] 5:00 AM [facility] REPOSITORY TYPE CODE TESTS RESULT OUT OF RANGE REFERENCE UNITS LAB L503.6620 0-100 pg/mL High B-TYPE 867.1 BABAR PEP Performed By: #### L503.6620 #### [facility] [address] [place], [address] T4 FREE DIRECT Collected: 08/11/2017 Status: F Source: [place] 5:00 AM [facility] REPOSITORY Order Comment: ADD ON C34 0500 SK2 [id number] Comments: ok to add on TYPE CODE TESTS RESULT OUT OF RANGE REFERENCE UNITS LAB L506.0400 0.76-1.46 ng/dL Normal T4 FREE 1.20 DIRECT Performed By: #### L506.0400 #### [facility] [address] [place], [address] MAGNESIUM Collected: 08/11/2017 Status: F Source: [place] 5:00 AM [facility] REPOSITORY Order Comment: Comments: please run on the AM blood TYPE CODE TESTS RESULT OUT OF RANGE REFERENCE UNITS LAB L501.5200 1.6-2.6 mg/dL Normal MG 2.0 Result Comment: Please note revised Magnesium reference range effective 2017. Performed By: #### L501.5200 #### [facility] [address] [place], [address] TROPONIN-I Collected: 08/10/2017 Status: F Source: [place] 10:37 PM [facility] REPOSITORY Order Comment: 'TROP' Serial specimen #1, #2, #3, or #4: 3 TYPE CODE TESTS RESULT OUT OF RANGE REFERENCE UNITS LAB L501.4010 <0.06 ng/mL Normal < 0.02 TROPONIN-I Result Comment: TROPONIN-I EXPECTED VALUES <0.05 NEGATIVE 0.06 - 0.59 AT RISK OF NC > OR = 0.60 SUGGEST NC Performed By: #### L501.4010 #### [facility] [address] [place], [address] BEDSIDE GLUCOSE Collected: 08/10/2017 Status: F Source: [place] 9:32 PM [facility] REPOSITORY TYPE CODE TESTS RESULT OUT OF REFERENCE UNITS RANGE LAB L501.080 70-110 mg/dL High BEDSIDE GLU 183 Result Comment: MANAGEMENT OF PATIENT CARE PER NURSING PROTOCOL Performed By: #### L501.080 #### [facility] Point of Care [address] [place] [address] THYROID STIM HORMONE Collected: 08/10/2017 Status: F Source: [place] (TSH) 6:52 PM [facility] REPOSITORY TYPE CODE TESTS RESULT OUT OF RANGE REFERENCE UNITS LAB L501.9520 0.358-3.74 uIU/mL High TSH 6.76 Performed By: #### L501.9520 #### [facility] [place], [address] BEDSIDE GLUCOSE Collected: 08/10/2017 Status: F Source: [place] 5:55 PM [facility] REPOSITORY TYPE CODE TESTS RESULT OUT OF RANGE REFERENCE UNITS LAB L501.080 70-110 mg/dL Normal BEDSIDE GLU 94 Result Comment: MANAGEMENT OF PATIENT CARE PER NURSING PROTOCOL Performed By: #### L501.080 #### [facility] Point of Care [address] [place] [address] EMERGENCY DEPARTMENT Observed: 08/10/2017 Status: F Source: [place] SUMMARY 5:20 PM [facility] REPOSITORY [facility] Medical [facility] [place] [address] Emergency Department Summary 08/10/17 1451 MR#: [id number] Acct: [id number] Name: JESSICA MARLEY Rep #: [id number] : 1950 67 From: Larry Marroquin MD PCP: Yaya Centeno DO Status: ADM IN - ER Visit Summary Date of Service: 08/10/17 Chief Complaint: Shortness of breath and cough History of Present Illness: The patient is a 67 F of breath and a cough approximately a week. She has had a prior triple bypass done in 2011. Also a known history of rmn-evpuvya-rugypbzns diabetes, hypertension, asthma. She denies any history prior A. fib. Patient states he has been short of breath for about a week. Denies any chest pain or hemoptysis. She has had a nonproductive cough and some diarrhea. No fever. Physical Examination: Older female no acute distress. Heart rate is 130s-150s. Pulse ox 99% room air no signs of hypoxia. HEENT exam is unremarkable. Neck nontender no JVD no lymphadenopathy. Lungs clear to auscultation bilaterally. Heart A. fib RVR rate in the 150s. Abdomen is soft and nontender. Normal bowel sounds no peritoneal signs. Extremities she moves all 4. She has 1+ pitting edema both lower extremities. Calves are nontender. She has chronic edema but states this is worse. Neurologically she is awake and alert and moving all 4 extremities. No focal motor deficits. Test Results: EKG shows new onset A. fib RVR with a rate of 152. Nonspecific ST-T changes laterally. CBC she is awake and 11 H AND H 13 and 42. Electrolytes unremarkable BUN 32 creatinine 1.2 normal gap. PT/INR is 15 and 1.2. Troponin normal. Chest x-ray chronic changes no acute process read both by myself and the radiologist. Emergency Department Course and Treatment: Patient has new onset A. fib RVR want to go a cardiac workup and will need to be admitted. She will be treated with IV Cardizem. Treatment Plan: Well at 1543. Her current heart rates 110 still in A. fib. Her blood pressure is 100/81. She is resting comfortably. I will speak to hospitalist about admission. Disposition: Admission Impression: New-onset A. fib RVR Dyspnea History of triple bypass 2012 History of lpd-tqsvazw-etitoknok diabetes This note was generated with [employer] dictation software. It may contain incorrect words, spelling, and punctuation that were not noted in review of the chart prior to signing ED Disposition - Plan for ED Patient: Chief Complaint: Shortness of Breath Referrals: Yaya Centeno, DO [Primary Care Provider] - What to do if you have Problems For any increased pain, shortness of breath, bleeding, nausea or vomiting, chest pain, or any unexpected problems, contact your Primary Care Provider. Call [facility] ([phone]) or report to the closest Emergency Room. Call 911 if necessary. 08/10/17 1720 <Electronically signed by Larry Marroquin MD> Date Larry Marroquni MD Cosigner Signature (If Indicated): Date CC: Yaya Centeno DO HISTORY AND PHYSICAL Observed: 08/10/2017 Status: F Source: [place] EXAM 4:47 PM [facility] REPOSITORY [facility] Medical Records Department [address] [place] [address] History and Physical 08/10/17 1633 MR#: [id number] Acct: [id number] Name: JESSICA MARLEY Rep #: [id number] : 1950 67 From: Joan Hernandez MD PCP: Yaya Centeno DO Status: ADM IN Location: [place] [address] Problem List (1) New onset a-fib Status: Acute Comment: with RVR (2) Bronchitis Status: Acute Comment: mild bronchospasm (3) CHERISE (obstructive sleep apnea) Status: Chronic (4) HTN (hypertension) Status: Chronic Qualifiers: Hypertension type: essential hypertension Qualified Code(s): I10 - Essential (primary) hypertension (5) Hx of CABG Status: Chronic (6) Hyperlipemia Status: Chronic Qualifiers: Hyperlipidemia type: mixed hyperlipidemia Qualified Code(s): E78.2 - Mixed hyperlipidemia (7) Diabetes mellitus Status: Chronic Qualifiers: Diabetes mellitus type: type 2 Diabetes mellitus 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 She has had wheezing and a cough for the past few days. She was not using her home inhalers. She denies chest pain, nausea vomiting diarrhea, syncope, presyncope, pleuritic pain, leg pain, fevers chills nausea vomiting diarrhea. ED Evaluation: Afebrile, heart rate 130s-150s irregularly irregular, blood pressure 119/75, respirations 20, 99% RA Course are pertinent for elevated white count 11.4, otherwise unrevealing, INR 1.2, chemistries acceptable with creatinine 1.2, estimated creatinine clearance 47 mL's per minute, random glucose 181, troponin less than 0.2 EKG revealed atrial fibrillation at 152, nonspecific changes, new compared with EKG 12/2013 Chest x-ray revealed bibasilar markings, suggestive of atelectasis, no other infiltrate Received aspirin 324 mg p.o. 1, and diltiazem 25 mg IV. Heart rate remains variable between 90s and 120s. The patient is in no acute distress, and will be admitted to PCU for further management of bronchitis with bronchospasm, and new onset A. fib RVR. [id number] score = 4. Patient has no contraindication to anticoagulation [] Past Medical History Past Medical History (Chronic Problems): Chronic Problems Obesity (Chronic) CHERISE (obstructive sleep apnea) (Chronic) HTN (hypertension) (Chronic) Hx of CABG (Chronic) Hyperlipemia (Chronic) Diabetes mellitus (Chronic) Allergies No Known Allergies Allergy (Verified 08/10/17 14:29) Home Medications: Ambulatory Orders Medication Instructions Recorded Metformin(XR) [Glucophage Xr] 850 mg PO BID 02/27/13 Simvastatin [Zocor] 40 mg PO QHS 02/27/13 Albuterol Inhaler [Ventolin Hfa] 2 puff INHALATION 4X/DAY PRN PRN 12/19/13 Surgical History: cholecystectomy, coronary bypass surgery, hysterectomy - Total hysterectomy, - - Coronary artery bypass grafting x3 Smoking Status: Never smoker - *Family History Paternal History Items: Cancer Maternal History Items: COPD Review of Systems Respiratory: Reports: Shortness of breath upon exertion, Wheezing VTE Information - Inpt Only VTE Present on Admission: No VTE Mechan Device Prophylaxis: SCD's VTE Pharm Prophylaxis ordered?: No Reason prophylaxis not ordered:: Medical Contraindication - already anticoagulated Patient Problems: Active and Suspected Problems New onset a-fib (Acute) with RVR Bronchitis (Acute) mild bronchospasm Objective: NAD no toxic appearing - Physical Exam General: Oriented x3 HEENT: Atraumatic, PERRLA Oral: Moist Mucosa, - - dentition fair Neck: No JVD, Negative Carotid Bruits, Thyroid Normal Size and Texture Lungs: Wheezes - faint Cardiovascular: Irregular Rate, Tachycardic Abdomen: Soft, Non Tender, Non-Distended, Obese Extremities: No clubbing, Edema, Peripheral Pulses Normal Neurological: - - nonfocal Psych/Mental Status: Normal Affect, Appropriate Vital Signs Temp Pulse Resp BP Pulse Ox 96.5 F L 112 H 14 115/85 H 99 08/10/17 14:30 08/10/17 16:09 08/10/17 16:09 08/10/17 16:09 08/10/17 16:09 Assessment/Plan Active and Suspected Problems New onset a-fib (Acute) with RVR Bronchitis (Acute) mild bronchospasm 67-year-old patient with past medical history of CAD, CABG 3, NIDDM, hypertension, obesity, CHERISE, mild persistent asthma, who is referred from urgent care for dyspnea, mild cough with wheeze, without hypoxemia, and is found to have new onset A. fib RVR with mild bronchitis/bronchospasm. Patient reports she has not used her inhalers. She denies chest pain, pleuritic pain, leg pain, syncope, presyncope, orthopnea, PND. 1. New onset atrial fibrillation RVR In the setting of hypertension/hypertensive heart disease likely, diabetes, obesity [id number] = 4 PLAN: Admit PCU TSH Serial cardiac biomarkers, telemetry monitoring Diltiazem drip protocol Holding metoprolol Xarelto 15 mg twice daily 21 days, then decrease to 20 mg daily Echocardiogram Cardiology opinion 2. Bronchitis with bronchospasm Underlying mild persistent asthma Has had cough chronically off and on since her bypass surgery Light wheezing on examination bibasilar atelectasis on CXR Was not using her prescribed Asmanex or Ventolin Plan: Albuterol aerosol every 4 hours as needed Prednisone 40 mg daily 5 days Robitussin-DM as needed, Mucinex, Cepacol 3. NIDDM, premorbidly on Glucophage, Amaryl Holding Amaryl and Glucophage NovoLog scale moderate before meals, at bedtime 4. Hypertension Continue losartan, amlodipine Holding metoprolol, as patient will be on diltiazem drip 5. CHERISE 6. DVT prophy - already anticoagulated 08/10/17 1647 <Electronically signed by Joan Hernandez MD> Date Joan Hernandez MD Cosigner Signature: Date (if applicable) CC: Joan Hernandez MD; Yaya Centeno DO Signed CBC W/DIFF, AUTOMATED Collected: 08/10/2017 Status: F Source: [place] 2:55 PM [facility] REPOSITORY TYPE CODE TESTS RESULT OUT OF RANGE REFERENCE UNITS LAB L100.1000 4.4-11.0 K/mm3 High WBC 11.4 LAB L100.1200 4.2-5.4 M/mm3 Normal RBC 4.48 LAB L100.1300 12.0-15.0 g/dl Normal HGB 13.9 LAB L100.1400 37-47 % Normal HCT 42.9 LAB L100.1500 81-99 fL Normal MCV 95.8 LAB L100.1600 27.0-32.0 pg Normal MCH 31.0 LAB L100.1700 32-36 g/gl Normal MCHC 32.4 LAB L100.1810 11.6-14.6 % Normal RDW CV 14.2 LAB L100.1820 35.1-43.9 fl High RDW SD 49.3 LAB L100.1900 150-450 K/mm3 Normal PLT 242 LAB L100.2000 6.2-12.0 fl Normal MPV 11.7 LAB L100.2100 47-70 % High NEUT% 70.7 LAB L100.2200 19-41 % Normal LY% 20.5 LAB L100.2300 0-10 % Normal MONO% 7.6 LAB L100.2400 0-5 % Normal EO% 0.5 LAB L100.2500 0-1 % Normal BASO% 0.4 LAB L100.2550 0.0-0.9 % Normal IM GRAN % 0.300 Result Comment: IG% - Immature Granulocytes (promyelocytes, myelocytes and metamyelocytes) > 1% indicates that a LEFT SHIFT is Present. LAB L100.2620 2.0-7.7 X10 3/uL High Absolute Neut 8.1 LAB L100.2720 0.83-4.51 X10 3/ul Normal Absolute Lymph 2.34 Performed By: #### L100.0100 #### [facility] [address] [place], [address] BASIC METABOLIC Collected: 08/10/2017 Status: F Source: [place] PROFILE (BMP) 2:55 PM [facility] REPOSITORY Order Comment: 'TROP' Serial specimen #1, #2, #3, or #4: 1 TYPE CODE TESTS RESULT OUT OF RANGE REFERENCE UNITS LAB L501.0100 74-106 mg/dL High GLU 181 Result Comment: Fasting Glucose result greater than or equal to 126 mg/dL suggests DIABETES MELLITUS per A.D.A. criteria. Please note revised GLUCOSE reference range effective 2017. LAB L501.1000 7-18 mg/dL High BUN 32 LAB L501.1100 0.55-1.02 mg/dL High CREAT,SERUM 1.20 Result Comment: The validity of the calculated GFR AND GFRAA in patients over 70 years has not been determined. Clinical correlation is essential. LAB L501.1110 >60 mL/min Low EST GFR 47 Result Comment: Non- GFR Calc LAB L501.1115 >60 mL/min Low EST GFR - AA 57 Result Comment: GFR Calc LAB L501.1255 ml/min Normal Estimated CRCL 36.60 LAB L501.1300 10-20 RATIO High BUN/CRE 26.7 LAB L501.2200 8.5-10 mg/dL Normal .1 CA 9.0 LAB L501.5300 136-14 mmol/L Normal 5 NA 141 LAB L501.5600 3.5-5. mmol/L Normal 1 K 4.4 Result Comment: Moderate Hemolysis, Result may be falsely increased. LAB L501.5900 98-107 mmol/L High CL 109 LAB L501.6100 21.0-32.0 mmol/L Normal CO2 22.0 LAB L501.6200 5-15 Normal GAP 10 Performed By: #### L500.2500, L501.4010 #### [facility] [address] [facility] [place], [address] TROPONIN-I Collected: 08/10/2017 Status: F Source: [place] 2:55 PM [facility] REPOSITORY Order Comment: 'TROP' Serial specimen #1, #2, #3, or #4: 1 TYPE CODE TESTS RESULT OUT OF RANGE REFERENCE UNITS LAB L501.4010 <0.06 ng/mL Normal < 0.02 TROPONIN-I Result Comment: TROPONIN-I EXPECTED VALUES <0.05 NEGATIVE 0.06 - 0.59 AT RISK OF NC > OR = 0.60 SUGGEST NC Performed By: #### L500.2500, L501.4010 #### [facility] [address] [facility] [place], [address] PROTHROMBIN TIME W/INR Collected: 08/10/2017 Status: F Source: [place] 2:55 PM [facility] REPOSITORY TYPE CODE TESTS RESULT OUT OF RANGE REFERENCE UNITS LAB L300.4150 11.7-14.9 SECONDS High PROTIME 15.6 LAB L300.4200 Normal INR 1.2 Performed By: #### L300.3900 #### [facility] [address] [facility] [place], [address] BNP,B-TYPE NATRIURETIC Collected: 08/10/2017 Status: F Source: [place] PEPTIDE 2:55 PM [facility] REPOSITORY TYPE CODE TESTS RESULT OUT OF RANGE REFERENCE UNITS LAB L503.6620 0-100 pg/mL High B-TYPE 505.8 BABAR PEP Performed By: #### L503.6620 #### [facility] [address] [place], [address] CHEST 1 VIEW Observed: 08/10/2017 Status: F Source: [place] (PORTABLE) 2:47 PM [facility] REPOSITORY [facility] Imaging Services [address] [place] [address] Chest 1 View (Portable) MR#: [id number] Acct: [id number] Name: JESSICA MARLEY Rep #: [id number] : 1950 F 67 From: Delfino Carey MD PCP: Yaya Centeno DO Status: REG ER Study: Chest 1 View (Portable) Date of Exam: 08/10/17 Exam# [id number] Ordering Dr: Larry Marroquin MD STUDY: X-RAY CHEST REASON FOR EXAM: Female, 67 years old. Chest pain. Shortness of breath. TECHNIQUE: Single AP portable view of the chest. COMPARISON: Comparison is made with prior study dated February 27, 2013. FINDINGS: EKG electrodes are seen. Mild increased markings at the lung bases with blunting of both costophrenic angles suggestive of bibasilar atelectasis. Sternal cerclage wires and vascular clips are present from a prior sternotomy and coronary artery bypass graft procedure (CABG). Cardiomegaly. Normal mediastinum and álvaro. Normal visualized pulmonary arteries. There is atherosclerotic calcification of the aortic arch with tortuosity. There are diffuse degenerative changes of the visualized thoracic spine. There is degenerative osteoarthritis of the bilateral shoulders. There is no demonstrated abnormality of the visualized soft tissue structures of the upper abdomen. RAD/Chest 1 View (Portable) IMPRESSION: Mild increased markings at the lung bases with blunting of both costophrenic angles. Follow-up is recommended. Electronically Signed: Delfino Carey MD at 15:19 EDT Tel [phone], Service support , CC: Larry Marroquin MD; Yaya Centeno DO Computer Forensic Examiner: Signed PROGRESS Observed: 07/11/2017 Status: COMPLETED Source: [place] 2:05 PM [facility] REPOSITORY HNO ID: [id number] Author: Dilan New Service: (none) Author Type: Physician Type: Progress Notes Filed: 07/11/2017 2:16 PM Note Text: Subjective: Patient presents to clinic c/o painful toenails. They state that the nails are especially painful with shoe gear and pressure. Patient states that nails 1-5 b/l are painful. Patient admits to being diabetic and states that their blood sugar was 222 mg/dL this AM. No other pedal complaints at this time. Patient states no change in medications or medical history since last visit. Objective: Patient presents to clinic ambulating in diabetic shoes Vasc: DP and PT pulses are faint bilateral. CFT is less than 5 seconds bilateral. Skin temperature is warm to cool proximal to distal bilateral. There is mild edema or varicosities noted. Neuro: Protective sensation is decreased to the foot and toes when tested with the 5.07 SWM bilateral. Vibratory sensation is decreased at the hallux IPJ bilateral. The hallux is downgoing bilateral. Derm: Nails 1-5 b/l are painful, discolored-yellow, thick, crumbly, dystrophic and with subungal debris. Skin is dry and scaly bilateral. There are no hyperkeratosis, ulcerations, scars, verruca or other lesions noted. Ortho: Muscle strength is 5/5 for all pedal groups tested. Ankle joint DF is decreased with the knee extended with no pain or crepitus noted. 1st MPJ ROM is decreased bilateral. Assessment: (B35.1) Onychomycosis (primary encounter diagnosis) (M79.675) Pain in toe of left foot (M79.674) Pain in toe of right foot (E11.41) Diabetic mononeuropathy associated with type 2 diabetes mellitus (HCC) (L85.3) Xerosis cutis Plan: Patient was seen and evaluated. Nails 1-5 bilateral were debrided in length and thickness. Recommend she apply lotion to feet daily. Patient was instructed on the continued importance of diabetic foot care along with proper diet and keeping their blood sugar under control to prevent complications. Patient is to RTC in 3-4 months. Dilan New DPM PROGRESS Observed: 07/11/2017 Status: COMPLETED Source: [place] 1:55 PM [facility] REPOSITORY O ID: [id number] Author: Mercedes Panda Ma Service: (none) Author Type: (none) Type: Progress Notes Filed: 07/11/2017 2:16 PM Note Text: Patient reports home blood glucose reading at 222 mg/dL this am after eating banana. Mercedes Panda Ma CNOV Observed: 07/11/2017 Status: COMPLETED Source: [place] 1:30 PM [facility] REPOSITORY Office Visit (PODIWS) JESSICA MARLEY ([id number]) 1950 F Date Time Provider Department 07/11/17 1:30 PM DILAN NEW PODIWS During your visit today, we recorded the following information about you: Mercedes Panda Ma 07/11/2017 2:16 PM Signed Patient reports home blood glucose reading at 222 mg/dL this am after eating banana. Mercedes New DPM 07/11/2017 2:16 PM Signed Subjective: Patient presents to clinic c/o painful toenails. They state that the nails are especially painful with shoe gear and pressure. Patient states that nails 1-5 b/l are painful. Patient admits to being diabetic and states that their blood sugar was 222 mg/dL this AM. No other pedal complaints at this time. Patient states no change in medications or medical history since last visit. Objective: Patient presents to clinic ambulating in diabetic shoes Vasc: DP and PT pulses are faint bilateral. CFT is less than 5 seconds bilateral. Skin temperature is warm to cool proximal to distal bilateral. There is mild edema or varicosities noted. Neuro: Protective sensation is decreased to the foot and toes when tested with the 5.07 SWM bilateral. Vibratory sensation is decreased at the hallux IPJ bilateral. The hallux is downgoing bilateral. Derm: Nails 1-5 b/l are painful, discolored-yellow, thick, crumbly, dystrophic and with subungal debris. Skin is dry and scaly bilateral. There are no hyperkeratosis, ulcerations, scars, verruca or other lesions noted. Ortho: Muscle strength is 5/5 for all pedal groups tested. Ankle joint DF is decreased with the knee extended with no pain or crepitus noted. 1st MPJ ROM is decreased bilateral. Assessment: (B35.1) Onychomycosis (primary encounter diagnosis) (M79.675) Pain in toe of left foot (M79.674) Pain in toe of right foot (E11.41) Diabetic mononeuropathy associated with type 2 diabetes mellitus (HCC) (L85.3) Xerosis cutis Plan: Patient was seen and evaluated. Nails 1-5 bilateral were debrided in length and thickness. Recommend she apply lotion to feet daily. Patient was instructed on the continued importance of diabetic foot care along with proper diet and keeping their blood sugar under control to prevent complications. Patient is to RTC in 3-4 months. Dilan New DPM Referring Provider: DILAN NEW [[id number]] Allergies As of Date: 07/11/2017 (No Known Allergies) Date Reviewed: 07/11/2017 Reviewed by: Mercedes Panda Ma - Fully Assessed Reason for Visit: Painful Toenails [3619] Primary Visit Diagnosis:Onychomycosis [B35.1] Other Visit Diagnoses:Pain in toe of left foot [M79.675] Pain in toe of right foot [M79.674] Diabetic mononeuropathy associated with type 2 diabetes mellitus (HCC) [E11.41] Xerosis cutis [L85.3] Prescriptions as of 07/11/2017 Sig: AMMONIUM LACTATE-SODIUM LACTA* Apply 1 application to affect* METFORMIN 500 MG TABLET Take 1.75 tablets by mouth tw* BLOOD SUGAR DIAGNOSTIC STRIPS Test blood sugar(s) 1 times d* SIMVASTATIN 40 MG TABLET Take 1 tablet by mouth daily * ALBUTEROL SULFATE HFA 90 MCG/* Inhale 2 Puffs as instructed * AMLODIPINE 5 MG TABLET Take 1 tablet by mouth once d* BLOOD PRESSURE MONITOR KIT Use as directed to monitor bl* METOPROLOL TARTRATE 50 MG TAB* Take 1 tablet by mouth twice * ASPIRIN 81 MG TABLET Take 81 mg by mouth once patricia* ASMANEX TWISTHALER INHALATION Inhale 1 Inhaler as instructe* LOSARTAN 50 MG TABLET Take 1 tablet by mouth twice * HYDROCODONE 5 MG-ACETAMINOPHE* Take 1 tablet by mouth every * DIAZEPAM 5 MG TABLET Take 1 tablet by mouth four t* GLIMEPIRIDE 1 MG TABLET Take 1 tablet by mouth daily * Problem List As Of Date 07/11/2017 Noted Resolved Obesity, unspecified [E66.9] INVALID FOR* Priority: B Essential hypertension, benign [I10] INVALID FOR* Priority: A DM w/o complication type II [E11.9] INVALID FOR* Priority: A More... Other and unspecified hyperlipidemia [E78.5] INVALID FOR* Priority: B More... Routine Gynecological Examination [Z01.419] INVALID FOR* Class: Chronic More... PSVT (paroxysmal supraventricular tachycardia) *INVALID FOR*12/12/2013 Priority: A More... Other acquired deformity of toe [M20.5X9] INVALID FOR* Priority: D Dermatophytosis of nail [B35.1] INVALID FOR* Priority: D Cardiomegaly [I51.7] INVALID FOR* Priority: B CAD (coronary artery disease) [I25.10] INVALID FOR* S/P CABG x 3 [Z95.1] INVALID FOR* More... Encounter Status:Closed by DILAN NEW DPM on 07/11/17 ALLERGIES ALLERGIES DATE TYPE / CODE NAME / CODE REACTION SEVERITY SOURCE 03/06/2018 Drug No Known Unknown [facility] Allergy/416 Allergies/E84576 [facility] 836677(SNOM 0388(RXNORM) Repository ED CT) Drug NO KNOWN [facility] Class/26611 ALLERGIES [facility] 1003(SNOMED Repository CT) ENCOUNTERS ENCOUNTERS ADMIT/DISCHARGE ACCOUNT ADMITTING ENCOUNTER LOCATION SOURCE NUMBER CLASS 04/26/2018 [id number] Ambulatory [facility] ing:POLAB3 Repository 03/06/2018/03/06/20 [id number] Ambulatory BMSBuilding:B [place] [address] [facility] Repository 02/07/2018 [id number] Ambulatory [facility] ing:CVS Repository 02/07/2018 [id number] Ambulatory BMSBuilding:W [facility] Repository 01/26/2018/01/28/20 [id number] Ambulatory [address] Repository 11/30/2017 [id number] [facility] ing:LAB Repository 11/30/2017/12/01/19 [id number] Ambulatory BMSBuilding:B [place] [address] [facility] Repository 10/20/2017/10/22/19 [id number] Ambulatory [address] Repository 10/12/2017/10/13/19 [id number] Ambulatory BMSBuilding:B [place] 18 [facility] Repository 10/12/2017 [id number] [facility] ing:LAB Repository 10/05/2017 [id number] Ambulatory [facility] Hospital ing:LAB.FUTUR Repository E 10/04/2017/10/05/19 [id number] Ambulatory BMSBuilding:B [place] 18 [facility] Repository 09/26/2017 [id number] Ambulatory [facility] Hospital ing:CLSP Repository 09/26/2017 [id number] Ambulatory BMSBuilding:B [place] MS.[facility] Repository 09/26/2017 [id number] Ambulatory BMSBuilding:Nathan Carter MS.CF.[facility] Repository 09/26/2017 [id number] Ambulatory BMSBuilding:W [facility] Repository 09/23/2017/09/24/19 [id number] Ambulatory BMSBuilding:B [place] 18 [facility] Repository 09/22/2017/09/24/19 [id number] Marcial Flores [address] [facility] ing:PCURoom: Repository VOK212Slr: 1 09/22/2017 [id number] Marcial Flores Ambulatory BMSBuilding:B [place] [facility] Repository 09/22/2017 [id number] Marcial Flores Ambulatory BMSBuilding:B [place] [facility] Repository 09/22/2017/09/24/19 [id number] Ambulatory BMSBuilding:W [address] Repository 09/22/2017/09/24/19 [id number] Ambulatory BMSBuilding:W [place] Repository 09/20/2017 [id number] Ambulatory [facility] Repository 09/12/2017/09/13/19 [id number] Emergency [address] ing:ED Repository 09/09/2017 [id number] Ambulatory BMSBuilding:B [place] [facility] Repository 09/08/2017 [id number] Ambulatory [facility] Hospital ing:POLAB3 Repository 08/30/2017 [id number] Ambulatory [facility] Repository 08/25/2017 [id number] Ambulatory BMSBuilding:B [place] [facility] Repository 08/25/2017 [id number] Ambulatory [facility] ing:BFHLAB Repository 08/10/2017/08/16/19 [id number] Benny, Inpatient [address] ing:PCURoom: Repository OMT233Ogx: 1 08/10/2017 [id number] Benny, Ambulatory BMSBuilding:Nathan Franco MS.[facility] Repository 08/10/2017 [id number] Benny, Ambulatory BMSBuilding:Nathan Franco MS.[facility] Repository 08/10/2017 [id number] Benny, Ambulatory BMSBuilding:Nathan Franco MS.[facility] Repository 08/10/2017 [id number] Benny, Ambulatory BMSBuilding:Nathan Franco MS.[facility] Repository 08/10/2017 [id number] Benny, [facility] 08/10/2017 [id number] Benny, Ambulatory BMSBuilding:Nathan Franco MS.[facility] Repository 08/10/2017 [id number] Benny, [facility] 08/10/2017 [id number] Benny, [facility] 08/10/2017 [id number] Benny, Ambulatory BMSBuilding:Nathan Franco MS.[facility] Repository 08/10/2017 [id number] Benny, Ambulatory BMSBuilding:Nathan Franco MS.[facility] Repository 08/10/2017 [id number] Benny, Ambulatory BMSBuilding:Nathan Franco MS.[facility] Repository 08/10/2017 [id number] Benny, Ambulatory BMSBuilding:Nathan Franco MS.[facility] Repository 08/10/2017/08/16/19 [id number] Ambulatory BMSBuilding:Nesha Carter [facility] Repository 07/11/2017/07/19/19 [id number] Ambulatory [address] Repository PAYERS PAYERS ENCOUNTER GUARANTOR PAYER SUBSCRIBER SOURCE 04/26/2018 JESSICA Owen Primary JESSICA Carter [id number] Insurance:MEDICARE CROSBYDOB: [facility] PART A [facility] [id number] Number[place] Repository [address]Dco: 419 [id number] [phone] () Date:2018-04-18 04/26/2018 Secondary PAMELA L [place] [facility] CROSBYDOB: [facility] [id number] [id number] Hospital Number: Repository [id number] Date:0770-43-06SE [address], [place] [address]OU: 04/26/2018 Tertiary NOT GIVENUNK [place] Insurance:SELF PAY [facility] Number: Effective Repository Date:2018-04-18 03/06/2018 JESSICA Owen Primary JESSICA Carter [id number] Insurance:MEDICARE [facility]BYDOB[facility] [id number] [place] Number: Repository 68[address]Uoq: 419 [id number] [phone] () Date:2017-11-30 03/06/2018 Secondary PAMELA L [place] [facility] CROSBYDOB: [facility] [id number] [id number] Hospital Number: Repository [id number] Date:4147-89-93QJ [address]DQICFCX, [place] [address]VU: 03/06/2018 Tertiary NOT GIVENUNK [place] Insurance:SELF PAY [facility] Number: Effective Repository Date:2018-03-03 02/07/2018 JESSICA S Primary JESSICA S [place] [id number] Insurance:MEDICARE CROSBYDOB: [facility] [address] PART A [facility] [id number] Navajo [facility] Number: Repository [address]975Byw: 419 [id number] [phone] () Date:2017-11-30 02/07/2018 Secondary PAMELA L [place] Insurance:UNITED [facility] CROSBYDOB: Community CARE [id number] Hospital Number: Repository [id number] Date:4126-57-37PE [address], [place] [address]WE: 02/07/2018 Tertiary NOT GIVENUNK [place] Insurance:SELF PAY [facility] Number: Effective Repository Date:2017-11-30 02/07/2018 JESSICA S Primary JESSICA S [place] [id number] Insurance:MEDICARE CROSBYDOB: Community [address] PART A [facility] [id number] Navajo Medical Center[place] Number: Repository 268[address]Tbs: 419 [id number] [phone] () Date:2017-11-30 02/07/2018 Secondary PAMELA L [place] Insurance:UNITED TH CROSBYDOB: Community CARE [id number] Hospital Number: Repository [id number] Date:5207-08-76KZ [facility] 598171SBTOZRH, [place] [address]RI: 02/07/2018 Tertiary NOT GIVENUNK [place] Insurance:SELF PAY [facility] Number: Effective Repository Date:2018-02-07 11/30/2017 JESSICA S Primary JESSICA S [place] [id number] Insurance:MEDICARE CROSBYDOB: Community [address] PART A [facility] [id number] Navajo Medical [facility] Number: Repository [address]Wog: 419 [id number] [phone] () Date:2017-11-30 11/30/2017 Secondary PAMELA L [place] Insurance:UNITED HLTH CROSBYDOB: Community CARE [id number] Hospital Number: Repository [id number] Date:6155-27-45ZW [address]KCOXRFZ, [place] [address]QK: 11/30/2017 Tertiary NOT GIVENUNK [place] Insurance:SELF PAY [facility] Number: Effective Repository Date:2017-11-30 11/30/2017 JESSICA S Primary JESSICA S [place] [id number] Insurance:MEDICARE CROSBYDOB: Community [address] PART A [facility] [id number] Navajo Medical [facility] Number: Repository [address]Dkl: 419 [id number] [phone] () Date:2017-10-19 11/30/2017 Secondary PAMELA L [place] Insurance:UNITED HLTH CROSBYDOB: Community CARE [id number] [id number] Hospital Number: Repository [id number] Date:1118-19-84VN [address]MYSDUFK, [place] [address]CO: 11/30/2017 Tertiary NOT GIVENUNK [place] Insurance:SELF PAY [facility] Number: Effective Repository Date:2017-11-30 10/12/2017 JESSICA S Primary JESSICA S [place] [id number] Insurance:MEDICARE CROSBYDOB: Community [address] PART A [facility] [id number] Navajo Medical [facility] Number: Repository [address]Ayu: 419 [id number] [phone] () Date:2017-10-06 10/12/2017 Secondary PAMELA L [place] Insurance:UNITED HLTH CROSBYDOB: Community CARE [id number] Hospital Number: Repository [id number] Date:3270-32-65GQ [address]MOWQISD, [place] [address]KP: 10/12/2017 Tertiary NOT GIVENUNK [place] Insurance:SELF PAY [facility] Number: Effective Repository Date:2017-10-24 10/12/2017 JESSICA S Primary JESSICA S [place] [id number] Insurance:MEDICARE CROSBYDOB: Community [address] PART A [facility] [id number] Navajo Medical Center[place] Number: Repository [address]Gpk: 419 [id number] [phone] () Date:2017-10-12 10/12/2017 Secondary PAMELA L [place] Insurance:UNITED TH CROSBYDOB: Community CARE [id number] Hospital Number: Repository [id number] Date:7744-12-46HQ [facility] 016182PUZMSJA, [place] [address]AJ: 10/12/2017 Tertiary NOT GIVENUNK [place] Insurance:SELF PAY [facility] Number: Effective Repository Date:2017-10-12 10/05/2017 JESSICA S Primary JESSICA S [place] [id number] Insurance:MEDICARE CROSBYDOB: [address] A [facility] [id number] Navajo Medical Center[place] Number: Repository [address]Cim: 419 [id number] [phone] () Date:2017-10-05 10/05/2017 Secondary PAMELA L [place] Insurance:UNITED [facility] CROSBYDOB: Community CARE [id number] Hospital Number: Repository [id number] Date:8301-01-66BQ [address]MKRVLPR, [place] [address]JM: 10/05/2017 Tertiary NOT GIVENUNK [place] Insurance:SELF PAY [facility] Number: Effective Repository Date:2017-10-05 10/04/2017 JESSICA S Primary JESSICA S [place] [id number] Insurance:MEDICARE CROSBYDOB: [address] A [facility] [id number] Navajo Medical Center[place] Number: Repository 160[address]Vgh: 419 [id number] [phone] () Date:2017-09-23 10/04/2017 Secondary PAMELA L [place] Insurance:UNITED TH CROSBYDOB: Community CARE [id number] Hospital Number: Repository [id number] Date:3779-04-89IR [address]CMHIIFN, [place] [address]MB: 10/04/2017 Tertiary NOT GIVENUNK [place] Insurance:SELF PAY [facility] Number: Effective Repository Date:2017-09-26 09/26/2017 JESSICA S Primary JESSICA S [place] [id number] Insurance:MEDICARE CROSBYDOB: [facility] PART A [facility] [id number] [place] Number: Repository 35[address]Gdd: 419 [id number] [phone] () Date:2017-09-23 09/26/2017 Secondary PAMELA L [place] [facility] CROSBYDOB: [facility] CARE [id number] Hospital Number: Repository [id number] Date:9634-68-45HK [address]EGGRVVZ, [place] [address]EN: 09/26/2017 Tertiary NOT GIVENUNK [place] Insurance:SELF PAY [facility] Number: Effective Repository Date:2017-09-23 09/26/2017 JESSICA S Primary JESSICA S [place] [id number] Insurance:MEDICARE CROSBYDOB: [facility] PART A [facility] [id number] Navajo Medical [facility] Number: Repository 57[address]Xhh: 419 [id number] [phone] () Date:2017-09-23 09/26/2017 Secondary PAMELA L [place] [facility] CROSBYDOB: Community CARE [id number] Hospital Number: Repository [id number] Date:2020-80-05JD [address]ZUCNFJG, [place] [address]AE: 09/26/2017 Tertiary NOT GIVENUNK [place] Insurance:SELF PAY [facility] Number: Effective Repository Date:2017-09-26 09/26/2017 JESSICA S Primary JESSICA S [place] [id number] Insurance:MEDICARE CROSBYDOB: [facility] PART A [facility] [id number] Navajo Medical [facility] Number: Repository [address]Rls: 419 [id number] [phone] () Date:2017-09-23 09/26/2017 Secondary PAMELA L [place] Insurance:UNITED HLTH CROSBYDOB: [facility] CARE [id number] Hospital Number: Repository [id number] Date:1935-94-46ZV [facility] 217052HRMDLKA, [place] [address]DC: 09/26/2017 Tertiary NOT GIVENUNK [place] Insurance:SELF PAY [facility] Number: Effective Repository Date:2017-09-26 09/26/2017 JESSICA S Primary JESSICA S [place] [id number] Insurance:MEDICARE CROSBYDOB: [facility] PART A [facility] [id number] Navajo Medical Center[place] Number: Repository [address]Omq: 419 [id number] [phone] () Date:2017-09-23 09/26/2017 Secondary PAMELA L [place] Insurance:UNITED TH CROSBYDOB: [facility] CARE [id number] Hospital Number: Repository [id number] Date:9240-21-42UG [address]RPGYEQS, [place] [address]BZ: 09/26/2017 Tertiary NOT GIVENUNK [place] Insurance:SELF PAY [facility] Number: Effective Repository Date:2017-09-26 09/23/2017 JESSICA S Primary JESSICA S [place] [id number] Insurance:MEDICARE CROSBYDOB: [facility] PART A [facility] [id number] Navajo Medical [facility] Repository [id number]: 419 [id number] [phone] () Date:2017-09-02 09/23/2017 Secondary PAMELA L [place] Insurance:UNITED HLTH CROSBYDOB: Community CARE [id number] Hospital Number: Repository [id number] Date:2406-60-63LS [facility] 880280IZFMENG, [place] [address]RE: 09/23/2017 Tertiary NOT GIVENUNK [place] Insurance:SELF PAY [facility] Number: Effective Repository Date:2017-09-23 09/22/2017 Jessica S Primary Jessica S [place] [id number] Insurance:MEDICARE CrosbyDOB: [address] PART A [facility] [id number] [facility] Number: Repository [address]Lfa: 419 [id number] [phone] () Date:2017-09-22 09/22/2017 Secondary PAMELA L [place] Insurance:UNITED HLTH CROSBYDOB: Community CARE [id number] Hospital Number: Repository [id number] Date:8722-98-77AH [address]NNCXXKB, [place] [address]MX: 09/22/2017 Tertiary NOT GIVENUNK [place] Insurance:SELF PAY [facility] Number: Effective Repository Date:2017-09-22 09/22/2017 Jessica S Primary Jessica S [place] [id number] Insurance:MEDICARE CrosbyDOB: Community [address] PART A [facility] [id number], [place] Number: Repository 75[address]Csu: 419 [id number] [phone] () Date:2017-09-22 09/22/2017 Secondary PAMELA L [place] Insurance:UNITED HLTH CROSBYDOB: Community CARE [id number] Hospital Number: Repository [id number] Date:8962-75-46EW [address]BAPVSNE, [place] [address]DG: 09/22/2017 Tertiary NOT GIVENUNK [place] Insurance:SELF PAY Community [facility] Number: Effective Repository Date:2017-09-22 09/22/2017 JESSICA S Primary JESSICA S [place] [id number] Insurance:MEDICARE CROSBYDOB: Community [address] PART A [facility] [id number] Navajo Medical Center[place] Number[place] Repository [id number]: ([phone]) [id number] [phone] () Date:2017-09-22 09/22/2017 Secondary PAMELA L [place] Insurance:UNITED HLTH CROSBYDOB: Community CARE [id number] [id number] Hospital Number: Repository [id number] Date:8584-56-59II [facility] 673911BBPKQED, [place] [address]IG: 09/22/2017 Tertiary NOT GIVENUNK [place] Insurance:SELF PAY [facility] Number: Effective Repository Date:2017-09-22 09/22/2017 JESSICA S Primary JESSICA S [place] [id number] Insurance:MEDICARE CR[facility]BYDOB[facility] [id number] Navajo Medical [facility] Number[place] Repository [address]Okp: 419 [id number] [phone] () Date:2017-09-22 09/22/2017 Secondary PAMELA L [place] Insurance:UNITED TH CROSBYDOB: [facility] CARE [id number] Hospital Number: Repository [id number] Date:5287-18-09JT [address]BFINQQU, [place] [address]UD: 09/22/2017 Tertiary NOT GIVENUNK [place] Insurance:SELF PAY [facility] Number: Effective Repository Date:2017-09-22 09/22/2017 JESSICA S Primary JESSICA S [place] [id number] Insurance:MEDICARE CROSBYDOB: Community [address] PART A [facility] [id number] Navajo Medical Center[place] Number: Repository [address]Jqp: 419 [id number] [phone] () Date:2017-09-22 09/22/2017 Secondary PAMELA L [place] Insurance:UNITED TH CROSBYDOB: Community CARE [id number] Hospital Number: Repository [id number] Date:2145-02-32VU [facility] 229221CKJAHUX, [place] [address]GO: 09/22/2017 Tertiary NOT GIVENUNK [place] Insurance:SELF PAY [facility] Number: Effective Repository Date:2017-09-22 09/20/2017 Jessica S Primary Jessica S [place] [id number] Insurance:MEDICARE CrosbyDOB: Community [address] PART A [facility] [id number] Regional [facility] Number[place] Repository [address]Qyr: 419 [id number] [phone] () Date:2017-09-20 09/20/2017 Secondary PAMELA L [place] Insurance:UNITED TH CROSBYDOB: Community CARE [id number] Hospital Number: Repository [id number] Date:3708-19-46GR [facility] 647033ISJWSKH, [place] [address]RS: 09/20/2017 Tertiary NOT GIVENUNK [place] Insurance:SELF PAY [facility] Number: Effective Repository Date:2017-09-20 09/12/2017 Jessica S Primary Jessica S [place] [id number] Insurance:MEDICARE CrosbyDOB: Community [address] PART A [facility] [id number] Regional Medical [facility] Number: Repository [address]Mku: 419 [id number] [phone] () Date:2017-09-12 09/12/2017 Secondary PAMELA L [place] Insurance:UNITED HLTH CROSBYDOB: Community CARE [id number] Hospital Number: Repository [id number] Date:4209-37-10CN [facility] 190871XXSGULK, [place] [address]DL: 09/12/2017 Tertiary NOT GIVENUNK [place] Insurance:SELF PAY [facility] Number: Effective Repository Date:2017-09-12 09/09/2017 Jessica S Primary Jessica S [place] [id number] Insurance:MEDICARE CrosbyDOB: Community [address] PART A [facility] [id number] Regional Medical [facility] Number[place] Repository 17543Jul: 419 [id number] [phone] () Date:2017-09-09 09/09/2017 Secondary NOT GIVENUNK [place] Insurance:SELF PAY Community [facility] Number: Effective Repository Date:2017-09-09 09/08/2017 Jessica Owen Primary Jessica Owen [place] [id number] Insurance:MEDICARE CrosbyDOB: Community [address] PART A [facility] [id number] Regional Medical [facility] Number[place] Repository 68370Mvt: 419 [id number] [phone] () Date:2017-09-08 09/08/2017 Secondary NOT GIVENUNK [place] Insurance:SELF PAY [facility] Number: Effective Repository Date:2017-09-08 08/30/2017 Jessica S Primary Jessica S [place] [id number] Insurance:MEDICARE CrosbyDOB: Community [address] PART A [facility] [id number] Regional Medical [facility] Repository [address]18[address]Kuf: 419 [id number] [phone] () Date:2017-08-30 08/30/2017 Secondary NOT GIVENUNK [place] Insurance:SELF PAY [facility] Number: Effective Repository Date:2017-08-30 08/25/2017 Jessica S Primary Jessica S [place] [id number] Insurance:MEDICARE CrosbyDOB: Community [address] PART A [facility] [id number] Regional Medical [facility]ository 14744Mdh: 419 [id number] [phone] () Date:2017-08-25 08/25/2017 Secondary NOT GIVENUNK [place] Insurance:SELF PAY Community [facility] Number: Effective Repository Date:2017-08-25 08/25/2017 Jessica S Primary Jessica S [place] [id number] Insurance:MEDICARE CrosbyDOB: Community [address] PART A [facility] [id number] Regional Medical [facility] Repository 288[address]Zkj: (860) [id number] [phone] () Date:2017-08-25 08/25/2017 Secondary NOT GIVENUNK [place] Insurance:SELF PAY Community [facility] Number: Effective Repository Date:2017-08-25 08/10/2017 Jessica S Primary Jessica S [place] [id number] Insurance:MEDICARE CrosbyDOB: Community [address] PART A [facility] [id number] Regional Medical [facility]ository 43812Foj: 419 [id number] [phone] () Date:2017-08-10 08/10/2017 Secondary PAMELA L [place] Insurance:UNITED HLTH CROSBYDOB: Community CARE [id number] Hospital Number: Repository [id number] Date:8084-47-34RA [facility] 394097JUOFATR, [place] [address]TP: 08/10/2017 Tertiary NOT GIVENUNK [place] Insurance:SELF PAY [facility] Number: Effective Repository Date:2017-08-10 08/10/2017 Jessica S Primary Jessica S [place] [id number] Insurance:MEDICARE CrosbyDOB: Community [address] PART A [facility] [id number] Regional Medical [facility] Number: Repository 369[address]Iue: 419 [id number] [phone] () Date:2017-08-10 08/10/2017 Secondary PAMELA L [place] Insurance:UNITED TH CROSBYDOB: [facility] CARE [id number] Hospital Number: Repository [id number] Date:9597-61-58JJ [facility] 182497QKVZZSR, [place] [address]SR: 08/10/2017 Tertiary NOT GIVENUNK [place] Insurance:SELF PAY [facility] Number: Effective Repository Date:2017-08-10 08/10/2017 Jessica S Primary Jessica S [place] [id number] Insurance:MEDICARE CrosbyDOB: Community [address] PART A [facility] [id number] Regional Medical [facility] Number: Repository 00827Zmi: 419 [id number] [phone] () Date:2017-08-10 08/10/2017 Secondary PAMELA L [place] Insurance:UNITED HLTH CROSBYDOB: Community CARE [id number] [id number] Hospital Number: Repository [id number] Date:6501-05-65FR [address]SFG, [place] [address]ZC: 08/10/2017 Tertiary NOT GIVENUNK [place] Insurance:SELF PAY [facility] Number: Effective Repository Date:2017-08-10 08/10/2017 Jessica S Primary Jessica S Raul [id number] Insurance:MEDICARE CrosbyDOB: [address] [facility] [id number] Number[facility] Repository [address]Cil: 419 [id number] [phone] () Date:2017-08-10 08/10/2017 Secondary PAMELA L Raul Insurance:UNITED TH CROSBYDOB: Community CARE [id number] Hospital Number: Repository [id number] Date:7928-10-60PQ [address]NPTPNHP, [place] [address]BB: 08/10/2017 Tertiary NOT GIVENUNK [place] Insurance:SELF PAY [facility] Number: Effective Repository Date:2017-08-10 08/10/2017 Jessica S Primary Jessica S Raul [id number] Insurance:MEDICARE CrosbyDOB: [address] [facility] [id number] Number[place] Repository [address]Ulc: 419 [id number] [phone] () Date:2017-08-10 08/10/2017 Secondary PAMELA L Raul Insurance:UNITED HLTH CROSBYDOB: Community CARE [id number] Hospital Number: Repository [id number] Date:9755-56-43MN [address]YGTNDMC, [place] [address]PC: 08/10/2017 Tertiary NOT GIVENUNK Raul Insurance:SELF PAY [facility] Number: Effective Repository Date:2017-08-10 08/10/2017 Jessica S Primary Jessica S [place] [id number] Insurance:MEDICARE CrosbyDOB: Community [address] [facility] [id number] Repository [address]Kch: 419 [id number] [phone] () Date:2017-08-10 08/10/2017 Secondary PAMELA L Raul Insurance:UNITED HLTH CROSBYDOB: Community CARE [id number] Hospital Number: Repository [id number] Date:0322-94-07VG [address]GPNCOZP, [place] [address]RA: 08/10/2017 Tertiary NOT GIVENUNK Raul Insurance:SELF PAY [facility] Number: Effective Repository Date:2017-08-10 08/10/2017 Jessica S Primary Jessica S [place] [id number] Insurance:MEDICARE CrosbyDOB: Community [address] [facility] [id number]ository [address]Yca: 419 [id number] [phone] () Date:2017-08-10 08/10/2017 Secondary PAMELA L [place] Insurance:UNITED TH CROSBYDOB: [facility] CARE [id number] Hospital Number: Repository [id number] Date:6559-91-59TY [address]ALXEZNK, [place] [address]GP: 08/10/2017 Tertiary NOT GIVENUNK [place] Insurance:SELF PAY [facility] Number: Effective Repository Date:2017-08-10 08/10/2017 Jessica S Primary Jessica S Raul [id number] Insurance:MEDICARE CrosbyDOB: [address] [facility] [id number]ository [address]Hhh: 419 [id number] [phone] () Date:2017-08-10 08/10/2017 Secondary PAMELA L Raul Insurance:UNITED TH CROSBYDOB: Community CARE [id number] Hospital Number: Repository [id number] Date:9657-93-81ZG [address]NWROSSM, [place] [address]DJ: 08/10/2017 Tertiary NOT GIVENUNK Raul Insurance:SELF PAY [facility] Effective Rep[facility] Date:2017-08-10 08/10/2017 Jessica S Primary Jessica S Raul [id number] Insurance:MEDICARE CrosbyDOB: [address] [facility] [id number]ository [address]Hnm: 419 [id number] [phone] () Date:2017-08-10 08/10/2017 Secondary PAMELA L Raul Insurance:UNITED HLTH CROSBYDOB: Community CARE [id number] Hospital Number: Repository [id number] Date:6574-40-70WS [address], [place] [address]WL: 08/10/2017 Tertiary NOT GIVENUNK Raul Insurance:SELF PAY [facility] Number: Effective Repository Date:2017-08-10 08/10/2017 Jessica S Primary Jessica S [place] [id number] Insurance:MEDICARE CrosbyDOB: [address] [facility] [id number] Repository [address]Vym: 419 [id number] [phone] () Date:2017-08-10 08/10/2017 Secondary PAMELA L Raul Insurance:UNITED HLTH CROSBYDOB: Community CARE [id number] Hospital Number: Repository [id number] Date:3174-19-40[place] [address], [place] [address]EW: 08/10/2017 Tertiary NOT GIVENUNK Raul Insurance:SELF PAY [facility] Number: Effective Repository Date:2017-08-10 08/10/2017 Jessica S Primary Jessica S Raul [id number] Insurance:MEDICARE CrosbyDOB: [address] [facility] [id number] Number[place] Repository [id number]: 419 [id number] [phone] () Date:2017-08-10 08/10/2017 Secondary PAMELA L [place] Insurance:UNITED TH CROSBYDOB: Community CARE [id number] Hospital Number: Repository [id number] Date:2038-04-09PN [facility] [address]TP[place], [place] [address]GB: 08/10/2017 Tertiary NOT GIVENUNK Raul Insurance:SELF PAY [facility] Number: Effective Repository Date:2017-08-10 08/10/2017 Jessica S Primary Jessica S [place] [id number] Insurance:MEDICARE CrosbyDOB: [address] [facility] [id number] Number[place] Repository [address]Rqt: 419 [id number] [phone] () Date:2017-08-10 08/10/2017 Secondary PAMELA L Raul Insurance:UNITED TH CROSBYDOB: [facility] CARE [id number] Hospital Number: Repository [id number] Date:4887-55-49EC [address]K, [place] [address]FB: 08/10/2017 Tertiary NOT GIVENUNK Raul Insurance:SELF PAY [facility] Number: Effective Repository Date:2017-08-10 08/10/2017 Jessica S Primary Jessica S [place] [id number] Insurance:MEDICARE CrosbyDOB: [address] [facility] [id number] [place] Number: Repository [address]Sgf: 419 [id number] [phone] () Date:2017-08-10 08/10/2017 Secondary PAMELA L Raul Insurance:UNITED TH CROSBYDOB: Community CARE [id number] Hospital Number: Repository [id number] Date:3970-62-98LZ [address]SSSGEVP, [place] [address]UB: 08/10/2017 Tertiary NOT GIVENUNK Raul Insurance:SELF PAY [facility] Number: Effective Repository Date:2017-08-10 08/10/2017 Jessica S Primary Jessica S Raul [id number] Insurance:MEDICARE CrosbyDOB: Community [facility] PART [facility] [id number] Number[place] Repository [address]Kru: (966) [id number] [phone] () Date:2017-08-10 08/10/2017 Secondary PAMELA L [place] [facility] CROSBYDOB: Community CARE [id number] Hospital Number: Repository [id number] Date:0007-86-58PH [address]BVTCARS, [place] [address]LL: 08/10/2017 Tertiary NOT GIVENUNK [place] Insurance:SELF PAY [facility] Number: Effective Repository Date:2017-08-10
== END ==
PROVIDERS: Family Provider Family Medicine; PCP Family Medicine; Visit Provider Internal Medicine Nephrology
DX: N17.9 Acute kidney failure, unspecified (principal); R31.21 Asymptomatic microscopic hematuria
CPT/HCPCS: 36415; 80069

== ENCOUNTER → 2018-06-13 14:03 | Outpatient (CLI) | payer MEDICARE, OTHER, SELFPAY ==
[2018-06-13 14:06] LABS: Bacteria 0 SEEN /hpf (None Seen); Mucous, Urine 0 SEEN /hpf (<or=2+); Red Blood Cells-Urine 0 SEEN /hpf (0-5)
[2018-06-13 16:07] LABS: Color, Urine Yellow (Yellow); Glucose, Dipstick 1000 mg/dl (Normal); Ketone-Dipstick Negative (Negative); Leukocyte Esterase-Dipstick 100 /ul (Negative); Nitrite-Dipstick Negative (Negative); Occult Blood-Urine Negative /ul (Negative); Protein-Dipstick Negative (Negative); Urine Bilirubin Dipstick Negative (Negative); Urine Clarity Clear (Clear); Urine Urobilinogen Normal (Normal)
[2018-06-13 16:08] LABS: Squamous Epithelial Cells - UA 0-5 SEEN /hpf (5-10); White Blood Cells 0-5 SEEN /hpf (0-5)
== END ==
PROVIDERS: Family Provider Family Medicine; PCP Family Medicine; Visit Provider Family Medicine
DX: R30.0 Dysuria (principal)
CPT/HCPCS: 81001; 87077; 87086; 87088; 87186

== ENCOUNTER → 2018-08-25 16:26 | Outpatient (CLI) | payer MEDICARE, OTHER, SELFPAY ==
[2018-08-25 15:25] VITALS: BMI 43.7
[2018-08-25 17:47] LABS: ALB/GLOB Ratio 0.9 RATIO (0.9-2.4); AST(SGOT) 23 U/L (15-37); Alanine Aminotransfer ALT/SGPT 27 U/L (13-56); Albumin, Serum 3.7 g/dL (3.2-5.0); Alkaline Phosphatase 79 U/L (45-117); Anion Gap 7 (5-15); BUN 21 mg/dL (7-18); BUN/Creat Ratio 20.4 RATIO (10-20); Calcium,Total 8.8 mg/dL (8.5-10.1); Chloride 108 mmol/L (98-107); Creatinine, Serum 1.03 mg/dL (0.55-1.02); EST Glomerular Filtration Rate 56 mL/min (>60); Est Glom Filt Rate - Afr Amer 68 mL/min (>60); Globulin 3.9 g/dL (2.2-4.2); Glucose 156 mg/dL (74-106); Potassium 4.2 mmol/L (3.5-5.1); Protein, Total 7.6 g/dL (6.4-8.2); Sodium Level 142 mmol/L (136-145); T4 Free Direct 0.83 ng/dL (0.76-1.46); Thyroid Stim Hormone (TSH) 9.73 uIU/mL (0.358-3.74)
== END ==
PROVIDERS: Family Provider Family Medicine; PCP Family Medicine; Referring Provider Physician Assistant Medical; Visit Provider Physician Assistant Medical
DX: I50.42 Chronic combined systolic (congestive) and diastolic (congestive) heart failure (principal); I25.10 Atherosclerotic heart disease of native coronary artery without angina pectoris; I48.0 Paroxysmal atrial fibrillation; I43 Cardiomyopathy in diseases classified elsewhere; E78.5 Hyperlipidemia, unspecified; I10 Essential (primary) hypertension
CPT/HCPCS: 80053; 84439; 84443

== ENCOUNTER → 2018-09-06 11:17 | Outpatient (CLI) | payer MEDICARE, OTHER, SELFPAY ==
[2018-08-25 15:25] VITALS: BMI 43.7
[2018-09-06 12:41] LABS: Cholesterol 148 mg/dL (200); High Density Lipoprotein 35 mg/dL; Triglycerides 215 mg/dL; Very Low Density Lipoprotein 43 mg/dL (5-40)
== END ==
PROVIDERS: Family Provider Family Medicine; PCP Family Medicine; Referring Provider Physician Assistant Medical; Visit Provider Physician Assistant Medical
DX: I25.10 Atherosclerotic heart disease of native coronary artery without angina pectoris (principal); I48.0 Paroxysmal atrial fibrillation; I43 Cardiomyopathy in diseases classified elsewhere; E78.5 Hyperlipidemia, unspecified; I10 Essential (primary) hypertension
CPT/HCPCS: 36415; 80061

== ENCOUNTER → 2018-12-22 10:39 | Outpatient (CLI) | payer MEDICARE, OTHER, SELFPAY ==
[2018-08-25 15:25] VITALS: BMI 43.7
[2018-12-22 11:51] LABS: Albumin, Serum 3.5 g/dL (3.2-5.0); BUN 18 mg/dL (7-18); BUN/Creat Ratio 16.4 RATIO (10-20); Calcium,Total 9.1 mg/dL (8.5-10.1); Chloride 109 mmol/L (98-107); EST Glomerular Filtration Rate 52 mL/min (>60); Est Glom Filt Rate - Afr Amer 63 mL/min (>60); Glucose 137 mg/dL (74-106); Phosphorus 3.9 mg/dL (2.5-4.9); Potassium 4.4 mmol/L (3.5-5.1); Sodium Level 141 mmol/L (136-145)
== END ==
PROVIDERS: Family Provider Family Medicine; PCP Family Medicine; Referring Provider Internal Medicine Nephrology; Visit Provider Internal Medicine Nephrology
DX: N17.9 Acute kidney failure, unspecified (principal)
CPT/HCPCS: 36415; 80069

== ENCOUNTER → 2020-01-11 | Outpatient (CLI) | payer MEDICARE, OTHER, SELFPAY ==
[2019-03-27 09:41] VITALS: BMI 43.9
[2020-01-11 15:58] LABS: Hematocrit 42.5 % (37-47); Hemoglobin 13.9 g/dL (12.0-15.0); Mean Corp Hgb Conc 32.7 g/dL (32-36); Mean Corpuscular Hgb 30.3 pg (27.0-32.0); Mean Corpuscular Volume 92.6 fL (81-99); Platelet Count 233 K/mm3 (150-450); RBC Distribution Width CV 13.1 % (11.6-14.6); RBC Distribution Width SD 44.1 fl (35.1-43.9); Red Blood Count 4.59 M/mm3 (4.2-5.4); White Blood Count 7.8 K/mm3 (4.4-11.0)
[2020-01-11 16:29] LABS: Albumin, Serum 3.4 g/dL (3.2-5.0); BUN 19 mg/dL (7-18); BUN/Creat Ratio 16.8 RATIO (10-20); Calcium,Total 8.6 mg/dL (8.5-10.1); Chloride 107 mmol/L (98-107); Creatinine, Serum 1.13 mg/dL (0.55-1.02); EST Glomerular Filtration Rate 50 mL/min (>60); Est Glom Filt Rate - Afr Amer 61 mL/min (>60); Glucose 199 mg/dL (74-106); Phosphorus 2.8 mg/dL (2.5-4.9); Potassium 3.7 mmol/L (3.5-5.1); Sodium Level 141 mmol/L (136-145)
[2020-01-12 09:09] LABS: PTHIN 131.7 pg/mL (18.4-80.1)
== END | disposition home or self-care (01) ==
LOC: LAB 15:32
PROVIDERS: PCP Family Medicine; Referring Provider Internal Medicine Nephrology; Visit Provider Internal Medicine Nephrology
DX: N17.9 Acute kidney failure, unspecified (principal)
CPT/HCPCS: 36415; 80069; 83970; 85027

== ENCOUNTER 2020-08-14 09:23 | Inpatient (IN) | payer MEDICARE, OTHER, SELFPAY ==
[2019-03-27 09:41] VITALS: BMI 43.9
[2020-08-14] VITALS (26 sets, daily range): BP systolic 80–154; BP diastolic 54–116; PULSE 85–139; RESP 13–30; TEMP 36.6–36.8; O2SAT 93–99; BMI 42.0; BMI 42.1
--- NOTE | 2020-08-14 09:44 | EKG12_ITS ---
Test Reason : TACHY Blood Pressure : / mmHG Vent. Rate : 134 BPM Atrial Rate : 150 BPM P-R Int : 000 ms QRS Dur : 106 ms QT Int : 360 ms P-R-T Axes : 000 011 068 degrees QTc Int : 537 ms Atrial fibrillation with rapid ventricular response Abnormal ECG Confirmed by BENITA BARRERA, GERI ([id number]), hard hat diver MAT BAEZA ([id number]) on 08/18/2020 2:11:23 PM Referred By: XIOMARA/LEYLA Confirmed By:GERI JOY MD
--- NOTE | 2020-08-14 09:45 | ED.VISSUMM ---
- ER Visit Summary Date of Service: 08/14/20 Chief Complaint: [Not feeling well and nausea] History of Present Illness: The patient is a 70 F [presents to the emergency department stating that she is not been feeling well for about a week. Patient states that she is been get nauseated with standing and walking. Last evening she checked her blood pressure and noted that she may be in A. fib. Patient has history of paroxysmal A. fib. Patient is on Eliquis. She denies any chest pain. She does complain of easily becoming fatigued. Patient also developed a little bit of a cough yesterday for which she used her 's albuterol which seemed to help. She denies any fever. She denies Covid exposures and she states that she has not had Covid and has not had the Covid vaccine. Patient denies recent travel or surgery. No history of PE or DVT.] Physical Examination: [HEENT-PERRLA, EOMI. Cranial nerves II through XII grossly intact. TMs clear. Mucous membranes moist. No adenopathy. Cardiovascular-irregularly irregular with no murmurs auscultated. Heart is tachycardic with a rate in the 130s. Lungs-clear to auscultation, chest wall stable without crepitus or subcu emphysema Abdomen-normoactive bowel sounds, soft, nontender, no rebound or rigidity, no peritoneal signs. Extremities-intact ?4, normal range of motion, normal pulses, atraumatic] Test Results: [EKG obtained arrival showed atrial fibrillation with a rapid ventricular response of 134 bpm.] When compared with prior EKG from September 2017 it was noted that patient was in A. fib at that time with a heart rate of 96. No significant changes noted. CBC with differential showing a 7.1, hemoglobin 14, hematocrit 43, placed 218. Chemistries unremarkable. Troponin is less than 0.015. COVID-19 test was negative. Chest x-ray 1 view obtained interpreted by myself as no acute disease process. Radiology in agreement. Emergency Department Course and Treatment: [Line established. Patient placed on a threat monitoring analyst. Patient was started on Cardizem initially given a 20 mg bolus which only reduced her heart rate into the 120s. Patient was then given a 25 mg IV bolus and started on a Cardizem drip.] Treatment Plan: [Admit] Disposition: [Admit] Impression: [Isaura silva RVR-uncontrolled] This note was generated with [employer] dictation software. It may contain incorrect words, spelling, and punctuation that were not noted in review of the chart prior to signing ED Disposition - Plan for ED Patient: Referrals: Yaya Centeno DO [Primary Care Provider] -
[2020-08-14 09:50] LABS: Absolute Lymphocyte Count 1.45 X10^3/uL (0.83-4.51); Absolute Neutrophil Count 5.1 X10^3/uL (2.0-7.7); Basophil# 0.05 X10^3/uL; Basophil% 0.7 % (0-1); Eosinophil# 0.09 X10^3/uL; Eosinophils% 1.3 % (0-5); Lymphocyte # 1.45 X10^3/ul (4.0); Lymphocyte % 20.5 % (19-41); Mean Corp Hgb Conc 32.6 g/dL (32-36); Mean Corpuscular Hgb 30.3 pg (27.0-32.0); Mean Corpuscular Volume 93.1 fL (81-99); Mean Platelet Vol. 10.2 fl (6.2-12.0); Monocyte# 0.37 X10^3/uL; Monocyte% 5.2 % (0-10); NRBC Flagged by Analyzer 0 % (0-5); Neutrophil # 5.09 X10^3/uL (2.7-7.7); Neutrophil % 71.7 % (47-70); Platelet Count 218 K/mm3 (150-450); RBC Distribution Width CV 13.2 % (11.6-14.6); Red Blood Count 4.62 M/mm3 (4.2-5.4); White Blood Count 7.1 K/mm3 (4.4-11.0)
--- NOTE | 2020-08-14 09:50 | RAD_ITS ---
STUDY: X-RAY CHEST REASON FOR EXAM: Female, 70 years old. cough TECHNIQUE: Single AP portable view of the chest. COMPARISON: 09/22/2017 FINDINGS: Status post median sternotomy. The lungs are clear and expanded. There is no demonstrated pleural abnormality. There is moderate cardiac enlargement. Normal mediastinum and álvaro. Normal visualized pulmonary arteries. Normal visualized aortic arch and descending thoracic aorta. Normal visualized thoracic spine. Normal visualized ribs, clavicles, and shoulders. There is no demonstrated abnormality of the visualized soft tissue structures of the upper abdomen. RAD/Chest 1 View (Portable) IMPRESSION: No active disease. Electronically Signed: Darci Tompkisn MD at 10:02 EDT Tel , Service support ,
[2020-08-14] MEDS: dilTIAZem 25 MG/5 ML Vial 20 MG IV BOLUS (09:54)
[2020-08-14 10:06] LABS: Anion Gap 6 (5-15); BUN 14 mg/dL (7-18); BUN/Creat Ratio 14.1 RATIO (10-20); Calcium,Total 8.9 mg/dL (8.5-10.1); Chloride 106 mmol/L (98-107); EST Glomerular Filtration Rate 58 mL/min (>60); Est Glom Filt Rate - Afr Amer 71 mL/min (>60); Estimated Creatinine Clearance 42.07 ml/min; Glucose 168 mg/dL (74-106); Potassium 3.9 mmol/L (3.5-5.1); Sodium Level 138 mmol/L (136-145)
[2020-08-14] MEDS: 0.9% Normal Saline 1,000 ML 150 ML IV (10:10)
[2020-08-14] MEDS: dilTIAZem 25 MG/5 ML Vial IV BOLUS (10:17)
--- NOTE | 2020-08-14 10:59 | PCM.HP.STD ---
Problem List (1) Atrial fibrillation with RVR Status: Acute (2) Claudication Status: Acute (3) Atherosclerosis of coronary artery of poarch heart without angina pectoris Status: Chronic Qualifiers: Coronary Disease-Associated Artery/Lesion type: poarch artery Qualified Code(s): I25.10 - Atherosclerotic heart disease of poarch coronary artery without angina pectoris (4) Old myocardial infarction Status: Chronic (5) H/O coronary artery bypass surgery Status: Resolved Comment: CABG x [address] Rebolledo (6) Paroxysmal atrial fibrillation Status: Chronic (7) Cardiomyopathy in diseases classified elsewhere Status: Chronic (8) Chronic combined systolic and diastolic CHF (congestive heart failure) Status: Chronic (9) Secondary pulmonary arterial hypertension Status: Chronic (10) Essential (primary) hypertension Status: Chronic (11) Hyperlipidemia Status: Chronic Qualifiers: Hyperlipidemia type: pure hypercholesterolemia Qualified Code(s): E78.00 - Pure hypercholesterolemia, unspecified; E78.0 - Pure hypercholesterolemia History of Present Illness Date of Admission: 08/14/20 Chief Complaint: Abnormal rhythm on the monitor at home. The patient is a 70 year old F with multiple cardiac history as mentioned above came to ER with abnormal heart rhythm on her monitor at home. She has history of paroxysmal A. fib and required cardioversion twice and normally stay in sinus rhythm. She has portable BP and heart monitor at home which showed irregular and elevated heartbeat admit to come to ER. Patient also has been feeling weak, shortness of breath on exertion, nauseated with standing and walking. In triage heart rate was 135/min. [] Patient was found to be in A. fib with RVR in ER and had 25 mg and then 20 mg IV Cardizem bolus distal heart rate was 120s to 130s therefore started on Cardizem drip. Patient was also treated symptomatically for nausea. Her EKG shows A. fib with RVR at 134 bpm. QTC 537 ms. A previous EKG in September 2017 also showed A. fib at 96 beats per. QTC was 535 ms. Chest x-ray individually reviewed?looks hypoventilated and cephalization but reported no active disease Past Medical History Past Medical History (Chronic Problems): Chronic Problems (Last Reviewed 03/27/19 @ 13:[address] Tristian Hall MD) Atherosclerosis of coronary artery of poarch heart without angina pectoris (Chronic) Old myocardial infarction (Chronic) Paroxysmal atrial fibrillation (Chronic) Cardiomyopathy in diseases classified elsewhere (Chronic) Chronic combined systolic and diastolic CHF (congestive heart failure) (Chronic) Secondary pulmonary arterial hypertension (Chronic) Essential (primary) hypertension (Chronic) Hyperlipidemia (Chronic) Medical History: Medical History (Last Reviewed 03/27/19 @ 13:[address] Tristian Hall MD) Atherosclerosis of coronary artery of poarch heart without angina pectoris (Chronic) I25.10 Old myocardial infarction (Chronic) I25.2 Paroxysmal atrial fibrillation (Chronic) I48.0 Cardiomyopathy in diseases classified elsewhere (Chronic) I43 Chronic combined systolic and diastolic CHF (congestive heart failure) (Chronic) I50.42 Secondary pulmonary arterial hypertension (Chronic) I27.21 Essential (primary) hypertension (Chronic) I10 Hyperlipidemia (Chronic) E78.5 Morbid obesity E66.01 Obstructive sleep apnea G47.33 Type 2 diabetes mellitus E11.9 Abscess of left lower extremity L02.416 Allergies No Known Allergies Allergy (Verified 08/14/20 09:25) Home Medications: Ambulatory Orders Medication Instructions Recorded Albuterol Inhaler [Ventolin Hfa] 2 puff INHALATION 4X/DAY PRN PRN 12/19/13 insulin glargine 100 unit/mL (3 40 unit SC DAILY 30 Days #9 ml 03/06/18 mL) subcutaneous pen simvastatin 20 mg tablet 20 mg PO QHS 03/06/18 glipizide 5 mg tablet 10 mg PO DAILY 30 Days #30 tab 08/25/18 mirabegron 25 mg tablet,extended PO 30 Days #30 tab 08/25/18 release 24 hr amiodarone 200 mg tablet 100 mg PO DAILY #45 tab 11/13/19 furosemide 40 mg tablet 40 mg PO QAM #90 tab 11/13/19 apixaban 5 mg tablet 5 mg PO BID #180 tab 11/19/19 diltiazem HCl 120 mg 120 mg PO DAILY #90 cap 02/05/20 capsule,extended release 24 hr Irbesartan 300 mg PO DAILY 08/14/20 Metoprolol Tartrate 25 mg PO BID 08/14/20 Surgical History: Surgical History (Last Reviewed 03/27/19 @ 13:[address] 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 Tristian Hall MD) Mother Hypertension Brother Heart disease History Items: Cancer Maternal Family History: Family History (Last Reviewed 03/27/19 @ 13:[address] Tristian Hall MD) Mother Hypertension Brother Heart disease History Items: COPD Review of Systems Constitutional: Reports: Malaise. Denies: Chills, Fever, Weight Change HEENT: Reports: Difficulty Hearing. Denies: Head Aches, Sinus Congestion, Sinus Drainage Cardiovascular: Denies: Chest Pain, Chest Pressure, Chest Tightness, Palpitations Respiratory: Reports: Shortness of breath upon exertion. Denies: Cough, Shortness of breath at rest, Sputum production Gastrointestinal: Reports: Nausea. Denies: Abdominal Pain, Constipation, Diarrhea, Dyspepsia, Hematemesis, Hematochezia, Melena, Vomiting Genitourinary: Denies: Dysuria, Frequency, Hesitancy Musculoskeletal: Reports: Joint Pain. Denies: Joint Tenderness Skin: Denies: Rash, Wounds Neurological: Denies: Numbness, Tingling, Focal weakness Psychiatric: Reports: Anxiety. Denies: Depression, Homicidal Ideations, Suicidal Ideations Hematologic/ Lymphatic: Denies: Easy Bruising, Easy Bleeding VTE Information - Inpt Only VTE Present on Admission: No VTE Mechan Device Prophylaxis: None VTE Pharm Prophylaxis ordered?: No Reason prophylaxis not ordered:: Procedure Not Indicated - Already on Eliquis Patient Problems: Active and Suspected Problems (Last Reviewed 03/27/19 @ 13:[address] Tristian Hall MD) Atrial fibrillation with RVR (Acute) Claudication (Acute) Objective: General: Alert, Oriented x3, Cooperative HEENT: Atraumatic, PERRLA, EOMI, Normocephalic Oral: No Gingival or Mucosal Lesions/ Ulcerations Neck: Supple, No JVD, Negative Carotid Bruits Lungs: Air entry diminished in bilateral lung bases. No crepitation/rhonchi Cardiovascular: CABG scar. A. fib with RVR Normal S1, Normal S2, No murmurs Abdomen: Bowel Sounds Present, Soft, Non Tender, Non-Distended : No renal angle tenderness. No suprapubic tenderness. Extremities: Chronic bilateral 2+ pitting leg edema, Capillary Refill Less than 3 Seconds Skin: No rashes, No breakdown Musculoskeletal: Bilateral knee and hip joint arthritis no Tenderness to Palpation of Joints or Extremities Neurological: Cranial nerves II-XII grossly intact, Deep Tendon Reflexes 2+/4 and Symmetrical, Neuro grossly intact Psych/Mental Status: Normal Affect, Appropriate. - Physical Exam Vitals/I&O's: Vital Signs Temp Pulse Resp BP Pulse Ox 97.9 F 139 H 30 H 154/116 H 96 08/14/20 09:26 08/14/20 09:37 08/14/20 09:37 08/14/20 09:26 08/14/20 09:37 Oxygen Delivery Method Room Air Weight: 236 lb 15.951 oz Body Mass Index (BMI) 42.0 Finger Stick Blood Glucose 120 Microbiology Past 72 Hours 08/14/20 10:14 Mucosa - Nose SARS-CoV-2 Antigen (Rapid) - Final Laboratory Results 08/14/20 09:43: WBC 7.1, RBC 4.62, Hgb 14.0, Hct 43.0, MCV 93.1, MCH 30.3, MCHC 32.6, RDW Std Deviation 45.0 H, RDW Coeff of Mary 13.2, Plt Count 218, MPV 10.2, Immature Gran % (Auto) 0.600, Neut % (Auto) 71.7 H, Lymph % (Auto) 20.5, Nuckolls % (Auto) 5.2, Eos % (Auto) 1.3, Baso % (Auto) 0.7, Absolute Neuts (auto) 5.1, Absolute Lymphs (auto) 1.45, Nucleated RBC % 0 08/14/20 09:43: Sodium 138, Potassium 3.9, Chloride 106, Carbon Dioxide 26.0, Anion Gap 6, BUN 14, Creatinine 1.00, Estim Creat Clear Calc 42.07, Est GFR (MDRD) Af Amer 71, Est GFR (MDRD) Non-Af 58 L, BUN/Creatinine Ratio 14.1, Glucose 168 H, Calcium 8.9, Troponin I < 0.015 Current Medications Acetaminophen (Acetaminophen 325 Mg Tablet) 650 mg PO Q6H PRN PRN PRN Reason: Pain Score 1-10/Temp > 100.7 F Al Hydroxide/Mg Hydroxide (Mag Hydrox/Al Hydrox/Simeth 30 Ml Udc) 30 ml PO Q6H PRN PRN PRN Reason: Gastric Burning Albuterol Sulfate (Albuterol 2.5 Mg/3 Ml Vial.Neb.) 2.5 mg INHALATION Q2H PRN PRN PRN Reason: SOB/Wheezing Bisacodyl (Bisacodyl 5 Mg Tablet) 10 mg PO DAILY PRN PRN PRN Reason: Constipation Sodium Chloride () 1,000 mls @ 150 mls/hr IV .Q6H40M YVON Last Admin: 08/14/20 10:10 Dose: 150 mls/hr Documented by: Diltiazem HCl 125 mg/ Dextrose 125 mls @ 10 mls/hr IV .[id number] YVON; Protocol Sodium Chloride () 1,000 mls @ 100 mls/hr IV .Q10H YVON Stop: 08/14/20 20:54 Morphine Sulfate (Morphine 2 Mg/Ml Syringe) 2 mg IV Q3H PRN PRN PRN Reason: Pain Score 6-10 Nitroglycerin (Nitroglycerin (Inpatient Use) 0.4 Mg Tab.Subl) 0.4 mg SL Q5M PRN PRN Reason: CARDIAC/CHEST PAIN Oxycodone HCl (Oxycodone 5 Mg Tablet) 5 mg PO Q4H PRN PRN PRN Reason: Pain Score 4-5 Polyethylene Glycol (Polyethylene Glycol 3350 17 Gm Packet) 17 gm PO DAILY [facility] Prochlorperazine Edisylate (Prochlorperazine 10 Mg/2 Ml Vial) 5 mg IV Q4H PRN PRN PRN Reason: Breakthrough Nausea/Vomiting Senna/Docusate Sodium (Senna/Docusate Sodium 1 Tablet) 2 tablet PO BID PRN PRN PRN Reason: Constipation Assessment/Plan All Active Problems (Last Reviewed 03/27/19 @ 13:[address] Tristian Hall MD) Atrial fibrillation with RVR (Acute) Claudication (Acute) H/O coronary artery bypass surgery (Resolved 2012) The patient is a 70 year old F with multiple cardiac history as mentioned above came to ER with abnormal heart rhythm on her monitor at home and found to be A. fib with RVR EKG shows A. fib with RVR at 134 bpm. QTC 537 ms. A previous EKG in September 2017 also showed A. fib at 96 beats per. QTC was 535 ms. Chest x-ray individually reviewed?looks hypoventilated and cephalization but reported no active disease 1. Paroxysmal A. fib with RVR exact precipitating factor unclear: Patient is being admitted in PCU. On Cardizem drip at 10 mg/h, titrate to keep heart rate less than 100/min. Resume metoprolol tartrate, amiodarone and diltiazem ER 120 mg daily. Continue Eliquis 5 mg twice daily. Cycle cardiac enzymes. 2. Chronic systolic and diastolic combined heart failure: Patient had echo in February 2018, EF 45%, RVSP 40 mmHg suggestive of chronic systolic and diastolic heart failure. Chest x-ray does not show pulmonary edema. BNP elevated. Resume home dose of Lasix. Currently blood pressure 118/59. Repeat echo ordered. The estimated ejection fraction is 45 %. The left atrium is mildly enlarged. Trivial mitral valve insufficiency. Trivial tricuspid valve insufficiency. Mild (1+) pulmonic valve insufficiency. Borderline enlarged aortic root. Right ventricular systolic pressure estimated to be 40 mmHg. There is evidence of diastolic dysfunction. Bubble contrast study negative for right to left interatrial shunt. 3. Coronary artery status post CABG: No chest pain or acute shortness of breath. 4. Diabetes mellitus type 2: Glucose in acceptable limit. Accu-Chek before meals and at bedtime. Continue glipizide and home dose of Lantus. Accu-Cheks and cover with milk sliding scale. 5. Other comorbidities include hypertension, secondary pulmonary hypertension, dyslipidemia: Home medication reconciliation done Living will/advanced directive/end of life care: Patient does not have living will or advanced directive. Her is power of contract attorney for health. After discussion of benefits/risks procedures involved with full code, DNR CC arrest and DNR CC, the patient opted for full code Patient does want artificial life support including intubation, tube feed, ventilator and/chest compression, central venous catheter, vasopressor and DC shock if needed Total time spent in [id number] encounter in discussion of advanced directive 16 minutes. Clinical Impression(s) from Imaging Studies Chest X-Ray 08/14/20 09:50 IMPRESSION: No active disease. Inpatient E&M: 49105 Init Hosp L3 Procedures: 70417 Advncd Care Plan 30 Min
[2020-08-14 11:20] LABS: Magnesium 2.3 mg/dL (1.6-2.6); Phosphorus 2.9 mg/dL (2.5-4.9)
[2020-08-14] MEDS: 0.9% Normal Saline 1,000 ML 100 ML IV (11:50)
--- NOTE | 2020-08-14 12:16 | ECHOCS_ITS ---
Reason For Study: AFIB, HEART FAILURE Procedure This was a 2D Doppler, Color Flow transthoracic echocardiogram. The study was technically difficult. Due to body habitus. Contrast injection was performed. Exam performed portable in patient room. Left Ventricle Normal LV size. Mild concentric left ventricular hypertrophy. The estimated ejection fraction is 45 %. Mid-anteroseptal : Hypokinetic. Mid-Anterior : Hypokinetic. There are regional wall motion abnormalities as specified. Right Ventricle Normal RV size. Normal systolic function. Atria The left atrium is mildly enlarged. Normal right atrium. Tricuspid Valve Normal tricuspid valve. Mild tricuspid valve insufficiency. Pulmonary artery systolic pressure is 28 mmHg. Great Vessels Normal aortic root. Pericardium/Pleural No pericardial effusion. Medication Diluted definity 4.0ml given slow IV push to enhance endocardial definition. MMode/2D Measurements & Calculations LVIDd: 4.4 cm IVSd: 1.3 cm Ao root diam: 3.4 cm LVIDs: 2.8 cm LVPWd: 1.2 cm FS: 36.5 % LAV(MOD-bp): 78.6 ml LA dimension(2D): 4.4 cm LA A4 area: 24.0 cm2 LAV(MOD-bp) Indexed: 37.8 ml/m2 LAV(MOD-sp2): 78.0 ml LAV(MOD-sp4): 75.5 ml RA A4 area: 18.1 cm2 Doppler Measurements & Calculations MV E max alvaro: 105.3 cm/sec Ao V2 max: 96.0 cm/sec LV V1 max: 74.4 cm/sec Ao max P.7 mmHg LV V1 max P.2 mmHg PA V2 max: 87.0 cm/sec TR max alvaro: 247.5 cm/sec TR max P.5 mmHg ECHO/Echo Complete W/ Contrast Interpretation Summary Normal LV size. The estimated ejection fraction is 45 %. Mild concentric left ventricular hypertrophy. There are regional wall motion abnormalities as specified. Ordering Physician: Tommie Benedict Referring Physician: Yaya Centeno Performed By: Emely Mejias, NADINE, RVT
[2020-08-14] MEDS: Amiodarone 200 MG Tablet 100 MG PO (13:11)
[2020-08-14] MEDS: Metoprolol Tartrate 25 MG Tablet PO ×2 (13:12→21:22)
[2020-08-14] MEDS: Furosemide 40 MG Tablet PO (13:12)
[2020-08-14 16:56] LABS: Bedside Glucose 248 mg/dL (70-110)
[2020-08-14] MEDS: Insulin Lispro 100 UNIT/ML INSULN.PEN SC ×2 (17:02→21:22)
[2020-08-14] MEDS: Atorvastatin Calcium 10 MG Tablet PO (21:22)
[2020-08-14] MEDS: APIXABAN 5 MG TABLET PO (21:22)
[2020-08-14 21:40] LABS: Bedside Glucose 158 mg/dL (70-110)
[2020-08-15] VITALS (32 sets, daily range): BP systolic 96–136; BP diastolic 62–104; PULSE 85–117; RESP 16–28; TEMP 36.3–36.8; O2SAT 95–97
[2020-08-15 06:57] LABS: Anion Gap 4 (5-15); BUN 17 mg/dL (7-18); Calcium,Total 8.2 mg/dL (8.5-10.1); Chloride 108 mmol/L (98-107); Creatinine, Serum 1.06 mg/dL (0.55-1.02); EST Glomerular Filtration Rate 54 mL/min (>60); Est Glom Filt Rate - Afr Amer 66 mL/min (>60); Estimated Creatinine Clearance 37.94 ml/min; Glucose 176 mg/dL (74-106); Potassium 4.2 mmol/L (3.5-5.1); Sodium Level 138 mmol/L (136-145)
[2020-08-15] MEDS: Insulin Lispro 100 UNIT/ML INSULN.PEN SC ×3 (06:58→21:41)
[2020-08-15] MEDS: Metoprolol Tartrate 100 MG Tablet PO ×2 (09:27→21:39)
[2020-08-15] MEDS: Amiodarone 200 MG Tablet PO ×2 (09:27→21:39)
[2020-08-15] MEDS: APIXABAN 5 MG TABLET PO ×2 (09:28→21:39)
[2020-08-15] MEDS: glipiZIDE 10 MG Tablet PO (09:28)
[2020-08-15] MEDS: Mirabegron 25 MG TAB.ER.24H PO (09:31)
[2020-08-15] MEDS: Digoxin 250 MCG/ML Ampul IV (09:32)
--- NOTE | 2020-08-15 10:25 | CASEMGMT ---
RN CM Face to Face with patient for initial transition planning/care coordination assessment. RN CM introduced self and role at [facility]. Patient sitting in chair, alert and oriented. Patient willing to participate in assessment and is able to answer all questions appropriately. Care providers, pharmacy, and demographics verified. Patient wishes to discharge home, denies need for home health at this time. Patient states she has no further needs or concerns at this time. CM to follow for discharge planning needs that may arise. PCP: Taryn Specialists: Isabel potato chip frier Preferred Pharmacy: [facility] Insurance: [facility] Prescription Benefit: yes Living Will/HPOA: none LNOK: Living Arrangements: Patient lives with in a 1 story home with 2-3 steps to enter. Patient states she is independent at home. Transportation: self/ DME/HHC: Patient states she has raised toilet, walker, and nebulizer at home. Patient denies previous HHC or SNF. Disposition Plan: Patient to discharge home with family support and follow-up plans in place. Albina FISHER, RN, CM
[2020-08-15] MEDS: Furosemide 40 MG/4 ML Vial IV (11:16)
[2020-08-15 11:45] LABS: Bedside Glucose 219 mg/dL (70-110)
[2020-08-15 13:46] LABS: Bedside Glucose 211 mg/dL (70-110)
--- NOTE | 2020-08-15 16:17 | PN_ITS ---
Patient Problems: Active and Suspected Problems (Last Reviewed 03/27/19 @ 13:[address] Tristian Hall MD) Atrial fibrillation with RVR (Acute) Claudication (Acute) Reason for Visit: Follow-up for A. fib with RVR Objective: Patient heart rate is not controlled, still in the upper 100s and IV Cardizem 15 mg/h. Discussed with Dr. Hall. Patient does not have chest pain/pressure or tightness. No increased shortness of breath. Dyspnea on exertion improved. Physical exam general: Alert, Oriented x3, Cooperative HEENT: Atraumatic, PERRLA, EOMI, Normocephalic Oral: No Gingival or Mucosal Lesions/ Ulcerations Neck: Supple, No JVD, Negative Carotid Bruits Lungs: Air entry diminished in bilateral lung bases. No crepitation/rhonchi Cardiovascular: Irregular rate and rhythm Normal S1, Normal S2, No murmurs Abdomen: Bowel Sounds Present, Soft, Non Tender, Non-Distended : No renal angle tenderness. No suprapubic tenderness. Extremities: Chronic, mild bilateral ankle edema, Capillary Refill Less than 3 Seconds Skin: No rashes, No breakdown Musculoskeletal: No Tenderness to Palpation of Joints or Extremities Neurological: Cranial nerves II-XII grossly intact, Deep Tendon Reflexes 2+/4 and Symmetrical, Neuro grossly intact Psych/Mental Status: Normal Affect, Appropriate. Vitals/I&O's: Vital Signs Temp Pulse Resp BP Pulse Ox 97.4 F L 103 H 18 109/73 95 08/15/20 11:15 08/15/20 15:00 08/15/20 13:04 08/15/20 13:04 08/15/20 13:04 Oxygen Delivery Method Room Air Weight: 237 lb 7.005 oz Body Mass Index (BMI) 42.0 Finger Stick Blood Glucose 120 Intake and Output for Last 24 Hours 08/13/20 08/14/20 08/15/20 23:59 23:59 23:59 Intake Total 1637.00 / 1652.00 175.00 / 175.00 Balance 1637.00 / 1652.00 175.00 / 175.00 Microbiology Past 72 Hours 08/14/20 10:14 Mucosa - Nose SARS-CoV-2 Antigen (Rapid) - Final Laboratory Results 08/14/20 15:39: Troponin I < 0.015 08/14/20 16:49: POC Glucose 248 H 08/14/20 21:19: POC Glucose 158 H 08/15/20 05:20: Sodium 138, Potassium 4.2, Chloride 108 H, Carbon Dioxide 26.0, Anion Gap 4 L, BUN 17, Creatinine 1.06 H, Estim Creat Clear Calc 37.94, Est GFR (MDRD) Af Amer 66, Est GFR (MDRD) Non-Af 54 L, BUN/Creatinine Ratio 16.0, Glucose 176 H, Calcium 8.2 L 08/15/20 06:54: POC Glucose 211 H 08/15/20 11:12: POC Glucose 219 H Current Medications Acetaminophen (Acetaminophen 325 Mg Tablet) 650 mg PO Q6H PRN PRN PRN Reason: Pain Score 1-10/Temp > 100.7 F Al Hydroxide/Mg Hydroxide (Mag Hydrox/Al Hydrox/Simeth 30 Ml Udc) 30 ml PO Q6H PRN PRN PRN Reason: Gastric Burning Albuterol Sulfate (Albuterol 2.5 Mg/3 Ml Vial.Neb.) 2.5 mg INHALATION Q2H PRN PRN PRN Reason: SOB/Wheezing Amiodarone HCl (Amiodarone 200 Mg Tablet) 200 mg PO BID [facility] Last Admin: 08/15/20 09:27 Dose: 200 mg Documented by: Apixaban (Apixaban 5 Mg Tablet) 5 mg PO BID [facility] Last Admin: 08/15/20 09:28 Dose: 5 mg Documented by: Atorvastatin Calcium (Atorvastatin Calcium 10 Mg Tablet) 10 mg PO QHS [facility] Last Admin: 08/14/20 21:22 Dose: 10 mg Documented by: Bisacodyl (Bisacodyl 5 Mg Tablet) 10 mg PO DAILY PRN PRN PRN Reason: Constipation Dextrose (Dextrose 50%-Water 25 Gm/50 Ml Disp.Syrin) 0 gm IV X1 PRN; Protocol PRN Reason: Hypoglycemia Furosemide (Furosemide 40 Mg/4 Ml Vial) 40 mg IV DAILY [facility] Last Admin: 08/15/20 11:16 Dose: 40 mg Documented by: Glipizide (Glipizide 10 Mg Tablet) 10 mg PO DAILYCM [facility] Last Admin: 08/15/20 09:28 Dose: 10 mg Documented by: Glucagon (Glucagon 1 Mg/Ml Syringe) 1 mg IM .X1 PRN PRN Reason: Hypoglycemia Diltiazem HCl 125 mg/ Dextrose 125 mls @ 10 mls/hr IV .[id number] [facility]; Protocol Last Titration: 08/15/20 12:15 Dose: Infused Documented by: Insulin Glargine (Insulin Glargine 100 Units/Ml Pen) 40 units SC DAILY [facility] Last Admin: 08/15/20 09:32 Dose: 40 units Documented by: Insulin Human Lispro (Insulin Lispro 100 Unit/Ml Insuln.Pen) 0 unit SC ACHS [facility]; Protocol Last Admin: 08/15/20 11:16 Dose: 4 u Documented by: Metoprolol Tartrate (Metoprolol Tartrate 100 Mg Tablet) 100 mg PO BID [facility] Last Admin: 08/15/20 09:27 Dose: 100 mg Documented by: Mirabegron (Mirabegron 25 Mg Tab.Er.24h) 25 mg PO DAILY [facility] Last Admin: 08/15/20 09:31 Dose: 25 mg Documented by: Morphine Sulfate (Morphine 2 Mg/Ml Syringe) 2 mg IV Q3H PRN PRN PRN Reason: Pain Score 6-10 Nitroglycerin (Nitroglycerin (Inpatient Use) 0.4 Mg Tab.Subl) 0.4 mg SL Q5M PRN PRN Reason: CARDIAC/CHEST PAIN Oxycodone HCl (Oxycodone 5 Mg Tablet) 5 mg PO Q4H PRN PRN PRN Reason: Pain Score 4-5 Polyethylene Glycol (Polyethylene Glycol 3350 17 Gm Packet) 17 gm PO DAILY [facility] Last Admin: 08/15/20 09:29 Dose: Not Given Documented by: Prochlorperazine Edisylate (Prochlorperazine 10 Mg/2 Ml Vial) 5 mg IV Q4H PRN PRN PRN Reason: Breakthrough Nausea/Vomiting Senna/Docusate Sodium (Senna/Docusate Sodium 1 Tablet) 2 tablet PO BID PRN PRN PRN Reason: Constipation Sodium Chloride (0.9% Saline Lock 10 Ml Syringe) 10 - 40 ml IV UD PRN PRN Reason: SALINE FLUSH STROKE Vital Signs/Narrative: Vital Signs Pulse Resp BP Pulse Ox 08/15/20 15:00 103 H 08/15/20 13:04 98 18 109/73 95 08/15/20 12:45 88 20 H 128/99 H 95 Medical Necessity - Tobacco Use Smoking Status: Never smoker Assessment/Plan All Active Problems (Last Reviewed 03/27/19 @ 13:[address] Tristian Hall MD) Atrial fibrillation with RVR (Acute) Claudication (Acute) H/O coronary artery bypass surgery (Resolved 2012) The patient is a 70 year old F with multiple cardiac history as mentioned above came to ER with abnormal heart rhythm on her monitor at home and found to be A. fib with RVR EKG shows A. fib with RVR at 134 bpm. QTC 537 ms. A previous EKG in September 2017 also showed A. fib at 96 beats per. QTC was 535 ms. Chest x-ray individually reviewed?looks hypoventilated and cephalization but reported no active disease 1. Paroxysmal A. fib with RVR exact precipitating factor unclear probably mild heart failure exacerbation: Patient is being admitted in PCU. On Cardizem drip at 10 mg/h, titrate to keep heart rate less than 100/min. Resume metoprolol tartrate, amiodarone and diltiazem ER 120 mg daily. Continue Eliquis 5 mg twice daily. 08/15: Serial troponins negative. Serum magnesium, phosphorus and potassium normal range. Discussed with her clinical coder Dr. Hall. Digoxin 250 mcg IV 1 dose, metoprolol dose increased 200 mg twice daily, amiodarone dose increased to 200 mg twice daily. Currently on Cardizem drip 15 mg/h, titrate down. Discontinue Cardizem CD. 2. Acute on chronic systolic and diastolic combined heart failure: Patient had echo in February 2018, EF 45%, RVSP 40 mmHg suggestive of chronic systolic and diastolic heart failure. Chest x-ray does not show pulmonary edema but cephalization of upper lobes. Lasix 40 mg IV daily. BNP 396. 08/15: Repeat echo today reviewed Interpretation Summary Normal LV size. The estimated ejection fraction is 45 %. Mild concentric left ventricular hypertrophy. No significant from previous echo. Lasix changed to 40 mg IV daily. 3. Coronary artery status post CABG: No chest pain or acute shortness of breath. 4. Diabetes mellitus type 2: Glucose in acceptable limit. Accu-Chek before meals and at bedtime. Continue glipizide and home dose of Lantus. Accu-Cheks and cover with medium high sliding scale insulin 5. Other comorbidities include hypertension, secondary pulmonary hypertension, dyslipidemia: Home medication reconciliation done Living will/advanced directive/end of life care: Patient does not have living will or advanced directive. Her is power of tax associate attorney for health. After discussion of benefits/risks procedures involved with full code, DNR CC arrest and DNR CC, the patient opted for full code Patient does want artificial life support including intubation, tube feed, ventilator and/chest compression, central venous catheter, vasopressor and DC shock if needed Total time spent in [id number] encounter in discussion of advanced directive 16 minutes. Clinical Impression(s) from Imaging Studies Chest X-Ray 08/14/20 09:50 IMPRESSION: No active disease. Inpatient E&M: 28399 Subs Hosp L2
[2020-08-15 16:40] LABS: Bedside Glucose 151 mg/dL (70-110)
[2020-08-15] MEDS: Atorvastatin Calcium 10 MG Tablet PO (21:39)
[2020-08-15 21:51] LABS: Bedside Glucose 186 mg/dL (70-110)
[2020-08-16] VITALS (14 sets, daily range): BP systolic 108–141; BP diastolic 76–95; PULSE 94–121; RESP 16; TEMP 36.3–36.8; O2SAT 96–97
[2020-08-16 06:56] LABS: Bedside Glucose 135 mg/dL (70-110)
[2020-08-16 07:57] LABS: Anion Gap 4 (5-15); BUN 19 mg/dL (7-18); BUN/Creat Ratio 20.4 RATIO (10-20); Calcium,Total 8.4 mg/dL (8.5-10.1); Chloride 108 mmol/L (98-107); Creatinine, Serum 0.93 mg/dL (0.55-1.02); EST Glomerular Filtration Rate 63 mL/min (>60); Est Glom Filt Rate - Afr Amer 76 mL/min (>60); Estimated Creatinine Clearance 43.25 ml/min; Glucose 131 mg/dL (74-106); Sodium Level 137 mmol/L (136-145)
[2020-08-16] MEDS: glipiZIDE 10 MG Tablet PO (08:04)
[2020-08-16] MEDS: Digoxin 250 MCG/ML Ampul IV ×3 (09:19→20:17)
[2020-08-16] MEDS: 0.9% Saline Lock 10 ML Syringe IV ×3 (09:23→14:58)
[2020-08-16] MEDS: APIXABAN 5 MG TABLET PO ×2 (10:42→21:15)
[2020-08-16] MEDS: Amiodarone 200 MG Tablet PO ×2 (10:42→21:15)
[2020-08-16] MEDS: Mirabegron 25 MG TAB.ER.24H PO (10:42)
[2020-08-16] MEDS: Metoprolol Tartrate 100 MG Tablet PO ×2 (10:42→21:15)
[2020-08-16] MEDS: Furosemide 40 MG/4 ML Vial IV (10:47)
[2020-08-16] MEDS: Insulin Lispro 100 UNIT/ML INSULN.PEN SC ×2 (10:50→21:15)
[2020-08-16 11:00] LABS: Bedside Glucose 233 mg/dL (70-110)
--- NOTE | 2020-08-16 16:24 | PN_ITS ---
Patient Problems: Active and Suspected Problems (Last Reviewed 03/27/19 @ 13:[address] Tristian Hall MD) Atrial fibrillation with RVR (Acute) Claudication (Acute) Reason for Visit: Patient heart rate is still in the upper 100s. Loading dose of IV digoxin ordered. Amiodarone dose increase to 200 mg 3 times daily. A. fib on quality assurance monitor body No specific symptoms. Physical exam General: Alert, Oriented x3, Cooperative HEENT: Atraumatic, PERRLA, EOMI, Normocephalic Oral: No Gingival or Mucosal Lesions/ Ulcerations Neck: Supple, No JVD, Negative Carotid Bruits Lungs: Air entry diminished in bilateral lung bases. No crepitation/rhonchi Cardiovascular: Irregular rate and rhythm, normal S1, Normal S2, No murmurs Abdomen: Bowel Sounds Present, Soft, Non Tender, Non-Distended : No renal angle tenderness. No suprapubic tenderness. Extremities: Mild bilateral ankle, chronic pitting edema, Capillary Refill Less than 3 Seconds Skin: No rashes, No breakdown Musculoskeletal: No Tenderness to Palpation of Joints or Extremities Neurological: Cranial nerves II-XII grossly intact, Deep Tendon Reflexes 2+/4 and Symmetrical, Neuro grossly intact Psych/Mental Status: Normal Affect, Appropriate. Vitals/I&O's: Vital Signs Temp Pulse Resp BP Pulse Ox 98.3 F 97 16 124/79 H 97 08/16/20 16:15 08/16/20 16:15 08/16/20 16:15 08/16/20 16:15 08/16/20 16:15 Oxygen Delivery Method Room Air Weight: 238 lb 5.115 oz Body Mass Index (BMI) 42.0 Finger Stick Blood Glucose 120 Intake and Output for Last 24 Hours 08/14/20 08/15/20 08/16/20 23:59 23:59 23:59 Intake Total 1637.00 / 1652.00 175.00 / 295.00 480 / 480 Balance 1637.00 / 1652.00 175.00 / 295.00 480 / 480 Microbiology Past 72 Hours 08/14/20 10:14 Mucosa - Nose SARS-CoV-2 Antigen (Rapid) - Final Laboratory Results 08/15/20 16:19: POC Glucose 151 H 08/15/20 21:38: POC Glucose 186 H 08/16/20 06:00: Sodium 137, Potassium 4.0, Chloride 108 H, Carbon Dioxide 25.0, Anion Gap 4 L, BUN 19 H, Creatinine 0.93, Estim Creat Clear Calc 43.25, Est GFR (MDRD) Af Amer 76, Est GFR (MDRD) Non-Af 63, BUN/Creatinine Ratio 20.4 H, Glucose 131 H, Calcium 8.4 L 08/16/20 06:49: POC Glucose 135 H 08/16/20 10:49: POC Glucose 233 H Current Medications Acetaminophen (Acetaminophen 325 Mg Tablet) 650 mg PO Q6H PRN PRN PRN Reason: Pain Score 1-10/Temp > 100.7 F Al Hydroxide/Mg Hydroxide (Mag Hydrox/Al Hydrox/Simeth 30 Ml Udc) 30 ml PO Q6H PRN PRN PRN Reason: Gastric Burning Albuterol Sulfate (Albuterol 2.5 Mg/3 Ml Vial.Neb.) 2.5 mg INHALATION Q2H PRN PRN PRN Reason: SOB/Wheezing Apixaban (Apixaban 5 Mg Tablet) 5 mg PO BID [facility] Last Admin: 08/16/20 10:42 Dose: 5 mg Documented by: Atorvastatin Calcium (Atorvastatin Calcium 10 Mg Tablet) 10 mg PO QHS [facility] Last Admin: 08/15/20 21:39 Dose: 10 mg Documented by: Bisacodyl (Bisacodyl 5 Mg Tablet) 10 mg PO DAILY PRN PRN PRN Reason: Constipation Dextrose (Dextrose 50%-Water 25 Gm/50 Ml Disp.Syrin) 0 gm IV X1 PRN; Protocol PRN Reason: Hypoglycemia Digoxin (Digoxin 250 Mcg/Ml Ampul) 250 mcg IV Q6H [facility] Stop: 08/16/20 20:31 Last Admin: 08/16/20 14:58 Dose: 250 mcg Documented by: Furosemide (Furosemide 40 Mg/4 Ml Vial) 40 mg IV DAILY [facility] Last Admin: 08/16/20 10:47 Dose: 40 mg Documented by: Glipizide (Glipizide 10 Mg Tablet) 10 mg PO DAILYCM [facility] Last Admin: 08/16/20 08:04 Dose: 10 mg Documented by: Glucagon (Glucagon 1 Mg/Ml Syringe) 1 mg IM .X1 PRN PRN Reason: Hypoglycemia Insulin Glargine (Insulin Glargine 100 Units/Ml Pen) 40 units SC DAILY [facility] Last Admin: 08/16/20 10:50 Dose: 40 units Documented by: Insulin Human Lispro (Insulin Lispro 100 Unit/Ml Insuln.Pen) 0 unit SC ACHS S ; Protocol Last Admin: 08/16/20 10:50 Dose: 4 u Documented by: Metoprolol Tartrate (Metoprolol Tartrate 100 Mg Tablet) 100 mg PO BID [facility] Last Admin: 08/16/20 10:42 Dose: 100 mg Documented by: Mirabegron (Mirabegron 25 Mg Tab.Er.24h) 25 mg PO DAILY [facility] Last Admin: 08/16/20 10:42 Dose: 25 mg Documented by: Morphine Sulfate (Morphine 2 Mg/Ml Syringe) 2 mg IV Q3H PRN PRN PRN Reason: Pain Score 6-10 Nitroglycerin (Nitroglycerin (Inpatient Use) 0.4 Mg Tab.Subl) 0.4 mg SL Q5M PRN PRN Reason: CARDIAC/CHEST PAIN Oxycodone HCl (Oxycodone 5 Mg Tablet) 5 mg PO Q4H PRN PRN PRN Reason: Pain Score 4-5 Polyethylene Glycol (Polyethylene Glycol 3350 17 Gm Packet) 17 gm PO DAILY [facility] Last Admin: 08/16/20 10:41 Dose: Not Given Documented by: Prochlorperazine Edisylate (Prochlorperazine 10 Mg/2 Ml Vial) 5 mg IV Q4H PRN PRN PRN Reason: Breakthrough Nausea/Vomiting Senna/Docusate Sodium (Senna/Docusate Sodium 1 Tablet) 2 tablet PO BID PRN PRN PRN Reason: Constipation Sodium Chloride (0.9% Saline Lock 10 Ml Syringe) 10 - 40 ml IV UD PRN PRN Reason: SALINE FLUSH Last Admin: 08/16/20 14:58 Dose: 10 ml Documented by: STROKE Vital Signs/Narrative: Vital Signs Temp Pulse Resp BP Pulse Ox 08/16/20 16:15 98.3 F 97 16 124/79 H 97 08/16/20 15:00 107 H 08/16/20 14:58 105 H 121/85 H Medical Necessity - Tobacco Use Smoking Status: Never smoker Assessment/Plan All Active Problems (Last Reviewed 03/27/19 @ 13:[address] Tristian Hall MD) Atrial fibrillation with RVR (Acute) Claudication (Acute) H/O coronary artery bypass surgery (Resolved 2012) The patient is a 70 year old F with multiple cardiac history as mentioned above came to ER with abnormal heart rhythm on her monitor at home and found to be A. fib with RVR EKG shows A. fib with RVR at 134 bpm. QTC 537 ms. A previous EKG in September 2017 also showed A. fib at 96 beats per. QTC was 535 ms. Chest x-ray individually reviewed?looks hypoventilated and cephalization but reported no active disease 1. Paroxysmal A. fib with RVR exact precipitating factor unclear probably mild heart failure exacerbation: Patient is being admitted in PCU. On Cardizem drip at 10 mg/h, titrate to keep heart rate less than 100/min. Resume metoprolol tartrate, amiodarone and diltiazem ER 120 mg daily. Continue Eliquis 5 mg twice daily. 08/15: Serial troponins negative. Serum magnesium, phosphorus and potassium normal range. 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 Digoxin 250 mcg IV 1 dose, metoprolol dose increased 200 mg twice daily, amiodarone dose increased to 200 mg twice daily. Currently on Cardizem drip 15 mg/h, titrate down. Discontinue Cardizem CD. 08/16: Loading dose of IV digoxin ordered. In withdrawal increased. Discussed with nursing staff. Electrolytes in normal range. 2. Acute on chronic systolic and diastolic combined heart failure: Patient had echo in February 2018, EF 45%, RVSP 40 mmHg suggestive of chronic systolic and diastolic heart failure. Chest x-ray does not show pulmonary edema but ceph alization of upper lobes. Lasix 40 mg IV daily. BNP 396. 08/15: Repeat echo today reviewed Interpretation Summary Normal LV size. The estimated ejection fraction is 45 %. Mild concentric left ventricular hypertrophy. No significant from previous echo. Lasix changed to 40 mg IV daily. 3. Coronary artery status post CABG: No chest pain or acute shortness of breath. 4. Diabetes mellitus type 2: Glucose in acceptable limit. Accu-Chek before meals and at bedtime. Continue glipizide and home dose of Lantus. Accu-Cheks and cover with medium high sliding scale insulin 5. Other comorbidities include hypertension, secondary pulmonary hypertension, dyslipidemia: Home medication reconciliation done Living will/advanced directive/end of life care: Patient does not have living will or advanced directive. Her is power of divorce attorney for health. After discussion of benefits/risks procedures involved with full code, DNR CC arrest and DNR CC, the patient opted for full code Patient does want artificial life support including intubation, tube feed, ventilator and/chest compression, central venous catheter, vasopressor and DC sh ock if needed Total time spent in [id number] encounter in discussion of advanced directive 16 minutes. Microbiology Past 72 Hours 08/14/20 10:14 Mucosa - Nose SARS-CoV-2 Antigen (Rapid) - Final Laboratory Results 08/15/20 16:19: POC Glucose 151 H 08/15/20 21:38: POC Glucose 186 H 08/16/20 06:00: Sodium 137, Potassium 4.0, Chloride 108 H, Carbon Dioxide 25.0, Anion Gap 4 L, BUN 19 H, Creatinine 0.93, Estim Creat Clear Calc 43.25, Est GFR (MDRD) Af Amer 76, Est GFR (MDRD) Non-Af 63, BUN/Creatinine Ratio 20.4 H, Glucose 131 H, Calcium 8.4 L 08/16/20 06:49: POC Glucose 135 H 08/16/20 10:49: POC Glucose 233 H Clinical Impression(s) from Imaging Studies Chest X-Ray 08/14/20 09:50 IMPRESSION: No active disease. Inpatient E&M: 62862 Subs Hosp L2
[2020-08-16 16:31] LABS: Bedside Glucose 132 mg/dL (70-110)
[2020-08-16] MEDS: Atorvastatin Calcium 10 MG Tablet PO (21:15)
[2020-08-16 22:00] LABS: Bedside Glucose 176 mg/dL (70-110)
[2020-08-17] VITALS (8 sets, daily range): BP systolic 132–134; BP diastolic 83–84; PULSE 84–105; RESP 16–17; TEMP 36.4–36.6; O2SAT 95–96
[2020-08-17] MEDS: Amiodarone 200 MG Tablet PO (06:45)
[2020-08-17 06:55] LABS: Bedside Glucose 142 mg/dL (70-110)
[2020-08-17] MEDS: glipiZIDE 10 MG Tablet PO (07:40)
[2020-08-17] MEDS: Furosemide 40 MG/4 ML Vial IV (09:50)
[2020-08-17] MEDS: APIXABAN 5 MG TABLET PO (09:50)
[2020-08-17] MEDS: Metoprolol Tartrate 100 MG Tablet PO (09:50)
[2020-08-17] MEDS: Mirabegron 25 MG TAB.ER.24H PO (09:50)
[2020-08-17] MEDS: 0.9% Saline Lock 10 ML Syringe IV (09:51)
--- NOTE | 2020-08-17 10:40 | PCM.DC ---
- Discharge Diagnoses Current Active Problems: Current Active and Chronic Problems (Last Reviewed 03/27/19 @ 13:[address] Tristian Hall MD) Atrial fibrillation with RVR (Acute) Claudication (Acute) Atherosclerosis of coronary artery of [place] heart without angina pectoris (Chronic) Old myocardial infarction (Chronic) Paroxysmal atrial fibrillation (Chronic) Cardiomyopathy in diseases classified elsewhere (Chronic) Chronic combined systolic and diastolic CHF (congestive heart failure) (Chronic) Secondary pulmonary arterial hypertension (Chronic) Essential (primary) hypertension (Chronic) Hyperlipidemia (Chronic) You will use the following diet at home:: Calorie/Carbohydrate Controlled (specify 1200, 1400, etc) - 1800 ADA diet, Cardiac Your food should be the consistency of: Regular Discharge Activity: May Not Drive - Until see his PCP Weight Bearing Status: Weight bearing as tolerated Call your doctor if you observe: Fever of 101 or Higher, Numbness or Tingling, Change in Color, Inability to urinate, Inability to have a bowel movement, Using more than one pad per hour, Shortness of breath, Dizziness, Fainting spells, Swelling in the ankles, Chest pain, Prolonged hiccoughing, Increased palpitations (irregular heartbeat), Calf discomfort, Uncontrolled pain Allergies/Adverse Reactions: Allergies No Known Allergies Allergy (Verified 08/14/20 09:25) Medications to take at Discharge Albuterol Inhaler [Ventolin Hfa] 2 puff INHALATION 4X/DAY PRN PRN 12/19/13 insulin glargine 100 unit/mL (3 mL) subcutaneous pen 40 unit SC DAILY 30 Days #9 ml 03/06/18 simvastatin 20 mg tablet 20 mg PO QHS 03/06/18 glipizide 5 mg tablet 10 mg PO DAILY 30 Days #30 tab 08/25/18 mirabegron 25 mg tablet,extended release 24 hr 25 mg PO DAILY 30 Days #30 tab 08/25/18 furosemide 40 mg tablet 40 mg PO QAM #90 tab 11/13/19 apixaban 5 mg tablet 5 mg PO BID #180 tab 11/19/19 Amiodarone HCl [Cordarone] 200 mg PO TID #90 tablet 08/17/20 Irbesartan 300 mg PO DAILY #0 08/17/20 Metoprolol Tartrate [Lopressor (beta jessica)] 100 mg PO BID #60 tablet 08/17/20 The following prescriptions were given: Amiodarone HCl [Cordarone] 200 mg PO TID #90 tablet Transmission Status: Pending to [facility] Metoprolol Tartrate [Lopressor (beta jessica)] 100 mg PO BID #60 tablet Transmission Status: Pending to [facility] Primary Care Physician: Yaya Centeno DO [Primary Care Provider] - Please follow up with your Primary Care Physician in: In 2 weeks Test Results: Test results from this visit will be discussed in further detail at your follow-up appointment, if applicable. Please Follow Up With: Tristian Hall MD When: In 3 to 4 weeks
--- NOTE | 2020-08-17 10:42 | PCM.DC.SUM ---
Discharge Date and Diagnosis - Problem List Patient Problems: Active and Suspected Problems (Last Reviewed 03/27/19 @ 13:[address] Tristian Hall MD) Atrial fibrillation with RVR (Acute) Claudication (Acute) Date of Admission: 08/14/20 Date of Discharge: 08/17/20 - Primary Discharge Diagnosis Acute Problems: Active Problems (Last Reviewed 03/27/19 @ 13:[address] Tristian Hall MD) Atrial fibrillation with RVR (Acute) Claudication (Acute) - Secondary Discharge Diagnosis Chronic Problems: Chronic Problems (Last Reviewed 03/27/19 @ 13:[address] Tristian Hall MD) Atherosclerosis of coronary artery of [place] heart without angina pectoris (Chronic) Old myocardial infarction (Chronic) Paroxysmal atrial fibrillation (Chronic) Cardiomyopathy in diseases classified elsewhere (Chronic) Chronic combined systolic and diastolic CHF (congestive heart failure) (Chronic) Secondary pulmonary arterial hypertension (Chronic) Essential (primary) hypertension (Chronic) Hyperlipidemia (Chronic) Hospital Course and Treatment Operations: None Summary of Care Provided: [] The patient is a 70 year old F with multiple cardiac history as mentioned above came to ER with abnormal heart rhythm on her monitor at home and found to be A. fib with RVR EKG shows A. fib with RVR at 134 bpm. QTC 537 ms. A previous EKG in September 2017 also showed A. fib at 96 beats per. QTC was 535 ms. Chest x-ray individually reviewed?looks hypoventilated and cephalization but reported no active disease 1. Paroxysmal A. fib with RVR exact precipitating factor unclear probably mild heart failure exacerbation: Patient is being admitted in PCU. Patient was started on Cardizem drip in ED. Her heart rate was still high therefore discussed with Dr. Hall and digoxin 250 mcg IV 1 dose given, metoprolol dose was increased to 100 mg p.o. twice daily, amiodarone 200 mg twice daily and Cardizem drip was tapered off as patient still has tachycardia at 15 mg/h and was dropping her blood pressure. Heart rate was still not controlled therefore patient loaded with digoxin next day, amiodarone increased to 200 mg 3 times daily. Patient on Eliquis 5 mg twice daily. Heart rate was finally controlled and patient is discharged on amiodarone 200 mg 3 times daily for 1 week, decrease to 200 mg twice daily to continue along with Toprol. Troponin enzymes are negative. Serum sodium, potassium, magnesium and phosphorus normal range 2. Acute on chronic systolic and diastolic combined heart failure: Patient had echo in February 2018, EF 45%, RVSP 40 mmHg suggestive of chronic systolic and diastolic heart failure. Chest x-ray does not show pulmonary edema but cephalization of upper lobes. Lasix 40 mg IV daily. BNP 396. Lasix 40 mg IV daily. 08/15: Repeat echo today reviewed Interpretation Summary Normal LV size. The estimated ejection fraction is 45 %. Mild concentric left ventricular hypertrophy. No significant from previous echo. Discharged on Lasix 40 mg p.o. daily 3. Coronary artery status post CABG: No chest pain or acute shortness of breath. 4. Diabetes mellitus type 2: Glucose in acceptable limit. Accu-Chek before meals and at bedtime. Continue glipizide and home dose of Lantus. Serum glucose in the range of 1 50?220. 5. Other comorbidities include hypertension, secondary pulmonary hypertension, dyslipidemia: Home medication reconciliation done Discharge medication reconciliation done. Discharge follow-up instructions completed. Discharge process discussed with the patient and all questions were answered to patient's satisfaction. Follow with Dr. Hall in 3 to 4 weeks Total time spent, exact 35 minutes on discharge meds reconciliation, examination, coordination of care with nurses and ancillary staff, review of imaging and blood test and discussion with the patient on follow-up instructions Patient Problems: Active and Suspected Problems (Last Reviewed 03/27/19 @ 13:[address] Tristian Hall MD) Atrial fibrillation with RVR (Acute) Claudication (Acute) Objective: Heart rate is controlled, less than 100, in the 80s to upper 90s. A. fib on surveillance monitor no chest pain or shortness of breath. Physical exam General: Alert, Oriented x3, Cooperative HEENT: Atraumatic, PERRLA, EOMI, Normocephalic Oral: No Gingival or Mucosal Lesions/ Ulcerations Neck: Supple, No JVD, Negative Carotid Bruits Lungs: Air entry diminished in bilateral lung bases. No crepitation/rhonchi Cardiovascular: Irregular rate and rhythm, normal S1, Normal S2, No murmurs Abdomen: Bowel Sounds Present, Soft, Non Tender, Non-Distended : No renal angle tenderness. No suprapubic tenderness. Extremities: Mild bilateral ankle, chronic pitting edema, improved. Capillary Refill Less than 3 Seconds Skin: No rashes, No breakdown Musculoskeletal: No Tenderness to Palpation of Joints or Extremities Neurological: Cranial nerves II-XII grossly intact, Deep Tendon Reflexes 2+/4 and Symmetrical, Neuro grossly intact Psych/Mental Status: Normal Affect, Appropriate. - Physical Exam Vitals/I&O's: Vital Signs Temp Pulse Resp BP Pulse Ox 97.9 F 94 17 134/84 H 96 08/17/20 09:50 08/17/20 09:50 08/17/20 09:50 08/17/20 09:50 08/17/20 09:50 Oxygen Delivery Method Room Air Weight: 238 lb 1.588 oz Body Mass Index (BMI) 42.0 Finger Stick Blood Glucose 120 Intake and Output for Last 24 Hours 08/15/20 08/16/20 08/17/20 23:59 23:59 23:59 Intake Total 175.00 / 295.00 900 / 960 180 / 180 Output Total Balance 175.00 / 295.00 900 / 960 179 / 179 Microbiology Past 72 Hours 08/14/20 10:14 Mucosa - Nose SARS-CoV-2 Antigen (Rapid) - Final Laboratory Results 08/16/20 10:49: POC Glucose 233 H 08/16/20 16:26: POC Glucose 132 H 08/16/20 21:14: POC Glucose 176 H 08/17/20 06:42: POC Glucose 142 H Current Medications Acetaminophen (Acetaminophen 325 Mg Tablet) 650 mg PO Q6H PRN PRN PRN Reason: Pain Score 1-10/Temp > 100.7 F Al Hydroxide/Mg Hydroxide (Mag Hydrox/Al Hydrox/Simeth 30 Ml Udc) 30 ml PO Q6H PRN PRN PRN Reason: Gastric Burning Albuterol Sulfate (Albuterol 2.5 Mg/3 Ml Vial.Neb.) 2.5 mg INHALATION Q2H PRN PRN PRN Reason: SOB/Wheezing Amiodarone HCl (Amiodarone 200 Mg Tablet) 200 mg PO TID [facility] Last Admin: 08/17/20 06:45 Dose: 200 mg Documented by: Apixaban (Apixaban 5 Mg Tablet) 5 mg PO BID [facility] Last Admin: 08/17/20 09:50 Dose: 5 mg Documented by: Atorvastatin Calcium (Atorvastatin Calcium 10 Mg Tablet) 10 mg PO QHS [facility] Last Admin: 08/16/20 21:15 Dose: 10 mg Documented by: Bisacodyl (Bisacodyl 5 Mg Tablet) 10 mg PO DAILY PRN PRN PRN Reason: Constipation Dextrose (Dextrose 50%-Water 25 Gm/50 Ml Disp.Syrin) 0 gm IV X1 PRN; Protocol PRN Reason: Hypoglycemia Furosemide (Furosemide 40 Mg/4 Ml Vial) 40 mg IV DAILY [facility] Last Admin: 08/17/20 09:50 Dose: 40 mg Documented by: Glipizide (Glipizide 10 Mg Tablet) 10 mg PO DAILYCM [facility] Last Admin: 08/17/20 07:40 Dose: 10 mg Documented by: Glucagon (Glucagon 1 Mg/Ml Syringe) 1 mg IM .X1 PRN PRN Reason: Hypoglycemia Insulin Glargine (Insulin Glargine 100 Units/Ml Pen) 40 units SC DAILY [facility] Last Admin: 08/16/20 10:50 Dose: 40 units Documented by: Insulin Human Lispro (Insulin Lispro 100 Unit/Ml Insuln.Pen) 0 unit SC ACHS [facility]; Protocol Last Admin: 08/17/20 06:45 Dose: Not Given Documented by: Metoprolol Tartrate (Metoprolol Tartrate 100 Mg Tablet) 100 mg PO BID [facility] Last Admin: 08/17/20 09:50 Dose: 100 mg Documented by: Mirabegron (Mirabegron 25 Mg Tab.Er.24h) 25 mg PO DAILY [facility] Last Admin: 08/17/20 09:50 Dose: 25 mg Documented by: Morphine Sulfate (Morphine 2 Mg/Ml Syringe) 2 mg IV Q3H PRN PRN PRN Reason: Pain Score 6-10 Nitroglycerin (Nitroglycerin (Inpatient Use) 0.4 Mg Tab.Subl) 0.4 mg SL Q5M PRN PRN Reason: CARDIAC/CHEST PAIN Oxycodone HCl (Oxycodone 5 Mg Tablet) 5 mg PO Q4H PRN PRN PRN Reason: Pain Score 4-5 Polyethylene Glycol (Polyethylene Glycol 3350 17 Gm Packet) 17 gm PO DAILY [facility] Last Admin: 08/17/20 09:49 Dose: Not Given Documented by: Prochlorperazine Edisylate (Prochlorperazine 10 Mg/2 Ml Vial) 5 mg IV Q4H PRN PRN PRN Reason: Breakthrough Nausea/Vomiting Senna/Docusate Sodium (Senna/Docusate Sodium 1 Tablet) 2 tablet PO BID PRN PRN PRN Reason: Constipation Sodium Chloride (0.9% Saline Lock 10 Ml Syringe) 10 - 40 ml IV UD PRN PRN Reason: SALINE FLUSH Last Admin: 08/17/20 09:51 Dose: 10 ml Documented by: Discharge Activity: May Not Drive - Until see his PCP Weight Bearing Status: Weight bearing as tolerated Call your doctor if you observe: Fever of 101 or Higher, Numbness or Tingling, Change in Color, Inability to urinate, Inability to have a bowel movement, Using more than one pad per hour, Shortness of breath, Dizziness, Fainting spells, Swelling in the ankles, Chest pain, Prolonged hiccoughing, Increased palpitations (irregular heartbeat), Calf discomfort, Uncontrolled pain Home Medications: Medications to take at Discharge Albuterol Inhaler [Ventolin Hfa] 2 puff INHALATION 4X/DAY PRN PRN 12/19/13 insulin glargine 100 unit/mL (3 mL) subcutaneous pen 40 unit SC DAILY 30 Days #9 ml 03/06/18 simvastatin 20 mg tablet 20 mg PO QHS 03/06/18 glipizide 5 mg tablet 10 mg PO DAILY 30 Days #30 tab 08/25/18 mirabegron 25 mg tablet,extended release 24 hr 25 mg PO DAILY 30 Days #30 tab 08/25/18 furosemide 40 mg tablet 40 mg PO QAM #90 tab 11/13/19 apixaban 5 mg tablet 5 mg PO BID #180 tab 11/19/19 Amiodarone HCl [Cordarone] 200 mg PO TID #90 tablet 08/17/20 Irbesartan 300 mg PO DAILY #0 08/17/20 Metoprolol Tartrate [Lopressor (beta jessica)] 100 mg PO BID #60 tablet 08/17/20 Following Prescriptions Were Given to Patient: Amiodarone HCl [Cordarone] 200 mg PO TID #90 tablet Transmission Status: Received by [facility]30 Metoprolol Tartrate [Lopressor (beta jessica)] 100 mg PO BID #60 tablet Transmission Status: Received by [facility] Primary Care Physician: Yaya Centeno DO [Primary Care Provider] - Please follow up with your Primary Care Physician in: In 2 weeks Please Follow Up With: Tristian Hall MD When: In 3 to 4 weeks Medical Necessity - Tobacco Use Smoking Status: Never smoker Meaningful Use Info Meaningful Use Diagnoses (Choose all that apply): None applicable Inpatient E&M: 77417 Disch Hosp
[2020-08-17] MEDS: Insulin Lispro 100 UNIT/ML INSULN.PEN SC (11:03)
[2020-08-17 11:15] LABS: Bedside Glucose 223 mg/dL (70-110)
--- NOTE | 2020-08-18 15:52 | CASEMGMT ---
RN CM Discharge Follow-up Phone Call: TONI: [employer]: 3 Call Date: 08/18/20 Discharge Date: 08/17/20 Time of Call: 1553 Duration: 1 Admitting Diagnosis: Afib with RVR RN CM attempted to complete follow-up phone call after recent hospitalization. No answer x2 attempts, unable to leave for return call.
== END 2020-08-17 13:10 | disposition home or self-care (01) | DRG 308 ==
LOC: ED 09:59 → PCU 11:42
PROVIDERS: Admitting Provider Internal Medicine; Emergency Provider Emergency Medicine; PCP Family Medicine; Visit Provider Internal Medicine
DX: I48.0 Paroxysmal atrial fibrillation (principal); I50.43 Acute on chronic combined systolic (congestive) and diastolic (congestive) heart failure; Z79.02 Long term (current) use of antithrombotics/antiplatelets; Z95.1 Presence of aortocoronary bypass graft; I25.10 Atherosclerotic heart disease of native coronary artery without angina pectoris; E11.9 Type 2 diabetes mellitus without complications; E78.5 Hyperlipidemia, unspecified; I11.0 Hypertensive heart disease with heart failure; I27.29 Other secondary pulmonary hypertension; Z79.4 Long term (current) use of insulin; Z79.899 Other long term (current) drug therapy
CPT/HCPCS: 36415; 71045; 80048; 82962; 83735; 83880; 84100; 84484; 85025; 87426; 93005; 93306; 97161; 97165; 97802; 99251; 99285; J7030; Q9957; A4216; C8929; G0463; J1940

== ENCOUNTER → 2020-09-22 11:18 | Outpatient (CLI) | payer MEDICARE, OTHER, SELFPAY ==
[2020-09-22 09:52] VITALS: BMI 43.0
--- NOTE | 2020-09-22 11:22 | RAD_ITS ---
STUDY: X-RAY CHEST REASON FOR EXAM: Female, 70 years old. Dyspnea on exertion, cough TECHNIQUE: PA and lateral views of the chest. COMPARISON: 08/14/2020 FINDINGS: Lungs are hyperexpanded with chronic interstitial changes, there are superimposed interstitial edema and bilateral pleural effusions suggesting CHF. Sternal cerclage wires and vascular clips are present from a prior sternotomy and coronary artery bypass graft procedure (CABG). Normal mediastinum and álvaro. Normal visualized pulmonary arteries. Normal visualized aortic arch and descending thoracic aorta. There are diffuse degenerative changes of the visualized thoracic spine. Normal visualized ribs, clavicles, and shoulders. There is no demonstrated abnormality of the visualized soft tissue structures of the upper abdomen. RAD/Chest PA and Lateral IMPRESSION: Hyperexpanded lungs with interstitial edema and bilateral pleural effusions. Findings suggest CHF. Follow-up recommended to assure resolution Electronically Signed: Eric Negron MD at 13:15 EDT , Service support ,
[2020-09-22 12:52] LABS: Absolute Lymphocyte Count 1.26 X10^3/uL (0.83-4.51); Absolute Neutrophil Count 5.4 X10^3/uL (2.0-7.7); Basophil# 0.05 X10^3/uL; Basophil% 0.7 % (0-1); Eosinophil# 0.07 X10^3/uL; Hemoglobin 12.5 g/dL (12.0-15.0); Lymphocyte # 1.26 X10^3/ul (0.83-4.51); Lymphocyte % 17.4 % (19-41); Mean Corp Hgb Conc 31.3 g/dL (32-36); Mean Corpuscular Volume 96.2 fL (81-99); Monocyte# 0.43 X10^3/uL; Monocyte% 5.9 % (0-10); NRBC Flagged by Analyzer 0 % (0-5); Neutrophil # 5.41 X10^3/uL (2.7-7.7); Neutrophil % 74.7 % (47-70); Platelet Count 241 K/mm3 (150-450); RBC Distribution Width CV 14.5 % (11.6-14.6); RBC Distribution Width SD 50.4 fl (35.1-43.9); Red Blood Count 4.16 M/mm3 (4.2-5.4); White Blood Count 7.2 K/mm3 (4.4-11.0)
[2020-09-22 13:26] LABS: Anion Gap 4 (5-15); BUN 16 mg/dL (7-18); BUN/Creat Ratio 13.4 RATIO (10-20); Calcium,Total 8.4 mg/dL (8.5-10.1); Chloride 107 mmol/L (98-107); Creatinine, Serum 1.19 mg/dL (0.55-1.02); EST Glomerular Filtration Rate 47 mL/min (>60); Est Glom Filt Rate - Afr Amer 57 mL/min (>60); Glucose 168 mg/dL (74-106); Magnesium 2.4 mg/dL (1.6-2.6); Potassium 3.4 mmol/L (3.5-5.1); Sodium Level 142 mmol/L (136-145)
== END ==
PROVIDERS: PCP Family Medicine; Referring Provider Nurse Practitioner Family; Visit Provider Nurse Practitioner Family
DX: R05 Cough (principal); R06.00 Dyspnea, unspecified; E78.00 Pure hypercholesterolemia, unspecified; I11.0 Hypertensive heart disease with heart failure; I50.42 Chronic combined systolic (congestive) and diastolic (congestive) heart failure; I25.10 Atherosclerotic heart disease of native coronary artery without angina pectoris; Z95.1 Presence of aortocoronary bypass graft
CPT/HCPCS: 36415; 71046; 80048; 83735; 83880; 85025

== ENCOUNTER 2020-10-05 20:26 | Inpatient (IN) | payer MEDICARE, OTHER, SELFPAY ==
[2020-09-22 09:52] VITALS: BMI 43.0
[2020-10-05] VITALS (9 sets, daily range): BP systolic 110–131; BP diastolic 67–90; PULSE 96–108; RESP 17–22; TEMP 36.3–36.8; O2SAT 92–96; BMI 42.5; BMI 42.8
--- NOTE | 2020-10-05 20:48 | EKG12_ITS ---
Test Reason : SOB Blood Pressure : / mmHG Vent. Rate : 099 BPM Atrial Rate : 122 BPM P-R Int : 000 ms QRS Dur : 110 ms QT Int : 418 ms P-R-T Axes : 000 131 065 degrees QTc Int : 536 ms Atrial fibrillation Low voltage QRS Nonspecific T wave abnormality Abnormal ECG Confirmed by FREDDIE BARRERA, AMILCAR ([id number]), supervising editor news reel YOVANI GARCIA ([id number]) on 10/08/2020 12:49:08 PM Referred By: HENRY Confirmed By:AMILCAR FRAZIER MD
--- NOTE | 2020-10-05 20:50 | EDS_ITS ---
HPI History of Present Illness Chief Complaint: Shortness of Breath Narrative Narrative: Patient with chronic dyspnea presents with dyspnea which is been worse since earlier today. She states she can only walk about 5 feet now. When she walks she does not get chest pain but her stomach gets upset. She does not wear oxygen at baseline. Past medical history of dyspnea on exertion, A. fib, CHF, pulmonary hypertension. She has not had fever or chills. Yesterday she states she had a cough but today she has not. PFSH [facility] Medical History Abscess of left lower extremity Atherosclerosis of coronary artery of [place] heart without angina pectoris Cardiomyopathy in diseases classified elsewhere Chronic combined systolic and diastolic CHF (congestive heart failure) Essential (primary) hypertension HFrEF (heart failure with reduced ejection fraction) Hyperlipidemia Morbid obesity Obstructive sleep apnea Old myocardial infarction Paroxysmal atrial fibrillation Secondary pulmonary arterial hypertension Type 2 diabetes mellitus Home Medications albuterol sulfate 2 puff INHALATION 4X/DAY PRN PRN 12/19/13 [History Last Taken Unknown] insulin glargine 100 unit/mL (3 mL) subcutaneous pen 40 unit SC DAILY 30 Days #9 ml 03/06/18 [History Last Taken Unknown] simvastatin 20 mg tablet 20 mg PO QHS 03/06/18 [History Last Taken Unknown] glipizide 5 mg tablet 10 mg PO DAILY 30 Days #30 tab 08/25/18 [History Last Taken Unknown] mirabegron 25 mg tablet,extended release 24 hr 25 mg PO DAILY 30 Days #30 tab 08/25/18 [History Last Taken Unknown] apixaban 5 mg tablet 5 mg PO BID #180 tab 11/19/19 [Rx Last Taken Unknown] irbesartan 300 mg tablet 300 mg PO DAILY #90 tablet 09/01/20 [Rx Last Taken Unknown] amiodarone 200 mg tablet 200 mg PO .COMPLEX #90 tab 09/22/20 [Rx Last Taken Unknown] amlodipine 5 mg tablet 5 mg PO DAILY 09/22/20 [History Last Taken Unknown] metoprolol tartrate 100 mg tablet 100 mg PO BID #180 tab 09/22/20 [Rx Last Taken Unknown] tramadol 50 mg tablet 50 mg PO BID PRN 09/22/20 [History Last Taken Unknown] furosemide 40 mg tablet 40 mg PO BID #180 tab 09/25/20 [Rx Last Taken Unknown] potassium chloride 20 mEq tablet,extended release 20 meq PO BID #180 tab 09/25/20 [Rx Last Taken Unknown] Allergy/AdvReac Type Severity Reaction Status Date / Time No Known Allergies Allergy Verified 10/05/20 20:29 Family History Mother Hypertension Brother Heart disease Surgical History H/O coronary artery bypass surgery (2012) H/O eye surgery H/O total hysterectomy History of cardioversion (09/2017) History of incision and drainage Hx of cholecystectomy Social History Smoking Status: Never smoker alcohol intake: current alcohol intake frequency: holidays/special occasions only substance use type: does not use diet: diabetic caffeine: Yes Type: coffee Number of servings: 3 what type of physical activity do you participate in: none ROS ROS ED Constitutional Constitutional ED: Denies chills, fever(s) or sweats Eyes Eyes: Denies blurry vision or change in vision ENT ENT ED: Denies ear pain, rhinorrhea or sore throat Cardiovascular Cardiovascular: Denies chest pain, palpitations or racing heartbeat Respiratory/Chest Respiratory/Chest: Reports cough, dyspnea and dyspnea on exertion; Denies sputum Gastrointestinal Gastrointestinal: Reports nausea; Denies abdominal pain, constipation, diarrhea or vomiting Genitourinary Genitourinary ED: Denies dysuria, hematuria or urinary frequency Musculoskeletal Musculoskeletal: Denies arthralgias, myalgias or neck pain Integumentary Denies abscess, Abrasions or rash Neurologic Neurologic: Denies headache(s), paresthesias or weakness Psychiatric Psychiatric: Denies anxiety, depression, suicidal ideation or suicidal thoughts Endocrine Endocrinology: Denies polydipsia or polyuria EXAM Physical Exam Const Vital Signs: 10/05/20 20:27 10/05/20 20:35 10/05/20 21:08 Temperature 97.3 F L Temperature Source Temporal Pulse Rate 96 101 H Respiratory Rate 18 22 H Respiratory Effort Short of Breath Labored Blood Pressure 131/90 H 124/83 H Blood Pressure Mean 103 96 Pulse Ox 96 95 Oxygen Delivery Method Room Air Room Air Room Air 10/05/20 22:05 Temperature Temperature Source Pulse Rate 103 H Respiratory Rate 22 H Respiratory Effort Blood Pressure 120/85 H Blood Pressure Mean 96 Pulse Ox 95 Oxygen Delivery Method Room Air Positive obese General Appearance ED: NAD Nutritional Appearance: obese HEENT Reports moist mucous membranes atraumatic Eyes PERRL and EOMs intact bilaterally General Eye ED: Yes pale conjunctiva; Negative for scleral icterus Neck no lymphadenopathy and supple Resp normal respiratory effort and clear to auscultation bilaterally Cardio regular rate and regular rhythm GI non-tender and non-distended Palpation: soft Extremity General Extremety ED: Yes edema; Negative for tenderness General Extremity: edema Neuro oriented x3 Sensorium / Orientation: alert Psych mental status grossly normal Thought Process: normal thought process Skin Lesions: no lesions Rashes: no rashes MDM MDM MDM Narrative Medical decision making narrative: Patient presenting with generalized weakness and dyspnea on exertion. She states she can only walk about 5 feet. She gets nauseous when she walks. She denies fever or chills. She had EKG performed on arrival which shows atrial fibrillation at 99 bpm by my interpretation. She is anticoagulated so I have no concern for PE. Her Covid test is negative. CBC is unremarkable. BUN has normal electrolytes and creatinine is 1.32. Lactic acid is 1.3 troponin is negative BNP is 1227. Chest x-ray is interpreted by myself shows left lower lobe atelectasis. Radiology does read as infiltrate versus atelectasis. Patient does not have a white blood cell count or a fever. I will hold antibiotics for now. Patient was given 40 of Lasix and ambulated in the hallway where she desatted to 87% and needed to grab the wall due to feeling weak. After this she became nauseous and required nausea medicine. Patient was discussed with the hospitalist for admission. Impression: 1. Hypoxia with ambulation 2. CHF exacerbation Lab Data Labs: Laboratory Results - last 24 hr 10/05/20 10/05/20 10/05/20 20:55 20:55 20:55 WBC 8.8 RBC 4.27 Hgb 12.9 Hct 41.2 MCV 96.5 MCH 30.2 MCHC 31.3 L RDW Std Deviation 50.2 H RDW Coeff of Mary 14.2 Plt Count 276 MPV 10.5 Immature Gran % (Auto) 0.500 Neut % (Auto) 72.1 H Lymph % (Auto) 19.3 [place] % (Auto) 6.6 Eos % (Auto) 1.0 Baso % (Auto) 0.5 Absolute Neuts (auto) 6.3 Absolute Lymphs (auto) 1.69 Nucleated RBC % 0 Sodium 139 Potassium 4.2 Chloride 105 Carbon Dioxide 26.0 Anion Gap 8 BUN 21 H Creatinine 1.32 H Estim Creat Clear Calc 31.87 Est GFR (MDRD) Af Amer 51 L Est GFR (MDRD) Non-Af 42 L BUN/Creatinine Ratio 15.9 Glucose 154 H Lactic Acid 1.3 Calcium 8.1 L Total Bilirubin 0.30 AST 18 ALT 29 Alkaline Phosphatase 52 Troponin I < 0.015 B-Natriuretic Peptide Total Protein 7.0 Albumin 3.4 Globulin 3.6 Albumin/Globulin Ratio 0.9 10/05/20 20:55 WBC RBC Hgb Hct MCV MCH MCHC RDW Std Deviation RDW Coeff of Mary Plt Count MPV Immature Gran % (Auto) Neut % (Auto) Lymph % (Auto) [place] % (Auto) Eos % (Auto) Baso % (Auto) Absolute Neuts (auto) Absolute Lymphs (auto) Nucleated RBC % Sodium Potassium Chloride Carbon Dioxide Anion Gap BUN Creatinine Estim Creat Clear Calc Est GFR (MDRD) Af Amer Est GFR (MDRD) Non-Af BUN/Creatinine Ratio Glucose Lactic Acid Calcium Total Bilirubin AST ALT Alkaline Phosphatase Troponin I B-Natriuretic Peptide 1227.6 H Total Protein Albumin Globulin Albumin/Globulin Ratio Radiography Diagnostic Testing: Radiology Impression Chest X-Ray 10/05/20 21:13 IMPRESSION: Focal left basilar infiltrate/atelectasis. Mild cardiomegaly. Electronically Signed: Davi Don DO at 21:33 EDT Tel [phone], Service support , Discharge Plan Triage Chief Complaint: Shortness of Breath ED Provider: Janusz Bass Dx/Rx/DC Orders Prescriptions: No Action insulin glargine 100 unit/mL (3 mL) insulin pen 40 unit SC DAILY 30 Days Qty: 9 RF: 0 simvastatin 20 mg tablet 20 mg PO QHS RF: 0 glipizide 5 mg tablet 10 mg PO DAILY 30 Days Qty: 30 RF: 0 mirabegron 25 mg tablet extended release 24 hr 25 mg PO DAILY 30 Days Qty: 30 RF: 0 amlodipine 5 mg tablet 5 mg PO DAILY RF: 0 tramadol 50 mg tablet 50 mg PO BID PRN (Reason: Pain) RF: 0 amiodarone 200 mg tablet 200 mg PO .COMPLEX Qty: 90 RF: 3 metoprolol tartrate 100 mg tablet 100 mg PO BID Qty: 180 RF: 3 albuterol sulfate 1 INHALER inhaler 2 puff INHALATION 4X/DAY PRN PRN (Reason: Shortness Of Breath) RF: 0 apixaban 5 mg tablet 5 mg PO BID Qty: 180 RF: 3 irbesartan 300 mg tablet 300 mg PO DAILY Qty: 90 RF: 3 furosemide 40 mg tablet 40 mg PO BID Qty: 180 RF: 3 potassium chloride 20 mEq tablet extended release 20 meq PO BID Qty: 180 RF: 3 Primary Care Provider: Yaya Centeno
[2020-10-05 21:10] LABS: Absolute Lymphocyte Count 1.69 X10^3/uL (0.83-4.51); Absolute Neutrophil Count 6.3 X10^3/uL (2.0-7.7); Basophil# 0.04 X10^3/uL; Basophil% 0.5 % (0-1); Eosinophil# 0.09 X10^3/uL; Hematocrit 41.2 % (37-47); Hemoglobin 12.9 g/dL (12.0-15.0); Lymphocyte # 1.69 X10^3/ul (0.83-4.51); Lymphocyte % 19.3 % (19-41); Mean Corp Hgb Conc 31.3 g/dL (32-36); Mean Corpuscular Hgb 30.2 pg (27.0-32.0); Mean Corpuscular Volume 96.5 fL (81-99); Mean Platelet Vol. 10.5 fl (6.2-12.0); Monocyte# 0.58 X10^3/uL; Monocyte% 6.6 % (0-10); NRBC Flagged by Analyzer 0 % (0-5); Neutrophil # 6.32 X10^3/uL (2.7-7.7); Neutrophil % 72.1 % (47-70); Platelet Count 276 K/mm3 (150-450); RBC Distribution Width CV 14.2 % (11.6-14.6); RBC Distribution Width SD 50.2 fl (35.1-43.9); Red Blood Count 4.27 M/mm3 (4.2-5.4); White Blood Count 8.8 K/mm3 (4.4-11.0)
--- NOTE | 2020-10-05 21:13 | RAD_ITS ---
STUDY: X-RAY CHEST REASON FOR EXAM: Female, 70 years old. Cough TECHNIQUE: Frontal view COMPARISON: 09/22/2020. FINDINGS: Stable sternotomy wires. The lungs are expanded. Focal left basilar infiltrate/atelectasis. Mild cardiomegaly. Normal mediastinum and álvaro. Normal visualized pulmonary arteries. Normal visualized aortic arch and descending thoracic aorta. Normal visualized thoracic spine. Normal visualized ribs, clavicles, and shoulders. There is no demonstrated abnormality of the visualized soft tissue structures of the upper abdomen. RAD/Chest 1 View (Portable) IMPRESSION: Focal left basilar infiltrate/atelectasis. Mild cardiomegaly. Electronically Signed: Davi Don DO at 21:33 EDT Tel [phone], Service support ,
[2020-10-05 21:30] LABS: ALB/GLOB Ratio 0.9 RATIO (0.9-2.4); AST(SGOT) 18 U/L (15-37); Alanine Aminotransfer ALT/SGPT 29 U/L (13-56); Albumin, Serum 3.4 g/dL (3.2-5.0); Alkaline Phosphatase 52 U/L (45-117); Anion Gap 8 (5-15); BUN 21 mg/dL (7-18); BUN/Creat Ratio 15.9 RATIO (10-20); Calcium,Total 8.1 mg/dL (8.5-10.1); Chloride 105 mmol/L (98-107); Creatinine, Serum 1.32 mg/dL (0.55-1.02); EST Glomerular Filtration Rate 42 mL/min (>60); Est Glom Filt Rate - Afr Amer 51 mL/min (>60); Estimated Creatinine Clearance 31.87 ml/min; Globulin 3.6 g/dL (2.2-4.2); Glucose 154 mg/dL (74-106); Potassium 4.2 mmol/L (3.5-5.1); Sodium Level 139 mmol/L (136-145)
[2020-10-05 21:36] LABS: BNP,B-Type NATRIURETIC PEPTIDE 1227.6 pg/mL (0-100)
[2020-10-05 21:50] LABS: Lactic Acid 1.3 mmol/L (0.4-1.9)
[2020-10-05] MEDS: Furosemide 40 MG/4 ML Vial IV (22:32)
[2020-10-05] MEDS: Ondansetron 4 MG/2 ML Vial IV (22:36)
--- NOTE | 2020-10-05 23:08 | HP.PCM.HOS_ITS ---
[facility] - General General Date of Admission: 10/05/20 Date of Service: 10/05/20 Chief Complaint: Shortness of breath HPI Narrative JESSICA MARLEY, is a 70 F with past medical history as mentioned above presented to the emergency room because of shortness of breath. Her symptoms started over the last 3 to 4 days, exertional shortness of breath, has been slowly progressing, aggravated by activity and relieved with rest, associated with mild dry cough. She denied chest pain, palpitation, dizziness lightheadedness. She denied leg edema or weight gain. In the emergency department, patient was afebrile, blood pressure was stable, heart rate was around 100, pulse ox was 95% on room air. Her pulse ox dropped down to 87% with ambulation on room air. Routine blood work was remarkable for BUN of 21, creatinine of 1.32. Chest x- ray reviewed, revealed mild cardiomegaly and atelectasis on the left base. EKG revealed A. fib, no acute ischemic changes. Troponin is negative. BNP was 1227. Patient is being admitted for acute on chronic combined diastolic and systolic CHF with hypoxia. [facility] Medical History (Updated 10/05/20 @ 23:[address] Elsa Queen MD) Abscess of left lower extremity Atherosclerosis of coronary artery of [place] heart without angina pectoris Cardiomyopathy in diseases classified elsewhere Chronic combined systolic and diastolic CHF (congestive heart failure) Essential (primary) hypertension Hyperlipidemia Morbid obesity Obstructive sleep apnea Old myocardial infarction Paroxysmal atrial fibrillation Secondary pulmonary arterial hypertension Type 2 diabetes mellitus Home Medications albuterol sulfate 2 puff INHALATION 4X/DAY PRN PRN 12/19/13 [History Last Taken Unknown] insulin glargine 100 unit/mL (3 mL) subcutaneous pen 40 unit SC DAILY 30 Days #9 ml 03/06/18 [History Last Taken Unknown] simvastatin 20 mg tablet 20 mg PO QHS 03/06/18 [History Last Taken Unknown] glipizide 5 mg tablet 10 mg PO DAILY 30 Days #30 tab 08/25/18 [History Last Taken Unknown] mirabegron 25 mg tablet,extended release 24 hr 25 mg PO DAILY 30 Days #30 tab 08/25/18 [History Last Taken Unknown] apixaban 5 mg tablet 5 mg PO BID #180 tab 11/19/19 [Rx Last Taken Unknown] irbesartan 300 mg tablet 300 mg PO DAILY #90 tablet 09/01/20 [Rx Last Taken Unknown] amiodarone 200 mg tablet 200 mg PO .COMPLEX #90 tab 09/22/20 [Rx Last Taken Unknown] amlodipine 5 mg tablet 5 mg PO DAILY 09/22/20 [History Last Taken Unknown] metoprolol tartrate 100 mg tablet 100 mg PO BID #180 tab 09/22/20 [Rx Last Taken Unknown] tramadol 50 mg tablet 50 mg PO BID PRN 09/22/20 [History Last Taken Unknown] furosemide 40 mg tablet 40 mg PO BID #180 tab 09/25/20 [Rx Last Taken Unknown] potassium chloride 20 mEq tablet,extended release 20 meq PO BID #180 tab 09/25/20 [Rx Last Taken Unknown] Allergy/AdvReac Type Severity Reaction Status Date / Time No Known Allergies Allergy Verified 10/05/20 20:29 Family History Mother Hypertension Brother Heart disease Surgical History H/O coronary artery bypass surgery (2012) H/O eye surgery H/O total hysterectomy History of cardioversion (09/2017) History of incision and drainage Hx of cholecystectomy Social History Smoking Status: Never smoker alcohol intake: current alcohol intake frequency: holidays/special occasions only substance use type: does not use diet: diabetic caffeine: Yes Type: coffee Number of servings: 3 what type of physical activity do you participate in: none ROS Constitutional Constitutional: Reports fatigue and weakness; Denies anorexia, chills, fever(s) or malaise Eyes Eyes: Denies blurry vision, change in eye color, change in vision, double vision or eye pain ENT HEENT: Denies ear pain, epistaxis, headache(s), nasal congestion, post nasal drip or sore throat Cardiovascular Cardiovascular: Reports dyspnea on exertion; Denies chest pain, edema, lightheadedness, orthopnea, palpitations, paroxysmal nocturnal dyspnea or syncope Respiratory/Chest Respiratory/Chest: Reports cough, dyspnea and shortness of breath with exertion; Denies hemoptysis, productive cough or wheezing Gastrointestinal Gastrointestinal: Denies abdominal pain, constipation, diarrhea, hematemesis, h ematochezia, melena, nausea or vomiting Genitourinary Genitourinary: Denies burning urination, dysuria, hematuria, urinary hesitancy or urinary urgency Musculoskeletal Musculoskeletal: Denies arthralgias, back pain, joint pain, joint swelling, myalgias or neck pain Neurologic Neurologic: Denies confusion, dizziness, focal weakness, headache(s), numbness, paresthesias, seizures, tingling or tremor(s) Psychiatric Psychiatric: Denies anxiety, depression, hallucinations, homicidal ideation or suicidal ideation Endocrine Endocrinology: Denies change in body appearance, cold intolerance, heat intolerance, polydipsia or polyuria Hematologic/Lymphatic Hematologic/Lymphatic: Denies easy bleeding, easy bruising or lymphadenopathy Allergic/Immunologic Allergic/Immunologic: Denies itchy eyes, rhinitis, throat swelling, tongue swelling, hives, urticaria or wheezing Vital Signs Vital Signs Vital Signs: 10/05/20 20:27 10/05/20 20:35 10/05/20 21:08 Temperature 97.3 F L Temperature Source Temporal Pulse Rate 96 101 H Respiratory Rate 18 22 H Respiratory Effort Short of Breath Labored Blood Pressure 131/90 H 124/83 H Blood Pressure Mean 103 96 Pulse Ox 96 95 Oxygen Delivery Method Room Air Room Air Room Air 10/05/20 22:05 Temperature Temperature Source Pulse Rate 103 H Respiratory Rate 22 H Respiratory Effort Blood Pressure 120/85 H Blood Pressure Mean 96 Pulse Ox 95 Oxygen Delivery Method Room Air Weight Weight: 240 lb Body Mass Index (BMI) 42.5 Physical Exam Const alert, oriented x3 and no limitations Constitutional Narrative: Minimally short of breath. General Appearance: cooperative, comfortable and well kempt HEENT normocephalic, head/scalp atraumatic and moist oral mucous membranes Head and Scalp: normocephalic and atraumatic Eyes PERRL, EOMs intact bilaterally, conjunctivae normal and no scleral icterus General Eye: normal appearance of both eyes Periorbital: periorbital findings normal Neck no lymphadenopathy, supple, no meningeal signs, no JVD and no carotid bruits General: trachea midline Thyroid: thyroid normal Resp normal respiratory effort and normal air movement Resp Narrative: Diminished breath sounds bilateral, more at the base, otherwise clear. Auscultation: Negative for crackles, rales, rhonchi or wheezes Cardio S1 normal heart sound, S2 normal heart sound, no murmurs and no JVD Cardio Narrative: Irregular rate and rhythm. Peripheral Pulses: pulses 2+ throughout GI normal to inspection, nondistended, normoactive bowel sounds, soft to palpation, non-tender and non-distended; Negative for hepatosplenomegaly GI Narrative: Obese. Auscultation: normoactive bowel sounds Extremity normal to inspection and full ROM Extremity Narrative: Nonpitting edema, no clubbing or cyanosis. Skin no rashes or lesions noted, no wounds and no petechiae Neuro oriented x3, CN's II-XII intact bilaterally and moves all extremities Sensorium / Orientation: alert Speech: speech normal Motor Exam: strength 5/5 throughout Psych mental status grossly normal, affect normal and denies hallucinations Lab / Micro Data Result Diagrams: 10/05/20 20:55 10/05/20 20:55 Labs: Laboratory Results - last 24 hr 10/05/20 10/05/20 10/05/20 20:55 20:55 20:55 WBC 8.8 RBC 4.27 Hgb 12.9 Hct 41.2 MCV 96.5 MCH 30.2 MCHC 31.3 L RDW Std Deviation 50.2 H RDW Coeff of Mary 14.2 Plt Count 276 MPV 10.5 Immature Gran % (Auto) 0.500 Neut % (Auto) 72.1 H Lymph % (Auto) 19.3 [place] % (Auto) 6.6 Eos % (Auto) 1.0 Baso % (Auto) 0.5 Absolute Neuts (auto) 6.3 Absolute Lymphs (auto) 1.69 Nucleated RBC % 0 Sodium 139 Potassium 4.2 Chloride 105 Carbon Dioxide 26.0 Anion Gap 8 BUN 21 H Creatinine 1.32 H Estim Creat Clear Calc 31.87 Est GFR (MDRD) Af Amer 51 L Est GFR (MDRD) Non-Af 42 L BUN/Creatinine Ratio 15.9 Glucose 154 H Lactic Acid 1.3 Calcium 8.1 L Total Bilirubin 0.30 AST 18 ALT 29 Alkaline Phosphatase 52 Troponin I < 0.015 B-Natriuretic Peptide Total Protein 7.0 Albumin 3.4 Globulin 3.6 Albumin/Globulin Ratio 0.9 10/05/20 20:55 WBC RBC Hgb Hct MCV MCH MCHC RDW Std Deviation RDW Coeff of Mary Plt Count MPV Immature Gran % (Auto) Neut % (Auto) Lymph % (Auto) [place] % (Auto) Eos % (Auto) Baso % (Auto) Absolute Neuts (auto) Absolute Lymphs (auto) Nucleated RBC % Sodium Potassium Chloride Carbon Dioxide Anion Gap BUN Creatinine Estim Creat Clear Calc Est GFR (MDRD) Af Amer Est GFR (MDRD) Non-Af BUN/Creatinine Ratio Glucose Lactic Acid Calcium Total Bilirubin AST ALT Alkaline Phosphatase Troponin I B-Natriuretic Peptide 1227.6 H Total Protein Albumin Globulin Albumin/Globulin Ratio Micro: Microbiology 10/05/20 20:55 SARS-CoV-2 Antigen (Rapid) - Final Interface Orders Radiology Impression Chest X-Ray 10/05/20 21:13 IMPRESSION: Focal left basilar infiltrate/atelectasis. Mild cardiomegaly. Electronically Signed: Davi Don DO at 21:33 EDT Tel [phone], Service support , Assessment & Plan Assessment/Plan (1) Hypoxia: (2) Acute on chronic combined systolic and diastolic CHF (congestive heart failure): (3) Diabetes mellitus, type 2: (4) H/O coronary artery bypass surgery: (5) Atherosclerosis of coronary artery of [place] heart without angina pectoris: QUALIFIERS: Coronary Disease-Associated Artery/Lesion type: [place] artery Qualified Code(s): I25.10 - Atherosclerotic heart disease of [place] coronary artery without angina pectoris (6) Paroxysmal atrial fibrillation: (7) Essential (primary) hypertension: (8) Hyperlipidemia: QUALIFIERS: Hyperlipidemia type: pure hypercholesterolemia Qualified Code(s): E78.00 - Pure hypercholesterolemia, unspecified; E78.0 - Pure hypercholesterolemia PLAN: This is a 70 years old female patient presented to the emergency room because of shortness of breath, found to have findings consistent with acute on chronic combined diastolic and systolic CHF with hypoxia and she is being admitted for treatment. #1 acute on chronic combined systolic and diastolic CHF: EKG reviewed as above. Chest x-ray also reviewed. BNP is elevated. Troponin is negative. Pulse ox dropped down to 87% with ambulation on room air. She had 2D echocardiogram on August, that showed ejection fraction 45%, mild LVH. Plan: Admit to PCU for observation, cardiac monitoring, fluid restriction, IV Lasix, input output chart, continue irbesartan and metoprolol, repeat CBC and BMP tomorrow morning, PT OT evaluation and treatment. #2 hypoxia: Pulse ox dropped to 87% with ambulation in the ED. Patient does not to be home oxygen. At rest, she has been around 95%. Plan for IV diuresis, oxygen by rescue as needed. #3 CAD status post CABG: Stable, continue statins, metoprolol and irbesartan. #4 type 2 diabetes mellitus: ADA diet, Accu-Cheks, insulin sliding scale, continue glargine and glipizide. #5 hypertension: Blood pressure stable, continue Norvasc, irbesartan and metoprolol. #6 paroxysmal atrial fibrillation: Currently, heart rate has been around 95-100, continue amiodarone and metoprolol for rate control, continue Eliquis for anticoagulation. #7 hyperlipidemia: Continue statins. #8 DVT prophylaxis: Subcu heparin. This note was generated with [employer] dictation software. It may contain incorrect words, spelling, and punctuation that were not noted in checking the note before signing. Multi Select Codes Visit Charges Observation E&M Codin Initial observation care L3
[2020-10-05 23:41] LABS: International Normalized Ratio 1.3; Prothrombin Time (Protime)PT. 15.2 SECONDS (11.7-14.9)
[2020-10-06] VITALS (18 sets, daily range): BP systolic 88–124; BP diastolic 53–81; PULSE 73–98; RESP 16–20; TEMP 36.1–37.1; O2SAT 93–97
[2020-10-06 06:17] LABS: Absolute Lymphocyte Count 1.52 X10^3/uL (0.83-4.51); Basophil# 0.05 X10^3/uL; Basophil% 0.8 % (0-1); Eosinophil# 0.08 X10^3/uL; Eosinophils% 1.3 % (0-5); Hematocrit 38.6 % (37-47); Hemoglobin 12.2 g/dL (12.0-15.0); Lymphocyte # 1.52 X10^3/ul (0.83-4.51); Lymphocyte % 24.5 % (19-41); Mean Corp Hgb Conc 31.6 g/dL (32-36); Mean Corpuscular Hgb 30.3 pg (27.0-32.0); Mean Corpuscular Volume 95.8 fL (81-99); Mean Platelet Vol. 10.3 fl (6.2-12.0); Monocyte# 0.51 X10^3/uL; Monocyte% 8.2 % (0-10); NRBC Flagged by Analyzer 0 % (0-5); Neutrophil # 4.03 X10^3/uL (2.7-7.7); Neutrophil % 64.9 % (47-70); Platelet Count 204 K/mm3 (150-450); RBC Distribution Width CV 14.2 % (11.6-14.6); RBC Distribution Width SD 49.2 fl (35.1-43.9); Red Blood Count 4.03 M/mm3 (4.2-5.4); White Blood Count 6.2 K/mm3 (4.4-11.0)
[2020-10-06 06:43] LABS: Hemoglobin A1c 7.1 % (3.8-5.6)
[2020-10-06 06:44] LABS: Anion Gap 6 (5-15); BUN 22 mg/dL (7-18); BUN/Creat Ratio 18.5 RATIO (10-20); Calcium,Total 8.2 mg/dL (8.5-10.1); Chloride 106 mmol/L (98-107); Creatinine, Serum 1.19 mg/dL (0.55-1.02); EST Glomerular Filtration Rate 47 mL/min (>60); Est Glom Filt Rate - Afr Amer 57 mL/min (>60); Estimated Creatinine Clearance 35.35 ml/min; Glucose 123 mg/dL (74-106); Potassium 3.9 mmol/L (3.5-5.1); Sodium Level 140 mmol/L (136-145)
[2020-10-06 07:06] LABS: Bedside Glucose 103 mg/dL (70-110)
[2020-10-06] MEDS: Potassium Chloride Oral Tablet 20 MEQ PO ×2 (08:41→16:30)
[2020-10-06] MEDS: Amiodarone 200 MG Tablet PO (08:41)
[2020-10-06] MEDS: amLODIPine 5 MG Tablet PO (08:41)
[2020-10-06] MEDS: Metoprolol Tartrate 100 MG Tablet PO (08:44)
[2020-10-06] MEDS: Furosemide 40 MG/4 ML Vial IV (08:45)
[2020-10-06] MEDS: glipiZIDE 10 MG Tablet PO (08:45)
[2020-10-06] MEDS: Mirabegron 25 MG TAB.ER.24H PO (08:46)
[2020-10-06] MEDS: APIXABAN 5 MG TABLET PO ×2 (08:50→20:37)
[2020-10-06] MEDS: Insulin Lispro 100 UNIT/ML INSULN.PEN SC ×2 (10:48→20:38)
[2020-10-06] MEDS: Losartan Potassium 100 MG Tablet PO (10:49)
[2020-10-06 10:51] LABS: Bedside Glucose 207 mg/dL (70-110)
--- NOTE | 2020-10-06 11:30 | PN.HOSP_ITS ---
Subjective Subjective Patient is a 71-year-old lady admitted with progressive shortness of breath over weeks. An assessment of acute congestive heart failure made admitted to monitored bed for further management Objective Data Objective Data Vital Signs: Vital Signs Temp Pulse Resp BP Pulse Ox 97.0 F L 85 18 113/79 97 10/06/20 08:24 10/06/20 11:00 10/06/20 08:24 10/06/20 10:48 10/06/20 08:24 Oxygen Delivery Method Room Air Weight: 109.8 kg Body Mass Index (BMI) 42.8 Intake & Output: Intake and Output for Last 24 Hours 10/04/20 10/05/20 10/06/20 23:59 23:59 23:59 Output Total 1000 / 1000 Balance -1000 / -1000 Lab / Micro Data Result Diagrams: 10/06/20 05:52 10/06/20 05:52 Micro: Microbiology 10/05/20 20:55 Interface Orders SARS-CoV-2 Antigen (Rapid) - Final Radiography Diagnostic Testing: Radiology Impression Chest X-Ray 10/05/20 21:13 IMPRESSION: Focal left basilar infiltrate/atelectasis. Mild cardiomegaly. Electronically Signed: Davi Don DO at 21:33 EDT Tel [phone], Service support , Physical Exam Narrative GENERAL: cooperative HEENT: Atraumatic; EYES; Anicteric, Normal Conjunctiva NECK; supple, normal thyroid, RESPIRATORY: Diminished to auscultation CARDIOVASCULAR: Regular S1 S2, GI: soft, normoactive bowel sounds, : No Renal angle tenderness; EXTREMITIES: edema, no clubbing, MUSCULOSKELETAL: no muscle waisting NEURO: Awake; no lateralizing signs. SKIN: No Rash PSYCH; Flat affect Assessment & Plan Assessment/Plan (1) Hypoxia: (2) Acute on chronic combined systolic and diastolic CHF (congestive heart failure): (3) Diabetes mellitus, type 2: (4) H/O coronary artery bypass surgery: (5) Atherosclerosis of coronary artery of [place] heart without angina pectoris: QUALIFIERS: Coronary Disease-Associated Artery/Lesion type: [place] artery Qualified Code(s): I25.10 - Atherosclerotic heart disease of [place] co ronary artery without angina pectoris (6) Paroxysmal atrial fibrillation: (7) Essential (primary) hypertension: (8) Hyperlipidemia: QUALIFIERS: Hyperlipidemia type: pure hypercholesterolemia Qualified Code(s): E78.00 - Pure hypercholesterolemia, unspecified; E78.0 - Pure hypercholesterolemia PLAN: Patient is a 71-year-old lady admitted with progressive shortness of breath over weeks. An assessment of acute congestive heart failure made admitted to monitored bed for further management 1. Acute on chronic congestive heart failure with reduced ejection fraction ?Echo obtained in August 2020 demonstrated EF of 45%. Patient presented with progressive shortness of breath consistent with acute congestive heart failure admitted to a monitored bed managed with strict input and output, low-sodium diet, daily weight, as well as IV Lasix. Patient was also placed on suppleme ntal oxygen titrated to keep saturation greater than 90. Daily BMPs ordered for monitoring. 2. Acute hypoxic respiratory insufficiency ?Secondary to above patient placed on supplemental oxygen 3. Coronary artery disease ?With previous CABG patient on recommended medications including statin therapy ARB and beta-blockers 4. Diabetes mellitus type II -patient's oral hypoglycemics held. Placed on long acting insulin, Accu-Cheks a.c. and at bedtime and covered with sliding scale insulin 5. Hypertension - Blood pressure controlled, home medications continued with dose adjustment as needed 6. Paroxysmal A. fib ?Rate controlled on amiodarone and beta-blockers, patient is on systemic and coagulation with Eliquis. 7. Dyslipidemia -Patient is on statin therapy, continued at home dose 8. Morbid obesity - With a BMI of 42.9 patient was counseled on weight reduction 9. DVT prophylaxis ?On apixaban Visit Charges OBSV E&M: 48245 Subsequent observation care L3
[2020-10-06] MEDS: Albuterol 2.5 MG/3 ML VIAL.NEB. INHALATION ×2 (15:36→21:14)
[2020-10-06 15:46] LABS: Bedside Glucose 107 mg/dL (70-110)
[2020-10-06 17:15] LABS: Bedside Glucose 91 mg/dL (70-110)
[2020-10-06] MEDS: Atorvastatin Calcium 10 MG Tablet PO (20:37)
[2020-10-06 20:51] LABS: Bedside Glucose 210 mg/dL (70-110)
[2020-10-07 02:39] VITALS: BP 114/80; PULSE 92; RESP 17; TEMP 36.6; O2SAT 96
[2020-10-07 03:33] VITALS: PULSE 94
[2020-10-07 07:01] VITALS: PULSE 96
[2020-10-07 07:23] VITALS: O2SAT 96
[2020-10-07 08:39] VITALS: BP 117/74; PULSE 98; RESP 18; TEMP 36.4; O2SAT 96
[2020-10-07 09:01] VITALS: PULSE 98
[2020-10-07] MEDS: glipiZIDE 10 MG Tablet PO (09:01)
[2020-10-07] MEDS: Metoprolol Tartrate 100 MG Tablet PO (09:01)
[2020-10-07] MEDS: Furosemide 40 MG/4 ML Vial IV (09:01)
[2020-10-07] MEDS: APIXABAN 5 MG TABLET PO (09:01)
[2020-10-07] MEDS: Amiodarone 200 MG Tablet PO (09:01)
[2020-10-07] MEDS: Potassium Chloride Oral Tablet 20 MEQ PO (09:02)
[2020-10-07] MEDS: Mirabegron 25 MG TAB.ER.24H PO (09:02)
[2020-10-07] MEDS: Losartan Potassium 100 MG Tablet PO (09:02)
[2020-10-07] MEDS: amLODIPine 5 MG Tablet PO (09:02)
[2020-10-07] MEDS: 0.9% Saline Lock 10 ML Syringe IV (09:02)
--- NOTE | 2020-10-07 10:44 | DS.PCM_ITS ---
Providers Date of Admission: 10/06/20 Primary Care Physician: Dr. Yaya Centeno DO Reason For Visit: ACUTE ON CHRONIC CHF Diagnosis Discharge Diagnosis (1) Hypoxia: Status: Acute Code(s): R09.02 - Hypoxemia (2) Acute on chronic combined systolic and diastolic CHF (congestive heart failure): Status: Acute Code(s): I50.43 - Acute on chronic combined systolic (congestive) and diastolic (congestive) heart failure (3) Diabetes mellitus, type 2: Status: Chronic Code(s): E11.9 - Type 2 diabetes mellitus without complications (4) H/O coronary artery bypass surgery: Status: Resolved Code(s): Z95.1 - Presence of aortocoronary bypass graft (5) Atherosclerosis of coronary artery of [place] heart without angina pectoris: Status: Chronic Code(s): I25.10 - Atherosclerotic heart disease of [place] coronary artery without angina pectoris Qualifiers: Coronary Disease-Associated Artery/Lesion type: [place] artery Qualified Code(s): I25.10 - Atherosclerotic heart disease of [place] coronary artery without angina pectoris (6) Paroxysmal atrial fibrillation: Status: Chronic Code(s): I48.0 - Paroxysmal atrial fibrillation (7) Essential (primary) hypertension: Status: Chronic Code(s): I10 - Essential (primary) hypertension (8) Hyperlipidemia: Status: Chronic Code(s): E78.5 - Hyperlipidemia, unspecified Qualifiers: Hyperlipidemia type: pure hypercholesterolemia Qualified Code(s): E78.00 - Pure hypercholesterolemia, unspecified; E78.0 - Pure hypercho lesterolemia Medications at Discharge Home Medications albuterol sulfate 2 puff INHALATION 4X/DAY PRN PRN 12/19/13 insulin glargine 100 unit/mL (3 mL) subcutaneous pen 40 unit SC DAILY 30 Days #9 ml 03/06/18 simvastatin 20 mg tablet 20 mg PO QHS 03/06/18 glipizide 5 mg tablet 10 mg PO DAILY 30 Days #30 tab 08/25/18 mirabegron 25 mg tablet,extended release 24 hr 25 mg PO DAILY 30 Days #30 tab 08/25/18 apixaban 5 mg tablet 5 mg PO BID #180 tab 11/19/19 irbesartan 300 mg tablet 300 mg PO DAILY #90 tablet 09/01/20 amlodipine 5 mg tablet 5 mg PO DAILY 09/22/20 metoprolol tartrate 100 mg tablet 100 mg PO BID #180 tab 09/22/20 tramadol 50 mg tablet 50 mg PO BID PRN 09/22/20 furosemide 40 mg tablet 40 mg PO BID #180 tab 09/25/20 potassium chloride 20 mEq tablet,extended release 20 meq PO BID #180 tab 09/25/20 amiodarone 200 mg PO DAILY 10/06/20 Hospital Course Summary of Care Provided Minutes Spent on Discharge: 35 Hospital Course: Patient is a 71-year-old lady admitted with progressive shortness of breath over weeks. An assessment of acute congestive heart failure made admitted to monitored bed for further management 1. Acute on chronic congestive heart failure with reduced ejection fraction ?Echo obtained in August 2020 demonstrated EF of 45%. Patient presented with progressive shortness of breath consistent with acute congestive heart failure admitted to a monitored bed managed with strict input and output, low-sodium diet, daily weight, as well as IV Lasix. Patient was also placed on supplemental oxygen titrated to keep saturation greater than 90. Daily BMPs ordered for monitoring. 2. Acute hypoxic respiratory insufficiency ?Secondary to above patient placed on supplemental oxygen 3. Coronary artery disease ?With previous CABG patient on recommended medications including statin therapy ARB and beta-blockers 4. Diabetes mellitus type II -patient's oral hypoglycemics held. Placed on long acting insulin, Accu-Cheks a.c. and at bedtime and covered with sliding scale insulin 5. Hypertension - Blood pressure controlled, home medications continued with dose adjustment as needed 6. Paroxysmal A. fib ?Rate controlled on amiodarone and beta-blockers, patient is on systemic and coagulation with Eliquis. 7. Dyslipidemia -Patient is on statin therapy, continued at home dose 8. Morbid obesity - With a BMI of 42.9 patient was counseled on weight reduction 9. DVT prophylaxis ?On apixaban Physical Exam Narrative GENERAL: cooperative HEENT: Atraumatic; EYES; Anicteric, Normal Conjunctiva NECK; supple, normal thyroid, RESPIRATORY: Diminished to auscultation CARDIOVASCULAR: Regular S1 S2, GI: soft, normoactive bowel sounds, : No Renal angle tenderness; EXTREMITIES: edema, no clubbing, MUSCULOSKELETAL: no muscle waisting NEURO: Awake; no lateralizing signs. SKIN: No Rash PSYCH; Flat affect ABG / Lab / Microbiology Data Result Diagrams: 10/06/20 05:52 10/06/20 05:52 Laboratory: Laboratory Results - last 24 hr 10/06/20 10/06/20 10/06/20 10:43 15:43 17:04 POC Glucose 207 H 107 91 10/06/20 20:34 POC Glucose 210 H Microbiology: Microbiology 10/05/20 20:55 Interface Orders SARS-CoV-2 Antigen (Rapid) - Final D/C Instructions Discharge Diet: 8 Cup Fluid Restriction and 2000 mg Sodium Diet Discharge Activity: Return to Normal Activity Call your doctor if you observe: Fever of 101 or Higher, Shortness of breath, Fainting spells and Chest pain Meaningful Use Info Meaningful Use Diagnoses (Choose all that apply): CHF CHF JUAN/ARB ordered at discharge?: Yes Documented LVEF (%): 45 Discharge Plan Admission Admit Date/Time: 10/06/20 21:57 Primary Reason for Your Visit: Congestive heart failure Attending Provider: David Canales Primary Care Provider: Yaya Centeno Discharge Orders/Prescriptions Prescriptions: Continued insulin glargine 100 unit/mL (3 mL) insulin pen 40 unit SC DAILY 30 Days Qty: 9 RF: 0 simvastatin 20 mg tablet 20 mg PO QHS RF: 0 glipizide 5 mg tablet 10 mg PO DAILY 30 Days Qty: 30 RF: 0 mirabegron 25 mg tablet extended release 24 hr 25 mg PO DAILY 30 Days Qty: 30 RF: 0 amlodipine 5 mg tablet 5 mg PO DAILY RF: 0 tramadol 50 mg tablet 50 mg PO BID PRN (Reason: Pain) RF: 0 metoprolol tartrate 100 mg tablet 100 mg PO BID Qty: 180 RF: 3 albuterol sulfate 1 INHALER inhaler 2 puff INHALATION 4X/DAY PRN PRN (Reason: Shortness Of Breath) RF: 0 amiodarone 200 mg Tablet 200 mg PO DAILY RF: 0 apixaban 5 mg tablet 5 mg PO BID Qty: 180 RF: 3 irbesartan 300 mg tablet 300 mg PO DAILY Qty: 90 RF: 3 furosemide 40 mg tablet 40 mg PO BID Qty: 180 RF: 3 potassium chloride 20 mEq tablet extended release 20 meq PO BID Qty: 180 RF: 3 Referrals / Follow Up: Yaya Centeno DO [Primary Care Provider] - In 1 Week Disposition Disposition (needs filled in before D/C Order can be placed): Home, self care Visit Charges OBSV E&M: 14130 Observation care discharge
--- NOTE | 2020-10-07 10:54 | PCM.DC ---
Discharge Instructions Diet Discharge Diet: 8 Cup Fluid Restriction and 2000 mg Sodium Diet Activity Discharge Activity: Return to Normal Activity Dressing / Incision Call your doctor if you observe: Fever of 101 or Higher, Shortness of breath, Fainting spells and Chest pain Follow Up Care Test Results: Test results from this visit will be discussed in further detail at your follow-up appointment, if applicable. Discharge Plan Admission Admit Date/Time: 10/06/20 21:57 Primary Reason for Your Visit: Congestive heart failure Attending Provider: David Canales Primary Care Provider: Yaya Centeno Discharge Orders/Prescriptions Prescriptions: Continued insulin glargine 100 unit/mL (3 mL) insulin pen 40 unit SC DAILY 30 Days Qty: 9 RF: 0 simvastatin 20 mg tablet 20 mg PO QHS RF: 0 glipizide 5 mg tablet 10 mg PO DAILY 30 Days Qty: 30 RF: 0 mirabegron 25 mg tablet extended release 24 hr 25 mg PO DAILY 30 Days Qty: 30 RF: 0 amlodipine 5 mg tablet 5 mg PO DAILY RF: 0 tramadol 50 mg tablet 50 mg PO BID PRN (Reason: Pain) RF: 0 metoprolol tartrate 100 mg tablet 100 mg PO BID Qty: 180 RF: 3 albuterol sulfate 1 INHALER inhaler 2 puff INHALATION 4X/DAY PRN PRN (Reason: Shortness Of Breath) RF: 0 amiodarone 200 mg Tablet 200 mg PO DAILY RF: 0 apixaban 5 mg tablet 5 mg PO BID Qty: 180 RF: 3 irbesartan 300 mg tablet 300 mg PO DAILY Qty: 90 RF: 3 furosemide 40 mg tablet 40 mg PO BID Qty: 180 RF: 3 potassium chloride 20 mEq tablet extended release 20 meq PO BID Qty: 180 RF: 3 Referrals / Follow Up: Yaya Centeno DO [Primary Care Provider] - In 1 Week Disposition Disposition (needs filled in before D/C Order can be placed): Home, self care
--- NOTE | 2020-10-07 10:58 | PHA.DC.MR ---
Pharmacy Service has performed discharge medication reconciliation for this patient. The patient's discharge medication list was reviewed for discrepancies and discrepancies were resolved. Home Medications albuterol sulfate 2 puff INHALATION 4X/DAY PRN PRN 12/19/13 insulin glargine 100 unit/mL (3 mL) subcutaneous pen 40 unit SC DAILY 30 Days #9 ml 03/06/18 simvastatin 20 mg tablet 20 mg PO QHS 03/06/18 glipizide 5 mg tablet 10 mg PO DAILY 30 Days #30 tab 08/25/18 mirabegron 25 mg tablet,extended release 24 hr 25 mg PO DAILY 30 Days #30 tab 08/25/18 apixaban 5 mg tablet 5 mg PO BID #180 tab 11/19/19 irbesartan 300 mg tablet 300 mg PO DAILY #90 tablet 09/01/20 amlodipine 5 mg tablet 5 mg PO DAILY 09/22/20 metoprolol tartrate 100 mg tablet 100 mg PO BID #180 tab 09/22/20 tramadol 50 mg tablet 50 mg PO BID PRN 09/22/20 furosemide 40 mg tablet 40 mg PO BID #180 tab 09/25/20 potassium chloride 20 mEq tablet,extended release 20 meq PO BID #180 tab 09/25/20 amiodarone 200 mg PO DAILY 10/06/20
--- NOTE | 2020-10-07 11:05 | CASEMGMT ---
CATRACHITO DUKE assessment: Face to Face with patient for initial transition planning/care coordination assessment. CATRACHITO DUKE introduced self and role at [facility], pt voices understanding and consents to assessment. Pt is sitting up in chair in no distress. Pt is A/Ox4 and answers all questions appropriately. Care providers, pharmacy, and demographics verified. Presentation: Pt c/o SOB for several weeks Admitting dx: Acute on Chronic CHF PCP: Taryn Specialists: Isabel cardio Preferred Pharmacy: [facility] Insurance: [facility] A/B, [facility] Prescription Benefit: [facility] Living Will/HPOA: Pt does not have LW/HPOA and declines AD info. LNOK: [place], Living Arrangements: Pt states lives with in 1 story home with 2-3steps in and states no concerns at home. Pt is independent with ADL's. Transportation: Pt states drives self or drives and states no transportation concerns. DME/HHC: Pt states has the following DME: walker, nebulizer, and raised toilet seat. Pt states no need for any further DME. Pt states no hx of HHC or SNF in the past. Pt states no concerns with going home at time of discharge. Pt is retired. Pt states does not smoke cigarettes and rarely drinks ETOH. Pt states no further concerns/needs. CM to follow for any further discharge planning/needs. Advised pt to ask for CM if any further questions/concerns/needs arise, voices understanding. Pt Goal: Home Plan: [place]
[2020-10-07 11:38] LABS: Bedside Glucose 91 mg/dL (70-110)
[2020-10-07 12:21] LABS: Bedside Glucose 182 mg/dL (70-110)
--- NOTE | 2020-10-08 11:36 | CASEMGMT ---
Addendum entered by Kirstin Chowdhury 10/08/20 15:32: Attempted discharge f/u phone call again. No answer and VM has not been set up yet. Unable to leave a message. Original Note: CATRACHITO DUKE Discharge Follow-Up Phone Call. Strata: 3 Discharge Date: 10/07/20 Adm Dx: Acute on Chronic CHF Attempted discharge f/u phone call. No answer and VM has not been set up yet. Unable to leave a message. Megan FISHER RN CM
== END 2020-10-07 13:57 | disposition home or self-care (01) | DRG 292 ==
LOC: ED 22:15 → PCU 23:13
PROVIDERS: Admitting Provider Hospitalist; Emergency Provider Student in an Organized Health Care Education/Training Program; PCP Family Medicine; Visit Provider Internal Medicine
DX: I11.0 Hypertensive heart disease with heart failure (principal); Z68.41 Body mass index [BMI] 40.0-44.9, adult; I50.43 Acute on chronic combined systolic (congestive) and diastolic (congestive) heart failure; R09.02 Hypoxemia; R06.89 Other abnormalities of breathing; I25.10 Atherosclerotic heart disease of native coronary artery without angina pectoris; Z95.1 Presence of aortocoronary bypass graft; E11.9 Type 2 diabetes mellitus without complications; I48.0 Paroxysmal atrial fibrillation; E78.5 Hyperlipidemia, unspecified; E66.01 Morbid (severe) obesity due to excess calories; Z79.02 Long term (current) use of antithrombotics/antiplatelets; Z79.84 Long term (current) use of oral hypoglycemic drugs; Z79.899 Other long term (current) drug therapy
CPT/HCPCS: 36415; 71045; 80048; 80053; 82962; 83036; 83605; 83880; 84484; 85025; 85610; 87040; 87426; 90471; 93005; 94640; 97161; 97166; 99251; 99285; A4216; G0463; J1940; J2405

== ENCOUNTER → 2021-12-01 | Outpatient (CLI) | payer MEDICARE, OTHER, SELFPAY ==
--- NOTE | 2021-12-01 15:00 | RAD_ITS ---
EXAM: XR CHEST, 2 VIEWS CLINICAL INDICATION: MED MONITORING ON AMIODARONE TECHNIQUE: Frontal and lateral views of the chest. This report was created using Jellynote report generation technology. COMPARISON: 10/05/2020 FINDINGS: LUNGS AND PLEURAL SPACES: Unremarkable. No consolidation or edema. No pneumothorax. No effusion. HEART: Unremarkable. Cardiac silhouette not enlarged. MEDIASTINUM: Central airways and mediastinal contour are unremarkable. BONES/JOINTS: Unremarkable. SOFT TISSUES: Unremarkable. RAD/Chest PA and Lateral IMPRESSION: No radiographic evidence of acute cardiopulmonary disease. Electronically Signed: Nicholas Ellis MD at 3:02 EDT ,
[2021-12-01 15:15] LABS: Color, Urine Yellow (Yellow); Glucose, Dipstick Normal (Normal); Ketone-Dipstick Negative (Negative); Leukocyte Esterase-Dipstick 25 /ul (Negative); Nitrite-Dipstick Positive (Negative); Occult Blood-Urine Negative /ul (Negative); Protein-Dipstick Negative (Negative); Specific Gravity, Urine 1.015 (1.002-1.030); Urine Bilirubin Dipstick Negative (Negative); Urine Clarity Clear (Clear); Urine Urobilinogen Normal (Normal)
[2021-12-01 15:37] LABS: BNP,B-Type NATRIURETIC PEPTIDE 423.7 pg/mL (0-100)
[2021-12-01 15:49] LABS: ALB/GLOB Ratio 0.9 RATIO (0.9-2.4); AST(SGOT) 17 U/L (15-37); Alanine Aminotransfer ALT/SGPT 25 U/L (13-56); Albumin, Serum 3.2 g/dL (3.2-5.0); Alkaline Phosphatase 65 U/L (45-117); Anion Gap 4 (5-15); BUN 26 mg/dL (7-18); BUN/Creat Ratio 19.4 RATIO (10-20); Calcium,Total 8.7 mg/dL (8.5-10.1); Chloride 109 mmol/L (98-107); Creatinine, Serum 1.34 mg/dL (0.55-1.02); EST Glomerular Filtration Rate 41 mL/min (>60); Est Glom Filt Rate - Afr Amer 50 mL/min (>60); Globulin 3.6 g/dL (2.2-4.2); Glucose 158 mg/dL (74-106); Protein, Total 6.8 g/dL (6.4-8.2); Sodium Level 140 mmol/L (136-145); Thyroid Stim Hormone (TSH) 5.94 uIU/mL (0.358-3.74)
== END | disposition home or self-care (01) ==
PROVIDERS: PCP Family Medicine; Visit Provider Family Medicine
DX: I11.0 Hypertensive heart disease with heart failure (principal); I50.9 Heart failure, unspecified; E03.2 Hypothyroidism due to medicaments and other exogenous substances; R35.0 Frequency of micturition; Z51.81 Encounter for therapeutic drug level monitoring
CPT/HCPCS: 36415; 71046; 80053; 81002; 83880; 84443

== ENCOUNTER 2022-01-14 17:07 | Emergency (ER) | payer MEDICARE, OTHER, SELFPAY ==
[2022-01-14] VITALS (8 sets, daily range): BP systolic 108–126; BP diastolic 55–75; PULSE 76–87; RESP 16–20; TEMP 36.3–36.9; O2SAT 95–99; BMI 43.0
--- NOTE | 2022-01-14 17:31 | EKG12_ITS ---
Test Reason : SOB Blood Pressure : / mmHG Vent. Rate : 078 BPM Atrial Rate : 086 BPM P-R Int : 000 ms QRS Dur : 104 ms QT Int : 446 ms P-R-T Axes : 000 -11 090 degrees QTc Int : 508 ms Atrial fibrillation Low voltage QRS Nonspecific T wave abnormality Abnormal ECG Confirmed by BENITA BARRERA, GERI ([id number]), photograph editor YOVANI GARCIA ([id number]) on 01/18/2022 10:47:33 AM Referred By: GIOVANA Confirmed By:GERI JOY MD
--- NOTE | 2022-01-14 17:32 | EX.ED.DYSGE1 ---
HPI History of Present Illness Chief Complaint: Shortness of Breath Detail of Chief Complaint: Shortness of breath Informant: patient and family Narrative Narrative: Patient presents the emergency department with shortness of breath and increased fatigue over the last several days. Patient has a chronic cough but its been worse over the last 2 days. At times she has a hard time standing because she is feeling so weak. Patient has had diarrhea off and on for several weeks. Patient feels lightheaded and dizzy at times with standing. Patient had a negative COVID test at home prior to coming to the ER today. Patient has had the COVID-vaccine. Patient denies any chest pain. Patient denies fever. [facility] Medical History Abscess of left lower extremity Acute on chronic combined systolic and diastolic CHF (congestive heart failure) Atherosclerosis of coronary artery of [place] heart without angina pectoris Cardiomyopathy in diseases classified elsewhere Chronic combined systolic and diastolic CHF (congestive heart failure) Essential (primary) hypertension Hyperlipidemia Morbid obesity Obstructive sleep apnea Old myocardial infarction Paroxysmal atrial fibrillation Persistent atrial fibrillation Secondary pulmonary arterial hypertension Type 2 diabetes mellitus Home Medications albuterol sulfate 90 mcg/actuation aerosol inhaler 2 puff inhalation 4X/DAY PRN PRN Shortness Of Breath 12/19/13 [History Last Taken Unknown] glipizide 5 mg tablet 10 mg PO DAILY diabetes 30 days #30 tabs 08/25/18 [History Last Taken Unknown] apixaban 5 mg tablet 5 mg PO BID #180 tabs 11/19/19 [Rx Last Taken Unknown] furosemide 40 mg tablet 40 mg PO BID #180 tabs 09/25/20 [Rx Last Taken Unknown] aspirin 81 mg tablet,delayed release (Adult Aspirin Regimen) 81 mg PO DAILY 12/05/20 [History Last Taken Unknown] atorvastatin 40 mg tablet 40 mg PO DAILY 12/05/20 [History Last Taken Unknown] diltiazem HCl 120 mg capsule,extended release 24 hr 120 mg PO DAILY 12/05/20 [History Last Taken Unknown] metformin 500 mg tablet 750 mg PO DAILY 12/05/20 [History Last Taken Unknown] potassium chloride 20 mEq tablet,extended release 10 meq PO BID 12/05/20 [History Last Taken Unknown] metoprolol tartrate 100 mg tablet 100 mg PO BID #180 tabs 10/06/21 [Rx Last Taken Unknown] cholecalciferol (vitamin D3) 1,250 mcg (50,000 unit) capsule 1,250 mcg PO QWEEK 12/18/21 [History Last Taken Unknown] levothyroxine 75 mcg capsule 75 mcg PO DAILY 12/18/21 [History Last Taken Unknown] mirabegron 25 mg tablet,extended release 24 hr 50 mg PO DAILY bladder 30 days #60 tabs 12/18/21 [History Last Taken Unknown] sacubitril 49 mg-valsartan 51 mg tablet (Entresto) 1 tab PO BID #60 tabs 12/22/21 [Rx Last Taken Unknown] cephalexin 500 mg capsule 500 mg PO Q6 #40 CAPSULES 01/14/22 [Rx Last Taken Unknown] Allergy/AdvReac Type Severity Reaction Status Date / Time No Known Allergies Allergy Verified 01/14/22 17:09 Family History Mother Hypertension Brother Heart disease Surgical History H/O coronary artery bypass surgery (2012) H/O eye surgery H/O total hysterectomy History of cardioversion (09/2017) History of incision and drainage Hx of cholecystectomy Social History Smoking Status: Never smoker alcohol intake: current alcohol intake frequency: holidays/special occasions only substance use type: does not use diet: diabetic caffeine: Yes Type: coffee Number of servings: 3 what type of physical activity do you participate in: none ROS ROS ED Review of Systems ROS Unobtainable: other Constitutional Constitutional ED: Reports lethargy; Denies chills, fever(s), sweats or weight loss Eyes Eyes: Denies blurry vision, change in vision or diplopia ENT ENT ED: Denies rhinorrhea or sore throat Cardiovascular Cardiovascular: Denies chest pain, orthopnea or racing heartbeat Respiratory/Chest Respiratory/Chest: Reports cough, dyspnea and dyspnea on exertion; Denies orthopnea or sputum Gastrointestinal Gastrointestinal: Denies abdominal pain, diarrhea, nausea or vomiting Genitourinary Genitourinary ED: Denies dysuria, hematuria or urinary frequency Musculoskeletal Musculoskeletal: Reports myalgias; Denies arthralgias, back pain or neck pain Integumentary Denies abscess, Abrasions or rash Neurologic Neurologic: Reports headache(s) and weakness Psychiatric Psychiatric: Denies anxiety, depression or suicidal thoughts Endocrine Endocrinology: Denies polydipsia, polyphagia or polyuria Hematologic/Lymphatic Hematologic/Lymphatic: Denies easy bleeding, easy bruising or lymphadenopathy Allergic/Immunologic Allergic/Immunologic ED: Denies mouth swelling, tongue swelling or urticaria EXAM Physical Exam Const Vital Signs: 01/14/22 17:09 01/14/22 17:19 01/14/22 17:14 Temperature 98 F 98 F Temperature Source Temporal Temporal Pulse Rate 76 81 81 Respiratory Rate 18 20 H 20 H Respiratory Effort Blood Pressure 120/55 L 108/56 L 108/56 L Blood Pressure Mean 76 73 73 Pulse Ox 99 99 99 Oxygen Delivery Method Room Air Room Air Room Air 01/14/22 17:21 01/14/22 18:30 01/14/22 18:30 Temperature 98.4 F Temperature Source Temporal Pulse Rate 84 84 Respiratory Rate 18 18 Respiratory Effort Short of Breath Blood Pressure 126/75 H 126/75 H Blood Pressure Mean 92 92 Pulse Ox 97 97 Oxygen Delivery Method Room Air Room Air Room Air 01/14/22 19:46 01/14/22 19:46 01/14/22 20:24 Temperature 98.0 F 98.0 F 97.4 F L Temperature Source Temporal Temporal Oral Pulse Rate 83 83 87 Respiratory Rate 20 H 20 H 18 Respiratory Effort Blood Pressure 113/70 113/70 113/70 Blood Pressure Mean 84 84 84 Pulse Ox 97 97 95 Oxygen Delivery Method Room Air Room Air Positive well nourished and well developed General Appearance ED: well developed and NAD HEENT Reports TM's clear and moist mucous membranes normocephalic and atraumatic; Negative for trauma or tenderness Tympanic Membrane ED: Yes TM's clear Eyes PERRL and EOMs intact bilaterally General Eye ED: Negative for pale conjunctiva or scleral icterus Neck no lymphadenopathy, supple and no JVD General: Negative for tenderness Chest Wall inspection of chest normal and palpation of chest normal Chest: Negative for tenderness Resp normal respiratory effort and clear to auscultation bilaterally Effort and Inspection: Negative for respiratory distress or pain with movement Auscultation: Negative for rhonchi, wheezes or diminished lung sounds Cardio regular rate, regular rhythm, S1 normal heart sound, S2 normal heart sound and no murmurs Peripheral Pulses: pulses 2+ throughout GI normal to inspection, nondistended, normoactive bowel sounds, soft to palpation, non-tender, non-distended and no masses Back/Spine no CVA tenderness and no thoracic nor lumbar tenderness Extremity normal to inspection General Extremety ED: Negative for edema General Extremity: Negative for edema Neuro oriented x3, CN's II-XII intact bilaterally, no sensory deficits noted and gait normal Sensorium / Orientation: awake, alert, oriented to person, oriented to place and oriented to time Motor Exam: strength 5/5 throughout and strength abnormal Psych mental status grossly normal Skin no rashes or lesions noted and no wounds MDM MDM MDM Narrative Medical decision making narrative: IV line established on arrival. Lab work-up showed a normal CBC with differential and chemistries that were unremarkable. Troponin was normal. D-dimer was elevated at 0.89 therefore a CTA of the chest was obtained which was negative for PE or significant acute disease process. BNP was slightly elevated at 540. Urinalysis obtained was significant for UTI and urine culture was sent. Patient was started on Rocephin 1 g IV. At this point I suspect a lot of her symptomatology may be related to her UTI. Patient will be started on Keflex given that her daughter states that several weeks ago she was treated for UTI with Bactrim and its unclear if she improved with that. Lab Data Attestation: I reviewed the patient's lab results. Labs: Laboratory Results - last 24 hr 01/14/22 01/14/22 01/14/22 18:20 18:20 18:20 WBC 8.7 RBC 4.12 L Hgb 12.5 Hct 38.4 MCV 93.2 MCH 30.3 MCHC 32.6 RDW Std Deviation 49.7 H RDW Coeff of Mary 14.5 Plt Count 193 MPV 10.8 Immature Gran % (Auto) 0.500 Neut % (Auto) 80.4 H Lymph % (Auto) 9.6 L [place] % (Auto) 8.7 Eos % (Auto) 0.5 Baso % (Auto) 0.3 Absolute Neuts (auto) 7.0 Absolute Lymphs (auto) 0.83 Nucleated RBC % 0 D-Dimer Quant (PE/DVT) 0.89 H* Sodium 141 Potassium 3.8 Chloride 106 Carbon Dioxide 29.0 Anion Gap 6 BUN 21 H Creatinine 1.22 H Estim Creat Clear Calc 33.97 Est GFR (MDRD) Af Amer 56 L Est GFR (MDRD) Non-Af 46 L BUN/Creatinine Ratio 17.2 Glucose 84 Calcium 8.9 Troponin I High Sens 7 B-Natriuretic Peptide Urine Color Urine Clarity Urine pH Ur Specific [place] Urine Protein Urine Glucose (UA) Urine Ketones Urine Occult Blood Urine Nitrite Urine Bilirubin Urine Urobilinogen Ur Leukocyte Esterase Urine RBC Urine WBC Ur Squamous Epith Cells Urine Bacteria Urine Mucus 01/14/22 01/14/22 18:20 19:30 WBC RBC Hgb Hct MCV MCH MCHC RDW Std Deviation RDW Coeff of Mary Plt Count MPV Immature Gran % (Auto) Neut % (Auto) Lymph % (Auto) [place] % (Auto) Eos % (Auto) Baso % (Auto) Absolute Neuts (auto) Absolute Lymphs (auto) Nucleated RBC % D-Dimer Quant (PE/DVT) Sodium Potassium Chloride Carbon Dioxide Anion Gap BUN Creatinine Estim Creat Clear Calc Est GFR (MDRD) Af Amer Est GFR (MDRD) Non-Af BUN/Creatinine Ratio Glucose Calcium Troponin I High Sens B-Natriuretic Peptide 540.8 H Urine Color Yellow Urine Clarity Sl. Cloudy Urine pH 6.0 Ur Specific [place] 1.015 Urine Protein 30 H Urine Glucose (UA) Normal Urine Ketones Negative Urine Occult Blood 25 H Urine Nitrite Positive H Urine Bilirubin Negative Urine Urobilinogen 1 H Ur Leukocyte Esterase 500 H Urine RBC 0-5 SEEN Urine WBC 25-50 SEEN Ur Squamous Epith Cells 5-10 SEEN Urine Bacteria 4+ Urine Mucus 0 SEEN Radiography Diagnostic Testing: Clinical Impression(s) from Imaging Studies Chest X-Ray 01/14/22 18:37 IMPRESSION: Normal x-ray examination of the chest. Electronically Signed: Denise Malone MD at 18:56 EDT Reading Location ID and State: Sisi Hoang MD Tel , Service support , Chest CTA 01/14/22 19:22 IMPRESSION: 1. No evidence of PE. 2. Findings consistent with small airways disease. Electronically Signed: Denise Malone MD at 20:42 EDT Reading Location ID and State: Sisi Hoang MD Tel , Service support , 1 view chest x-ray obtained interpreted by myself no acute disease process. Radiology was in agreement. EKG Initial EKG: Attestation: I personally reviewed and interpreted this EKG as follows: Comments: Atrial fibrillation with a ventricular rate of [address] changes Discharge Plan Triage Chief Complaint: Shortness of Breath ED Provider: Jordy Mccarthy Dx/Rx/DC Orders Clinical Impression: Dyspnea, Acute UTI Instructions: ED Dyspnea, ED Cystitis Female Adult Prescriptions: New cephalexin [cephalexin] 500 mg capsule 500 mg PO Q6 Qty: 40 0RF No Action glipizide 5 mg tablet 10 mg PO DAILY 30 Days Qty: 30 mirabegron 25 mg tablet extended release 24 hr 50 mg PO DAILY 30 Days Qty: 60 potassium chloride 20 mEq tablet extended release 10 meq PO BID aspirin [Adult Aspirin Regimen] 81 mg tablet,delayed release (DR/EC) 81 mg PO DAILY atorvastatin 40 mg tablet 40 mg PO DAILY diltiazem HCl 120 mg capsule,extended release 24hr 120 mg PO DAILY metformin 500 mg tablet 750 mg PO DAILY levothyroxine 75 mcg capsule 75 mcg PO DAILY cholecalciferol (vitamin D3) 1,250 mcg (50,000 unit) capsule 1,250 mcg PO QWEEK albuterol sulfate 1 INHALER inhaler 2 puff INHALATION 4X/DAY PRN PRN (Reason: Shortness Of Breath) Label Comments: breathing apixaban 5 mg tablet 5 mg PO BID Qty: 180 3RF furosemide 40 mg tablet 40 mg PO BID Qty: 180 3RF metoprolol tartrate 100 mg tablet 100 mg PO BID Qty: 180 3RF Rx Instructions: Hold for heart less than 60 or systolic blood pressure less than 100 mmHg. Entresto 49-51 mg tablet 1 tab PO BID Qty: 60 11RF Primary Care Provider: Yaya Centeno Referrals: Yaya Centeno DO [Primary Care Provider] - 3-5 Days Disposition Disposition: Home, Self Care
--- NOTE | 2022-01-14 18:37 | RAD_ITS ---
STUDY: X-RAY CHEST REASON FOR EXAM: Female, 71 years old. dyspnea TECHNIQUE: Single AP portable view of the chest. COMPARISON: None. FINDINGS: The lungs are clear and expanded. There is no demonstrated pleural abnormality. Normal size heart. Prior CABG. Normal mediastinum and álvaro. Normal visualized pulmonary arteries. Normal visualized aortic arch and descending thoracic aorta. Normal visualized thoracic spine. Normal visualized ribs, clavicles, and shoulders. There is no demonstrated abnormality of the visualized soft tissue structures of the upper abdomen. RAD/Chest 1 View (Portable) IMPRESSION: Normal x-ray examination of the chest. Electronically Signed: Denise Malone MD at 18:56 EDT Reading Location ID and State: [id number] / Tel , Service support ,
[2022-01-14 18:43] LABS: Absolute Lymphocyte Count 0.83 X10^3/uL (0.83-4.51); Basophil# 0.03 X10^3/uL; Basophil% 0.3 % (0-1); Eosinophil# 0.04 X10^3/uL; Eosinophils% 0.5 % (0-5); Hematocrit 38.4 % (37-47); Hemoglobin 12.5 g/dL (12.0-15.0); Lymphocyte # 0.83 X10^3/ul (0.83-4.51); Lymphocyte % 9.6 % (19-41); Mean Corp Hgb Conc 32.6 g/dL (32-36); Mean Corpuscular Hgb 30.3 pg (27.0-32.0); Mean Corpuscular Volume 93.2 fL (81-99); Mean Platelet Vol. 10.8 fl (6.2-12.0); Monocyte# 0.75 X10^3/uL; Monocyte% 8.7 % (0-10); NRBC Flagged by Analyzer 0 % (0-5); Neutrophil # 6.96 X10^3/uL (2.7-7.7); Neutrophil % 80.4 % (47-70); Platelet Count 193 K/mm3 (150-450); RBC Distribution Width CV 14.5 % (11.6-14.6); RBC Distribution Width SD 49.7 fl (35.1-43.9); Red Blood Count 4.12 M/mm3 (4.2-5.4); White Blood Count 8.7 K/mm3 (4.4-11.0)
[2022-01-14 18:58] LABS: BNP,B-Type NATRIURETIC PEPTIDE 540.8 pg/mL (0-100); D-Dimer Quantitative (DVT/PE) 0.89 FEU/ug/m (0.27-0.49)
[2022-01-14 19:01] LABS: Anion Gap 6 (5-15); BUN 21 mg/dL (7-18); BUN/Creat Ratio 17.2 RATIO (10-20); Calcium,Total 8.9 mg/dL (8.5-10.1); Chloride 106 mmol/L (98-107); Creatinine, Serum 1.22 mg/dL (0.55-1.02); EST Glomerular Filtration Rate 46 mL/min (>60); Est Glom Filt Rate - Afr Amer 56 mL/min (>60); Estimated Creatinine Clearance 33.97 ml/min; Glucose 84 mg/dL (74-106); Potassium 3.8 mmol/L (3.5-5.1); Sodium Level 141 mmol/L (136-145); Troponin-I HS 7 pg/mL (3.0-54.0)
--- NOTE | 2022-01-14 19:22 | CT_ITS ---
EXAM: CT ANGIOGRAPHY CHEST WITHOUT AND WITH INTRAVENOUS CONTRAST CLINICAL INDICATION: dyspnea, elevated d-dimer TECHNIQUE: Helically acquired angiography images were obtained of the chest without and with intravenous contrast. This CT exam was performed using one or more of the following dose reduction techniques: automated exposure control, adjustment of the mA and/or kV according to patient size, and/or use of iterative reconstruction technique. This report was created using [employer] report generation technology. MIP reconstructed images were created and reviewed. CONTRAST: IV 100mL [id number] COMPARISON: None. FINDINGS: PULMONARY ARTERIES: Unremarkable. Normal in caliber. No evidence of pulmonary embolism. AORTA: Unremarkable. Normal in caliber. No evidence of dissection. GREAT VESSELS OF AORTIC ARCH: Unremarkable. Normal in caliber. No evidence of dissection. LUNGS AND PLEURAL SPACES: Mosaic perfusion consistent with small airways disease. No mass. No pleural effusion or thickening. HEART: Unremarkable. Heart size is normal. No pericardial effusion. No signs of right heart strain, ratio of right ventricle to left ventricle measures less than 1. MEDIASTINUM: Unremarkable. No mediastinal or hilar adenopathy. Esophagus is unremarkable. No hiatal hernia. THYROID: Unremarkable. No thyroid lesions. BONES/JOINTS: Unremarkable. No suspicious lytic or blastic abnormality. CT/CTA Chest W/WO Contrast IMPRESSION: 1. No evidence of PE. 2. Findings consistent with small airways disease. Electronically Signed: Denise Malone MD at 20:42 EDT Reading Location ID and State: [id number] / Tel , Service support ,
[2022-01-14 19:36] LABS: Mucous, Urine 0 SEEN /hpf (<or=2+)
[2022-01-14 19:38] LABS: Color, Urine Yellow (Yellow); Glucose, Dipstick Normal (Normal); Ketone-Dipstick Negative (Negative); Leukocyte Esterase-Dipstick 500 /ul (Negative); Nitrite-Dipstick Positive (Negative); Occult Blood-Urine 25 /ul (Negative); Protein-Dipstick 30 mg/dl (Negative); Specific Gravity, Urine 1.015 (1.002-1.030); Urine Bilirubin Dipstick Negative (Negative); Urine Clarity Sl. Cloudy (Clear); Urine Urobilinogen 1 mg/dl (Normal)
[2022-01-14] MEDS: 0.9% Normal Saline 1,000 ML 1000 ML IV (19:43)
[2022-01-14 19:51] LABS: Bacteria 4+ /hpf (None Seen); Red Blood Cells-Urine 0-5 SEEN /hpf (0-5); Squamous Epithelial Cells - UA 5-10 SEEN /hpf (5-10); White Blood Cells 25-50 SEEN /hpf (0-5)
[2022-01-14] MEDS: Ceftriaxone 1 GM/50 ML BAG IV (20:51)
[2022-01-14] MEDS: 0.9% Normal Saline 1,000 ML 15 ML IV (20:52)
--- NOTE | 2022-01-15 09:35 | ED.RN ---
PER DR FITZGERALD ROCJACKYN SHOULD COVER THE GRAM NEGATIVE RODS UNSURE ABOUT KEFLEX BUT WILL WAIT ON SENSITIVITY.
== END 2022-01-14 21:54 | disposition home or self-care (01) ==
PROVIDERS: Emergency Provider Emergency Medicine; PCP Family Medicine; Visit Provider Emergency Medicine
DX: N39.0 Urinary tract infection, site not specified (principal); I11.0 Hypertensive heart disease with heart failure; I50.42 Chronic combined systolic (congestive) and diastolic (congestive) heart failure; E11.9 Type 2 diabetes mellitus without complications; I25.10 Atherosclerotic heart disease of native coronary artery without angina pectoris; E78.5 Hyperlipidemia, unspecified; R19.7 Diarrhea, unspecified; R06.02 Shortness of breath; Z79.82 Long term (current) use of aspirin; Z79.899 Other long term (current) drug therapy; Z79.84 Long term (current) use of oral hypoglycemic drugs; Z20.822 Contact with and (suspected) exposure to COVID-19
CPT/HCPCS: 71045; 71275; 80048; 81001; 83880; 84484; 85025; 85379; 87040; 87077; 87086; 87088; 87186; 87811; 93005; 96361; 96365; 99283; J7030; Q9967; A4216

== ENCOUNTER → 2022-03-02 | Outpatient (CLI) | payer MEDICARE, OTHER, SELFPAY ==
[2022-03-02 18:20] LABS: Thyroid Stim Hormone (TSH) 8.08 uIU/mL (0.358-3.74)
[2022-03-02 18:31] LABS: Erythrocyte Sedimentation Rate 13 mm/hr (0-30)
== END | disposition home or self-care (01) ==
LOC: BFHLAB 14:10
PROVIDERS: PCP Family Medicine; Visit Provider Family Medicine
DX: R35.0 Frequency of micturition (principal); R79.89 Other specified abnormal findings of blood chemistry; R51.9 Headache, unspecified; I10 Essential (primary) hypertension; R53.83 Other fatigue
CPT/HCPCS: 36415; 84443; 85652; 87077; 87086; 87088; 87186

== ENCOUNTER → 2022-06-01 | Outpatient (CLI) | payer MEDICARE, OTHER, SELFPAY ==
[2022-06-01 18:55] LABS: Anion Gap 5 (5-15); BUN 27 mg/dL (7-18); BUN/Creat Ratio 19.3 RATIO (10-20); Calcium,Total 9.3 mg/dL (8.5-10.1); Chloride 108 mmol/L (98-107); EST Glomerular Filtration Rate 39 mL/min (>60); Est Glom Filt Rate - Afr Amer 47 mL/min (>60); Glucose 225 mg/dL (74-106); Potassium 4.2 mmol/L (3.5-5.1); Sodium Level 140 mmol/L (136-145); Thyroid Stim Hormone (TSH) 9.32 uIU/mL (0.358-3.74)
== END | disposition home or self-care (01) ==
LOC: BFHLAB 15:07
PROVIDERS: PCP Family Medicine; Visit Provider Family Medicine
DX: I10 Essential (primary) hypertension (principal); E03.2 Hypothyroidism due to medicaments and other exogenous substances
CPT/HCPCS: 36415; 80048; 84443

== ENCOUNTER → 2022-07-29 | Outpatient (CLI) | payer MEDICARE, OTHER, SELFPAY ==
--- NOTE | 2022-07-29 12:07 | US_ITS ---
STUDY: RENAL ULTRASOUND - COMPLETE REASON FOR EXAM: Female, 71 years old. UTI TECHNIQUE: Ultrasound evaluation of the kidneys was performed with real-time and static sevilla-scale imaging. COMPARISON: None. FINDINGS: RIGHT KIDNEY: Normal location of the right kidney, which is normal in size. The right kidney measures 10.1 cm x 5 cm x 4.6 cm. There is focal scarring of the renal cortex. The renal cortex measures 1.1 cm. There is a 1.7 cm x 1.5 cm x 1.2 cm cyst in the lateral aspect of the kidney. There are no right renal calculi. There is no right hydronephrosis. DISTAL RIGHT URETER: There is non-visualization of the distal right ureter. There is no demonstrated right ureterovesical junction calculus. There is no demonstrated right ureteral jet. LEFT KIDNEY: Normal location of the left kidney, which is normal in size. The left kidney measures 10 cm x 4.7 cm x 5.9 cm. There is a normal cortex of the left kidney. The renal cortex measures 1.4 cm. There is a 6.7 cm x 5.2 cm x 6.1 cm cyst in the lower pole. There are no left renal calculi. There is no left hydronephrosis. DISTAL LEFT URETER: There is non-visualization of the distal left ureter. There is no demonstrated left ureterovesical junction calculus. There is no demonstrated left ureteral jet. BLADDER: The bladder is empty at the time examination. US/Kidney and Bladder IMPRESSION: Bilateral renal cysts more prominent on the left side. Focal scarring in the right renal cortex. Electronically Signed: Delfino Carey MD at 15:12 EDT ,
== END | disposition home or self-care (01) ==
LOC: US 12:06
PROVIDERS: PCP Family Medicine; Visit Provider Urology
DX: N39.0 Urinary tract infection, site not specified (principal)
CPT/HCPCS: 76770

== ENCOUNTER → 2022-12-09 | Outpatient (CLI) | payer MEDICARE, OTHER, SELFPAY ==
[2022-12-09 12:44] LABS: Absolute Lymphocyte Count 1.15 X10^3/uL (0.83-4.51); Basophil# 0.06 X10^3/uL; Basophil% 0.8 % (0-1); Eosinophil# 0.15 X10^3/uL; Eosinophils% 1.9 % (0-5); Hematocrit 41.5 % (37-47); Hemoglobin 13.2 g/dL (12.0-15.0); Lymphocyte # 1.15 X10^3/ul (0.83-4.51); Lymphocyte % 14.5 % (19-41); Mean Corp Hgb Conc 31.8 g/dL (32-36); Mean Corpuscular Hgb 30.1 pg (27.0-32.0); Mean Corpuscular Volume 94.5 fL (81-99); Mean Platelet Vol. 10.6 fl (6.2-12.0); Monocyte% 6.3 % (0-10); NRBC Flagged by Analyzer 0 % (0-5); Neutrophil # 6.04 X10^3/uL (2.7-7.7); Platelet Count 212 K/mm3 (150-450); RBC Distribution Width CV 13.3 % (11.6-14.6); RBC Distribution Width SD 46.4 fl (35.1-43.9); Red Blood Count 4.39 M/mm3 (4.2-5.4); White Blood Count 7.9 K/mm3 (4.4-11.0)
[2022-12-09 13:09] LABS: Hemoglobin A1c 7.2 % (3.8-5.6)
[2022-12-09 13:47] LABS: ALB/GLOB Ratio 0.8 RATIO (0.9-2.4); AST(SGOT) 12 U/L (15-37); Alanine Aminotransfer ALT/SGPT 14 U/L (13-56); Albumin, Serum 3.3 g/dL (3.2-5.0); Alkaline Phosphatase 71 U/L (45-117); Anion Gap 7 (5-15); BUN 23 mg/dL (7-18); Calcium,Total 8.9 mg/dL (8.5-10.1); Chloride 103 mmol/L (98-107); Cholesterol 116 mg/dL (200); Creatinine, Serum 1.21 mg/dL (0.55-1.02); EST Glomerular Filtration Rate 46 mL/min (>60); Est Glom Filt Rate - Afr Amer 56 mL/min (>60); Glucose 230 mg/dL (74-106); High Density Lipoprotein 34 mg/dL; Potassium 4.1 mmol/L (3.5-5.1); Protein, Total 7.3 g/dL (6.4-8.2); Sodium Level 140 mmol/L (136-145); T4 Free Direct 1.52 ng/dL (0.76-1.46); Thyroid Stim Hormone (TSH) 3.08 uIU/mL (0.358-3.74); Triglycerides 166 mg/dL; Very Low Density Lipoprotein 33 mg/dL (5-40)
[2022-12-09 15:27] LABS: Microalbumin,Random Urine 12.8 mg/L (NO RANGE EST.)
== END | disposition home or self-care (01) ==
LOC: BFHLAB 11:09
PROVIDERS: PCP Family Medicine; Referring Provider Family Medicine; Visit Provider Family Medicine
DX: E11.21 Type 2 diabetes mellitus with diabetic nephropathy (principal); I25.10 Atherosclerotic heart disease of native coronary artery without angina pectoris; I10 Essential (primary) hypertension; E03.2 Hypothyroidism due to medicaments and other exogenous substances
CPT/HCPCS: 36415; 80053; 80061; 82043; 82570; 83036; 84439; 84443; 85025

== ENCOUNTER 2023-02-01 06:39 | Day surgery (SDC) | payer MEDICARE, OTHER, SELFPAY ==
[2023-02-01] VITALS (7 sets, daily range): BP systolic 102–113; BP diastolic 66–81; PULSE 91–98; RESP 16; TEMP 36.2–36.9; O2SAT 96–99; BMI 41.8
--- NOTE | 2023-02-01 06:51 | HP.PCM_ITS ---
History and Physical Date of Admission: 02/01/23 Intake Vital Signs 09/16/2309:09 12/31/2308:58 Height 5 ft 3 in 5 ft 3 in Weight: 234 lb 2 oz BMI 41.4 BP 140/97 H Blood Pressure Location Rt brachial Position Sitting Respiration 17 Pulse 96 Pulse Source Monitor Temp 97.4 F L Intake Visit Reasons: COLONOSCOPY Chief Complaint: colonoscopy Allergies No Known Allergies Allergy (Verified 12/31/22 09:59) Medications albuterol sulfate 90 mcg/actuation aerosol inhaler 2 puff inhalation 4X/DAY PRN PRN Shortness Of Breath 12/19/13 [History Confirmed 12/31/22] apixaban 5 mg tablet 5 mg PO BID #180 tabs 11/19/19 [Rx Confirmed 12/31/22] furosemide 40 mg tablet 40 mg PO BID #180 tabs 09/25/20 [Rx Confirmed 12/31/22] aspirin 81 mg tablet,delayed release (Adult Aspirin Regimen) 81 mg PO DAILY 12/05/20 [History Confirmed 12/31/22] diltiazem HCl 120 mg capsule,extended release 24 hr 120 mg PO DAILY 12/05/20 [History Confirmed 12/31/22] metformin 500 mg tablet 750 mg PO DAILY 12/05/20 [History Confirmed 12/31/22] potassium chloride 20 mEq tablet,extended release 10 meq PO BID 12/05/20 [History Confirmed 12/31/22] metoprolol tartrate 100 mg tablet 100 mg PO BID #180 tabs 10/06/21 [Rx Confirmed 12/31/22] cholecalciferol (vitamin D3) 1,250 mcg (50,000 unit) capsule 1,250 mcg PO QWEEK 12/18/21 [History Confirmed 12/31/22] sacubitril 49 mg-valsartan 51 mg tablet (Entresto) 1 tab PO BID #60 tabs 12/22/21 [Rx Confirmed 12/31/22] cephalexin 500 mg capsule 500 mg PO Q6 #40 CAPSULES 01/14/22 [Rx Confirmed 12/31/22] atorvastatin 40 mg tablet 40 mg PO DAILY #90 tabs 09/16/22 [Rx Confirmed 12/31/22] glipizide 5 mg tablet 5 mg PO DAILY diabetes 30 days #30 tabs 09/16/22 [History Confirmed 12/31/22] levothyroxine 125 mcg tablet 125 mcg PO DAILY 09/16/22 [History Confirmed 12/31/22] melatonin 10 mg capsule 10 mg PO HS PRN 09/16/22 [History Confirmed 12/31/22] solifenacin 5 mg tablet 5 mg PO DAILY 09/16/22 [History Confirmed 12/31/22] PFSH Medical History Abscess of left lower extremity Acute on chronic combined systolic and diastolic CHF (congestive heart failure) Atherosclerosis of coronary artery of [place] heart without angina pectoris Cardiomyopathy in diseases classified elsewhere Chronic combined systolic and diastolic CHF (congestive heart failure) Essential (primary) hypertension Hyperlipidemia Morbid obesity Obstructive sleep apnea Old myocardial infarction Paroxysmal atrial fibrillation Persistent atrial fibrillation Secondary pulmonary arterial hypertension Type 2 diabetes mellitus Surgical History H/O coronary artery bypass surgery (2012) H/O eye surgery H/O total hysterectomy History of cardioversion (09/2017) History of incision and drainage Hx of cholecystectomy Family History (Updated 12/31/22 @ 09:57 by Shelby Tripp) Mother HypertensionBrother Heart diseaseSister Colon cancer Social History Smoking Status: Never smoker alcohol intake: current alcohol intake frequency: holidays/special occasions only substance use type: does not use diet: diabetic caffeine: Yes Type: coffee Number of servings: 3 what type of physical activity do you participate in: none HPI HPI HPI: Patient is a 72-year-old female here for colonoscopy. Patient has never had a colonoscopy in the past. Her sister recently from colon cancer. She is denying any abdominal pain or blood in her stool. ROS General General: Yes fatigue; No weight change, appetite, colon cancer, breast cancer or weakness HEENT HEENT: No difficulty swallowing, eye injury, eye surgery, swollen glands or hoarseness Endo Endocrine: Yes thyroid disease and diabetes mellitus; No thyroid cancer, Hair loss, heat intolerance or cold intolerance Skin Skin: No rash or changing moles Breast Breast: No left breast lump, right breast lump, nipple discharge, breast pain, abnormal mammogram, abnormal US or breast enlargement Musc Musculoskeletal: No back problems, arthritis, rheumatoid arthritis, gout or joint pain Cardio Cardiovascular: Yes heart disease, atrial fibrillation, high blood pressure and heart attack; No murmur, pacemaker, heart stent, palpitations, shortness of breat with exertion or chest pain Psych Psychiatric: No depression, anxiety or hearing voices Resp Respiratory: Yes shortness of breath, Yes sleep apnea, Yes cough, Yes COPD, No asthma, No emphysema and No wheezing Gastro Gastrointestinal: No abdominal pain, No nausea or vomiting, No diarrhea, Yes constipation, No blood in stool, No acid reflux, No hemorrhoids, No ulcers, Yes gallbladder problem and No black,tarry stools Dayron Hematologic: Yes blood thinners, No blood disorders, No bleeding, No anemia and No blood clots Neuro Neurologic: No system reviewed and no additional complaints, except as documented, No as per HPI, No abnormal gait, No abnormal hearing, No abnormal movements, No abnormal speech, No behavioral changes, No burning sensations, No confusion, No convulsions, No disequilibrium, No dizziness, No localized weakness, No frequent falls, No headache(s), No lack of coordination, No loss of vision, No memory loss, Yes numbness, No other visual disturbances, No radicular pain, No restless legs, No sensory deficit, No syncope, Yes tingling, No tremor (s), No weakness and No other Exam Const General: cooperative Orientation: alert and oriented x3 [facility] Head: normal to inspection Neck Neck: normal visual inspection and full ROM Chest Chest palpation & inspection: normal inspection of the chest Resp Effort & Inspection: normal respiratory effort Auscultation: clear to auscultation bilaterally Cardio Rate: regular rate Rhythm: regular rhythm GI Inspection: non-distended Palpation: soft and nontender Skin General: no rashes or lesions noted Neuro General: patient alert and patient oriented x3 Extrem General: full ROM Psych Appearance: grossly normal Mental Status: mental status grossly normal Assessment and Plan Assessment and Plan (1) Screen for colon cancer: Status: Acute Plan: Patient is high risk due to a family member who just from colon cancer. She has never had a colonoscopy and I recommend that she have one. I am going to request from her manager package to see if she can stop her Eliquis for 2 days and her aspirin for 5 days. I explained endoscopy in detail to the patient. I explained the risks including but not limited to stroke or heart attack with anesthesia, perforation of the GI tract, bleeding, infection. I explained that any of these could necessitate further emergency surgery. The patient understands and all questions were answered sufficiently. The patient wishes to proceed with procedure. Eric Chaves MD Pager: [facility] [address] [place] [address], [address] [place] [address] Office: I have examined the patient and the H&P has been reviewed. There are no clinical changes since date of exam.
[2023-02-01] MEDS: Lactated Ringers 1,000 ML 15 ML IV (07:21)
[2023-02-01 07:41] LABS: Bedside Glucose 145 mg/dL (74-106)
--- NOTE | 2023-02-01 07:50 | OP.COLON_ITS ---
Patient Name: Darcy Green Procedure Date: 02/01/2023 7:30 AM Date of : 1950 Age: 72 Procedure: Colonoscopy Indications: Screening in patient at increased risk: Family history of 1st-degree relative with colorectal cancer Providers: Eric Chaves MD Medicines: Monitored Anesthesia Care Patient Profile: This is a 72 year old female. Refer to note in patient chart for documentation of history and physical. Last Colonoscopy: none. The patient's first colonoscopy is today. Complications: No immediate complications. Estimated blood loss: Minimal. Procedure: Pre-Anesthesia Assessment: - Prior to the procedure, a History and Physical was performed, and patient medications and allergies were reviewed. The patient's tolerance of previous anesthesia was also reviewed. The risks and benefits of the procedure and the sedation options and risks were discussed with the patient. All questions were answered, and informed consent was obtained. Prior Anticoagulants: The patient has taken Eliquis (apixaban), last dose was 3 days prior to procedure. After reviewing the risks and benefits, the patient was deemed in satisfactory condition to undergo the procedure. After I obtained informed consent, the scope was passed under direct vision. Throughout the procedure, the patient's blood pressure, pulse, and oxygen saturations were monitored continuously. The Colonoscope was introduced through the anus and advanced to the cecum, identified by appendiceal orifice and ileocecal valve. The colonoscopy was performed without difficulty. The patient tolerated the procedure well. The quality of the bowel preparation was good. The ileocecal valve, appendiceal orifice, and rectum were photographed. Scope In: 7:31:56 AM Scope Withdrawal Time 0 hours 6 minutes 1 second Scope Out: 7:43:52 AM Total Procedure Duration Time 0 hours 11 minutes 56 seconds Findings: A small polyp was found in the descending colon. The polyp was hyperplastic. The polyp was removed with a hot snare. Resection was complete, but the polyp tissue was not retrieved. Impression: - One small polyp in the descending colon, removed with a hot snare. Complete resection. Polyp tissue not retrieved. Recommendation: - Discharge patient to home. - Resume previous diet. - Continue present medications. - Repeat colonoscopy is not recommended due to current age (66 years or older) for screening purposes. Procedure Code(s): --- Professional --- 07213, Colonoscopy, flexible; with removal of tumor(s), polyp(s), or other lesion(s) by snare technique Diagnosis Code(s): --- Professional --- Z80.0, Family history of malignant neoplasm of digestive organs D12.4, Benign neoplasm of descending colon CPT copyright 2021 [employer]. All rights reserved. The codes documented in this report are preliminary and upon special education math teacher review may be revised to meet current compliance requirements. Eric Chaves MD 02/01/2023 7:49:37 AM This report has been signed electronically. Number of Addenda: 0 Note Initiated On: 02/01/2023 7:30 AM
--- NOTE | 2023-02-01 07:50 | OP.CCLET_ITS ---
02/01/2023 Yaya Centeno [address] [place] [address] Re : Colonoscopy procedure for Darcy Green Dear Dr. Centeno This procedure was performed on Wednesday, February 01, 2023. My impressions and recommendations are as follows: Impressions : - One small polyp in the descending colon, removed with a hot snare. Complete resection. Polyp tissue not retrieved. Recommendations : - Discharge patient to home. - Resume previous diet. - Continue present medications. - Repeat colonoscopy is not recommended due to current age (66 years or older) for screening purposes. My findings are described in the full procedure note, which is enclosed. If I can be of further assistance, please feel free to contact me at Doctor phone number(s): , Work: . Sincerely, Eric Chaves MD 02/01/2023 7:49:37 AM This report has been signed electronically.
== END 2023-02-01 08:36 | disposition home or self-care (01) ==
LOC: EN 06:42 → AC 06:43
PROVIDERS: PCP Family Medicine; Referring Provider Family Medicine; Visit Provider Surgery
PROC: 0DJD8ZZ Inspection of Lower Intestinal Tract, Via Natural or Artificial Opening Endoscopic (ICD-10-PCS; CPT 45378; principal; 2023-02-01 07:25)
DX: Z12.11 Encounter for screening for malignant neoplasm of colon (principal); I50.42 Chronic combined systolic (congestive) and diastolic (congestive) heart failure; I11.0 Hypertensive heart disease with heart failure; I48.0 Paroxysmal atrial fibrillation; I48.19 Other persistent atrial fibrillation; Z68.41 Body mass index [BMI] 40.0-44.9, adult; E66.01 Morbid (severe) obesity due to excess calories; E11.9 Type 2 diabetes mellitus without complications; Z80.0 Family history of malignant neoplasm of digestive organs; E78.5 Hyperlipidemia, unspecified; I25.10 Atherosclerotic heart disease of native coronary artery without angina pectoris; Z79.84 Long term (current) use of oral hypoglycemic drugs; Z90.49 Acquired absence of other specified parts of digestive tract; K63.5 Polyp of colon; Z79.82 Long term (current) use of aspirin; Z79.899 Other long term (current) drug therapy; Z79.890 Hormone replacement therapy; E07.9 Disorder of thyroid, unspecified
CPT/HCPCS: 45385; 82962; J7120

== ENCOUNTER → 2023-03-10 | Outpatient (CLI) | payer MEDICARE, OTHER, SELFPAY ==
[2023-03-10 17:43] LABS: Anion Gap 8 (5-15); BUN 20 mg/dL (7-18); BUN/Creat Ratio 17.2 RATIO (10-20); Chloride 106 mmol/L (98-107); Creatinine, Serum 1.16 mg/dL (0.55-1.02); EST Glomerular Filtration Rate 49 mL/min (>60); Est Glom Filt Rate - Afr Amer 59 mL/min (>60); Glucose 143 mg/dL (74-106); Potassium 4.2 mmol/L (3.5-5.1); Sodium Level 140 mmol/L (136-145)
== END | disposition home or self-care (01) ==
LOC: BFHLAB 16:00
PROVIDERS: PCP Family Medicine; Referring Provider Family Medicine; Visit Provider Family Medicine
DX: N18.31 Chronic kidney disease, stage 3a (principal)
CPT/HCPCS: 36415; 80048

== ENCOUNTER → 2023-05-19 | Outpatient (CLI) | payer MEDICARE, OTHER, SELFPAY ==
[2023-05-19 16:25] LABS: Bacteria 0 SEEN /hpf (None Seen); Mucous, Urine 0 SEEN /hpf (<or=2+)
--- OUTSIDE RECORDS SUMMARY | 2023-05-19 16:35 | XMS RPT_ITS | CCD ---
Author Name Unknown Address Formerly [facility] [address] [place] [address] Organization [facility] Care Team Providers Care Planisher Name Role Phone Serina Manriquezd Yaritza Unavailable Will Irizarry Unavailable Medications Current Medications Medication Drug Class(es) Dates Sig (Normalized) Sig (Original) acetaminophen 325 mg oral tablet (1 source) take 2 tablets by mouth every four hours as needed Tylenol 325 mg oral tablet ; 2 tab(s) orally every 4 hours, As Needed Quantity: 0 Refills: 0 Ordered: 08-Jan-2021 Jocelin Torres Generic Substitution Allowed 200 actuat albuterol 0.09 mg/actuat metered dose inhaler (2 sources) beta2-Adrenergic Agonist take 3 mL by inhalation every six hours as needed albuterol 2.5 mg/3 mL (0.083%) inhalation solution ; 3 milliliter(s) inhaled every 6 hours, As Needed Quantity: 0 Refills: 0 Ordered: 08-Jan-2021 Jocelin Torres Generic Substitution Allowed Problems Active Problems Problem Classification Problem Date Documented Date Episodic/Chronic Other connective tissue disease (1 source) Muscle weakness of limb; Translations: [Other musculoskeletal symptoms referable to limbs] 01-09-2021 Episodic Other lower respiratory disease (2 sources) Hypoxemia; Translations: [Hypoxemia] 01-07-2021 Episodic Other lower respiratory disease (1 source) Dyspnea at rest; Translations: [Shortness of breath] Onset: 01-08-2021 01-08-2021 Episodic Viral infection (2 sources) Disease caused by 2019-nCoV; Translations: [Other specified viral infection] 01-07-2021 Episodic Viral infection (6 sources) Disease caused by 2019-nCoV 01-07-2021 Past or Other Problems Problem Classification Problem Date Documented Da te Episodic/Chronic Unclassified (1 source) WEAK/SOB 01-07-2021 Results Test Name Value Interpretation Reference Range Facil ity Vital Signs Date Time Vital Sign Value Performing Clinician Facility 01-10-2021 17:41-0400 Body temperature 98.06 [degF] Sean Tavallaee Other Phone: Health system 01-10-2021 17:41-0400 Diastolic blood pressure 88 mm[Hg] Sean Tavallaee Other Phone: Health system 01-10-2021 17:41-0400 Heart rate 115 /min Sean Tavallaee Other Phone: Health system 01-10-2021 17:41-0400 Respiratory rate 20 /min Sean Tavallaee Other Phone: Health system 01-10-2021 17:41-0400 SaO2% (BldA) [Mass fraction] 94 % Sean Tavallaee Other Phone: Health system 01-10-2021 17:41-0400 Systolic blood pressure 135 mm[Hg] Sean Tavallaee Other Phone: Health system Encounters Encounter Date Encounter Type Care Provider Facility Start: 01-07-2021 End: 01-10-2021 Evaluation and management of inpatient Will B Juan [facility] Med Surg [facility] [id number] Start: 11-04-2020 Patient encounter procedure Lauren Mcghee PA-C Work Phone: [facility] Work Phone: Start: 10-30-2020 Patient encounter procedure Lauren Mcghee PA-C Work Phone: [facility] Work Phone: Start: 10-30-2020 Chart Update Sean rowe MD Work Phone: [facility] Work Phone: Start: 10-28-2020 Patient encounter procedure Lauren Mcghee PA-C Work Phone: [facility] Work Phone: Plan of Treatment Date Care Activity Detail Author Start: 01-08-2021 End: 01-08-2022 Health system Payers Date Payer Category Payer Policy ID Unknown Social History Date Type Detail Facility [facility] Tobacco smoking consumption unknown Health system Functional Status Date Assessment Result Facility Functional observable [facility] Mental Status Date Assessment Result Facility 01-10-2021 Cognitive functions 11-Jan-20 2110:00 Health system Clinical Notes 03-01-2013 to 01-10-2021 <item><item><item><item><item><item><item><item> Note Date & Type Note Facility 01-10-2021 Note Send Summary: Discharge Summary Providers: Provider RoleProvider Name AttendingWill rIizarryLeEloy Nugent PrimaryTavalSean sanchez Discharge: Summary: Admission Date: .07-Jan-2021 17:27:00 Discharge Date: 10-Jan-2021 Attending Physician at Discharge: Will Irizarry Admission Reason: Shortness of breath Final Discharge Diagnoses: Covid pneumonia Procedures: none Condition at Discharge: Satisfactory Disposition at Discharge: [facility] Vital Signs: T PRBPSpO2 [id number]/6592% Date/Time01/10 8:009/4 8:0094 8:0094 8:009/4 8:00 Range(36.7C - 37C ) (98 - 118 ) (18 - 20 ) (110 - 132 )/ (65 - 87 ) (92% - 97% ) Highest temp of 37 C was recorded at 01/09 20:13 Date: Weight/Scale Type:Height: 07-Jan-2021 23:95342.8 kg / yzo479 cm Physical Exam: Head/Neck: Neck supple, no apparent injury, thyroid without mass or tenderness, No JVD, trachea midline, no bruits Respiratory/Thorax: Slightly decreased breathing sounds at bases, few scattered crepitations Cardiovascular: Regular rhythm, normal rate Gastrointestinal: Soft, distended due to obesity Neurological: She has some residual aphasia motor, has bilateral lower extremity weakness, power in the right upper limb is 4/5 Psychological: Flat affect Hospital Course: 70 year old Female With a past medical history of atrial fibrillation, hypertension, hyperlipidemia, type 2 diabetes, stroke in May who presented to the ER with a multitude of symptoms. On presentation her temperature was 103, heart rate 109, respiratory rate 25, blood pressure 112/98, she was saturating 94% on 3 L. Blood work showed an elevated D-dimer of 580, creatinine was 1.09, ALT was only very slightly elevated, CRP was 13, troponin was normal. Chest x-ray showed bilateral patchy infiltrates. She was positive for Covid. She was given Decadron in the ER. She was admitted with a working diagnosis of acute hypoxemic respiratory failure, systemic inflammatory response syndrome secondary to Covid pneumonia, she was started on remdesivir, Solu-Medrol, duo nebs, budesonide, oxygen support as needed, her Lantus and insulin sliding scale were continued so her her other meds including amiodarone and Eliquis, her procalcitonin level was sent and it came less than 0.5 so there was no indication for antibiotics, she has improved since her admission, she is down to 1 L of oxygen. She is extremely deconditioned, does not have any family member to take care of her at home so she will be discharged to a rehab facility. I will discharge her on Decadron 6 mg daily for 5 more days. She received 3 doses of remdesivir during her hospital stay. Will be advised to observe quarantine for 7 more days. She is already on Eliquis because of her history of stroke and atrial fibrillation, she will continue that as an outpatient. Discharge Information: and Continuing Care: Lab Results - Pending: Culture, Blood Drawn at 07-Jan-2021 18:29:00 Culture, Blood Drawn at 07-Jan-2021 18:17:00 Radiology Results - Pending: None Discharge Instructions: Activity: activity as tolerated. May shower.. May not return to school/work. May not drive. Nutrition/Diet: diabetic/carbohydrate counted Diabetic/Carbohydrate Counted: 75gram/Carb meal, 45gram/Carb snack (1999-s) Respiratory: Oxygen: Administer oxygen at 1-2 via Additional Orders: Additional Instructions: quarantine for 7 days Rehab Services: Occupational Therapy Orders: 3-5 times/week Physical Therapy Orders: 3-5 times/week Care Recommendation: I recommend that INPATIENT care is required at:: Skilled Estimated Stay: Convalescent stay < 30 days Follow Up Appointments: Follow-Up Appointment 01: Physician/Dept/Service: PMD Call to Schedule in: 1 week Discharge Medications: Home Medication metoprolol tartrate 100 mg oral tablet - 1 tab(s) orally 2 times a day metFORMIN 750 mg oral tablet, extended release - 1 tab(s) orally once a day glipiZIDE 10 mg oral tablet - 1 tab(s) orally once a day furosemide 40 mg oral tablet - 1 tab(s) orally 2 times a day Entresto 49 mg-51 mg oral tablet - 1 tab(s) orally 2 times a day DilTIAZem Hydrochloride CD 120 mg/24 hours oral capsule, extended release - 1 cap(s) orally once a day atorvastatin 40 mg oral tablet - 1 tab(s) orally once a day (at bedtime) aspirin 81 mg oral tablet - 1 tab(s) orally once a day amiodarone 200 mg oral tablet - 1 tab(s) orally once a day Lantus 100 units/mL subcutaneous solution - 30 unit(s) subcutaneous once a day Asmanex Twisthaler 30 Dose 110 mcg/inh inhalation aerosol powder - 1 puff(s) inhaled 2 times a day Eliquis 5 mg oral tablet - 1 tab(s) orally 2 times a day potassium chloride 10 mEq oral tablet, extended release - 1 tab(s) orally 2 times a day Myrbetriq 25 mg oral tablet, extended release - 1 tab(s) orally once a day dexamethasone 2 mg oral (more content not included)... [facility] 01-10-2021 Hospital Discharge instructions Activity:activity as tolerated. May shower. May not return to school/work Instructions:. May not drive.Oxygen:Administer oxygen at 1-2 via to maintain SpO2 % of.Additional Orders:Additional Instructions: quarantine for 7 daysCare Recommendation:I recommend that INPATIENT care is required at: SkilledEstimated Stay: Convalescent stay < 30 daysPrognosis: GoodRehab Potential/Function: ImproveTherapy Orders:Occupational Therapy Orders: 3-5 times/weekPhysical Therapy Orders: 3-5 times/weekProvider Follow Up:Physician To Follow at Skilled/Rehab: Attending Physician at Skilled/RehabFollow Up Appointment 1:Physician/Dept/Service: Chelsea to Schedule in: 1 week Health system 01-08-2021 Note History of Present I llness: HPI: JESSICA MARLEY is a 70 year old Female With a past medical history of atrial fibrillation, hypertension, hyperlipidemia, type 2 diabetes, stroke in May who presented to the ER with a multitude of symptoms. The patient has some aphasia from her stroke in May. She does complain of shortness of breath for the past 2 days, also been having some generalized weakness, cough, nausea, body aches. She denies any diarrhea. Her is sick with Covid. She is not vaccinated. She has been having fevers as well and needed to require supplemental oxygen to maintain her oxygen saturations at home. On presentation her temperature was 103, heart rate 109, respiratory rate 25, blood pressure 112/98, she was saturating 94% on 3 L. Blood work showed an elevated D-dimer of 580, creatinine was 1.09, ALT was only very slightly elevated, CRP was 13, troponin was normal. Chest x-ray showed bilateral patchy infiltrates. She was positive for Covid. She was given Decadron in the ER. Past medical history as per HPI Review of systems Family history reviewed, noncontributory, her also has Covid She denies smoking, denies regular alcohol use Social History: Social History: Smoking Statusnever smoker (1) Alcohol Usedenies(1) Drug Usedenies (1) Allergies: No Known Allergies: Medications Prior to Admission: Admission Medication Reconciliation has not been completed for this patient. Objective: Objective Information: T PRBPSpO2 [id number]/8592% Date/Time01/07 20: 20: 20: 20: 20:19 Range(38C - 39.4C ) (92 - 109 ) (9 - 25 ) (111 - 150 )/ (70 - 98 ) (92% - 97% ) As of 07-Jan-2021 20:19:00, patient is on 3 L/min of oxygen via nasal cannula. Highest temp of 39.4 C was recorded at 01/07 17:30 Pain reported at 01/07 17:43: 0 = None Physical Exam by System: Constitutional: Awake, alert, obese Head/Neck: Neck supple, no apparent injury, thyroid without mass or tenderness, No JVD, trachea midline, no bruits Respiratory/Thorax: Slightly decreased breathing sounds at bases, few scattered crepitations Cardiovascular: Regular rhythm, normal rate Gastrointestinal: Soft, distended due to obesity Neurological: She has some residual aphasia motor, has bilateral lower extremity weakness, power in the right upper limb is 4/5 Psychological: Flat affect Medications: Medications: Continuous Medications No continuous medications are active Scheduled Medications 1. Albuterol 2.5mg - Ipratropium 0.5 mg/ 3mL Neb Soln: 3 mL Inhalation Every 6 Hours 2. Amiodarone: 200 mg Oral Every 24 Hours 3. amLODIPine (NORVASC): 5 mg Oral Daily 4. Apixaban: 5 mg Oral Every 12 Hours 5. Aspirin Chewable: 81 mg Oral Daily 6. Atorvastatin: 40 mg Oral Daily 7. Budesonide 0.5 mg/ 2 mL Nebulizer Soln: 2 mL Inhalation Every 12 Hours 8. Dextromethorphan - guaiFENesin Oral Liquid: 10 mL Oral Every 4 Hours 9. Insulin Glargine (Lantus) Injectable: 30 unit(s) SubCutaneous Every 24 Hours 10. Insulin Lispro (HUMALOG) Carb/ISF Calculator: 1 dose(s) SubCutaneous Before Meals & Bedtime 11. methylPREDNISolone Sodium Succinate Injectable: 40 mg IntraVenous Push Every 6 Hours 12. Remdesivir IV Piggy Back (for patients > = 40 kilograms): 200 mg IntraVenous Piggyback Once PRN Medications 1. Acetaminophen: 650 mg Oral Every 4 Hours 2. Dextrose 50% in Water Injectable: 25 gram(s) IntraVenous Push Every 15 Minutes 3. Glucagon Injectable: 1 mg IntraMuscular Every 15 Minutes 4. Magnesium Hydroxide -Al Hydrox -Simethicone Oral Liquid: 30 mL Oral Every 6 Hours 5. Magnesium Hydroxide Oral Liquid CONCENTRATE: 10 mL Oral Every 24 Hours 6. oxyCODONE Immediate Release: 5 mg Oral Every 4 Hours 7. oxyCODONE Immediate Release: 10 mg Oral Every 4 Hours 8. Promethazine: 25 mg Oral Every 6 Hours 9. Sore Throat Lozenge: 1 lozenge(s) Oral Every 2 Hours Recent Lab Results: Results: CBC: 01/07/2021 18:15 \ Hgb / \ 12.9 / WBC Plt 6.8 172 / Hct \ / 39.7 \ RBC: 4.31 MCV: 92 CMP: 01/07/2021 18:15 NA+ Cl- BUN / 140 103 22 / Glucose 94 K+ HCO3- Creat \ 3.9 28 1.09 H \ \ T Bili / \ 0.5 / AST x ---- x ALT 36 x ---- x 47 H / Alk P \ / 41 \ Calcium : 8.1 L Anion Gap : 13 Albumin : 3.4 T Protein : 6.8 Coagulation: null PT / / -------< INR < PTT\ \ Assessment and Plan: Assessment: 70-year-old obese female with a past medical history of CVA, atrial fibrillation, hypertension, diabetes, admitted with acute hypoxemic respiratory failure, systemic inflammatory response syndrome secondary to Covid I will start her on remdesivir, she meets the criteria We will also start her on (more content not included)... [facility] 10-23-2020 Note HNO ID: [id number] Author: Shelby Montenegro [facility]ly [facility] Service: Pharmacy Author Type: Pharmacist Type: Plan of Care Filed: 10/23/2020 2:04 PM Note Text: DISCHARGE MEDICATION REVIEW BY PHARMACY Patient Name: Jessica Marley Account #: Data Unavailable Admission Date: 10/18/2020 Date of Contact: October 23, 2020 Time of Contact: 2:00 PM Medication list was reviewed by a Pharmacist for drug interactions or drug related problems:Yes Below is a summary of pharmacist recommendations discussed with LIP: The following medications were discussed with LIP for further review: Messaged Dr. Demarco to recommend discontinuing irbesartan from patient's home medication list at discharge as patient should not be taking with Entresto. Patient had fill history for both irbesartan and entresto prior to admission per medication history but entresto was most recently filled in October. I have received a verbal order from the LIP and made the following changes: discontinued irbesartan from patient's [facility] medication list at discharge Patient being discharged to [facility] following admission for CVA. Changes to patient's medication list detailed below. All medications reviewed and reconciled appropriately. Shelby Montenegro RPh October 23, 2020 2:00 PM Pager/ext: [phone] 10/23/2020 2:00 PM Medication List START taking these medications atorvastatin 40 mg tablet Commonly known as: LIPITOR Take 1 tablet by mouth daily at bedtime. CHANGE how you take these medications apixaban 5 mg tab(s) Commonly known as: ELIQUIS Take 1 tablet by mouth twice daily. DO NOT RESUME TAKING THIS UNTIL CLEARED BY NEUROLOGY AFTER 11/08 What changed: additional instructions CONTINUE taking these medications * albuterol 2.5 mg /3 mL (0.083 %) nebulizer solution Commonly known as: PROVENTIL * albuterol HFA 90 mcg/actuation inhaler Commonly known as: PROVENTIL HFA, VENTOLIN HFA Inhale 2 Puffs as instructed four times daily as needed for Wheezing/Shortness of Breath. FOR WHEEZING AND SHORTNESS OF BREATH. amiodarone 200 mg tablet Commonly known as: PACERONE amLODIPine 5 mg tablet Commonly known as: NORVASC Take 1 tablet by mouth once daily. ASMANEX TWISTHALER INHALATION Aspirin 81 mg Tab Blood Pressure Monitor Use as directed to monitor blood pressure blood sugar diagnostic test strip Commonly known as: Dragon TailTOUCH ULTRA TEST Test blood sugar(s) 1 times daily. Dx: 250.00. Insulin: No CARTIA XT 120 mg 24 hr capsule Generic drug: dilTIAZem CD ENTRESTO 49-51 mg tablet Generic drug: sacubitril-valsartan furosemide 40 mg tablet Commonly known as: LASIX glipiZIDE 10 mg tablet Commonly known as: GLUCOTROL GLUCOPHAGE 500 mg tablet Generic drug: metFORMIN LANTUS SOLOSTAR U-100 INSULIN 100 unit/mL (3 mL) Generic drug: insulin glargine metoprolol tartrate (short acting) 100 mg tablet Commonly known as: LOPRESSOR MYRBETRIQ 25 mg Tb24 Generic drug: mirabegron potassium chloride 20 mEq Tber * This list has 2 medication(s) that are the same as other medications prescribed for you. Read the directions carefully, and ask your doctor or other care provider to review them with you. STOP taking these medications irbesartan 300 mg tablet Commonly known as: AVAPRO simvastatin 20 mg tablet Commonly known as: ZOCOR [facility] 10-22-2020 Note HNO ID: [id number] Author: Alta Demarco DO Service: Hospital Medicine Author Type: Physician Type: Progress Notes Filed: 10/22/2020 1:30 PM Note Text: DEPARTMENT OF HOSPITAL MEDICINE PROGRESS NOTE Hospital Medicine/Primary Attending: Alta Demarco DO NIGHT AND WEEKEND COVERAGE: After 7pm please page [phone] CHIEF COMPLAINT: Weakness, aphasia SUBJECTIVE: Pt seen and examined at bedside in AM. No acute events overnight. Patient without any complaints- denies fevers, chills, chest pain, or palpitations. OBJECTIVE: PHYSICAL EXAM: BP 112/67 Pulse 89 Temp (Src) 98.4 (Oral) Resp 18 Ht 5' 3 (1.60m) Wt 247 lb 12.8 oz (112.4kg) SpO2 96% BMI 43.91 kg/(m2). O2 Therapy: Room Air General - AANDOx3, NAD, Calm CV - RRR S1 S2, No M/R/G RESP - CTA B/L No wheezes, ronchi, rales ABD - soft, NT, ND EXT - no gross joint deformity, no clubbing, cyanosis, edema NEURO - CN II-XII grossly intact, RUE weakness, expressive aphasia MEDICATIONS: Current Facility-Administered Medications Medication Dose Route Frequency - aluminum-magnesium hydroxide-simethicone 200-200-20 mg/5 mL 30 mL (MAALOX,MYLANTA,MAG-AL PLUS) 30 mL ORAL DAILY PRN - ondansetron 4 mg tab(s) (ZOFRAN) 4 mg ORAL q 6 H PRN Or - ondansetron (PF) 4 mg injection (ZOFRAN) 4 mg INTRAVENOUS q 6 H PRN - polyethylene glycol 3350 17 g packet (MIRALAX, GLYCOLAX) 17 g ORAL DAILY PRN - acetaminophen 650 mg tab(s) (TYLENOL) 650 mg ORAL q 6 H PRN - amLODIPine 5 mg tab(s) (NORVASC) 5 mg ORAL DAILY - traMADol 50 mg tab(s) (ULTRAM) 50 mg ORAL BID PRN - aspirin 81 mg chewable tab(s) 81 mg ORAL DAILY - insulin lispro pen (rapid acting) (HumaLOG KWIKPEN) SUBCUTANEOUS w MEALS AND HS - dextrose 40 % 15 g 15 g ORAL PRN Or - glucagon 1 mg injection 1 mg INTRAMUSCULAR PRN Or - dextrose 50% in water 25 mL syringe 12.5 g INTRAVENOUS PRN - albuterol 2.5 mg /3 mL (0.083 %) 2.5 mg (PROVENTIL) 2.5 mg INHALATION q 6 H PRN - atorvastatin 40 mg tab(s) (LIPITOR) 40 mg ORAL AT BEDTIME - heparin 5,000 Units injection 5,000 Units SUBCUTANEOUS q 12 H - sacubitril-valsartan 49-51 mg 1 tablet (ENTRESTO) 1 tablet ORAL BID - amiodarone 200 mg tab(s) (PACERONE) 200 mg ORAL TID - metoprolol tartrate (short acting) 100 mg tab(s) (LOPRESSOR) 100 mg ORAL BID - benzocaine-menthol 1 Lozenge (CEPACOL) 1 Lozenge MUCOUS MEMBRANE (TOPICAL MOUTH AND THROAT) q 2 H PRN - dilTIAZem CD 120 mg cap(s) (CARDIZEM CD, CARTIA XT) 120 mg ORAL DAILY DATA: Diagnostic tests reviewed for today's visit: Last labs and imaging reviewed. Assessment/Plan 70 y o female with PMH of A fib on Eliquis , HTN and DM who presente to the ED with AMS and [address] showed Stable left MCA territorial acute nonhemorrhagic infarct?+Diffuse atherosclerosis (with left ICA origin 30% narrowing).?Brain MRI?:Acute left insular and frontal opercular cortical infarct with confluent petechial hemorrhage. ?No space occupying hematoma?. Patient started on aspirin and statin,Eliquis held per neuro recs, Neurology followed ,PT/OT recommend SNF, awaiting facility bed availability. L MCA Acute CVA -?eliquis compliance per pharmacy/neuro, limited CVA w/u per neurology as etiology known -Neurology following -therapy recs for SNF awaiting bed availability -holding eliquis, per neurology OK to resume eliquis in 3 weeks, start after 11/08/20 -cont asa and statin Paroxysmal Afib, OAC on hold as above, resume when ok with neuro as above, home amio and cardizem continued UTI, completed course of rocephin, will DC KATTY, improved Rhabdomyolysis, improved DM2, accuchecks, SSI HTN, controlled, continue home meds Mildly elevated troponin 2/2 demand ischemia Subclinical hypothyroid, TSH elevated FT4 WNL, recommend repeat TSH in 4 weeks with PCP HFrEF, no decompensation, cont entresto, BB, ASA, statin, monitor I/O and weights Disposition: Awaiting bed availability at [facility], anticipate DC tomorrow. Medication and Non-Pharmacologic VTE Prophylaxis/Anticoagulants Anticoagulant AND Antiplatelet Medications (From admission, onward) Comment Start Dose Route Frequency Last Action Ordered Stop 10/19/20 1430 heparin 5,000 Units injection 5,000 Units SUBCUTANEOUS EVERY 12 HOURS Given, 10/22 81710/19/20 1400 -- 10/18/20 2130 aspirin 81 mg chewable tab(s) 81 mg ORAL DAILY Given, 10/22 81710/18/202120 -- 10/18/202129 activity - mobilize patient ([place], [place]) SIGNATURE: Alta Demarco DO PATIENT NAME: Jessica Marley DATE: 10/22/2020 TIME: 1:16 PM PAGER/CONTACT #: Dexter Lakhani [facility] 10-21-2020 Note HNO ID: [id number] Author: Rc Oliva MD Service: Hospital Medicine Author Type: Physician Type: Progress Notes Filed: 10/21/2020 4:30 PM Note Text: DEPARTMENT OF HOSPITAL MEDICINE PROGRESS NOTE SERVICE DATE: 10/21/2020 SERVICE TIME: 4:16 PM Hospital Medicine/Primary Attending: Dr. Rc Oliva MD NIGHT AND WEEKEND COVERAGE: After 7pm please page [phone] SUBJECTIVE: resting in bed,lmore awake and oriented today Continues to have right UE weakness . Denies CP/SOB. Denies nausea/vomiting/diarrhea. OBJECTIVE: PHYSICAL EXAM: BP 105/65 Pulse 87 Temp (Src) 98.4 (Axillary) Resp 20 Ht 5' 3 (1.60m) Wt 236 lb 5.3 oz (107.2kg) SpO2 96% BMI 41.88 kg/(m2). O2 Therapy: Room Air General: NAD, appears comfortable Resp: Clear to auscultation B/L, no wheeze/rhonchi, unlabored CV: RRR, Normal S1S2, No murmur/rub/gallop GI: soft, NT/ND, + BS Ext: no cyanosis/clubbing/edema, right UE weakness Neuro: AANDO x 3, speech fluent MEDICATIONS: Current Facility-Administered Medications Medication Dose Route Frequency - benzocaine-menthol 1 Lozenge (CEPACOL) 1 Lozenge MUCOUS MEMBRANE (TOPICAL MOUTH AND THROAT) q 2 H PRN - dilTIAZem CD 120 mg cap(s) (CARDIZEM CD, CARTIA XT) 120 mg ORAL DAILY - sacubitril-valsartan 49-51 mg 1 tablet (ENTRESTO) 1 tablet ORAL BID - amiodarone 200 mg tab(s) (PACERONE) 200 mg ORAL TID - metoprolol tartrate (short acting) 100 mg tab(s) (LOPRESSOR) 100 mg ORAL BID - atorvastatin 40 mg tab(s) (LIPITOR) 40 mg ORAL AT BEDTIME - heparin 5,000 Units injection 5,000 Units SUBCUTANEOUS q 12 H - cefTRIAXone iv piggyback 2 g in dextrose (iso-osmotic) 50 mL (ROCEPHIN) 2 g INTRAVENOUS q 24 H - aluminum-magnesium hydroxide-simethicone 200-200-20 mg/5 mL 30 mL (MAALOX,MYLANTA,MAG-AL PLUS) 30 mL ORAL DAILY PRN - ondansetron 4 mg tab(s) (ZOFRAN) 4 mg ORAL q 6 H PRN Or - ondansetron (PF) 4 mg injection (ZOFRAN) 4 mg INTRAVENOUS q 6 H PRN - polyethylene glycol 3350 17 g packet (MIRALAX, GLYCOLAX) 17 g ORAL DAILY PRN - acetaminophen 650 mg tab(s) (TYLENOL) 650 mg ORAL q 6 H PRN - amLODIPine 5 mg tab(s) (NORVASC) 5 mg ORAL DAILY - traMADol 50 mg tab(s) (ULTRAM) 50 mg ORAL BID PRN - aspirin 81 mg chewable tab(s) 81 mg ORAL DAILY - insulin lispro pen (rapid acting) (HumaLOG KWIKPEN) SUBCUTANEOUS w MEALS AND HS - dextrose 40 % 15 g 15 g ORAL PRN Or - glucagon 1 mg injection 1 mg INTRAMUSCULAR PRN Or - dextrose 50% in water 25 mL syringe 12.5 g INTRAVENOUS PRN - albuterol 2.5 mg /3 mL (0.083 %) 2.5 mg (PROVENTIL) 2.5 mg INHALATION q 6 H PRN DATA: Diagnostic tests reviewed for today's visit: CBC, Coags, BMP, Mg, Phos Recent Labs 10/20/2025610/19/20 0352 WBC -- 9.82 HB -- 13.6 HCT -- 42.2 PLT -- 199 NA 139 141 K 4.1 4.0 CHLOR 110* 108* CO2 20* 22 BUN 22* 22* CREAT 1.09* 1.03* GLUC 115* 151* CA 8.0* 8.5 MG -- 2.0 CSF AND Dilantin Liver Function, Amylase, AND Lipase Recent Labs 10/19/20 0352 TPROT 6.1* ALB 3.5* ALT 20 AST 43* ALKPHOS 43 TBILI 0.7 Cardiac Enzymes Recent Labs 10/20/20 025 CK 1,146* ABGs Assessment/Plan 70 y o female with PMH of A fib on Eliquis , HTN and DM who presente to the ED with AMS and [address] showed Stable left MCA territorial acute nonhemorrhagic infarct?+Diffuse atherosclerosis (with left ICA origin 30% narrowing).?Brain MRI :Acute left insular and frontal opercular cortical infarct with confluent petechial hemorrhage. ?No space occupying hematoma . Patient started on aspirin and statin,Eliquis held per neuro recs, Neurology followed ,PT/OT recommend SNF. -L MCA acute ischemic strroke. -A fib -UTI -KATTY -Rhabdomyolysis -DM -HTN -Mildly elevated Troponin, demand ischemia -Subclinical hypothyroid ? Head CT:Stable left MCA territorial acute nonhemorrhagic infarct?+Diffuse atherosclerosis (with left ICA origin 30% narrowing).? Brain MRI :Acute left insular and frontal opercular cortical infarct with confluent petechial hemorrhage. ?No space occupying hematoma . ? Continue aspirin and statin,hold eliquis per Neuro recs CAN BE RESTARTED AFTER 11/08/20. Neurology follows HR controlled, continue current medical treatment . Completed Ceftriaxone for UTI Cr improving , DC IVFs and encourage PO intake, will continue to monitor CK trending down TSH elevated,free T4 wnl , subclinical hypothyroid, will hold on off treatment . Will resume home meds for HTN as appropriate. Patient is medically stable for discharge, referral sent for SNF placement. ? ? VTE Prophylaxis:?as appropriate ? Disposition:?To be determined/SNF Plan of care discussed with: Provider, RN, Patient SIGNATURE: Rc Oliva MD PATIENT NAME: Jessica Marley DATE: October 21, 2020 TIME: 4:16 PM PAGER/CONTACT #: dexter team jonh [facility] 10-20-2020 Note HNO ID: [id number] Author: Shelby Montenegro [facility] Service: Pharmacy Author Type: Pharmacist Type: Plan of Care Filed: 10/21/2020 11:14 AM Note Text: PHARMACY MEDICATION REVIEW Patient Name: Jessica Marley : 1950 The following medications were updated within the [facility] medication list: Medications ADDED to [facility] medication list ? Albuterol sulfate 2.5mg/3mL 0.083% (1 vial via nebulizer Q4-6H PRN SOB) ? Amiodarone 200 mg TID ? Lantus 100 units/mL (inject 40 units SQ daily) ? Metoprolol tartrate 100 mg BID (hold for HR < 60 or SBP < 100 mmHg) - replacing 50 mg tab BID ? Simvastatin 20 mg daily HS (patient reports taking 40 mg daily HS) - replacing 40 mg tab daily ? Entresto 49-51 mg BID ? Potassium chloride ER 20 mEq BID ? Myrbetriq ER 25 mg daily for overactive bladder ? Irbesartan 300 mg daily ? Diltiazem 120 mg daily ? Furosemide 40 mg BID ? Glipizide 10 mg daily prior to eating Medications CHANGED on [facility] [employer] medication list ? Metformin 500 mg tab (changed from 1.75 tablets BID to 1.5 tablets daily - patient reported) Medications REMOVED from [facility] medication list ? Amlactin cream (pt reports not taking) ? Diazepam 5 mg (had note to D/C, lack of fill history) ? Glimepiride 1 mg (lack of fill history, 2 mg filled at [facility] back in 2018 per pharmacy) ? Lehigh 5-325 mg (had note to D/C, lack of fill history) ? Losartan 50 mg (lack of fill history) ? Metoprolol tartrate 50 mg (replaced by 100 mg due to most recent fill history, refer to added meds above) ? Simvastatin 40 mg (replaced by 20 mg due to most recent fill history, refer to added meds above) ? Tramadol 50 mg (lack of fill history, pt reports not taking) Additional comments: Spoke to patient to obtain medication history. Patient appeared alert and oriented at first, but soon began to come off as confused the more I asked her about her medications. Patient was able to tell me whether she was taking some medications, but for others she would blankly stare at me with a very confused look on her face and say she had no idea what I was talking about. After speaking with the patient, I called the patient's two pharmacies ([facility] [phone] AND [facility] [phone]) to verify the medications she was confused about based on her fill history. Majority of changes to patient's [facility] list were based on her most recent fill histories at [facility] and [facility]. Might require further action by clarifying with a caregiver/family member (if possible) to better confirm/verify patient's medications and if she is adherent to her treatment regimens. The below information represents the best possible medication history: Yes Medication history completed by: student records coordinator: Jus Echevarria ([employer]) Source of history: Patient: Reliability of source: appeared reliable for some medications, but overall was unconfused and not a reliable source for obtaining medication history (relied mostly on Pharmacy fill records to complete medication history), Pharmacy records: [facility] ([phone]) AND [facility] ([phone]) and [facility] records Medication nonadherence identified: patient appeared confused and not knowledgable of her medications for the most part (uncertain if she has someone to help her manage her medications) Reconciliation completed: Yes All [facility] medications addressed by LIP and Medication reconciliation completed by: Shelby Montenegro [facility] -discussed changes to medication list with LIP, will attempt to contact patient's daughter to clarify and update med list Patient interested in Bedside Delivery Services or using OP Pharmacy at discharge? Yes. Discharge Pharmacy Updated Preferred outpatient pharmacy: e- [facility] [place] [address] [address] [facility] [phone] e- [facility] [address] [place] [address] [address] [facility] [phone] [address] [facility] 518 e- [facility] [address] [address] [address] [facility] [phone] [id number] e- [facility] [address] [place], [place] [address] - [address] [facility] [phone] Allergies: No Known Allergies Prior to Admission medications as of 10/18/202132 Medication Sig Last Dose Taking metoprolol tartrate, short acting, (LOPRESSOR) 100 mg tablet Take 100 mg by mouth twice daily. HOLD FOR HEART LESS THAN 60 OR SYSTOLIC BLOOD PRESSURE LESS THAN 100 MMHG Yes sacubitril-valsartan (ENTRESTO) 49-51 mg tablet Take 1 tablet by mouth twice daily. Yes potassium chloride 20 mEq TbER Take 1 tablet by mouth twice daily. Yes mirabegron (MYRBETRIQ) 25 mg Tb24 Take 25 mg by mouth once daily. For overactive bladder Yes furosemide (LASIX) 40 mg tablet Take 40 mg by mouth twice daily. Yes glipiZIDE (GLUCOTROL) 10 mg tablet Take 10 mg by mouth once daily. Prior to eating Yes irbesartan (AVAPRO) 300 mg tablet Take 300 mg by mouth once daily. Yes dilTIAZem CD (CARTIA XT) (more content not included)... [facility] 10-20-2020 Note HNO ID: [id number] Author: Rc Oliva MD Service: Hospital Medicine Author Type: Physician Type: Progress Notes Filed: 10/20/2020 1:17 PM Note Text: DEPARTMENT OF HOSPITAL MEDICINE PROGRESS NOTE SERVICE DATE: 10/20/2020 SERVICE TIME: 1:01 PM Hospital Medicine/Primary Attending: Rc Agosto MD NIGHT AND WEEKEND COVERAGE: After 7pm please page [phone] SUBJECTIVE: still NPO , await speech eval Patient alert and oriented x2, no acute events Had brain MRI in AM Denies CP/SOB. Denies nausea/vomiting/diarrhea. OBJECTIVE: PHYSICAL EXAM: BP 114/87 Pulse 113 Temp (Src) 98.8 (Oral) Resp 18 Ht 5' 3 (1.60m) Wt 236 lb 5.3 oz (107.2kg) SpO2 100% BMI 41.88 kg/(m2). O2 Therapy: Room Air General: NAD, appears comfortable Resp: Clear to auscultation B/L, no wheeze/rhonchi, unlabored CV: RRR, Normal S1S2, No murmur/rub/gallop GI: soft, NT/ND, + BS Ext: no cyanosis/clubbing/edema Neuro: AANDO x 2, speech fluent MEDICATIONS: Current Facility-Administered Medications Medication Dose Route Frequency - atorvastatin 40 mg tab(s) (LIPITOR) 40 mg ORAL AT BEDTIME - heparin 5,000 Units injection 5,000 Units SUBCUTANEOUS q 12 H - NaCl 0.9% iv infusion 100 mL/hr INTRAVENOUS CONTINUOUS - cefTRIAXone iv piggyback 2 g in dextrose (iso-osmotic) 50 mL (ROCEPHIN) 2 g INTRAVENOUS q 24 H - aluminum-magnesium hydroxide-simethicone 200-200-20 mg/5 mL 30 mL (MAALOX,MYLANTA,MAG-AL PLUS) 30 mL ORAL DAILY PRN - ondansetron 4 mg tab(s) (ZOFRAN) 4 mg ORAL q 6 H PRN Or - ondansetron (PF) 4 mg injection (ZOFRAN) 4 mg INTRAVENOUS q 6 H PRN - polyethylene glycol 3350 17 g packet (MIRALAX, GLYCOLAX) 17 g ORAL DAILY PRN - acetaminophen 650 mg tab(s) (TYLENOL) 650 mg ORAL q 6 H PRN - metoprolol tartrate (short acting) 50 mg tab(s) (LOPRESSOR) 50 mg ORAL BID - amLODIPine 5 mg tab(s) (NORVASC) 5 mg ORAL DAILY - traMADol 50 mg tab(s) (ULTRAM) 50 mg ORAL BID PRN - aspirin 81 mg chewable tab(s) 81 mg ORAL DAILY - insulin lispro pen (rapid acting) (HumaLOG KWIKPEN) SUBCUTANEOUS w MEALS AND HS - dextrose 40 % 15 g 15 g ORAL PRN Or - glucagon 1 mg injection 1 mg INTRAMUSCULAR PRN Or - dextrose 50% in water 25 mL syringe 12.5 g INTRAVENOUS PRN - albuterol 2.5 mg /3 mL (0.083 %) 2.5 mg (PROVENTIL) 2.5 mg INHALATION q 6 H PRN DATA: Diagnostic tests reviewed for today's visit: CBC, Coags, BMP, Mg, Phos Recent Labs 10/20/2025610/19/2035110/18/20 1541 10/18/20 1537 WBC -- 9.82 -- 12.56* HB -- 13.6 -- 15.0 HCT -- 42.2 -- 46.0 PLT -- 199 -- 243 INR -- -- -- 1.1 APTT -- -- -- 21.9* NA 139 141 138 -- K 4.1 4.0 4.6 -- CHLOR 110* 108* 102 -- CO2 20* 22 22 23.4* BUN 22* 22* 30* -- CREAT 1.09* 1.03* 1.24* -- GLUC 115* 151* 198* -- CA 8.0* 8.5 9.5 -- MG -- 2.0 -- -- CSF AND Dilantin Liver Function, Amylase, AND Lipase Recent Labs 10/19/2035110/18/20 1541 10/18/20 1537 TPROT 6.1* 7.5 -- ALB 3.5* 4.1 -- ALT 20 20 -- AST 43* 44* -- ALKPHOS 43 50 -- TBILI 0.7 1.1 -- LACT -- -- 2.1 Cardiac Enzymes Recent Labs 10/20/20 02510/18/20 1538 CK 1,146* 2,743* ABGs Recent Labs 10/18/20 1537 O2AD 21 Assessment/Plan ? -L MCA acute ischemic strroke. -A fib -UTI -KATTY -Rhabdomyolysis -DM -HTN -Mildly elevated Troponin, demand ischemia -Subclinical hypothyroid ? Head CT:Stable left MCA territorial acute nonhemorrhagic infarct?+Diffuse atherosclerosis (with left ICA origin 30% narrowing).? Brain MRI :Acute left insular and frontal opercular cortical infarct with confluent petechial hemorrhage. ?No space occupying hematoma . Continue aspirin and statin,hold eliquis per Neuro recs Neurology follows HR controlled, on BB, Eliquis on hold. Continue ceftriaxone, UC positive for gram negative rods, await sensitivity. Cr improving with hydration, continue IVFs and encourage PO intake, will continue to monitor CK trending down TSH elevated,free T4 wnl , subclinical hypothyroid, will hold on off treatment . Will resume home meds for HTN as appropriate ? ? VTE Prophylaxis: as appropriate ? Disposition: To be determined/SNF Plan of care discussed with: Provider, RN, Patient SIGNATURE: Rc Oliva MD PATIENT NAME: Jessica Marley DATE: October 20, 2020 TIME: 1:01 PM PAGER/CONTACT #: DEXTER TEAM JONH [facility] 10-19-2020 Note HNO ID: [id number] Author: Rc Oliva MD Service: Hospital Medicine Author Type: Physician Type: Progress Notes Filed: 10/19/2020 1:59 PM Note Text: DEPARTMENT OF HOSPITAL MEDICINE PROGRESS NOTE SERVICE DATE: 10/19/2020 SERVICE TIME: 1:27 PM Hospital Medicine/Primary Attending: Dr. Rc Oliva MD NIGHT AND WEEKEND COVERAGE: After 7pm please page [phone] SUBJECTIVE: resting in bed, alert and oriented to herself and place. Dysarthria, right upper extremity weakness. Denies CP/SOB. Denies nausea/vomiting/diarrhea. OBJECTIVE: PHYSICAL EXAM: BP 118/70 Pulse 102 Temp (Src) 98.4 (Oral) Resp 20 Ht 5' 3 (1.60m) Wt 235 lb 3.7 oz (106.7kg) SpO2 98% BMI 41.68 kg/(m2). O2 Therapy: Room Air General: NAD, appears comfortable Resp: Clear to auscultation B/L, no wheeze/rhonchi, unlabored CV: RRR, Normal S1S2, No murmur/rub/gallop GI: soft, NT/ND, + BS Ext: no cyanosis/clubbing/edema, right upper extremity weakness Neuro: AANDO x 2, dysarthria. MEDICATIONS: Current Facility-Administered Medications Medication Dose Route Frequency - atorvastatin 40 mg tab(s) (LIPITOR) 40 mg ORAL AT BEDTIME - NaCl 0.9% iv infusion 100 mL/hr INTRAVENOUS CONTINUOUS - cefTRIAXone iv piggyback 2 g in dextrose (iso-osmotic) 50 mL (ROCEPHIN) 2 g INTRAVENOUS q 24 H - aluminum-magnesium hydroxide-simethicone 200-200-20 mg/5 mL 30 mL (MAALOX,MYLANTA,MAG-AL PLUS) 30 mL ORAL DAILY PRN - ondansetron 4 mg tab(s) (ZOFRAN) 4 mg ORAL q 6 H PRN Or - ondansetron (PF) 4 mg injection (ZOFRAN) 4 mg INTRAVENOUS q 6 H PRN - polyethylene glycol 3350 17 g packet (MIRALAX, GLYCOLAX) 17 g ORAL DAILY PRN - acetaminophen 650 mg tab(s) (TYLENOL) 650 mg ORAL q 6 H PRN - metoprolol tartrate (short acting) 50 mg tab(s) (LOPRESSOR) 50 mg ORAL BID - amLODIPine 5 mg tab(s) (NORVASC) 5 mg ORAL DAILY - traMADol 50 mg tab(s) (ULTRAM) 50 mg ORAL BID PRN - aspirin 81 mg chewable tab(s) 81 mg ORAL DAILY - insulin lispro pen (rapid acting) (HumaLOG KWIKPEN) SUBCUTANEOUS w MEALS AND HS - dextrose 40 % 15 g 15 g ORAL PRN Or - glucagon 1 mg injection 1 mg INTRAMUSCULAR PRN Or - dextrose 50% in water 25 mL syringe 12.5 g INTRAVENOUS PRN - albuterol 2.5 mg /3 mL (0.083 %) 2.5 mg (PROVENTIL) 2.5 mg INHALATION q 6 H PRN DATA: Diagnostic tests reviewed for today's visit: CBC, Coags, BMP, Mg, Phos Recent Labs 10/19/20 0352 10/18/20 1541 10/18/20 1537 WBC 9.82 -- 12.56* HB 13.6 -- 15.0 HCT 42.2 -- 46.0 PLT 199 -- 243 INR -- -- 1.1 APTT -- -- 21.9* NA 141 138 -- K 4.0 4.6 -- CHLOR 108* 102 -- CO2 22 22 23.4* BUN 22* 30* -- CREAT 1.03* 1.24* -- GLUC 151* 198* -- CA 8.5 9.5 -- MG 2.0 -- -- CSF AND Dilantin Liver Function, Amylase, AND Lipase Recent Labs 10/19/20 0352 10/18/20 1541 10/18/20 1537 TPROT 6.1* 7.5 -- ALB 3.5* 4.1 -- ALT 20 20 -- AST 43* 44* -- ALKPHOS 43 50 -- TBILI 0.7 1.1 -- LACT -- -- 2.1 Cardiac Enzymes Recent Labs 10/18/20 1538 CK 2,743* ABGs Recent Labs 10/18/20 1537 O2AD 21 Assessment/Plan -L MCA acute ischemic strroke. -A fib -UTI -KATTY -Rhabdomyolysis -DM -HTN -Mildly elevated Troponin, demand ischemia -Elevated TSH Head CT:Stable left MCA territorial acute nonhemorrhagic infarct +Diffuse atherosclerosis (with left ICA origin 30% narrowing). Brain MRI pending. Continue statin,hold eliquis per Neuro recs Neurology follows HR controlled, on BB, Eliquis on hold. Continue ceftriaxone, follow UC Cr improving with hydration, continue IVFs and encourage PO intake, will continue to monitor CK in AM Will check free T4 and consider starting synthroid if Free T4 is low. Will resume home meds for HTN as appropriate VTE Prophylaxis: as appropriate Disposition: To be determined Plan of care discussed with: Provider, RN, Patient SIGNATURE: Rc Oliva MD PATIENT NAME: Jessica Marley DATE: October 19, 2020 TIME: 1:27 PM PAGER/CONTACT #: Dexter team jonh [facility] 10-18-2020 Influenza virus A and B RNA and SARS-CoV-2 (COVID-19) N gene panel SELINA+probe (Resp) COVID 19 RESULT: SARS-CoV-2 (Agent of COVID-19) Not Detected by PCR. INFLUENZA A PCR: Negative for Influenza A by RT-PCR INFLUENZA B PCR: Negative for Influenza B by RT-PCR [facility] Chief Complaint ChiefComplaintFreeTextNoteForm_UH:ChiefComplaintFreeTextNoteForm_UH: ChiefComplaintFreeTextNoteForm_[facility]: Summary Purpose Family History No Family History Records FoundNo Family History Records FoundNo Family History Records FoundNo Family History Records Found Advance Directives No Advanced Directives Records FoundNo Advanced Directives Records FoundNo Advanced Directives Records FoundNo Advanced Directives Records Found Additional Source Comments INFORMATION SOURCE (unrecogn ized section and content) DATE CREATED AUTHOR AUTHOR'S ORGANIZ ATION 12/29/2020 [facility] DATE CREATED AUTHOR AUTHOR'S ORGANIZ ATION 01/16/2021 [facility] DATE CREATED AUTHOR AUTHOR'S ORGANIZ ATION 06/30/2021 [facility] <item> Privacy Markings (unrecogniz ed section and content) Section Author: Bonnie Alexander PROHIBITION ON REDISCLOSURE OF CONFIDENTIAL INFORMATION This notice accompanies a disclosure of information concerning a client made to you with the consent of such client. FOR RECORDS PERTAINING TO PATIENTS WHO ARE OR HAVE BEEN ENROLLED IN A CHEMICAL DEPENDENCY/SUBSTANCEABUSE PROGRAM, SOME INFORMATION MAY BE OMITTED. This clinical summary was aggregated from multiple sources. Caution should be exercised in using it in the provision of clinical care. This summary normalizes information from multiple sources, and as a consequence, information in this document may materially change the coding, format and clinical context of patient data. In addition, data may be omitted in some cases. CLINICAL DECISIONS SHOULD BE BASED ON THE PRIMARY CLINICAL RECORDS. [email or web address]. provides no warranty or guarantee of the accuracy or completeness of information in this document.
[2023-05-19 16:45] LABS: Color, Urine Yellow (Yellow); Glucose, Dipstick Normal (Normal); Ketone-Dipstick Negative (Negative); Leukocyte Esterase-Dipstick 500 /ul (Negative); Nitrite-Dipstick Negative (Negative); Occult Blood-Urine 10 /ul (Negative); Protein-Dipstick 30 mg/dl (Negative); Urine Bilirubin Dipstick Negative (Negative); Urine Clarity Sl. Cloudy (Clear); Urine Urobilinogen 4 mg/dl (Normal)
[2023-05-19 16:55] LABS: Red Blood Cells-Urine 0-5 SEEN /hpf (0-5); Squamous Epithelial Cells - UA 0-5 SEEN /hpf (5-10); White Blood Cells 10-25 SEEN /hpf (0-5)
== END | disposition home or self-care (01) ==
LOC: LAB 16:21
PROVIDERS: PCP Family Medicine; Referring Provider Physician Assistant Medical; Visit Provider Physician Assistant Medical
DX: N39.0 Urinary tract infection, site not specified (principal)
CPT/HCPCS: 81001